=== PATIENT | female | born 2000 | race Caucasian/White ===

== ENCOUNTER 2022-11-18 12:45 | Outpatient (OUT) | payer OTHER, SELFPAY ==
[2022-11-18 13:26] LABS: Basophils Absolute Auto 0.1 10^3/uL (0.0-0.1); Basophils Percent Auto 0.6 % (0.2-2.0); Eosinophils Absolute Auto 0.1 10^3/uL (0.0-0.7); Eosinophils Percent Auto 0.9 % (0.9-7.0); Hematocrit 43.5 % (36.0-48.0); Hemoglobin 13.8 g/dL (12.0-16.0); Immature Granulocytes Abs Auto 0.02 10^3/uL (0.00-0.03); Immature Granulocytes Pct Auto 0.3 % (0.0-0.5); Lymphocytes Absolute Auto 2.8 10^3/uL (1.2-3.8); Lymphocytes Percent Auto 36.4 % (20.5-60.0); Mean Corpuscular HGB Conc 31.7 g/dL (29.9-35.2); Mean Corpuscular Hemoglobin 27.2 pg (26.7-34.0); Mean Corpuscular Volume 85.8 fL (81.0-99.0); Mean Platelet Volume 9.4 fL (9.5-13.5); Monocytes Absolute Auto 0.5 10^3/uL (0.3-0.8); Monocytes Percent Auto 6.2 % (1.7-12.0); Neutrophils Absolute Auto 4.3 10^3/uL (1.4-6.5); Neutrophils Percent Auto 55.6 % (43.0-75.0); Platelet Count 432 10^3/uL (150-450); Red Blood Count 5.07 10^6/uL (4.20-5.40); Red Cell Distribution Width 13.8 % (11.0-15.0); White Blood Count 7.7 10^3/uL (4.0-11.0)
[2022-11-18 13:53] LABS: Estimated Average Glucose 94 mg/dL; Glycohemoglobin A1C 4.9 % (4.5-6.2)
[2022-11-18 14:16] LABS: Alanine Aminotransferase 17 U/L (14-59); Albumin Globulin Ratio 0.7; Albumin Level 3.1 g/dL (3.4-5.0); Alkaline Phosphatase 52 U/L (46-116); Anion Gap 11.9; Aspartate Amino Transferase 13 U/L (15-37); BUN Creatinine Ratio 11.2; Bilirubin Total 0.2 mg/dL (0.2-1.0); Calcium 8.9 mg/dL (8.5-10.1); Carbon Dioxide 28.1 mmol/L (21.0-32.0); Chloride 104 mmol/L (98-107); Chol HDL Ratio 4.8; Cholesterol 197 mg/dL (<=200); Estimated GFR (African America >60 (>=60); Estimated GFR (Non-African Ame >60 (>=60); Globulin 4.4 g/dL; Glucose 78 mg/dL (74-106); HDL Cholesterol 41 mg/dL (40-60); LDL Cholesterol Calculated 133.8 mg/dL; Sodium 140 mmol/L (136-145); Thyroid Stimulating Hormone 2.173 uIU/mL (0.358-3.740); Total Protein 7.5 g/dL (6.4-8.2); Triglycerides 111 mg/dL (<=150); VLDL CHOLESTEROL 22.2 mg/dL
== END 2022-11-18 12:46 ==
PROVIDERS: PCP Family Medicine; Visit Provider Family Medicine
DX: Z00.00 Encounter for general adult medical examination without abnormal findings (principal); R53.83 Other fatigue; E11.9 Type 2 diabetes mellitus without complications; Z79.899 Other long term (current) drug therapy
CPT/HCPCS: 36415; 80053; 80061; 83036; 84436; 84443; 84481; 85025

== ENCOUNTER 2024-06-23 14:42 | Outpatient (OUT) | payer OTHER, SELFPAY ==
--- NOTE | 2024-06-23 14:56 | XR_ITS ---
The [place] [id number] Patient Name: PURVI DEE MRN: [id number] date: 2000 Sex: F Assigned Patient Location: LAB Current Patient Location: Accession/Order Number: [id number] Exam Date: 06/23/2024 15:02 Report Date: 06/24/2024 07:16 At the request of: CAMILLE ENGLE Procedure: XR lumbar spine min 4V EXAMINATION: XR lumbar spine min 4V HISTORY: low back pain M54. COMPARISON: No relevant comparison available. FINDINGS: BONES: Normal. No significant spondylosis, scoliosis, fracture, or visible bony lesion. DISC SPACES: Normal. No significant disc height narrowing, subluxation, or endplate abnormality. PARASPINOUS: Negative. No paraspinous abnormality is seen. OTHER: Negative. XR/XR lumbar spine min 4V IMPRESSION: No acute radiographic abnormality Electronically authenticated by: RUBEN MACIAS Date: 06/24/2024 07:16
[2024-06-23 14:58] LABS: Basophils Percent Auto 0.4 % (0.2-2.0); Eosinophils Absolute Auto 0.1 10^3/uL (0.0-0.7); Eosinophils Percent Auto 0.8 % (0.9-7.0); Hematocrit 42.2 % (36.0-48.0); Hemoglobin 13.2 g/dL (12.0-16.0); Immature Granulocytes Abs Auto 0.02 10^3/uL (0.00-0.03); Immature Granulocytes Pct Auto 0.2 % (0.0-0.5); Lymphocytes Absolute Auto 2.4 10^3/uL (1.2-3.8); Mean Corpuscular HGB Conc 31.3 g/dL (29.9-35.2); Mean Corpuscular Hemoglobin 26.8 pg (26.7-34.0); Mean Corpuscular Volume 85.8 fL (81.0-99.0); Mean Platelet Volume 8.9 fL (9.5-13.5); Monocytes Absolute Auto 0.6 10^3/uL (0.3-0.8); Monocytes Percent Auto 5.6 % (1.7-12.0); Neutrophils Absolute Auto 6.6 10^3/uL (1.4-6.5); Platelet Count 418 10^3/uL (150-450); Red Blood Count 4.92 10^6/uL (4.20-5.40); Red Cell Distribution Width 13.2 % (11.0-15.0); White Blood Count 9.8 10^3/uL (4.0-11.0)
[2024-06-23 15:16] LABS: Estimated Average Glucose 103 mg/dL; Glycohemoglobin A1C 5.2 % (4.5-6.2)
[2024-06-23 15:31] LABS: Alanine Aminotransferase 16 U/L (14-59); Albumin Globulin Ratio 0.7; Alkaline Phosphatase 49 U/L (46-116); Anion Gap 12.8; Aspartate Amino Transferase 9 U/L (15-37); BUN Creatinine Ratio 13.2; Bilirubin Total 0.3 mg/dL (0.2-1.0); Calcium 8.6 mg/dL (8.5-10.1); Carbon Dioxide 27.9 mmol/L (21.0-32.0); Chloride 105 mmol/L (98-107); Chol HDL Ratio 4.2; Cholesterol 199 mg/dL (<=200); Estimated GFR (African America >60 (>=60 mL/min/1.73m^2); Estimated GFR (Non-African Ame >60 (>=60 mL/min/1.73m^2); Free T3 2.44 pg/mL (2.18-3.98); Globulin 4.4 g/dL; Glucose 75 mg/dL (74-106); HDL Cholesterol 47 mg/dL (40-60); Potassium 3.7 mmol/L (3.5-5.1); Sodium 142 mmol/L (136-145); Thyroid Stimulating Hormone 1.258 uIU/mL (0.358-3.740); Total Protein 7.4 g/dL (6.4-8.2); Triglycerides 110 mg/dL (<=150)
[2024-06-24 08:12] LABS: Insulin 19.2 uIU/mL (2.6-24.9)
== END 2024-06-23 14:43 | disposition home or self-care (01) ==
PROVIDERS: PCP Family Medicine; Visit Provider Family Medicine
DX: D72.829 Elevated white blood cell count, unspecified (principal); R00.2 Palpitations; E28.2 Polycystic ovarian syndrome; R05.3 Chronic cough; E78.5 Hyperlipidemia, unspecified; R53.83 Other fatigue; R73.09 Other abnormal glucose; I10 Essential (primary) hypertension; D64.9 Anemia, unspecified; E03.9 Hypothyroidism, unspecified; M54.50 Low back pain, unspecified
CPT/HCPCS: 36415; 72110; 80053; 80061; 83036; 83525; 83540; 84436; 84443; 84481; 85025

== ENCOUNTER 2024-06-25 09:50 | Outpatient (RCR) | payer OTHER, SELFPAY | END 2024-07-14 08:07 | disposition home or self-care (01) | LOC: PT 09:50 | PROVIDERS: PCP Family Medicine; Visit Provider Family Medicine | DX: M54.50 Low back pain, unspecified (principal) | CPT/HCPCS: 97035; 97110; 97140; 97161 ==

== ENCOUNTER 2024-06-28 14:57 | Outpatient (OUT) | payer OTHER, SELFPAY ==
--- NOTE | 2024-06-28 14:59 | US_ITS ---
The [address] [address] Patient Name: PURVI DEE MRN: [id number] date: 2000 Sex: F Assigned Patient Location: Current Patient Location: Accession/Order Number: [id number] Exam Date: 06/28/2024 15:00 Report Date: 06/29/2024 07:25 At the request of: CAMILLE ENGLE Procedure: US pelvis w/ transvaginal EXAM: US pelvis w/ transvaginal HISTORY: . Polycystic Ovarian Syndrome . COMPARISON: None. TECHNIQUE: Transabdominal and transvaginal scanning was performed FINDINGS: Scanning of the pelvis demonstrates a retroverted uterus measuring 6.1 x 4 x 4.8 cm. Endometrial complex measures 6 mm. Right ovary measures 2 x 1.5 x 1.4 cm. Color-flow is noted. Resistive indexes 0.36. No masses are noted. There are a couple follicles noted within the right ovary. Left ovary measures 1.6 x 1.8 x 1.3 cm. Color-flow is noted. Resistive indexes 0.56. Small follicles are noted. There is a 1.4 x 1 cm dominant follicle/simple cysts within the left ovary. No fluid is noted in the cul-de-sac. US/US pelvis w/ transvaginal IMPRESSION: 1. Normal-appearing retroverted uterus and normal endometrial complex. 2. Normal right ovary. 3. 1.4 x 1 cm simple cyst versus dominant follicle in the left ovary. Electronically authenticated by: RUBEN TOLENTINO Date: 06/29/2024 07:25
--- OUTSIDE RECORDS SUMMARY | 2024-06-28 15:03 | XMS_ITS | CCD ---
Author Organization [facility] Care Team Providers Care Yard Coupler Name Role Phone KRYSTAL NICOLAS Admitting Unavailable KRYSTAL NICOLAS Attending Unavailable ONIEL, DR OBRIEN Primary Care Unavailable KRYSTAL NICOLAS Consulting Unavailable ONIEL, DR OBRIEN Admitting Unavailable ONIEL, DR OBRIEN Attending Unavailable ONIEL, DR OBRIEN Primary Care Unavailable ONIEL, DR OBRIEN Consulting Unavailable ONIEL, DR OBRIEN Admitting Unavailable ONIEL, DR OBRIEN Attending Unavailable ONIEL, DR OBRIEN Primary Care Unavailable ONIEL, DR OBRIEN Consulting Unavailable ONIEL, DR OBRIEN Admitting Unavailable ONIEL, DR OBRIEN Attending Unavailable ONIEL, DR OBRIEN Primary Care Unavailable ONIEL, DR OBRIEN Consulting Unavailable JOHANA, FELY Referring Unavailable CAMILLE GARCES Primary Care Unavailable Medications Current Medications Medication Drug Class(es) Dates Sig (Normalized) Sig (Original) 12 hr buPROPion hydrochloride 150 mg extended release oral tablet (1 source) Aminoketone Start: 06-18-2024 take 1 tablet by mouth every twenty-four hours Bupropion Hcl 150 mg tablet extended release 24 hr Active MG PO June 18, 2024 12:00am cyclobenzaprine hydrochloride 10 mg oral tablet (1 source) Muscle Relaxant Start: 06-18-2024 take 1 tablet by mouth three times daily as needed for muscle spasms Cyclobenzaprine 10 mg tablet Active 10 MG PO Three times daily as needed for muscle spasm 15 5 June 18, 2024 12:00am Levonorgestrel-Ethiny l Estrad (1 source) Progestin, Estrogen, Progestin-contain ing Intrauterine Device Start: 06-18-2024 take 1 tablet by mouth every month Levonorgestrel-Ethin yl Estrad (Setlakin) 0.15 mg-30 mcg (91) tablets,dose pack,3 month Active TAB PO June 18, 2024 12:00am metFORMIN hydrochloride 500 mg oral tablet (1 source) Biguanide Start: 06-18-2024 Metformin 500 mg tablet Active MG PO June 18, 2024 12:00am naproxen 500 mg oral tablet (1 source) Nonsteroidal Anti-inflammatory Drug Start: 06-18-2024 take 1 tablet by mouth twice daily as needed for pain Naproxen 500 mg tablet Active 500 MG PO Twice daily as needed for pain 30 15 June 18, 2024 12:00am omeprazole 40 mg delayed release oral capsule (1 source) Proton Pump Inhibitor Start: 06-18-2024 Omeprazole 40 mg capsule,delayed release(DR/EC) Active MG PO June 18, 2024 12:00am Problems Active Problems Problem Classification Problem Date Documented Date Episodic/Chronic Anxiety disorders (1 source) Anxiety; Translations: [Anxiety disorder, unspecified] 06-18-2024 Chronic Conditions associated with dizziness or vertigo (1 source) Dizziness and giddiness; Translations: [Dizziness and giddiness] Onset: 08-07-2023 Episodic Esophageal disorders (1 source) Gastroesophageal reflux disease; Translations: [Gastro-esophageal reflux disease without esophagitis] 06-18-2024 Chronic Malaise and fatigue (1 source) Other fatigue; Translations: [Other fatigue] Onset: 08-07-2023 Episodic Mood disorders (1 source) Depressive disorder; Translations: [Depression] 06-18-2024 Chronic Other endocrine disorders (1 source) Polycystic ovary syndrome; Translations: [Polycystic ovarian syndrome] 06-18-2024 Chronic Sprains and strains (2 sources) Low back strain; Translations: [Strain of muscle, fascia and tendon of lower back, initial encounter] 06-18-2024 Episodic Unclassified (1 source) CONTACT W/AND (SUSP) EXPOS COVID-19; Translations: [CONTACT W/AND (SUSP) EXPOS COVID-19] Onset: 11-19-2021 Unclassified (3 sources) COUGH, UNSPECIFIED; Translations: [COUGH, UNSPECIFIED] Onset: 11-19-2021 Past or Other Problems Problem Classification Problem Date Documented Da te Episodic/Chronic Other upper respiratory infections (4 sources) Acute sinusitis, unspecified; Translations: [ACUTE SINUSITIS UNSPECIFIED] Onset: 09-20-2021 Episodic Unclassified (1 source) COUGH, UNSPECIFIED; Translations: [COUGH, UNSPECIFIED] Onset: 11-13-2021 Results Test Name Value Interpretation Reference Range Facility COMPLETE BLOOD COUNTon 08-07 Erythrocyte distribution width (RBC) [Ratio] 13.9 % Normal 11.5-15.0 [facility] Comment on above: Performed By: #### C BC, CMP, THYR, 16952-4 #### [facility] ([id number]) [address], [facility] [address] [place] [address] Hematocrit (Bld) [Volume fraction] 39.2 % Normal 35-47 [facility] Comment on above: Performed By: #### C BC, CMP, THYR, 58294-5 #### [facility] ([id number]) [address], [facility] [address] [place] [address] Hemoglobin (Bld) [Mass/Vol] 13.4 g/dL Normal 11.7-15.5 [facility] Comment on above: Performed By: #### C BC, CMP, THYR, 76133-9 #### [facility] ([id number]) [address], [facility] [address] [place] [address] MCH (RBC) [Entitic mass] 28.5 pg Normal 27-34 [facility] Comment on above: Performed By: #### C BC, CMP, THYR, 61825-5 #### [facility] ([id number]) [address], [facility] [address] [place] [address] MCHC (RBC) [Mass/Vol] 34.1 g/dL Normal 32-36 [facility] Comment on above: Performed By: #### C BC, CMP, THYR, 62725-4 #### [facility] ([id number]) [address] [address] [place] [address] MCV (RBC) [Entitic vol] 84 fL Normal 80-100 [facility] Comment on above: Performed By: #### C BC, CMP, THYR, 80025-8 #### [facility] ([id number]) [address], [address] [place] [address] Platelet mean volume (Bld) [Entitic vol] 8.1 fL Normal 7-12 [facility] Comment on above: Performed By: #### C BC, CMP, THYR, 56334-5 #### [facility] ([id number]) [address] [address] [place] [address] Platelets (Bld) [#/Vol] 418 10*3/uL Normal 150-450 [facility] Comment on above: Performed By: #### C BC, CMP, THYR, 89438-0 #### [facility] ([id number]) [address], [address] [place] [address] RBC COUNT 4.68 X10E12/L Normal 3.80-5.20 [facility] Comment on above: Performed By: #### C BC, CMP, THYR, 58975-1 #### [facility] ([id number]) [address] [address] [place] [address] WBC (Bld) [#/Vol] 9.2 10*3/uL Normal 4.0-11.0 [facility] Comment on above: Performed By: #### C BC, CMP, THYR, 73943-6 #### [facility] ([id number]) [address], [address] [place] [address] COMPREHENSIVE METABOLIC PANE Main 08-07-2023 Albumin [Mass/Vol] 4.1 g/dL Normal 3.2-5.3 [facility] Comment on above: Performed By: #### C BC, CMP, THYR, 38153-7 #### [facility] ([id number]) [address], [address] [place] [address] ALP [Catalytic activity/Vol] 44 U/L Normal 39-130 [facility] Comment on above: Performed By: #### C BC, CMP, THYR, 80492-2 #### [facility] ([id number]) [address], [address] [place] [address] ALT [Catalytic activity/Vol] 10 U/L Normal 0-31 [facility] Comment on above: Performed By: #### C BC, CMP, THYR, 42430-2 #### [facility] ([id number]) [address], [address] [place] [address] Anion gap [Moles/Vol] 12 mmol/L Normal 5-15 [facility] Comment on above: Performed By: #### C BC, CMP, THYR, 64300-2 #### [facility] ([id number]) [address], [address] [place] [address] AST [Catalytic activity/Vol] 11 U/L Normal 0-41 [facility] Comment on above: Performed By: #### C BC, CMP, THYR, 73824-2 #### [facility] ([id number]) [address], [address] [place] [address] Bilirubin [Mass/Vol] 0.3 mg/dL Normal 0.3-1.2 [facility] Comment on above: Performed By: #### C BC, CMP, THYR, 73903-0 #### [facility] ([id number]) [address], [address] [place] [address] Calcium [Mass/Vol] 8.9 mg/dL Normal 8.5-10.5 [facility] Comment on above: Performed By: #### C BC, CMP, THYR, 06560-7 #### [facility] ([id number]) [address], [address] [place] [address] Chloride [Moles/Vol] 102 mmol/L Normal 98-109 [facility] Comment on above: Performed By: #### C BC, CMP, THYR, 71048-6 #### [facility] ([id number]) [address], [address] [place] [address] CO2 [Moles/Vol] 26 mmol/L Normal 22-32 [facility] Comment on above: Performed By: #### C BC, CMP, THYR, 40392-7 #### [facility] ([id number]) [address], [address] [place] [address] Creatinine [Mass/Vol] 0.91 mg/dL Normal 0.40-1.00 [facility] Comment on above: Result Comment: METH OD TRACEABLE TO IDMS STANDARD Performed By: #### C BC, CMP, THYR, 90652-9 #### [facility] ([id number]) [address], [address] [place] [address] eGFR (CKD-EPI) NON-RACE DEPENDENT >90 Normal >59 [facility] Comment on above: Result Comment: Reported eGFR is based on the CKD-EPI 2020 equation that does not use a race coefficient. Performed By: #### C BC, CMP, THYR, 98423-0 #### [facility] ([id number]) [address], [address] [place] [address] Glucose [Mass/Vol] 75 mg/dL Normal 65-99 [facility] Comment on above: Performed By: #### C BC, CMP, THYR, 66904-3 #### [facility] ([id number]) [address], [address] [place] [address] Potassium [Moles/Vol] 3.8 mmol/L Normal 3.5-5.0 [facility] Comment on above: Performed By: #### C BC, CMP, THYR, 74678-8 #### [facility] ([id number]) [address] [address] [place] [address] Protein [Mass/Vol] 7.5 g/dL Normal 6.0-8.0 [facility] Comment on above: Performed By: #### C BC, CMP, THYR, 65362-5 #### [facility] ([id number]) [address], [address] [place] [address] Sodium [Moles/Vol] 140 mmol/L Normal 134-146 [facility] Comment on above: Performed By: #### C BC, CMP, THYR, 91065-3 #### [facility] ([id number]) [address], [address] [place] [address] Urea nitrogen [Mass/Vol] 10 mg/dL Normal 5-23 [facility] Comment on above: Performed By: #### C BC, CMP, THYR, 68703-3 #### [facility] ([id number]) [address], [address] [place] [address] THYROID PROFILEon 08-07-2023 Free T4 [Mass/Vol] 0.69 ng/dL Normal 0.61-1.60 [facility] Comment on above: Performed By: #### C BC, CMP, THYR, 63345-9 #### [facility] ([id number]) [address], [address] [place] [address] TSH 2.78 uIU/mL Normal 0.49-4.67 [facility] Comment on above: Performed By: #### C BC, CMP, THYR, 30474-7 #### [facility] ([id number]) [address], [address] [place] [address] Vitamin D+Metabolites [Mass/ Vol]on 08-07-2023 VITAMIN D 25 HYD TOT 15.7 ng/mL Low 30-100 [facility] Comment on above: Result Comment: Vitamin D status 25 [place] Vitamin D Deficiency <20 ng/mL Insufficiency 20-29 ng/mL Sufficiency 30-100 ng/mL Toxicity >100 ng/mL NOTE: A pediatric reference range has not been established by the air hose coupler of this kit. The [place] [employer] recommends a Vitamin D level of = or >20ng/mL in infants and children. Performed By: #### C BC, CMP, THYR, 24142-1 #### [facility] ([id number]) [address] [facility], [address] [place] [address] Covid-19 PCR (CVDTB)on 05-18 SARS-CoV-2 (COVID-19) RNA ALESSANDRA+probe Ql (Unsp spec) Not detected Normal NOT DETECTED The Comment on above: Result Comment: This test is not yet approved or cleared by the [place] FDA. When there are no FDA-approved or cleared tests available, and other criteria are met, FDA can make tests available under an emergency access mechanism called an Emergency Use Authorization (EUA). The EUA for this test is supported by the [place] of Health and Human Service's (HHS's) declaration that circumstances exist to justify the emergency use of in vitro diagnostics for the detection and/or diagnosis of the virus that causes COVID-19. This EUA will remain in effect (meaning this test can be used) for the duration of the COVID-19 declaration justifying emergency of IVDs, unless it is terminated or revoked by FDA (after which the test may no longer be used). When diagnostic testing is negative, the possibility of a false negative should be considered in the context of a patient's recent exposures and the presence of clinical signs and symptoms consistent with SARS-CoV-2. Performed By: #### C VDTBH #### Laboratory [address] [place] [address] Dr. Kacie Mirza INFLUENZA A AND B AGon 06-14 INFLUANE SEE BELOW Normal [facility] Comment on above: Result Comment: Nega tive for Flu A protein angiten. Infection due to Flu A cannot be ruled out. Flu A angiten in the sample may be below the detection limit of the test. Performed By: #### I NFLUAB #### Laboratory [address] [address] [address] Kacie Mirza INFLUBNEG SEE BELOW Normal [facility] Comment on above: Result Comment: Nega tive for Flu B protein antigen. Infection due to Flu B cannot be ruled out. Flu B antigen in the sample may be below the detection limit of the test. Performed By: #### I NFLUAB #### Laboratory [address] [place] [address] Dr. Kacie Mirza INFLUENZA A AG Negative Normal NEGATIVE SEE COMMENT The Comment on above: Performed By: #### I NFLUAB #### Laboratory [address] [place] [address] Dr. Kacie Mirza INFLUENZA B AG Negative Normal NEGATIVE SEE COMMENT The Comment on above: Performed By: #### I NFLUAB #### Laboratory [address] [place] [address] Dr. Kacie Mirza Covid-19 PCR (CVDTB)on 10-16 SARS-CoV-2 (COVID-19) RNA ALESSANDRA+probe Ql (Unsp spec) Not detected Normal NOT DETECTED The Comment on above: Result Comment: This test is not yet approved or cleared by the [place] FDA. When there are no FDA-approved or cleared tests available, and other criteria are met, FDA can make tests available under an emergency access mechanism called an Emergency Use Authorization (EUA). The EUA for this test is supported by the [place] of Health and Human Service's (HHS's) declaration that circumstances exist to justify the emergency use of in vitro diagnostics for the detection and/or diagnosis of the virus that causes COVID-19. This EUA will remain in effect (meaning this test can be used) for the duration of the COVID-19 declaration justifying emergency of IVDs, unless it is terminated or revoked by FDA (after which the test may no longer be used). When diagnostic testing is negative, the possibility of a false negative should be considered in the context of a patient's recent exposures and the presence of clinical signs and symptoms consistent with SARS-CoV-2. Performed By: #### C VDTBH #### Laboratory [address] [place] [address] Dr. Kacie Mirza SYMPTOMATIC COVID-19 ANTIGEN on 11-13-2021 EUA Statement SEE BELOW Normal [facility] Comment on above: Result Comment: This test has not been FDA cleared or approved, but has been authorized by the FDA under an Emergency Use Authorization (EUA) for use by authorized laboratories certified under CLIA that meet the requirements to perform moderate or high complexity testing. This test has been authorized only for the detection of proteins from SARS-CoV-2, not for any other viruses or pathogens. The emergency use of this test is authorized for the duration of the declaration that circumstances exist justifying the authorization of emergency use of in vitro diagnostic tests for detection and/or diagnosis of Covid-19 under section 564(b)(1) of the Act, 21 U.S.C. 360bbb-3(b)(1), unless the declaration is terminated or authorization is revoked sooner. Performed By: #### C VDAGS #### Laboratory [address] [place] [address] Dr. Kacie Mirza SARS-CoV-2 (COVID-19) RNA ALESSANDRA+probe Ql (Unsp spec) Negative Normal NEGATIVE [facility] Comment on above: Performed By: #### C VDAGS #### Laboratory [address] [place] [address] Dr. Kacie Mirza INSULINon 10-19-2021 Insulin 36.4 uIU/mL Critically high 2.6-24.9 [facility] Comment on above: Performed By: #### I NSULIN #### Laboratory [address] [place] [address] Dr. Kacie Mirza CBC AUTO DIFFon 10-18-2021 BASO # 0.1 103/ul Normal 0.0-0.1 [facility] Comment on above: Performed By: #### L IPID, T7, CMP, TSH #### Laboratory [address] [place] [address] Dr. Kacie Mirza Basophils/100 WBC (Bld) 0.6 % Normal 0.2-2.0 [facility] Comment on above: Performed By: #### L IPID, T7, CMP, TSH #### Laboratory [address] [place] [address] Dr. Kacie Mirza EO # 0.1 103/ul Normal 0.0-0.7 The Comment on above: Performed By: #### L IPID, T7, CMP, TSH #### Laboratory [address] [place] [address] Dr. Kacie Mirza Eosinophils/100 WBC (Bld) 0.8 % Critically low 0.9-7.0 [facility] Comment on above: Performed By: #### L IPID, T7, CMP, TSH #### Laboratory [address] [place] [address] Dr. Kacie Mirza Erythrocyte distribution width (RBC) [Ratio] 13.6 % Normal 11.0-15.0 The Comment on above: Performed By: #### L IPID, T7, CMP, TSH #### Laboratory [address] [place] [address] Dr. Kacie Mirza Hematocrit (Bld) [Volume fraction] 43.9 % Normal 36.0-48.0 The Comment on above: Performed By: #### L IPID, T7, CMP, TSH #### Laboratory [address] [place] [address] Dr. Kacie Mirza Hemoglobin (Bld) [Mass/Vol] 14.2 g/dL Normal 12.0-16.0 [facility] Comment on above: Performed By: #### L IPID, T7, CMP, TSH #### Laboratory [address] [place] [address] Dr. Kacie Mirza IG # 0.02 10e3/ul Normal 0.00-0.03 The Comment on above: Performed By: #### L IPID, T7, CMP, TSH #### Laboratory [address] [place] [address] Dr. Kacie Mirza IG % 0.2 % Normal 0.0-0.5 The Comment on above: Performed By: #### L IPID, T7, CMP, TSH #### Laboratory [address] [place] [address] Dr. Kacie Mirza LYMPH # 3.4 103/ul Normal 1.2-3.8 The Comment on above: Performed By: #### L IPID, T7, CMP, TSH #### Laboratory [address] [address] [address] Kacie Mirza Lymphocytes/100 WBC (Bld) 34.1 % Normal 20.5-60.0 [facility] Comment on above: Performed By: #### L IPID, T7, CMP, TSH #### Laboratory [address] [address] [address] Kacie Mirza MANUAL DIFF REQ NO Normal [facility] Comment on above: Performed By: #### L IPID, T7, CMP, TSH #### Laboratory [address] [address] [address] Kacie Mirza MCH (RBC) [Entitic mass] 28.1 pg Normal 26.7-34.0 [facility] Comment on above: Performed By: #### L IPID, T7, CMP, TSH #### Laboratory [address] [place] [address] Dr. Kacie Mirza MCHC (RBC) [Mass/Vol] 32.3 g/dL Normal 29.9-35.2 The Comment on above: Performed By: #### L IPID, T7, CMP, TSH #### Laboratory [address] [place] [address] Dr. Kacie Mirza MCV (RBC) [Entitic vol] 86.8 fL Normal 81.0-99.0 [facility] Comment on above: Performed By: #### L IPID, T7, CMP, TSH #### Laboratory [address] [place] [address] Dr. Kacie Mirza MONO # 0.7 103/ul Normal 0.3-0.8 [facility] Comment on above: Performed By: #### L IPID, T7, CMP, TSH #### Laboratory [address] [place] [address] Dr. Kacie Mirza Monocytes/100 WBC (Bld) 7.1 % Normal 1.7-12.0 [facility] Comment on above: Performed By: #### L IPID, T7, CMP, TSH #### Laboratory [address] [address] [address] Kacie Mirza NEUT # 5.6 103/ul Normal 1.4-6.5 The Comment on above: Performed By: #### L IPID, T7, CMP, TSH #### Laboratory [address] [address] [address] Kacie Mirza Neutrophils/100 WBC (Bld) 57.2 % Normal 43.0-75.0 The Comment on above: Performed By: #### L IPID, T7, CMP, TSH #### Laboratory [address] [address] [address] Kacie Mirza Platelet mean volume (Bld) [Entitic vol] 8.9 fL Critically low 9.5-13.5 [facility] Comment on above: Performed By: #### L IPID, T7, CMP, TSH #### Laboratory [address] [address] [address] Kacie Mirza PLT 424 103/ul Normal 150-450 The Comment on above: Performed By: #### L IPID, T7, CMP, TSH #### Laboratory [address] [address] [address] Kacie Mirza RBC 5.06 106/ul Normal 4.20-5.40 The Comment on above: Performed By: #### L IPID, T7, CMP, TSH #### Laboratory [address] [address] [address] Kacie Mirza WBC 9.8 103/ul Normal 4.0-11.0 The Comment on above: Performed By: #### L IPID, T7, CMP, TSH #### Laboratory [address] [address] [address] Kacie Mirza FREE THYROXINE INDEX T7on FTI 3.16 Normal [facility] Comment on above: Performed By: #### L IPID, T7, CMP, TSH #### Laboratory [address] [address] [address] Kacie Mirza T3U 27.0 % Critically low 30.0-39.0 [facility] Comment on above: Performed By: #### L IPID, T7, CMP, TSH #### Laboratory [address] [address] [address] Kacie Mirza T4 [Mass/Vol] 11.70 ug/dL Normal 4.80-13.90 [facility] Comment on above: Performed By: #### L IPID, T7, CMP, TSH #### Laboratory [address] [address] [address] aKcie Mirza GLYCOHEMOGLOBIN A1Con 2021 ADA RECOMMENDATION SEE BELOW Normal [facility] Comment on above: Result Comment: ADA RECOMMENDED LIMIT 4.0 - 6.0 ADA THERAPEUTIC TARGET < 7.0 ACTION SUGGESTED > 7.0 Performed By: #### L IPID, T7, CMP, TSH #### Laboratory [address] [place] [address] Dr. Kacie Mirza Glucose [Mass/Vol] 103 mg/dL Normal [facility] Comment on above: Performed By: #### L IPID, T7, CMP, TSH #### Laboratory [address] [place] [address] Dr. Kacie Mirza HbA1c (Bld) [Mass fraction] 5.2 % Normal 4.5-6.2 [facility] Comment on above: Performed By: #### L IPID, T7, CMP, TSH #### Laboratory [address] [address] [address] Kacie Mirza LIPID PROFILEon 10-18-2021 CHOL-HDL RATIO NORM SEE BELOW Normal [facility] Comment on above: Result Comment: 3.3 - 4.4 LOW RISK 4.4 - 7.1 AVERAGE RISK 7.1 - 11.0 MODERATE RISK >11.0 HIGH RISK Performed By: #### L IPID, T7, CMP, TSH #### Laboratory [address] [place] [address] Dr. Kacie Mirza Cholesterol [Mass/Vol] 195 mg/dL Normal <=200 [facility] Comment on above: Performed By: #### L IPID, T7, CMP, TSH #### Laboratory [address] [address] [address] Kacie Mirza Cholesterol in HDL [Mass/Vol] 43 mg/dL Normal 40-60 [facility] Comment on above: Performed By: #### L IPID, T7, CMP, TSH #### Laboratory [address] [address] [address] Kacie Mirza Cholesterol in LDL [Mass/Vol] 122.6 mg/dL Normal [facility] Comment on above: Performed By: #### L IPID, T7, CMP, TSH #### Laboratory [address] [address] [address] Kacie Mirza Cholesterol.total/Cho lesterol in HDL [Mass ratio] 4.5 {ratio} Normal [facility] Comment on above: Performed By: #### L IPID, T7, CMP, TSH #### Laboratory [address] [address] [address] Kacie Mirza HDL NORMAL > or = 60 mg/dl - LOW CARDIOVASCULAR RISK <40 mg/dl - HIGH CARDIOVASCULAR RISK Normal [facility] Comment on above: Performed By: #### L IPID, T7, CMP, TSH #### Laboratory [address] [address] [address] Kacie Mirza LDL CALC NORMAL SEE BELOW Normal [facility] Comment on above: Result Comment: <100 mg/dl OPTIMAL 100 - 129 mg/dl NEAR OR ABOVE OPTIMAL 130 - 159 mg/dl BORDERLINE HIGH 160 - 189 mg/dl HIGH >190 mg/dl VERY HIGH Performed By: #### L IPID, T7, CMP, TSH #### Laboratory [address] [address] [address] Kacie Mirza Triglyceride [Mass/Vol] 147 mg/dL Normal <=150 The Comment on above: Performed By: #### L IPID, T7, CMP, TSH #### Laboratory [address] [address] [address] Kacie Mirza VLDL CALC 29.4 mg/dL Normal [facility] Comment on above: Performed By: #### L IPID, T7, CMP, TSH #### Laboratory [address] [place] [address] Dr. Kacie Mirza PROF 14(COMP METB)on 022 Albumin [Mass/Vol] 3.5 g/dL Normal 3.4-5.[address] [facility] Comment on above: Performed By: #### L IPID, T7, CMP, TSH #### Laboratory [address] [place] [address] Dr. Kacie Mirza Albumin/Globulin [Mass ratio] 0.8 {ratio} Normal [facility] Comment on above: Performed By: #### L IPID, T7, CMP, TSH #### Laboratory [address] [place] [address] Dr. Kacie Mirza ALP [Catalytic activity/Vol] 55 U/L Normal 46-116 [facility] Comment on above: Performed By: #### L IPID, T7, CMP, TSH #### Laboratory [address] [place] [address] Dr. Kacie Mirza ALT [Catalytic activity/Vol] 24 U/L Normal 14-59 [facility] Comment on above: Performed By: #### L IPID, T7, CMP, TSH #### Laboratory [address] [address] [address] Kacie Mirza Anion gap [Moles/Vol] 9.9 mmol/L Normal [facility] Comment on above: Performed By: #### L IPID, T7, CMP, TSH #### Laboratory [address] [address] [address] Kacie Mirza AST [Catalytic activity/Vol] 14 U/L Critically low 15-37 [facility] Comment on above: Performed By: #### L IPID, T7, CMP, TSH #### Laboratory [address] [address] [address] Kacie Mirza Bilirubin [Mass/Vol] 0.3 mg/dL Normal 0.2-1.0 [facility] Comment on above: Performed By: #### L IPID, T7, CMP, TSH #### Laboratory [address] [address] [address] Kacie Mirza Calcium [Mass/Vol] 8.6 mg/dL Normal 8.5-10.1 [facility] Comment on above: Performed By: #### L IPID, T7, CMP, TSH #### Laboratory [address] [address] [address] Kacie Mirza Chloride [Moles/Vol] 101 mmol/L Normal 98-107 The Comment on above: Performed By: #### L IPID, T7, CMP, TSH #### Laboratory [address] [address] [address] Kacie Mirza CO2 [Moles/Vol] 27.7 mmol/L Normal 21.0-32.0 [facility] Comment on above: Performed By: #### L IPID, T7, CMP, TSH #### Laboratory [address] [place] [address] Dr. Kacie Mirza Creatinine [Mass/Vol] 0.93 mg/dL Normal 0.55-1.02 The Comment on above: Performed By: #### L IPID, T7, CMP, TSH #### Laboratory [address] [address] [address] Kacie Mirza EGFR-AF ECUADOREAN >60 Normal >=60 [facility] Comment on above: Performed By: #### L IPID, T7, CMP, TSH #### Laboratory [address] [address] [address] Kacie Mirza EGFR-NON AF ECUADOREAN >60 Normal >=60 The Comment on above: Performed By: #### L IPID, T7, CMP, TSH #### Laboratory [address] [place] [address] Dr. Kacie Mirza Globulin (S) [Mass/Vol] 4.6 g/dL Normal The Comment on above: Performed By: #### L IPID, T7, CMP, TSH #### Laboratory [address] [address] [address] Kacie Mirza Glucose [Mass/Vol] 75 mg/dL Normal 74-106 [facility] Comment on above: Performed By: #### L IPID, T7, CMP, TSH #### Laboratory [address] [place] [address] Dr. Kacie Mirza Potassium [Moles/Vol] 3.6 mmol/L Normal 3.5-5.1 [facility] Comment on above: Performed By: #### L IPID, T7, CMP, TSH #### Laboratory [address] [place] [address] Dr. Kacie Mirza Protein [Mass/Vol] 8.1 g/dL Normal 6.4-8.[address] [facility] Comment on above: Performed By: #### L IPID, T7, CMP, TSH #### Laboratory [address] [place] [address] Dr. Kacie Mirza Sodium [Moles/Vol] 135 mmol/L Critically low 136-145 [facility] Comment on above: Performed By: #### L IPID, T7, CMP, TSH #### Laboratory [address] [place] [address] Dr. Kacie Mirza Urea nitrogen [Mass/Vol] 8.0 mg/dL Normal 7.0-18.0 [facility] Comment on above: Performed By: #### L IPID, T7, CMP, TSH #### Laboratory [address] [place] [address] Dr. Kacie Mirza Urea nitrogen/Creatinine [Mass ratio] 8.6 mg/mg Normal [facility] Comment on above: Performed By: #### L IPID, T7, CMP, TSH #### Laboratory [address] [place] [address] Dr. Kacie Mirza TSHon 10-18-2021 TSH 2.207 uIU/mL Normal 0.358-3.740 [facility] Comment on above: Performed By: #### L IPID, T7, CMP, TSH #### Laboratory [address] [place] [address] Dr. Kacie Mirza TSH RANGE SEE BELOW Normal [facility] Comment on above: Result Comment: <0.3 4 UIU/ml HYPERTHYROID 0.34-5.60 UIU/ml EUTHYROID >5.60 UIU/ml HYPOTHYROID Performed By: #### L IPID, T7, CMP, TSH #### Laboratory [address] [address] [address] Kacie Mirza Covid-19 PCR ([facility])on SARS-CoV-2 (COVID-19) RNA ALESSANDRA+probe Ql (Unsp spec) Not detected Normal NOT DETECTED The Comment on above: Result Comment: This test is not yet approved or cleared by the [place] FDA. When there are no FDA-approved or cleared tests available, and other criteria are met, FDA can make tests available under an emergency access mechanism called an Emergency Use Authorization (EUA). The EUA for this test is supported by the [place] of Health and Human Service's (HHS's) declaration that circumstances exist to justify the emergency use of in vitro diagnostics for the detection and/or diagnosis of the virus that causes COVID-19. This EUA will remain in effect (meaning this test can be used) for the duration of the COVID-19 declaration justifying emergency of IVDs, unless it is terminated or revoked by FDA (after which the test may no longer be used). When diagnostic testing is negative, the possibility of a false negative should be considered in the context of a patient's recent exposures and the presence of clinical signs and symptoms consistent with SARS-CoV-2. Performed By: #### L IPID, T7, CMP, TSH #### Laboratory [address] [place] [address] Dr. aKcie Mirza INFLUENZA A AND B AGon 09-20 [facility] SEE BELOW Normal [facility] Comment on above: Result Comment: Nega tive for Flu A protein angiten. Infection due to Flu A cannot be ruled out. Flu A angiten in the sample may be below the detection limit of the test. Performed By: #### I NFLUAB #### Laboratory [address] [place] [address] Dr. [facility] Normal [facility] Comment on above: Result Comment: Nega tive for Flu B protein antigen. Infection due to Flu B cannot be ruled out. Flu B antigen in the sample may be below the detection limit of the test. Performed By: #### I NFLUAB #### Laboratory [address] [address] [address] Kacie Mirza INFLUENZA A AG Negative Normal NEGATIVE SEE COMMENT [facility] Comment on above: Performed By: #### I NFLUAB #### Laboratory [address] [address] [address] Kaice Mirza INFLUENZA B AG Negative Normal NEGATIVE SEE COMMENT [facility] Comment on above: Performed By: #### I NFLUAB #### Laboratory [address] [address] [address] Kacie Mirza INTERNAL CONTROLS Within Normal Limits Normal Wi thin Normal Limits The Comment on above: Performed By: #### I NFLUAB #### Laboratory [address] [address] [address] Kacie Mirza Vital Signs Date Time Vital Sign Value Performing Clinician Faci lity 06-18-2024 12:12-0500 Body height 170.18 cm [facility] 06-18-2024 12:12-0500 Body mass index (BMI) [Ratio] 35.2 kg/m2 [facility] 06-18-2024 12:12-0500 Body temperature 98.3 [degF] [facility] 06-18-2024 12:12-0500 Body weight 102.05 kg [facility] 06-18-2024 12:12-0500 Diastolic blood pressure 107 mm[Hg] [facility] 06-18-2024 12:12-0500 Heart rate 110 /min [facility] 06-18-2024 12:12-0500 Respiratory rate 18 /min [facility] 06-18-2024 12:12-0500 SaO2% (BldA) [Mass fraction] 96 % [facility] 06-18-2024 12:12-0500 Systolic blood pressure 157 mm[Hg] [facility] Encounters Encounter Date Encounter Type Care Provider Facility Start: 06-18-2024 End: 06-18-2024 ambulatory [facility] Work Phone: Start: 06-18-2024 End: 06-18-2024 Patient encounter procedure [facility] Work Phone: Start: 08-07-2023 End: 08-08-2023 ambulatory [facility] Start: 06-14-2022 End: 06-14-2022 ambulatory KRYSTAL NICOLAS Facility:[facility] Start: 11-13-2021 End: 11-13-[address] CAMILLE GARCES Facility:[facility] Start: 10-23-2021 Encounter for genera l adult medical examination without abnormal findings DR CAMILLE GARCES [facility] Start: 10-18-2021 End: 10-19-[address] CAMILLE GARCES Facility:[facility] Start: 10-18-2021 End: 10-19-2021 Encounter for general adult medical examination without abnormal findings DR CAMILLE GARCES Facility:[facility] Start: 09-20-2021 End: 09-20-[address] CAMILLE GARCES Facility:[facility] Payers Date Payer Category Payer Unknown [id number] [id number] 1999 Unknown [id number] [id number] [id number] 1999 Unknown [id number] [id number] [id number] 1999 Unknown [id number] 2.16.84 [id number] 1999 Unknown [id number] 2.16.8 [id number] 1959 Unknown [id number] 1959 Unknown [id number] Social History Date Type Detail Facility [facility]: [facility] Start: 06-18-2024 Sex Female (finding) [facility] Start: 2000 Sex Assigned At Female F [facility] Evaluation note Note Date & Type Note Facility Evaluation note Diagnosis Onset Date Resolution Low back strain acute June 182024 11:00am [facility] Work Phone: Summary Purpose Family History Relationship Condition Age at Onset Recorded Date/T clary mother Hypothyroidism Unknown father Diabetes mellitus Unknown Advance Directives Advance Directive Response Recorded Date/ Time Advance Directives No June 18, 2024 10:58am Chief Complaint and Reason for Visit Chief Complaint Admit Date Lower right back pain June 18, 2024 11:00am Reason for Visit Admit Date Low back strain June 18, 2024 11 :00am Additional Source Comments INFORMATION SOURCE (unrecogn ized section and content) DATE CREATED AUTHOR 06/14/2022 [facility] DATE CREATED AUTHOR AUTHOR'S ORGANIZ ATION 08/15/2023 [facility] Care Teams (unrecognized sec tion and content) Team Status: Active Member Role Status Dates Camille Garces MD Primary Care Provider Active Team Status: Inactive Member Role Status Dates Cassie Linda , SAFETY AND SECURITY MANAGER Attending Provider Active Start: June 18, 2024 End: June 18, 2024 Camille Garces MD Primary Care Provider Active Start: June 18, 2024 End: June 18, 2024 Goals (unrecognized section and content) Goals may be documented in a n alternate section FOR RECORDS PERTAINING TO PATIENTS WHO ARE OR HAVE BEEN ENROLLED IN A CHEMICAL DEPENDENCY/SUBSTANCEABUSE PROGRAM, SOME INFORMATION MAY BE OMITTED. This clinical summary was aggregated from multiple sources. Caution should be exercised in using it in the provision of clinical care. This summary normalizes information from multiple sources, and as a consequence, information in this document may materially change the coding, format and clinical context of patient data. In addition, data may be omitted in some cases. CLINICAL DECISIONS SHOULD BE BASED ON THE PRIMARY CLINICAL RECORDS. [employer] provides no warranty or guarantee of the accuracy or completeness of information in this document.
== END 2024-06-28 14:58 | disposition home or self-care (01) ==
LOC: US 14:57
PROVIDERS: PCP Family Medicine; Visit Provider Family Medicine
DX: E28.2 Polycystic ovarian syndrome (principal)
CPT/HCPCS: 76830; 76856

== ENCOUNTER 2024-08-17 10:28 | Emergency (ER) | payer OTHER, SELFPAY ==
[2024-08-17 10:34] VITALS: BP 158/110; PULSE 100; TEMP 37.2; O2SAT 99; BMI 39.2
--- OUTSIDE RECORDS SUMMARY | 2024-08-17 10:34 | XMS_ITS | CCD ---
Author Organization [facility] Care Team Providers Care Medical Record Technician Name Role Phone KRYSTAL NICOLAS Admitting Unavailable KRYSTAL NICOLAS Attending Unavailable ONIEL, DR OBRIEN Primary Care Unavailable KRYSTAL NICOLAS Consulting Unavailable AUBREEY, DR OBRIEN Admitting Unavailable HOY, DR OBRIEN Attending Unavailable AUBREEY, DR OBRIEN Primary Care Unavailable HOY, DR OBRIEN Consulting Unavailable AUBREEY, DR OBRIEN Admitting Unavailable ONIEL, DR OBRIEN Attending Unavailable ONIEL, DR OBRIEN Primary Care Unavailable AUBREEY, DR OBRIEN Consulting Unavailable AUBREEY, DR OBRIEN Admitting Unavailable AUBREEY, DR OBRIEN Attending Unavailable ONIEL, DR OBRIEN Primary Care Unavailable ONIEL, DR OBRIEN Consulting Unavailable JOHANA, FELY Referring Unavailable CAMILLE ENGLE Primary Care Unavailable Camille Engle MD Primary Care Provider BRITTNEY ALMEIDA Attending Unavailable CAMILLE ENGLE Referring Unavailable CAMILLE ENGLE Primary Care Unavailable BRITTNEY ALMEIDA Referring Unavailable CAMILLE ENGLE Primary Care Unavailable Medications Current Medications Medication Drug Class(es) Dates Sig (Normalized) Sig (Original) 12 hr buPROPion hydrochloride 150 mg extended release oral tablet (3 sources) Aminoketone Start: 06-18-2024 take 1 tablet by mouth every twenty-four hours Bupropion Hcl 150 mg tablet extended release 24 hr Active MG PO June 18, 2024 12:00am take 1 tablet by mouth once garth y buPROPion XL (WELLBUTRIN XL) 150 mg 24 hr tablet take 1 tablet by mouth once daily Oral for 30 Days Active cyclobenzaprine hydrochloride 10 mg oral tablet (1 source) Muscle Relaxant Start: 06-18-2024 take 1 tablet by mouth three times daily as needed for muscle spasms Cyclobenzaprine 10 mg tablet Active 10 MG PO Three times daily as needed for muscle spasm 15 5 June 18 2025 12:00am Ethinyl Estradiol / Levonorgestrel (3 sources) Progestin, Estrogen, Progestin-containi ng Intrauterine Device Start: 07-30-2024 SETLAKIN 0.15 mg-30 mcg (91) per tablet 07/30/2024 Active Start: 06-18-2024 take 1 tablet by marcos th every month Levonorgestrel-Ethinyl Estrad (Setlakin) 0.15 mg-30 mcg (91) tablets,dose pack,3 month Active TAB PO June 18, 2024 12:00am metFORMIN hydrochloride 500 mg oral tablet (3 sources) Biguanide Start: 06-18-2024 Metformin 500 mg tablet Active MG PO June 18, 2024 12:00am naproxen 500 mg oral tablet (1 source) Nonsteroidal Anti-inflammatory Drug Start: 06-18-2024 take 1 tablet by mouth twice daily as needed for pain Naproxen 500 mg tablet Active 500 MG PO Twice daily as needed for pain 30 June 18, 2024 12:00am omeprazole 40 mg delayed release oral capsule (3 sources) Proton Pump Inhibitor Start: 06-18-2024 Omeprazole 40 mg capsule,delayed release(DR/EC) Active MG PO June 18, 2024 12:00am triamcinolone acetonide 1 mg/ml topical cream (2 sources) Corticosteroid Start: 08-02-2024 triamcinolone (KENALOG) 0.1 % cream 08/02/2024 Active Problems Active Problems Problem Classification Problem Date Documented Date Episodic/Chronic Abdominal pain (2 sources) Pain in pelvis; Translations: [Pelvic and perineal pain] Onset: 08-05-2024 08-05-2024 Episodic Anxiety disorders (1 source) Anxiety; Translations: [Anxiety disorder, unspecified] 06-18-2024 Chronic Conditions associated with dizziness or vertigo (1 source) Dizziness and giddiness; Translations: [Dizziness and giddiness] Onset: 08-07-2023 Episodic Esophageal disorders (1 source) Gastroesophageal reflux disease; Translations: [Gastro-esophageal reflux disease without esophagitis] 06-18-2024 Chronic Immunizations and screening for infectious disease (3 sources) Patient encounter status; Translations: [Encounter for screening for infections with a predominantly sexual mode of transmission] Onset: 08-05-2024 5 Episodic Malaise and fatigue (1 source) Other fatigue; Translations: [Other fatigue] Onset: 08-07-2023 Episodic Mood disorders (1 source) Depressive disorder; Translations: [Depression] 06-18-2024 Chronic Other endocrine disorders (2 sources) Polycystic ovary syndrome; Translations: [Polycystic ovarian syndrome] 06-18-2024 Chronic Other endocrine disorders (1 source) Polycystic ovarian syndrome; Translations: [Polycystic ovarian syndrome] Onset: 08-05-2024 Chronic Other female genital disorders (1 source) Disorder of uterine cervix; Translations: [Other specified noninflammatory disorders of cervix uteri] 08-05-2024 Episodic Other female genital disorders (1 source) Vaginal discharge; Translations: [Other specified noninflammatory disorders of vagina] 08-05-2024 Episodic Other female genital disorders (2 sources) Other specified noninflammatory disorders of cervix uteri; Translations: [Other specified noninflammatory disorders of cervix uteri] Onset: 08-05-2024 Episodic Other female genital disorders (2 sources) Other specified noninflammatory disorders of vagina; Translations: [Other specified noninflammatory disorders of vagina] Onset: 08-05-2024 Episodic Other screening for suspected conditions (not mental disorders or infectious disease) (3 sources) Cancer cervix screening status; Translations: [Encounter for screening for malignant neoplasm of cervix] Onset: 08-05-2024 08-05-2024 Episodic Sprains and strains (2 sources) Low back [...] Test Name Value Interpretation Reference Range Facility CHLAMYDIA/GC PCR, FLon 08-05 CHLAMYDIA/GC PCR, [place] CHLAMYDIA PCR, [place] Negative (qualifier value) Chlamydia trachomatis not detected by nucleic acid amplification. This does not exclude the possibility of infection because results are dependent on adequate specimen collection. GONORRHOEAE PCR, [place] Negative (qualifier value) Neisseria gonorrhoeae not detected by nucleic acid amplification. This does not exclude the possibility of infection because results are dependent on adequate specimen collection. Normal [facility] Comment on above: Performed By: #### C GTPCR #### [facility] ([id number]) [address], [address] [place] [address] VAGINITIS PANEL PCRon 2024 VAGINITIS PANEL PCR BACT. VAGINOSIS DNA Not detected (qualifier value) Qualitative results are reported based on detection and quantitation of targeted organism markers which include: Lactobacillus spp. (L. crispatus and L. jensenii), Gardnerella vaginalis, Atopobium vaginae, Bacterial Vaginosis Associated Bacteria-2 (BVAB-2) and Megasphaera-1 KELSIE SPECIES DNA Not detected (qualifier value) Kelsie species not detected include: C. albicans, C. tropicalis, C. parapsilosis or C. dubliniensis KELSIE KRUSEI DNA Not detected (qualifier value) No Kelsie krusei detected KELSIE GLABRATA DNA Not detected (qualifier value) No Kelsie glabrata detected TRICHOMONAS VAG DNA Not detected (qualifier value) No Trichomonas vaginalis detected NOTE BD MAX Vaginal Panel has not been evaluated for patients under 18 years old. Results for these patients should be reviewed and assessed in accordance with clinical presentation to determine patient diagnosis. Normal [facility] Comment on above: Performed By: #### V PPCR #### [facility] ([id number]) [address] [place] [address], [address] [place] [address] COMPLETE BLOOD COUNTon 08-07 Erythrocyte distribution width (RBC) [Ratio] 13.9 % Normal 11.5-15.0 [facility] Comment on above: Performed By: #### C BC, CMP, THYR, 90172-9 #### [facility] ([id number]) [address], [address] [place] [address] Hematocrit (Bld) [Volume fraction] 39.2 % Normal 35-47 [facility] Comment on above: Performed By: #### C BC, CMP, THYR, 13509-2 #### [facility] ([id number]) [address], [address] [place] [address] Hemoglobin (Bld) [Mass/Vol] 13.4 g/dL Normal 11.7-15.5 [facility] Comment on above: Performed By: #### C BC, CMP, THYR, 85639-2 #### [facility] ([id number]) [address], [address] [place] [address] MCH (RBC) [Entitic mass] 28.5 pg Normal 27-34 [facility] Comment on above: Performed By: #### C BC, CMP, THYR, 54466-2 #### [facility] ([id number]) [address], [address] [place] [address] MCHC (RBC) [Mass/Vol] 34.1 g/dL Normal 32-36 [facility] Comment on above: Performed By: #### C BC, CMP, THYR, 45625-5 #### [facility] ([id number]) [address], [address] [place] [address] MCV (RBC) [Entitic vol] 84 fL Normal 80-100 [facility] Comment on above: Performed By: #### C BC, CMP, THYR, 75525-9 #### [facility] ([id number]) [address] [place] [address] Platelet mean volume (Bld) [Entitic vol] 8.1 fL Normal 7-12 [facility] Comment on above: Performed By: #### C BC, CMP, THYR, 49416-6 #### [facility] ([id number]) [address], [address] [place] [address] Platelets (Bld) [#/Vol] 418 10*3/uL Normal 150-450 [facility] Comment on above: Performed By: #### C BC, CMP, THYR, 03741-4 #### [facility] ([id number]) [address], [address] [place] [address] RBC COUNT 4.68 X10E12/L Normal 3.80-5.20 [facility] Comment on above: Performed By: #### C BC, CMP, THYR, 46629-7 #### [facility] ([id number]) [address], [address] [place] [address] WBC (Bld) [#/Vol] 9.2 10*3/uL Normal 4.0-11.0 [facility] Comment on above: Performed By: #### C BC, CMP, THYR, 32612-5 #### [facility] ([id number]) [address], [address] [place] [address] COMPREHENSIVE METABOLIC PANE Main 08-07-2023 Albumin [Mass/Vol] 4.1 g/dL Normal 3.2-5.3 [facility] Comment on above: Performed By: #### C BC, CMP, THYR, 32850-1 #### [facility] ([id number]) [address], [address] [place] [address] ALP [Catalytic activity/Vol] 44 U/L Normal 39-130 [facility] Comment on above: Performed By: #### C BC, CMP, THYR, 52371-3 #### [facility] ([id number]) [address], [address] [place] [address] ALT [Catalytic activity/Vol] 10 U/L Normal 0-31 [facility] Comment on above: Performed By: #### C BC, CMP, THYR, 59833-8 #### [facility] ([id number]) [address], [address] [place] [address] Anion gap [Moles/Vol] 12 mmol/L Normal 5-15 [facility] Comment on above: Performed By: #### C BC, CMP, THYR, 98076-0 #### [facility] ([id number]) [address], [address] [place] [address] AST [Catalytic activity/Vol] 11 U/L Normal 0-41 [facility] Comment on above: Performed By: #### C BC, CMP, THYR, 09917-3 #### [facility] ([id number]) [address], [address] [place] [address] Bilirubin [Mass/Vol] 0.3 mg/dL Normal 0.3-1.2 [facility] Comment on above: Performed By: #### C BC, CMP, THYR, 42158-8 #### [facility] ([id number]) [address], [address] [place] [address] Calcium [Mass/Vol] 8.9 mg/dL Normal 8.5-10.5 [facility] Comment on above: Performed By: #### C BC, CMP, THYR, 09957-8 #### [facility] ([id number]) [address], [address] [place] [address] Chloride [Moles/Vol] 102 mmol/L Normal 98-109 [facility] Comment on above: Performed By: #### C BC, CMP, THYR, 31053-0 #### [facility] ([id number]) [address], [address] [place] [address] CO2 [Moles/Vol] 26 mmol/L Normal 22-32 [facility] Comment on above: Performed By: #### C BC, CMP, THYR, 68053-3 #### [facility] ([id number]) [address], [address] [place] [address] Creatinine [Mass/Vol] 0.91 mg/dL Normal 0.40-1.00 [facility] Comment on above: Result Comment: METH OD TRACEABLE TO IDMS STANDARD Performed By: #### C BC, CMP, THYR, 73100-2 #### [facility] ([id number]) [address], [address] [place] [address] eGFR (CKD-EPI) NON-RACE DEPENDENT >90 Normal >59 [facility] Comment on above: Result Comment: Reported eGFR is based on the CKD-EPI 2020 equation that does not use a race coefficient. Performed By: #### C BC, CMP, THYR, 02430-6 #### [facility] ([id number]) [address] [place] [address] Glucose [Mass/Vol] 75 mg/dL Normal 65-99 [facility] Comment on above: Performed By: #### C BC, CMP, THYR, 25876-3 #### [facility] ([id number]) [address] [place] [address] Potassium [Moles/Vol] 3.8 mmol/L Normal 3.5-5.0 [facility] Comment on above: Performed By: #### C BC, CMP, THYR, 29298-5 #### [facility] ([id number]) [address] [place] [address] Protein [Mass/Vol] 7.5 g/dL Normal 6.0-8.0 [facility] Comment on above: Performed By: #### C BC, CMP, THYR, 19902-8 #### [facility] ([id number]) [address] [place] [address] Sodium [Moles/Vol] 140 mmol/L Normal 134-146 [facility] Comment on above: Performed By: #### C BC, CMP, THYR, 69720-3 #### [facility] ([id number]) [address], [address] [place] [address] Urea nitrogen [Mass/Vol] 10 mg/dL Normal 5-23 [facility] Comment on above: Performed By: #### C BC, CMP, THYR, 91569-3 #### [facility] ([id number]) [address], [address] [place] [address] THYROID PROFILEon 08-07-2023 Free T4 [Mass/Vol] 0.69 ng/dL Normal 0.61-1.60 [facility] Comment on above: Performed By: #### C BC, CMP, THYR, 44592-0 #### [facility] ([id number]) [address] [place] [address] TSH 2.78 uIU/mL Normal 0.49-4.67 [facility] Comment on above: Performed By: #### C BC, CMP, THYR, 62414-0 #### [facility] ([id number]) [address] [place] [address] Vitamin D+Metabolites [Mass/ Vol]on 08-07-2023 VITAMIN D 25 HYD TOT 15.7 ng/mL Low 30-100 [facility] Comment on above: Result Comment: Vitamin D status 25 [place] Vitamin D Deficiency <20 ng/mL Insufficiency 20-29 ng/mL Sufficiency 30-100 ng/mL Toxicity >100 ng/mL NOTE: A pediatric reference range has not been established by the pool table mechanic of this kit. The [place] [employer] recommends a Vitamin D level of = or >20ng/mL in infants and children. Performed By: #### C BC, CMP, THYR, 96089-7 #### [facility] ([id number]) [address], [address] [place] [address] Covid-19 PCR (CVDTB)on 05-18 SARS-CoV-2 (COVID-19) RNA ALESSANDRA+probe Ql (Unsp spec) Not detected Normal NOT DETECTED [facility] Comment on above: Result Comment: This test is not yet approved or cleared by the [place] FDA. When there are no FDA-approved or cleared tests available, and other criteria are met, FDA can make tests available under an emergency access mechanism called an Emergency Use Authorization (EUA). The EUA for this test is supported by the [place] of Health and Human Service's (HHS's) declaration [...] SARS-CoV-2. Performed By: #### C VDTBH #### [facility] [address] [place] [address] Dr. Kacie Mirza INFLUENZA A AND B AGon 06-14 [facility] SEE BELOW Normal [facility] Comment on above: Result Comment: Nega tive for Flu A protein angiten. Infection due to Flu A cannot be ruled out. Flu A angiten in the sample may be below the detection limit of the test. Performed By: #### I NFLUAB #### [facility] [address] [place] [address] Dr. [facility] SEE BELOW Normal [facility] Comment on above: Result Comment: Nega tive for Flu B protein antigen. Infection due to Flu B cannot be ruled out. Flu B antigen in the sample may be below the detection limit of the test. Performed By: #### I NFLUAB #### [facility] [address] [place] [address] Dr. Kacie Mirza INFLUENZA A AG Negative Normal NEGATIVE SEE COMMENT [facility] Comment on above: Performed By: #### I NFLUAB #### [facility] [address] [place], [place] [address] Dr. Kacie Mirza INFLUENZA B AG Negative Normal NEGATIVE SEE COMMENT [facility] Comment on above: Performed By: #### I NFLUAB #### [facility] [address] [place], [place] [address] Dr. Kacie Mirza [facility]16 SARS-CoV-2 (COVID-19) RNA ALESSANDRA+probe Ql (Unsp spec) Not detected Normal NOT DETECTED [facility] Comment on above: Result Comment: This test is not yet approved or cleared by the [place] FDA. When there are no FDA-approved or cleared tests available, and other criteria are met, FDA can make tests available under an emergency access mechanism called an Emergency Use Authorization (EUA). The EUA for this test is supported by the [place] of Health and Human Service's (HHS's) declaration [...] SARS-CoV-2. Performed By: #### C VDTBH #### [facility] [address] [place], [place] [address] Dr. Kacie Mirza SYMPTOMATIC COVID-19 ANTIGEN on 11-13-2021 EUA Statement SEE BELOW Normal [facility] Comment on above: Result Comment: This test [...] sooner. Performed By: #### C VDAGS #### [facility] [address] [place] [address] Dr. Kacie Mirza SARS-CoV-2 (COVID-19) RNA ALESSANDRA+probe Ql (Unsp spec) Negative Normal NEGATIVE [facility] Comment on above: Performed By: #### C VDAGS #### [facility] [address] [place] [address] Dr. Kacie Mirza INSULINon 10-19-2021 Insulin 36.4 uIU/mL Critically high 2.6-24.9 [facility] Comment on above: Performed By: #### I NSULIN #### [facility] [address] [place] [address] Dr. Kacie Mirza CBC AUTO DIFFon 10-18-2021 BASO # 0.1 103/ul Normal 0.0-0.1 [facility] Comment on above: Performed By: #### L IPID, T7, CMP, TSH #### [facility] [address] [place] [address] Dr. Kacie Mirza Basophils/100 WBC (Bld) 0.6 % Normal 0.2-2.0 [facility] Comment on above: Performed By: #### L IPID, T7, CMP, TSH #### [facility] [address] [place] [address] Dr. Kacie Mirza EO # 0.1 103/ul Normal 0.0-0.7 [facility] Comment on above: Performed By: #### L IPID, T7, CMP, TSH #### [facility] [address] [place] [address] Dr. Kacie Mirza Eosinophils/100 WBC (Bld) 0.8 % Critically low 0.9-7.0 [facility] Comment on above: Performed By: #### L IPID, T7, CMP, TSH #### [facility] [address] [place] [address] Dr. Kacie Mirza Erythrocyte distribution width (RBC) [Ratio] 13.6 % Normal 11.0-15.0 [facility] Comment on above: Performed By: #### L IPID, T7, CMP, TSH #### [facility] [address] [place] [address] Dr. Kacie Mirza Hematocrit (Bld) [Volume fraction] 43.9 % Normal 36.0-48.0 [facility] Comment on above: Performed By: #### L IPID, T7, CMP, TSH #### [facility] [address] [place] [address] Dr. Kacie Mirza Hemoglobin (Bld) [Mass/Vol] 14.2 g/dL Normal 12.0-16.0 [facility] Comment on above: Performed By: #### L IPID, T7, CMP, TSH #### [facility] [address] [place] [address] Dr. Kacie Mirza IG # 0.02 10e3/ul Normal 0.00-0.03 [facility] Comment on above: Performed By: #### L IPID, T7, CMP, TSH #### [facility] [address] [place] [address] Dr. Kacie Mirza IG % 0.2 % Normal 0.0-0.5 [facility] Comment on above: Performed By: #### L IPID, T7, CMP, TSH #### [facility] [address] [place] [address] Dr. Kacie Mirza LYMPH # 3.4 103/ul Normal 1.2-3.8 [facility] Comment on above: Performed By: #### L IPID, T7, CMP, TSH #### [facility] [address] [place] [address] Dr. Kacie Mirza Lymphocytes/100 WBC (Bld) 34.1 % Normal 20.5-60.0 [facility] Comment on above: Performed By: #### L IPID, T7, CMP, TSH #### [facility] [address] [place] [address] Dr. Kacie Mirza MANUAL DIFF REQ NO Normal [facility] Comment on above: Performed By: #### L IPID, T7, CMP, TSH #### [facility] [address] [place] [address] Dr. Kacie Mirza MCH (RBC) [Entitic mass] 28.1 pg Normal 26.7-34.0 [facility] Comment on above: Performed By: #### L IPID, T7, CMP, TSH #### [facility] [address] [place] [address] Dr. Kacie Mirza MCHC (RBC) [Mass/Vol] 32.3 g/dL Normal 29.9-35.2 [facility] Comment on above: Performed By: #### L IPID, T7, CMP, TSH #### [facility] [address] [place] [address] Dr. Kacie Mirza MCV (RBC) [Entitic vol] 86.8 fL Normal 81.0-99.0 [facility] Comment on above: Performed By: #### L IPID, T7, CMP, TSH #### [facility] [address] [place] [address] Dr. Kacie iMrza MONO # 0.7 103/ul Normal 0.3-0.8 [facility] Comment on above: Performed By: #### L IPID, T7, CMP, TSH #### [facility] [address] [place] [address] Dr. Kacie Mirza Monocytes/100 WBC (Bld) 7.1 % Normal 1.7-12.0 [facility] Comment on above: Performed By: #### L IPID, T7, CMP, TSH #### [facility] [address] [place] [address] Dr. Kacie Mirza NEUT # 5.6 103/ul Normal 1.4-6.5 [facility] Comment on above: Performed By: #### L IPID, T7, CMP, TSH #### [facility] [address] [place] [address] Dr. Kacie Mirza Neutrophils/100 WBC (Bld) 57.2 % Normal 43.0-75.0 [facility] Comment on above: Performed By: #### L IPID, T7, CMP, TSH #### [facility] [address] [place] [address] [address] Kacie Mirza Platelet mean volume (Bld) [Entitic vol] 8.9 fL Critically low 9.5-13.5 [facility] Comment on above: Performed By: #### L IPID, T7, CMP, TSH #### [facility] [address] [place] [address] [address] Kacie Mirza PLT 424 103/ul Normal 150-450 [facility] Comment on above: Performed By: #### L IPID, T7, CMP, TSH #### [facility] [address] [place] [address] [address] Kacie Mirza RBC 5.06 106/ul Normal 4.20-5.40 [facility] Comment on above: Performed By: #### L IPID, T7, CMP, TSH #### [facility] [address] [place] [address] [address] Kacie Mirza WBC 9.8 103/ul Normal 4.0-11.0 [facility] Comment on above: Performed By: #### L IPID, T7, CMP, TSH #### [facility] [address] [place] [address] Dr. Kacie Mirza FREE THYROXINE INDEX T7on FTI 3.16 Normal [facility] Comment on above: Performed By: #### L IPID, T7, CMP, TSH #### [facility] [address] [place] [address] Dr. Kacie Mirza T3U 27.0 % Critically low 30.0-39.0 [facility] Comment on above: Performed By: #### L IPID, T7, CMP, TSH #### [facility] [address] [place] [address] Dr. Kacie Mirza T4 [Mass/Vol] 11.70 ug/dL Normal 4.80-13.90 [facility] Comment on above: Performed By: #### L IPID, T7, CMP, TSH #### [facility] [address] [address] [address] Kacie Mirza GLYCOHEMOGLOBIN A1Con 2021 ADA RECOMMENDATION SEE BELOW Normal The [facility] Comment on above: Result Comment: ADA RECOMMENDED LIMIT 4.0 - 6.0 ADA THERAPEUTIC TARGET < 7.0 ACTION SUGGESTED > 7.0 Performed By: #### L IPID, T7, CMP, TSH #### [facility] [address] [address] [address] Kacie Mirza Glucose [Mass/Vol] 103 mg/dL Normal [facility] Comment on above: Performed By: #### L IPID, T7, CMP, TSH #### [facility] [address] [address] [address] Kacie Mirza HbA1c (Bld) [Mass fraction] 5.2 % Normal 4.5-6.2 [facility] Comment on above: Performed By: #### L IPID, T7, CMP, TSH #### [facility] [address] [address] [address] Kacie Mirza LIPID PROFILEon 10-18-2021 CHOL-HDL RATIO NORM SEE BELOW Normal [facility] Comment on above: Result Comment: 3.3 - 4.4 LOW RISK 4.4 - 7.1 AVERAGE RISK 7.1 - 11.0 MODERATE RISK >11.0 HIGH RISK Performed By: #### L IPID, T7, CMP, TSH #### [facility] [address] [address] [address] Kacie Mirza Cholesterol [Mass/Vol] 195 mg/dL Normal <=200 [facility] Comment on above: Performed By: #### L IPID, T7, CMP, TSH #### [facility] [address] [address] [address] Kacie Mirza Cholesterol in HDL [Mass/Vol] 43 mg/dL Normal 40-60 [facility] Comment on above: Performed By: #### L IPID, T7, CMP, TSH #### [facility] [address] [address] [address] Kacie Mirza Cholesterol in LDL [Mass/Vol] 122.6 mg/dL Normal [facility] Comment on above: Performed By: #### L IPID, T7, CMP, TSH #### [facility] [address] [address] [address] Kacie Mirza Cholesterol.total/Cho lesterol in HDL [Mass ratio] 4.5 {ratio} Normal [facility] Comment on above: Performed By: #### L IPID, T7, CMP, TSH #### [facility] [address] [address] [address] Kacie Mirza HDL NORMAL > or = 60 mg/dl - LOW CARDIOVASCULAR RISK <40 mg/dl - HIGH CARDIOVASCULAR RISK Normal [facility] Comment on above: Performed By: #### L IPID, T7, CMP, TSH #### [facility] [address] [address] [address] Kacie Mirza LDL CALC NORMAL SEE BELOW Normal [facility] Comment on above: Result Comment: <100 mg/dl OPTIMAL 100 - 129 mg/dl NEAR OR ABOVE OPTIMAL 130 - 159 mg/dl BORDERLINE HIGH 160 - 189 mg/dl HIGH >190 mg/dl VERY HIGH Performed By: #### L IPID, T7, CMP, TSH #### [facility] [address] [address] [address] Kacie Mirza Triglyceride [Mass/Vol] 147 mg/dL Normal <=150 [facility] Comment on above: Performed By: #### L IPID, T7, CMP, TSH #### [facility] [address] [address] [address] Kacie Mirza VLDL CALC 29.4 mg/dL Normal [facility] Comment on above: Performed By: #### L IPID, T7, CMP, TSH #### [facility] [address] [address] [address] Kacie Mirza PROF 14(COMP METB)on 022 Albumin [Mass/Vol] 3.5 g/dL Normal 3.4-5.0 [facility] Comment on above: Performed By: #### L IPID, T7, CMP, TSH #### [facility] [address] [address] [address] Kacie Mirza Albumin/Globulin [Mass ratio] 0.8 {ratio} Normal [facility] Comment on above: Performed By: #### L IPID, T7, CMP, TSH #### [facility] [address] [address] [address] Kacie Mirza ALP [Catalytic activity/Vol] 55 U/L Normal 46-116 [facility] Comment on above: Performed By: #### L IPID, T7, CMP, TSH #### [facility] [address] [address] [address] Kacie Mirza ALT [Catalytic activity/Vol] 24 U/L Normal 14-59 [facility] Comment on above: Performed By: #### L IPID, T7, CMP, TSH #### [facility] [address] [place] [address] Dr. Kacie Mirza Anion gap [Moles/Vol] 9.9 mmol/L Normal [facility] Comment on above: Performed By: #### L IPID, T7, CMP, TSH #### [facility] [address] [address] [address] Kacie Mirza AST [Catalytic activity/Vol] 14 U/L Critically low 15-37 [facility] Comment on above: Performed By: #### L IPID, T7, CMP, TSH #### [facility] [address] [address] [address] Kacie Mirza Bilirubin [Mass/Vol] 0.3 mg/dL Normal 0.2-1.0 [facility] Comment on above: Performed By: #### L IPID, T7, CMP, TSH #### [facility] [address] [address] [address] Kacie Mirza Calcium [Mass/Vol] 8.6 mg/dL Normal 8.5-10.1 [facility] Comment on above: Performed By: #### L IPID, T7, CMP, TSH #### [facility] [address] [address] [address] Kacie Mirza Chloride [Moles/Vol] 101 mmol/L Normal 98-107 [facility] Comment on above: Performed By: #### L IPID, T7, CMP, TSH #### [facility] [address] [address] [address] Kacie Mirza CO2 [Moles/Vol] 27.7 mmol/L Normal 21.0-32.0 [facility] Comment on above: Performed By: #### L IPID, T7, CMP, TSH #### [facility] [address] [place] [address] Dr. Kacie Mirza Creatinine [Mass/Vol] 0.93 mg/dL Normal 0.55-1.02 [facility] Comment on above: Performed By: #### L IPID, T7, CMP, TSH #### [facility] [address] [place] [address] Dr. Kacie Mirza EGFR-AF ECUADOREAN >60 Normal >=60 [facility] Comment on above: Performed By: #### L IPID, T7, CMP, TSH #### [facility] [address] [address] [address] Kacie Mirza EGFR-NON AF ECUADOREAN >60 Normal >=60 [facility] Comment on above: Performed By: #### L IPID, T7, CMP, TSH #### [facility] [address] [address] [address] Kacie Mirza Globulin (S) [Mass/Vol] 4.6 g/dL Normal [facility] Comment on above: Performed By: #### L IPID, T7, CMP, TSH #### [facility] [address] [address] [address] Kacie Mirza Glucose [Mass/Vol] 75 mg/dL Normal 74-106 [facility] Comment on above: Performed By: #### L IPID, T7, CMP, TSH #### [facility] [address] [address] [address] Kacie Mirza Potassium [Moles/Vol] 3.6 mmol/L Normal 3.5-5.1 [facility] Comment on above: Performed By: #### L IPID, T7, CMP, TSH #### [facility] [address] [place] [address] Dr. Kacie Mirza Protein [Mass/Vol] 8.1 g/dL Normal 6.4-8.2 [facility] Comment on above: Performed By: #### L IPID, T7, CMP, TSH #### [facility] [address] [place] [address] Dr. Kacie Mirza Sodium [Moles/Vol] 135 mmol/L Critically low 136-145 [facility] Comment on above: Performed By: #### L IPID, T7, CMP, TSH #### [facility] [address] [place] [address] Dr. Kacie Mirza Urea nitrogen [Mass/Vol] 8.0 mg/dL Normal 7.0-18.0 [facility] Comment on above: Performed By: #### L IPID, T7, CMP, TSH #### [facility] [address] [place] [address] Dr. Kacie Mirza Urea nitrogen/Creatinine [Mass ratio] 8.6 mg/mg Normal [facility] Comment on above: Performed By: #### L IPID, T7, CMP, TSH #### [facility] [address] [place] [address] Dr. Kacie Mirza TSHon 10-18-2021 TSH 2.207 uIU/mL Normal 0.358-3.740 [facility] Comment on above: Performed By: #### L IPID, T7, CMP, TSH #### [facility] [address] [place] [address] Dr. Kacie Mirza TSH RANGE SEE BELOW Normal [facility] Comment on above: Result Comment: <0.3 4 UIU/ml HYPERTHYROID 0.34-5.60 UIU/ml EUTHYROID >5.60 UIU/ml HYPOTHYROID Performed By: #### L IPID, T7, CMP, TSH #### [facility] [address] [place] [address] Dr. Kacie Mirza Covid-19 PCR ([facility])on SARS-CoV-2 (COVID-19) RNA ALESSANDRA+probe Ql (Unsp spec) Not detected Normal NOT DETECTED [facility] Comment on above: Result Comment: This test is not yet approved or cleared by the [place] FDA. When there are no FDA-approved or cleared tests available, and other criteria are met, FDA can make tests available under an emergency access mechanism called an Emergency Use Authorization (EUA). The EUA for this test is supported by the [place] of Health and Human Service's (HHS's) declaration [...] #### L IPID, T7, CMP, TSH #### [facility] [address] [place] [address] Dr. Kacie Mirza INFLUENZA A AND B AGon 09-20 INFLUANEGH SEE BELOW Normal [facility] Comment on above: Result Comment: Nega tive for Flu A protein angiten. Infection due to Flu A cannot be ruled out. Flu A angiten in the sample may be below the detection limit of the test. Performed By: #### I NFLUAB #### [facility] [address] [place] [address] Dr. Kacie Mirza INFLUBNEGH SEE BELOW Normal [facility] Comment on above: Result Comment: Nega tive for Flu B protein antigen. Infection due to Flu B cannot be ruled out. Flu B antigen in the sample may be below the detection limit of the test. Performed By: #### I NFLUAB #### [facility] [address] [place] [address] Dr. Kacie Mirza INFLUENZA A AG Negative Normal NEGATIVE SEE COMMENT [facility] Comment on above: Performed By: #### I NFLUAB #### [facility] [address] [place] [address] Dr. Kacie Mirza INFLUENZA B AG Negative Normal NEGATIVE SEE COMMENT [facility] Comment on above: Performed By: #### I NFLUAB #### [facility] [address] [address] [address] Kacie Mirza INTERNAL CONTROLS Within Normal Limits Normal Wi thin Normal Limits [facility] Comment on above: Performed By: #### I NFLUAB #### [facility] [address] [address] [address] Kacie Mirza Vital Signs Date Time Vital Sign Value Performing Clinician Faci lity 08-05-2024 14:27-0500 Body mass index (BMI) [Ratio] 40.03 kg/m2 [email or web address] Work Phone: [facility] 08-05-2024 14:27-0500 Body weight 112.49 kg [email or web address] Work Phone: [facility] 08-05-2024 14:27-0500 Diastolic blood pressure 90 mm[Hg] [email or web address] Work Phone: [facility] 08-05-2024 14:27-0500 Systolic blood pressure 146 mm[Hg] [email or web address] Work Phone: [facility] 06-18-2024 12:12-0500 Body height 170.18 cm [facility] 06-18-2024 12:12-0500 Body mass index (BMI) [Ratio] 35.2 kg/m2 [facility] 06-18-2024 12:12-0500 Body temperature 98.3 [degF] [facility] 06-18-2024 12:12-0500 Body weight 102.05 kg [facility] 06-18-2024 12:12-0500 Diastolic blood pressure 107 mm[Hg] [facility] 06-18-2024 12:12-0500 Heart rate 110 /min [facility] 06-18-2024 12:12-0500 Respiratory rate 18 /min [facility] 06-18-2024 12:12-0500 SaO2% (BldA) [Mass fraction] 96 % [facility] 06-18-2024 12:12-0500 Systolic blood pressure 157 mm[Hg] [facility] Encounters Encounter Date Encounter Type Care Provider Facility Start: 08-06-2024 End: 08-06-2024 Telephone encounter Yadira Mtz [facility] Work Phone: [facility] Start: 08-05-2024 End: 08-05-2024 ambulatory BRITTNEY Pantoja [facility] Start: 08-05-2024 End: 08-05-2024 Office outpatient new 30 minutes Brittney Pantoja Almeida DO [facility] Phone: [facility] Comment on above: Pelvic pain (Primary Dx); Screening for cervical cancer; Screen for STD (sexually transmitted disease); Friable cervix; Vaginal discharge; PCOS (polycystic ovarian syndrome) Start: 08-05-2024 End: 08-05-2024 ambulatory BRITTNEY [facility] Start: 07-12-2024 End: 07-21-2024 Telephone encounter Bianca Logan MD Work Phone: [facility] Start: 06-18-2024 End: 06-18-2024 ambulatory [facility] Work Phone: Start: 06-18-2024 End: 06-18-2024 Patient encounter procedure [facility] Work Phone: Start: 08-07-2023 End: 08-08-2023 ambulatory [facility] Start: 06-14-2022 End: 06-14-2022 ambulatory KRYSTAL NICOLAS Facility:[facility] Start: 11-13-2021 End: 11-13-[address] CAMILLE ENGLE Facility:[facility] Start: 10-23-2021 Encounter for genera l adult medical examination without abnormal findings DR CAMILLE ENGLE [facility] Start: 10-18-2021 End: 10-19-[address] CAMILLE ENGLE Facility:[facility] Start: 10-18-2021 End: 10-19-2021 Encounter for general adult medical examination without abnormal findings DR CAMILLE ENGLE Facility:[facility] Start: 09-20-2021 End: 09-20-[address] CAMILLE ENGLE Facility:[facility] Plan of Treatment Date Care Activity Detail Author Start: 08-05-2025 Adult BMI Screening Adult BMI Screen ing [facility] Start: 08-05-2025 Tobacco Screening Tobacco Screening [facility] Start: 08-31-2024 End: 08-31-2024 Patient encounter procedure 08/31/2024 2:30 PM EDT Office Visit [facility] [address] [place] [address] [place] [address] Brittney Almeida DO [address] [place] [address] [facility] Start: 08-05-2024 End: 08-05-2024 Patient encounter procedure 08/05/2024 2:30 PM EST Office Visit [facility] [address] [place] [id number] Brittney Almeida DO [address] [place], [place] [id number] [facility] Start: 02-15-2024 Influenza vaccination Influenza Vacc ine [facility] Start: 09-15-2021 DTaP,Tdap and Td Vaccines (6 - Td or Tdap) DTaP,Tdap and Td Vaccines (6 - Td or Tdap) [facility] Start: 2020 Screening for malign ant neoplasm of cervix Pap Smear [facility] Start: 2017 Adult BMI Screening Adult BMI Screen ing [facility] Start: 2011 [facility]: 2011 Tobacco Screening Tobacco Screening [facility] End: 08-05-2025 Chlamydia/Gonorrhoeae by PCR, Fluid Chlamydia/Gonorrhoeae by PCR, Fluid Microbiology Routine Screening for cervical cancer Screen for STD (sexually transmitted disease) Friable cervix 1 Occurrences starting 08/05/2024 until 08/05/2025 [facility] Comment on above: 1 Occurrences starti ng 08/05/2024 until 08/05/2025 Chlamydia/Gonorrhoea e by PCR, Fluid Chlamydia/Gonorrhoeae by PCR, Fluid Microbiology Routine Screening for cervical cancer Screen for STD (sexually transmitted disease) Friable cervix 08/05/2024 6:45 PM EST [facility] End: 08-05-2025 Cytology report of Cervical or vaginal smear or scraping Cyto stain.thin prep Pap Smear Pathology and Cytology Routine Screening for cervical cancer 1 Occurrences starting 08/05/2024 until 08/05/2025 [employer] Work Phone: Comment on above: 1 Occurrences starti ng 08/05/2024 until 08/05/2025 End: 08-05-2025 Vaginitis Panel PCR Vaginitis Panel PCR Microbiology Routine Friable cervix Vaginal discharge 1 Occurrences starting 08/05/2024 until 08/05/2025 [facility] Comment on above: 1 Occurrences starti ng 08/05/2024 until 08/05/2025 Vaginitis Panel PCR Vaginitis Pa rivas PCR Microbiology Routine Friable cervix Vaginal discharge 08/05/2024 6:45 PM [facility] Payers Date Payer Category Payer Medicaid [facility] [id number] 1999 Unknown [id number] 1999 Unknown [id number] 1999 Unknown [id number] 1999 Unknown [id number] 1999 Unknown [id number] 1999 Unknown [id number] 1999 Unknown [id number] 1959 Unknown [id number] 1959 Unknown [id number] Social History Date Type Detail Facility Start: 06-18-2024 End: 08-05-2024 Tobacco smoking status WYIS Never smoked tobacco (finding) [facility] Start: 08-23-2020 End: 06-18-2024 Sex Female (finding) [facility] Start: 2000 Sex Assigned At Female F [facility] Tobacco smoking stat [facility] Tobacco smoking consumption unknown [facility] Start: 08-23-2020 End: 08-05-2024 History of Social function [facility] Start: 08-23-2020 End: 08-05-2024 Childcare [facility] Childcare Unknown [facility] Start: 1999 Sex assigned at Not on file P [facility] Start: 08-05-2024 Tobacco use and exposure Smokeless tobacco non-user [facility] Start: 08-05-2024 Alcoholic beverage intake Ex-drinker (finding) [facility] Clinical Notes 07-12-2024 to 08-06-2024 Telephone Encounter - KRISTA Hill - 08/06/2024 11:02 AM ESTTelephone Encounter - KRISTA Hill - 08/06/2024 11:02 AM Brenda Almeida DO - 08/05/2024 2:30 PM EST Note Date & Type Note Facility 08-06-2024 Miscellaneous Notes Formattin g of this note might be different from the original. Call to pt. To discuss results. Pt. Advised Vaginitis panel negative and GC/CT pending. Pt. Verbalized understanding. documented in this encounter [facility] 08-06-2024 Telephone encount er Note Call to pt. To discuss results. Pt. Advised Vaginitis panel negative and GC/CT pending. Pt. Verbalized understanding. [facility] Work Phone: 08-05-2024 History of Presen t illness Narrative Subjective Patient ID: Evangelina Clarke is a 24 y.o. female who presents today with her mother as a new patient. Pt has concerns with being able to feel a bump in the top of her vagina. She was recently seen by the health department and had swabs collected, and was told to follow up with a PACE ANALYST. She is on a 90 day OCP to help with her PCOS symptoms. She does report pelvic pain that is chronic. She states she can just be walking and have pain shoot through her sides. She did just have a pelvic US in [place]. She states that she is interested in having everything removed . She does not want children ever, and she is done with dealing with the pelvic pain . Patient has been sexually active with both men and women in the past, but is not currently sexually active. She does report having some pain with intercourse. She has never had an evaluation for endometriosis. She does report history of BV in the past. Chief Complaint: Pevlic pain (chronic), PCOS, Bump in the top of her vagian Menstrual History: OB History No obstetric history on file. Patient's last menstrual period was 05/17/2024 (within days). The following portions of the patient's history were reviewed and updated as appropriate: allergies, current medications, past family history, past medical history, past social history, past surgical history, problem list, and medication reconciliation was completed including current medication and post discharge medication. Review of Systems Constitutional: negative Respiratory: negative Cardiovascular: negative Gastrointestinal: negative Genitourinary:PCOS, chronic pelvic pain, Bump in vagina. Does not want children Objective BP 146/90 Wt 112.5 kg (248 lb) LMP 05/17/2024 (Within Days) No BMI 40.03 kg/m General: alert, appears stated age, and cooperative Heart: regular rate and rhythm, S1, S2 normal, no murmur, click, rub or gallop Lungs: clear to auscultation bilaterally Abdomen: soft, non-tender, without masses or organomegaly Vulva: normal Vagina: normal mucosa, no palpable nodules Cervix: Friable and erythematous VNAP and pap collected. The supreior aspect of the cervix does protrude with probable Nabothian cyst. Uterus: normal size, retroverted Adnexa: no mass, fullness, tenderness Assessment 1. Pelvic pain 2. Screening for cervical cancer 3. Screen for STD (sexually transmitted disease) 4. Friable cervix 5. Vaginal discharge 6. PCOS (polycystic ovarian syndrome) Plan 1. V nap and Pap with GC collected we will contact patient with results 2. Pelvic ultrasound performed at [place] was reviewed. Patient has a normal-size, normal-shaped uterus, with a 6 mm endometrium, normal-sized right and left ovaries with functional follicles, and no grossly abnormal findings. 3. 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 Chronic pelvic pain is also not usually a symptom of PCOS. There are many reasons for pelvic pain, and she has really not had a thorough workup for the cause of her pain as yet. We did discuss diagnostic laparoscopy to possibly evaluate for endometriosis. We did also briefly discuss treatment options for endometriosis. We advised that hysterectomy with removal of the ovaries at 24 would result in nursing home health detriments. Patient voices understanding. We will contact patient with results of the above and have her back in the office in 4 weeks to see if she would like to proceed with a diagnostic laparoscopy. We did discuss that tubal ligation could potentially be performed if she is sure that she does not want to have children, however that is a discussion we could have at a future date. documented in this encounter [facility] 07-12-2024 Miscellaneous Notes Formattin g of this note might be different from the original. Referral received from AISSATOU Foley at [facility] to be seen for palpable lump in vaginal canal. Pt was seen in [place] ED & had transvaginal U/S done. Need date of visit to obtain visit notes & U/S. LVM for Pt to call Office to schedule appointment. Pt returned call & is scheduled with Dr. Almeida on 08/05/24 in [facility] Office. Pt states she was seen at [facility] on 06/28/24 for U/S. Spoke with Lety in HIM at [facility] to request ultrasound done on 06/28/24. Ultrasound received & scanned into Media. documented in this encounter [facility] 07-12-2024 Telephone encount er Note Referral received from AISSATOU Foley at [facility] to be seen for palpable lump in vaginal canal. Pt was seen in [place] ED & had transvaginal U/S done. Need date of visit to obtain visit notes & U/S. LVM for Pt to call Office to schedule appointment. [facility] 07-12-2024 Telephone encount er Note Pt returned call & is scheduled with Dr. Almeida on 08/05/24 in [facility] Office. Pt states she was seen at [facility] on 06/28/24 for U/S. [facility] 07-12-2024 Telephone encount er Note Spoke with Lety in HIM at [facility] to request ultrasound done on 06/28/24. [facility] 07-12-2024 Telephone encount er Note Ultrasound received & scanned into Media. [facility] Evaluation note Diagnosis Onset Date Resolution Low back strain acute June 182024 11:00am [facility] Work Phone: Evaluation note* Diagnosis Pelvic pain- Primary Screening for cervical cancer Screening for malignant neoplasm of the cervix Screen for STD (sexually transmitted disease) Screening examination for venereal disease Friable cervix Vaginal discharge Leukorrhea, not specified as infective PCOS (polycystic ovarian syndrome) Polycystic ovaries documented in this encounter [facility] Blip SystemInstructionsNot on filedocumented in this encounter [facility] Blip SystemInstructions* Attachments The following attachments cannot be sent through Care Everywhere. * Polycystic ovary syndrome (Nepali) * Chronic pelvic pain in females (Nepali) documented in this encounterPar[facility] HospitalHerrenschmiede SystemInstructionsNot on file documented in this encounterCl[facility] Summary Purpose Family History No Family History Records Found Relationship Condition Age at Onset Recorded Date/T clary mother Hypothyroidism Unknown father Diabetes mellitus Unknown Advance Directives No Advanced Directives Records Found Advance Directive Response Recorded Date/ Time Advance Directives No June 18, 2024 10:58am Chief Complaint and Reason for Visit Chief Complaint Admit Date Lower right back pain June 18, 2024 11:00am Reason for Visit Admit Date Low back strain June 18, 2024 11 :00am Additional Source Comments INFORMATION SOURCE (unrecogn ized section and content) DATE CREATED AUTHOR 06/14/2022 [facility] DATE CREATED AUTHOR AUTHOR'S ORGANIZ ATION 08/15/2023 [facility] DATE CREATED AUTHOR AUTHOR'S ORGANIZ ATION 08/07/2024 [facility] DATE CREATED AUTHOR AUTHOR'S ORGANIZ ATION 08/08/2024 [facility] Care Teams (unrecognized sec tion and content) Team Status: Active Member Role Status Dates Camille Engle MD Primary Care Provider Active Team Status: Inactive Member Role Status Dates Cassie Linda APRN Attending Provider Active Start: June 18, 2024 End: June 18, 2024 Camille Engle MD Primary Care Provider Active Start: June 18, 2024 End: June 18, 2024 Medical Record Technician Relationship Specialty Start Date End Date Camille Engle MD PCP - General Family Medicine 09/04/20 Medical Record Technician Relationship Specialty Start Date End Date Camille Engle MD PCP - General Family Medicine 09/04/20 Medical Record Technician Relationship Specialty Start Date End Date Camille Engle MD PCP - General Family Medicine 09/04/20 Goals (unrecognized section and content) Goals may be documented in a n alternate sectionNot on filedocumented as of this encounterNot on filedocumented as of this encounterNot on filedocumented as of this encounter FOR RECORDS PERTAINING TO PATIENTS WHO ARE [...] BE BASED ON THE PRIMARY CLINICAL RECORDS. [employer] provides no warranty or guarantee of the accuracy or completeness of information in this document.
[2024-08-17 11:44] LABS: Basophils Absolute Auto 0.1 10^3/uL (0.0-0.1); Basophils Percent Auto 0.6 % (0.2-2.0); Eosinophils Absolute Auto 0.1 10^3/uL (0.0-0.7); Eosinophils Percent Auto 0.9 % (0.9-7.0); Hematocrit 44.5 % (36.0-48.0); Hemoglobin 14.2 g/dL (12.0-16.0); Immature Granulocytes Abs Auto 0.03 10^3/uL (0.00-0.03); Immature Granulocytes Pct Auto 0.4 % (0.0-0.5); Lymphocytes Absolute Auto 2.8 10^3/uL (1.2-3.8); Lymphocytes Percent Auto 32.8 % (20.5-60.0); Mean Corpuscular HGB Conc 31.9 g/dL (29.9-35.2); Mean Corpuscular Hemoglobin 27.2 pg (26.7-34.0); Mean Corpuscular Volume 85.2 fL (81.0-99.0); Mean Platelet Volume 9.8 fL (9.5-13.5); Monocytes Absolute Auto 0.6 10^3/uL (0.3-0.8); Monocytes Percent Auto 6.8 % (1.7-12.0); Neutrophils Percent Auto 58.5 % (43.0-75.0); Platelet Count 486 10^3/uL (150-450); Red Blood Count 5.22 10^6/uL (4.20-5.40); Red Cell Distribution Width 13.5 % (11.0-15.0); White Blood Count 8.5 10^3/uL (4.0-11.0)
[2024-08-17 11:49] LABS: Bilirubin Urine NEGATIVE (NEGATIVE); Blood Urine TRACE-I (NEGATIVE); Clarity Urine CLEAR (CLEAR); Color Urine LT. YELLOW (YELLOW); Glucose Urine UA NEGATIVE (NEGATIVE); Ketones Urine NEGATIVE (NEGATIVE); Leukocyte Esterase Urine MODERATE (NEGATIVE); Nitrite Urine NEGATIVE (NEGATIVE); Protein Urine TRACE mg/dL (NEG/TRACE); Specific Gravity Urine 1.015 (1.005-1.025); Urobilinogen Urine 0.2 EU/dL (0.2-1.0)
[2024-08-17 11:55] LABS: Alanine Aminotransferase 16 U/L (14-59); Albumin Globulin Ratio 0.7; Albumin Level 3.2 g/dL (3.4-5.0); Alkaline Phosphatase 51 U/L (46-116); Anion Gap 11.7; Aspartate Amino Transferase 17 U/L (15-37); BUN Creatinine Ratio 15.1; Bilirubin Total 0.2 mg/dL (0.2-1.0); Calcium 9.3 mg/dL (8.5-10.1); Carbon Dioxide 28.3 mmol/L (21.0-32.0); Chloride 102 mmol/L (98-107); Estimated GFR (African America >60 (>=60 mL/min/1.73m^2); Estimated GFR (Non-African Ame >60 (>=60 mL/min/1.73m^2); Globulin 4.8 g/dL; Glucose 82 mg/dL (74-106); Sodium 138 mmol/L (136-145)
[2024-08-17 11:58] LABS: Lactate/Lactic Acid 1.5 mmol/L (0.4-2.0)
[2024-08-17] MEDS: MORPHINE SULFATE 2 MG/ML SYRINGE IV (11:58)
[2024-08-17] MEDS: ONDANSETRON PF 4 MG/2 ML VIAL IV (11:58)
[2024-08-17 12:06] LABS: Bacteria Urine MODERATE #/HPF (NONE SEEN); Cast Seen? NONE SEEN #/LPF (NONE SEEN); Crystals Seen? None Seen #/HPF (None Seen); Mucus Urine SMALL (NONE SEEN); RBC Urine 0-2 #/HPF (0-2); Squamous Epithelial Cell Urine FEW #/LPF (NONE/RARE); Transitional Epi Cells Urine RARE #/LPF (NONE SEEN); Urine Culture Indicated YES-FRMC
[2024-08-17 12:11] VITALS: BP 132/100
--- NOTE | 2024-08-17 14:08 | ED_ITS ---
HPI HPI - General Adult General Chief complaint: Abdominal Pain Stated complaint: RIGHT ABDOMINAL PAIN Time Seen by Provider: 08/17/24 11:30 Source: patient Mode of arrival: walk-in Limitations: no limitations History of Present Illness HPI narrative: Patient is a 24-year-old female who is presenting to the ER today with chief complaint of right lower quadrant abdominal pain that started around 830 this morning. Patient was at work. Mother is at bedside. Patient has a history of PCOS. Mother is concerned about gallbladder disease because immediate family members have had gallbladders taken out in early age. Patient has no history of kidney stone. Patient states that she is not . Patient has been having constipation for the last 3 to 4 days, she did use a [id number] stool softener and had a small stool today with liquid stool. No fever or chills. No chest pain shortness of breath. No other acute complaints. No flank pain or back pain. All systems are negative except as noted/marked. All systems reviewed and otherwise negative. Nurses note and vital signs reviewed and patient is not hypoxic. Patient is slightly hypertensive. General: The patient appears well and in no apparent distress. Patient is resting comfortably on cart. Patient is not toxic, lethargic, or listless Skin: Warm, dry, no pallor noted. There is no rash noted. No petechiae, purpura. Head: Normocephalic, atraumatic Eye: Normal conjunctiva, no drainage, EOMI. PERRL Ears, Nose, Mouth, and Throat: oral mucosa is moist. Nares patent. Mouth without vesicles. Cardiovascular: Regular Rate and Rhythm, no murmur, gallop, rub Respiratory: Patient is in no distress, no accessory muscle use, lungs are clear to auscultation, no wheezing, rales or rhonchi Back: non-tender, no CVA tenderness bilaterally to percussion. No CT LS midline pain GI: Mild to moderate right and left lower quadrant tenderness to palpation, left greater than right. Mild suprapubic tenderness to palpation. No pain to the right upper quadrant. Negative Eden sign. Negative pain over McBurney's point. No midepigastric tenderness to palpation. No tenderness to palpation, no masses appreciated. No rebound, guarding, or rigidity noted. No distention Musculoskeletal: Patient has full range of motion of all of the extremities, no motor, sensory, or focal neurological deficits Neurological: A&O x4, normal speech Psychiatric: Cooperative Related Data Home Medications ?Medication ?Instructions ?Recorded ?Confirmed bupropion HCl 150 mg 24 hr tablet, 150 mg PO DAILY 08/17/24 08/17/24 extended release levonorgestrel 0.15 mg-ethinyl 1 tab PO DAILY 08/17/24 08/17/24 estradiol 30 mcg tablets,3 mos pack(91) (Setlakin) metformin 500 mg tablet 500 mg PO BID 08/17/24 08/17/24 omeprazole 40 mg capsule,delayed 40 mg PO DAILY 08/17/24 08/17/24 release Previous Rx's ?Medication ?Instructions ?Recorded ciprofloxacin HCl 500 mg tablet 500 mg PO BID 3 days #6 tabs 08/17/24 dicyclomine 20 mg tablet 20 mg PO TID PRN abdominal pain #7 08/17/24 tabs ondansetron 4 mg disintegrating 4 mg PO Q4H PRN nausea and 08/17/24 tablet vomiting 3 days #6 tabs Allergies Allergy/AdvReac Type Severity Reaction Status Date / Time No Known Drug Allergies Allergy Verified 08/17/24 10:34 Opioid HPI Opioid Management Most Recent Opioid Data: Last Pain Scale 3 08/17/24 11:58 08/17/24 Last MAR Pain Assessment 08/17/24 11:58 PFSH PFSH Social History Little interest or pleasure in doing things: not at all Feeling down, depressed, or hopeless: not at all Exam Constitutional Vital Signs, click to edit/add: Last Vital Signs Temp 98.9 F 08/17/24 10:34 Pulse 100 H 08/17/24 10:34 Resp 20 08/17/24 10:34 BP 132/100 H 08/17/24 12:11 Pulse Ox 99 08/17/24 10:34 O2 Del Method Room Air 08/17/24 10:34 Course Vital Signs Vital signs: Vital Signs Temperature 98.9 F 08/17/24 10:34 Pulse Rate 100 H 08/17/24 10:34 Respiratory Rate 20 08/17/24 10:34 Blood Pressure 158/110 H 08/17/24 10:34 Pulse Oximetry 99 08/17/24 10:34 Oxygen Delivery Method Room Air 08/17/24 10:34 Temperature 98.9 F 08/17/24 10:34 Pulse Rate 100 H 08/17/24 10:34 Respiratory Rate 20 08/17/24 10:34 Blood Pressure 132/100 H 08/17/24 12:11 Pulse Oximetry 99 08/17/24 10:34 Oxygen Delivery Method Room Air 08/17/24 10:34 Medical Decision Making MDM Narrative Medical decision making narrative: Patient had IV, lab work, CAT scan ordered. Patient has history of PCOS. Patient states that there is no way that she is at this time. Mother's been at bedside helping with history. Patient has had no ruptured ovarian cyst that have caused pain previously. Patient lab work shows no significant findings, CT is pending. Plain most apologies for nausea and pain medication were given to patient, there is a large volume and 5 ambulances that showed up within an hour, apologies on delay of medication was given to patient and mother. Patient and mother are very un derstanding. Patient has evidence of urinary tract infection, lab work and CT scan showed no other acute pathologies. Education on pyelonephritis was done at bedside, patient does not have any signs of pyelonephritis. Patient was sent home with Alexus Weinberg, and Jess. I have sent the medications to 3 different pharmacies because mother has kept changing the pharmacy she wanted medication sent to. Patient was ultimately sent to [facility] at mother's request. 1350 patient was educated on elevated blood pressure. Patient does normally have intermittent headaches, also intermittently flushed to the face. When mother checked patient's blood pressure at home, is typically elevated. Patient and mother understand that anything greater than 130/80 is elevated blood pressure now. This information was placed on her discharge paperwork: You have asymptomatic hypertension in the emergency room today. Either go to a drugstore, pharmacy, or where she is to her or your doctors office to have your blood pressure checked intermittently. A better idea is to buy a blood pressure cuff at home that is appropriate size, the pharmacist can help make sure that you use size is appropriate. Take your blood pressure twice a day for the next 1 to 2 weeks. If your blood pressure is consistently elevated 130/80, follow-up with your PCP for medication changes or adjustment as indicated. If you are having any significant headache, severe chest pain or heaviness or tightness, shortness of breath, passing out, or any other acute symptoms, please return to the ER for further evaluation or if you have any other acute concerns. 1400 Dr. Garces is aware of patient's elevated blood pressure, he will see her in the office in the next 1 or 2 days. Lab Data Labs: Lab Results 08/17/24 08/17/24 Range/Units 10:40 10:49 WBC 8.5 (4.0-11.0) 10^3/uL RBC 5.22 (4.20-5.40) 10^6/uL Hgb 14.2 (12.0-16.0) g/dL Hct 44.5 (36.0-48.0) % MCV 85.2 (81.0-99.0) fL MCH 27.2 (26.7-34.0) pg MCHC 31.9 (29.9-35.2) g/dL RDW 13.5 (11.0-15.0) % Plt Count 486 H (150-450) 10^3/uL MPV 9.8 (9.5-13.5) fL Neut % (Auto) 58.5 (43.0-75.0) % Lymph % (Auto) 32.8 (20.5-60.0) % [place] % (Auto) 6.8 (1.7-12.0) % Eos % (Auto) 0.9 (0.9-7.0) % Baso % (Auto) 0.6 (0.2-2.0) % Neut # (Auto) 5.0 (1.4-6.5) 10^3/uL Lymph # (Auto) 2.8 (1.2-3.8) 10^3/uL [place] # (Auto) 0.6 (0.3-0.8) 10^3/uL Eos # (Auto) 0.1 (0.0-0.7) 10^3/uL Baso # (Auto) 0.1 (0.0-0.1) 10^3/uL Abs Immat Gran (auto) 0.03 (0.00-0.03) 10^3/uL Imm/Tot Granulo (auto) 0.4 (0.0-0.5) % Sodium 138 (136-145) mmol/L Potassium 4.0 (3.5-5.1) mmol/L Chloride 102 (98-107) mmol/L Carbon Dioxide 28.3 (21.0-32.0) mmol/L Anion Gap 11.7 BUN 14.0 (7.0-18.0) mg/dL Creatinine 0.93 (0.55-1.02) mg/dL Est GFR ( Amer) >60 (>=60 mL/min/1.73m^2) Est GFR (Non-Af Amer) >60 (>=60 mL/min/1.73m^2) BUN/Creatinine Ratio 15.1 Glucose 82 (74-106) mg/dL Lactate 1.5 (0.4-2.0) mmol/L Calcium 9.3 (8.5-10.1) mg/dL Total Bilirubin 0.2 (0.2-1.0) mg/dL AST 17 (15-37) U/L ALT 16 (14-59) U/L Alkaline Phosphatase 51 (46-116) U/L Total Protein 8.0 (6.4-8.2) g/dL Albumin 3.2 L (3.4-5.0) g/dL Globulin 4.8 g/dL Albumin/Globulin Ratio 0.7 Lipase 33.0 (16.0-77.0) U/L Urine Color Lt. yellow (YELLOW) Urine Clarity Clear (CLEAR) Urine pH 6.0 (5.0-9.0) Ur Specific [place] 1.015 (1.005-1.025) Urine Protein Trace (NEG/TRACE) mg/dL Urine Glucose (UA) Negative (NEGATIVE) mg/dL Urine Ketones Negative (NEGATIVE) mg/dL Urine Occult Blood Trace-i (NEGATIVE) Urine Nitrite Negative (NEGATIVE) Urine Bilirubin Negative (NEGATIVE) Urine Urobilinogen 0.2 (0.2-1.0) EU/dL Ur Leukocyte Esterase Moderate A (NEGATIVE) Urine RBC 0-2 (0-2) #/HPF Urine WBC 10-20 A (NONE SEEN) #/HPF Ur Squamous Epith Cells Few A (NONE/RARE) #/LPF Ur Transition Epith Cell Rare A (NONE SEEN) #/LPF Urine Crystals None seen (None Seen) #/HPF Urine Bacteria Moderate A (NONE SEEN) #/HPF Urine Casts None seen (NONE SEEN) #/LPF Urine Mucus Small A (NONE SEEN) Ur Culture Indicated? Yes-[facility] Discharge Plan Discharge Stand Alone Forms: Work/School Release Chief Complaint: Abdominal Pain Clinical Impression: Abdominal pain, Constipation, Urinary tract infection Patient Disposition: Home, Self-Care Time of Disposition Decision: 13:46 Condition: Fair Mode of Transportation: Private Vehicle Prescriptions / Home Meds: New ciprofloxacin HCl 500 mg tablet 500 mg PO BID 3 Days Qty: 6 0RF dicyclomine 20 mg tablet 20 mg PO TID PRN (Reason: abdominal pain) Qty: 7 0RF ondansetron 4 mg tablet,disintegrating 4 mg PO Q4H PRN (Reason: nausea and vomiting) 3 Days Qty: 6 0RF No Action bupropion HCl 150 mg tablet extended release 24 hr 150 mg PO DAILY metformin 500 mg tablet 500 mg PO BID omeprazole 40 mg capsule,delayed release(DR/EC) 40 mg PO DAILY levonorgestrel-ethinyl estrad [Setlakin] 0.15 mg-30 mcg (91) tablets,dose pack,3 month 1 tab PO DAILY Print Language: Belizean Instructions: Constipation (ED), Urinary Tract Infection in Women (ED), Abdominal Pain (ED), Hypertension (ED) Additional Instructions: Finish antibiotics. A copy of her CAT scan report has been given to you. No acute findings. Gallbladder shows no specific findings on lab testing and on your CAT scan. No other acute findings in your pelvis on CAT scan. Follow-up with your [employer] as started testing as discussed. You have asymptomatic hypertension in the emergency room today. Either go to a drugstore, pharmacy, or where she is to her or your doctors office to have your blood pressure checked intermittently. A better idea is to buy a blood pressure cuff at home that is appropriate size, the pharmacist can help make sure that you use size is appropriate. Take your blood pressure twice a day for the next 1 to 2 weeks. If your blood pressure is consistently elevated 130/80, follow-up with your PCP for medication changes or adjustment as indicated. If you are having any significant headache, severe chest pain or heaviness or tightness, shortness of breath, passing out, or any other acute symptoms, please return to the ER for further evaluation or if you have any other acute concerns. Referrals: Abimael Garces MD [Primary Care Provider] - 1 week Discharge Date/Time: 08/17/24 14:15
== END 2024-08-17 14:15 | disposition home or self-care (01) ==
PROVIDERS: Emergency Provider Emergency Medicine; PCP Family Medicine
DX: N39.0 Urinary tract infection, site not specified (principal); R10.31 Right lower quadrant pain; K59.00 Constipation, unspecified; E28.2 Polycystic ovarian syndrome
CPT/HCPCS: 36415; 74177; 80053; 81001; 83605; 83690; 85025; 87086; 96374; 96375; 99284; J2270; J2405; Q9967

== ENCOUNTER 2024-11-04 10:38 | Outpatient (OUT) | payer OTHER, SELFPAY ==
--- OUTSIDE RECORDS SUMMARY | 2019-06-03 09:00 | XMS_ITS | Continuity of Care Document ---
Author Organization [facility] [employer] [facility] Address [address] [place] [address] [place] [address] Phone Care Team Providers Care Utility Tender Carding Name Role Phone Marjorie Meredith Unavailable Unavailable [...] Copied on Encounter OFFICE/OUTPAT IENT VISIT, EST [facility] [employer] [facility], [address], [place], [place], [id number], [place] tel:[phone] [facility] [employer] [facility] No Information Masoud Amador. [address], [place], [id number], [place]. tel:[phone] Referring Provider: Marjorie Meredith, [address], [place], [address] . tel:[phone] [facility] [employer] [facility], [address], [place], [id number], [place] tel:[phone] [facility] No Information Ismael Mendez. [address] [place], [place], [address], [place]. tel:[phone] Referring Provider: Vanessa Talbot, [address] [place], [address] . tel:[phone] OFFICE[facility]PAT [facility], [facility], [address], [place], [id number], [place] tel:[phone] [facility] No Information Masoud Amador. [address], [place], [place], [id number], [place]. tel:[phone] Referring Provider: Marjorie Meredith, [address], [place], [address] . tel:[phone] OFFICE/OUTPAT [facility]ENT VISIT, [facility], [address], [place], [place], [id number], [place] tel:[phone] [facility] No Information No Information OFFICE/OUTPAT IENT VISIT, [facility], [address], [place], [id number], [place] tel:[phone] [facility] No Information No Information [facility], [address], [place], [id number], [place] tel:[phone] [facility] No Information No Information OFFICE/OUTPAT IENT VISIT, [facility], [address], [place], [id number], [place] tel:[phone] [facility] No Information No Information PREV VISIT, EST, AGE 12-17 [facility], [address], [place], [place], [address], [place] tel:[phone] [facility] No Information No Information OFFICE/OUTPAT IENT VISIT, [facility], [address], [place], [place], [address], tel:[phone] [facility] No Information No Information Family History Family Member Type Diagnosis Age At Onset No Information Payers Payer name Insurance type Covered republican ID Baudilio luna(s) [facility] [id number] Social History Type Description Quantity Date Captured [...]
--- OUTSIDE RECORDS SUMMARY | 2024-10-12 09:00 | XMS_ITS ---
Author Organization [facility] Care Team Providers Care Field Investigator Name Role Phone Pay, Johnny Attending Unavailable Pay, Johnny Admitting Unavailable BRITTNEY ALMEIDA L Attending Unavailable HOY, CAMILLE M Referring Unavailable HOY, CAMILLE M Primary Care Unavailable ALMEIDA, BRITTNEY L Referring Unavailable HOY, CAMILLE M Primary Care Unavailable ALMEIDA BRITTNEY L Attending Unavailable HOY, CAMILLE M Referring Unavailable HOY, CAMILLE M Primary Care Unavailable ALMEIDA, BRITTNEY L Referring Unavailable HOY, CAMILLE M Primary Care Unavailable ALMEIDA, BRITTNEY L Referring Unavailable HOY, CAMILLE M Primary Care Unavailable HOY, CAMILLE M Referring Unavailable HOY, CAMILLE M Primary Care Unavailable ALMEIDA, BRITTNEY L Admitting Unavailable ALMEIDA, BRITTNEY L Attending Unavailable ALMEIDA, BRITTNEY L Referring Unavailable HOY, CAMILLE M Primary Care Unavailable CINTHIA PEREA Attending Unavailable HOY, CAMILLE M Primary Care Unavailable CINTHIA PEREA Attending Unavailable HOY, CAMILLE M Primary Care Unavailable HOY, CAMILLE M Primary Care Unavailable ALMEIDA, BRITTNEY L Attending Unavailable HOY, CAMILLE M Referring Unavailable HOY, CAMILLE M Primary Care Unavailable Purpose PROBLEMS DATE TYPE CONDITION / CODE ATTENDING STATUS [facility] 10/12/2024 Unknown Encounter for ro utine follow-up / Z39.2(ICD-10) BRITTNEY ALMEIDA Active [facility] 10/12/2024 Unknown Other specified conditions associated with female genital organs and menstrual cycle / N94.89(ICD-10) [place]MEIDA, BRITT[place] [facility] [place] Wound Check / FREETEXT(AOF) [facility] 09/29/2024 Unknown Other acute postprocedural pain / G89.18(ICD-10) [facility] 09/29/2024 Unknown chronic pelvic p ain / UNK(Unknown) [facility] 09/08/2024 Unknown Essential (prima ry) hypertension / I10(ICD-10) [facility] 08/31/2024 Unknown Encounter for ot her preprocedural examination / Z01.818(ICD-10) [facility] 08/31/2024 Unknown Other chronic pa in / G89.29(ICD-10) [facility] 08/31/2024 Unknown Dysmenorrhea, unspecified / N94.6(ICD-10) [facility] 08/31/2024 Unknown Excessive and fr equent menstruation with irregular cycle / N92.1(ICD-10) [facility] 08/31/2024 Unknown Follow-up / FREETEXT(AOF) [facility] 08/05/2024 Unknown Pelvic and perin eal pain / R10.2(ICD-10) [facility] 08/05/2024 Unknown Encounter for sc reening for malignant neoplasm of cervix / Z12.4(ICD-10) [facility] 08/05/2024 Unknown Encounter for sc reening for infections with a predominantly sexual mode of transmission / Z11.3(ICD-10) [facility] 08/05/2024 Unknown Other specified noninflammatory disorders of cervix uteri / N88.8(ICD-10) [facility] 08/05/2024 Unknown Other specified noninflammatory disorders of vagina / N89.8(ICD-10) ZAVALLA, BRITTNEY L [facility] 08/05/2024 Unknown Polycystic ovari an syndrome / E28.2(ICD-10) BRITTNEY ALMEIDA [facility] PROCEDURES No Procedure Records Found VITAL SIGNS No Vital Signs Records Found RESULTS POCT , URINE (NUCG) Collected: 025 9:31 AM Status: COMPLETED Source: [facility] TYPE CODE TESTS RESULT OUT OF RANGE REFERENCE UNITS LAB NUCG URINE NURSING Negative Negative Performed By: #### NUCG #### [facility] (FORM[facility]LY [facility], 1928–1983) [address] [place] [address] VIR CBC AND AUTO DIFF Collected: 09/08/2024 1:39 PM Status: COMPLETED Source: [facility] TYPE CODE TESTS RESULT OUT OF RANGE REFERENCE UNITS LAB WBC(LOINC) WBC COUNT 10.0 4.0-11.0 X10E9/L LAB RBC(LOINC) RBC COUNT 4.94 3.80-5.20 X10E12/L LAB HGB(LOINC) HEMOGLOBIN 13.4 11.7-15.5 g/dL LAB HCT(LOINC) HEMATOCRIT 40.7 35-47 % LAB MCV(LOINC) MCV 82 80-100 fL LAB MCH(LOINC) MCH 27.2 27-34 pg LAB MCHC(LOINC) MCHC 33.0 32-36 g/dL LAB RDW(LOINC) RDW 14.5 11.5-15.0 % LAB PLTC(LOINC) PLATELET COUNT 411 150-450 X10E9 /L LAB MPV(LOINC) MPV 8.4 7-12 fL LAB NEUT(LOINC) % NEUTROPHILS 61.8 % LAB LYMP(LOINC) % LYMPHOCYTES 28.2 % LAB MONO(LOINC) % MONOCYTES 7.6 % LAB EOS(LOINC) % EOSINOPHILS 1.8 % LAB BASO(LOINC) % BASOPHILS 0.6 % LAB ANEUT(LOINC) ABSOLUTE NEUTROPHIL 6.2 1.5-6.6 X10E9/L LAB ALYMP(LOINC) ABSOLUTE LYMPHOCYTE 2.8 1.0-3.5 X10E9/L LAB AMONO(LOINC) ABSOLUTE MONOCYTE 0.8 0-0.9 X10E9/L LAB AEOS(LOINC) ABSOLUTE EOSINOPHIL 0.2 0.0-0.4 X10E9/L LAB ABASO(LOINC) ABSOLUTE BASOPHIL 0.1 0.0-0.2 X10E9/L Performed By: #### ISAI, FELIPE #### [facility] ([id number]) [address] [place] [address], [address] [place] [address] BASIC METABOLIC PANL Collected: 09/08/2024 1:39 PM Status: COMPLETED Source: [facility] TYPE CODE TESTS RESULT OUT OF RANGE REFERENCE UNITS LAB NA(LOINC) SODIUM 140 134-146 mmol/L LAB K(LOINC) POTASSIUM 3.9 3.5-5.0 mmol/L LAB CL(LOINC) CHLORIDE 101 98-109 mmol/L LAB CO2(LOINC) CARBON DIOXIDE 27 22-32 mmol/L LAB AGAP(LOINC) ANION GAP 12 5-15 mmol/L LAB BUN(LOINC) BLOOD UREA NITROGEN 12 5-23 mg/dL LAB CRET(LOINC) CREATININE 0.76 0.40-1.00 mg/dL Result Comment: METHOD TRACE ABLE TO IDMS STANDARD LAB GLU(LOINC) GLUCOSE 87 65-99 mg/dL LAB CA(LOINC) CALCIUM 9.3 8.5-10.5 mg/dL LAB EGFR(LOINC) eGFR (CKD-EPI) NON-RACE DEPENDENT >90 >59 ml/min/1. 73sq.m Result Comment: Reported eGFR is based on the CKD-EPI 2020 equation that does not use a race coefficient. Performed By: #### ISAI, FELIPE #### [facility] ([id number]) [address] [place] [address], [address] [place] [address] URINE CULTURE Observed: 08/17/2024 10:40 AM Status: F Source: [facility] 50,000 colonies/ml mixed bacterial skin contaminants 2 Days PERFORMED BY: [place] [address] PATHOLOGIST PARK MAINTENANCE TECHNICIAN ERLINDA PAGE M.D. Performed By: #### CUU #### [place] [id number] [facility] VAGINITIS PANEL PCR Observed: 08/05/2024 2:56 PM Status: COMPLETED Source: [facility] BACT. VAGINOSIS DNA Not detected (qualifier value) [...] with clinical presentation to determine patient diagnosis. Performed By: #### VPPCR ### # [facility] ([id number]) [address] [place] [address], [address] [address] CHLAMYDIA/GC PCR, [place] Observed: 5:12 AM Status: COMPLETED Source: [facility] CHLAMYDIA PCR, [place] Negative (qualifier value) Chlamydia trachomatis not detected by nucleic acid amplification. This does not exclude the possibility of infection because results are dependent on adequate specimen collection. GONORRHOEAE PCR, [place] Negative (qualifier value) Neisseria gonorrhoeae not detected by nucleic acid amplification. This does not exclude the possibility of infection because results are dependent on adequate specimen collection. Performed By: #### CGTPCR ## ## [facility] ([id number]) [address] [place] [address], [address] [place] [address] CYTOLOGY Collected: 5:12 AM Status: COMPLETED Source: [facility] TYPE CODE TESTS RESULT OUT OF RANGE REFERENCE UNITS LAB [id number]&rpt Cytology Normal Result Comment: [facility] [address] [place] [address] Gynecologic Cytology Consultation Patient Name:PURVI DEE:2000 (Age: 24)Gender:FTaken:08/05/2024Reported:08/19/2024Physician(s):Brittney Almeida DO ([phone])Copy To: Rec. #:[id number]: #[id number] Final Cytologic Interpretation ThinPrep Pap Test (Cervical): Satisfactory for evaluation. A transformation zone component is not identified via imaging-assisted review, using [facility] Thin Prep Imaging System, within 22 microscopic zepeda of view. NEGATIVE FOR INTRAEPITHELIAL LESION OR MALIGNANCY. [facility] [place] [address], License number: [id number]. Electronically Signed Out By NAVNEET Mcintosh(ASCP) Date of Last Menstrual Period: 05/17/24 Other Clinical Conditions: Clinical History: friable cervix Z12.4 Screening for malignant neoplasm of cervix Z11.3 Encntr screen for infections w sexl mode of transmiss Source of Specimen ThinPrep Pap Test (Cervical) Thin Prep Pap (MANAGER OPERATIONS AND PROCUREMENT) Fee Code(s): G0145 The Pap test is a screening test with an inherent, but low, probability of error. The Pap test is primarily effective for the diagnosis and prevention of squamous cell carcinoma. Regular screening is critical for prevention. ThinPrep liquid-based slides, which meet the City Distribution Clerk criteria for automated screening, have been screened by the ThinPrep Imaging System (as of 03/02/07) along with an additional manual rescreening by a snack bar attendant and, if indicated, by a pathologist. ALLERGIES DATE TYPE / CODE NAME / CODE REACTION SEVERITY SOURCE 06/18/2024 Drug Allergy/9244602 02(SNOMED CT) No Known Allergies/X432280435 (RXNORM) Unknown [facility] Drug Class/900908610 (SNOMED CT) NO KNOWN ALLERGIES [facility] ENCOUNTERS ADMIT/DISCHARGE ACCOUNT NUMBER ADMITTING ENCOUNTER CLASS LOCATION SOURCE 10/12/2024/10/13/19 [id number] Ambulatory Buildin 18 [facility] 10/09/2024/10/10/19 25 [id number] Emergency Building:PFM _EDRoom: 12Bed: 12 [facility] 09/29/2024/09/30/19 25 [id number] Inpatient Encounter Building:PF _PERIOP [facility] 09/29/2024/09/30/19 25 [id number] Inpatient Encounter Building:PF _PERIOP [facility] 09/29/2024/09/30/19 25 [id number] BRITTNEY ALMEIDA Inpatient Encounter Building:PFM _PERIOPRoom: POOLBed: POOL [facility] 09/08/2024/09/09/19 25 [id number] Ambulatory Building:PFM _LAB [facility] 09/08/2024/09/09/19 25 [id number] Ambulatory Building:PFM _CV [facility] 09/08/2024/09/09/19 25 [id number] Ambulatory Building:PFM _PAT [facility] 08/31/2024/09/01/19 25 [id number] Ambulatory Buildin 18 [facility] 08/17/2024/08/18/19 25 [id number] [facility] 08/05/2024/08/05/19 25 [id number] Ambulatory Building:PTH _PML [facility] 08/05/2024/08/05/19 25 [id number] Ambulatory Buildin 46 [facility] FUNCTIONAL STATUS No Functional Status Records Found EQUIPMENT No Equipment Records Found PAYERS ENCOUNTER GUARANTOR PAYER SUBSCRIBER SOURCE 10/12/2024 PURVI WALLACE: [id number] [address] [address]Hsp: () Primary Insurance:[facility]: [id number] yvonne Date:2023-07-17 PURVI WALLACE: [id number] [address], [place] [address]Tax: (HP) (WP) [facility] 10/09/2024 PURVI MARTÍNEZ RODRIGO: [address], [place] [address]Vki: (HP) Primary Insurance:[employer] MEDICA[employer] HMOPolicy Number: [id number] yvonne Date:2023-07-17 PURVI MARTÍNEZ RODRIGO: [id number] [address], [place] [address]Otk: (HP) (WP) [facility] 09/29/2024 PURVI DE LA GARZAANA CRISTINA WALLACE: [address], [place] [address]Sjj: (HP) Primary Insurance:[employer] MEDICA[employer] OPolicy Number: [id number] yvonne Date:2023-07-17 PURVI MARTÍNEZ RODRIGO: [id number] [address], [place] [address]Erh: (HP) (WP) [facility] 09/29/2024 PURVI DE LA GARZAANA CRISTINA WALLACE: [address], [place] [address]Maz: (HP) Primary Insurance:[employer] HMOPolicy Number: [id number] yvonne Date:2023-07-17 PURVI MARTÍNEZ RODRIGO: [id number] [address], [place] [address]Uay: (HP) (WP) [facility] 09/29/2024 PURVI MARTÍNEZ YINGREDDB: [address], [place] [address]Zfp: (HP) Primary Insurance:[employer] HMOPolicy Number: [id number] yvonne Date:2023-07-17 PURVI MARTÍNEZ YINGREDDB: [id number] [address], [place] [address]Kwg: (HP) (WP) [facility] 09/08/2024 PURVI MARTÍNEZ YINGREDDB: [address], [place] [address]Gcl: (HP) Primary Insurance:[employer] OPolicy Number: [id number] yvonne Date:2023-07-17 PURVI MARTÍNEZ YINGREDDB: [id number] [address], [place] [address]Bis: (HP) (WP) [facility] 09/08/2024 PURVI MARTÍNEZ YINGREDDB: [address], [place] [address]Yyr: (HP) Primary Insurance:[employer] OPolicy Number: [id number] yvonne Date:2023-07-17 PURVI MARTÍNEZ YINGREDDB: [id number] [address], [place] [address]Rhe: (HP) (WP) [facility] 09/08/2024 PURVI MARTÍNEZ YINGREDDB: [address], [place] [address]Wnm: (HP) Primary Insurance:[employer] HMOPolicy Number: [id number] yvonne Date:2023-07-17 PURVI MAURICIO WALLACE: [id number] [address], [place] [address]Rjz: (HP) (WP) [facility] 08/31/2024 PURVI WADEB: [address], [place] [address]Fdv: (HP) Primary Insurance:[employer] HMOPolicy Number: [id number] yvonne Date:2023-07-17 PURVI WALLACE: [id number] [address], [place] [address]Ttk: (HP) (WP) [facility] 08/17/2024 Primary Insurance:Self PayPolicy Number: Effective Date:2024-08-17 [facility] PURVI WALLACE: [address], [place] [address]Fgs: (HP) Primary Insurance:[employer] HMOPolicy Number: [id number] yvonne Date:2023-07-17 PURVI WALLACE: [id number] [address], [place] [address]Pup: (HP) (WP) [facility] 08/05/2024 PURVI WALLACE: [address], [place] [address]Cwt: (HP) Primary Insurance:[employer] HMOPolicy Number: [id number] yvonen Date:2023-07-17 PURVI WALLACE: [id number] [address] [address]Sew: (HP) (WP) [facility] SOCIAL HISTORY No Social History Records Found FAMILY HISTORY No Family History Records Found ADVANCE DIRECTIVES No Advanced Directives Records Found INFORMATION SOURCE DATE CREATED AUTHOR AUTHOR'S KATHYA ATWILFRIDO 11/04/2024 [place]
--- OUTSIDE RECORDS SUMMARY | 2024-10-26 07:26 | XMS_ITS ---
Author Organization [facility] [place] Address [address] [place] [address] Care Team Providers Care Sap Fico Business Analyst Name Role Phone Stefan Garces Primary Care Provider REASON FOR VISIT rf metformin Medications Medication SIG (Take, Route, Fr equency, Duration) Notes Start Date End Date Status metFORMIN HCl 500 MG 1 tablet with a feng l Orally BID for 30 days 11/13/2022 Active Encounters Encounter Location Date Provider Diagnosis [address] [address] 10/26/2024 Stefan Garces PCOS (polycystic ovarian syndrome) E28.2 Assessments Encounter Date Diagnosis (ICD Code) Assessment Notes Treatment Notes Treatment Clinical Notes Section Notes 10/26/2024 PCOS (polycystic ovarian syndrome) (ICD-10 - E28.2) Plan Of Treatment Medication Medication Name Sig Start Date Stop Date Notes metFORMIN HCl 500 MG 1 tablet with a feng l Orally BID for 30 days 11/13/2022 Progress Notes * Evangelina CLARKE JDOB:1999 (24 yo F)Acc No.[id number]:10/26/2024 Patient: Evangelina SALDIVAR :2000 A ge:24 Y S ex:Female Address:[address] [place] [address], [id number] * Refills Refill metFORMIN HCl Tablet, 500 MG, Orally, 60 Tablet, 1 tablet with a meal, BID, 30 days, Refills=11 * true * Date: Generated for Jerel nicolas/Brian/Joseluisitting on: 0 11/04/2024 10:42 AM EDT
--- OUTSIDE RECORDS SUMMARY | 2024-11-03 11:45 | XMS_ITS ---
Author Organization [facility] in [place] Address [address] [place] [address] Care Team Providers Care Drupal Programmer Name Role Phone Stefan Garces Primary Care Provider Allergies No Known Allergies Reason For Referral Diagnosis 1 Low back pain at [facility] (M54.50) Referral Organization [facility] Referring Provider First Name Stefan Referring Provider Last Name Mili Referring Provider Speciality Family Med icine Referred Provider TB, Physical Therap y Referred Provider Specialty Physical The rapist Referral Priority Routine REASON FOR VISIT back not better Medications Medication SIG (Take, Route, Frequency, Duration) Notes Start Date End Date Status Setlakin 0.15-0.03 MG take 1 tablet by m outh once daily Oral for 91 Days Active Triamcinolone Acetonide 0.1 % 1 application Externally bid 08/02/2024 Active Lisinopril 20 MG 1 tablet Orally Once a day for 30 days 08/27/2024 Active metFORMIN HCl 500 MG 1 tablet with a feng l Orally BID for 30 days 11/13/2022 Active Omeprazole 40 MG TAKE 1 CAPSULE BY MO UT 30 MINUTES BEFORE MORNING MEAL for 30 Active Baclofen 20 MG 1-2 tabs Orally qhs 11/03/2024 Active Meloxicam 15 MG 1 tablet Orally Once a day for 30 days 11/03/2024 Active buPROPion HCl ER (XL) 150 mg TAKE 1 TABLET BY MOUTH EVERY MORNING for 30 Active Social History Tobacco Use: Social History Observation Description Date Details (start date - stop date) Never Smoker NA - NA Tobacco Use/Smoking Question Answer Notes Patient is a nonsmoker Problems Problem Type SNOMED Code ICD Code Onset Dates Problem Status W/U Status Risk Notes Problem Low back pain at multiple sites (M54.50) Active confirmed Vital Signs Blood pressure systolic 124 mm Hg 11/04/19 Blood pressure diastolic 74 mm Hg 025 Height 67 in 11/03/2024 Weight 246.0 lbs 11/03/2024 BMI 38.52 kg/m2 11/03/2024 Encounters Encounter Location Date Provider Diagnosis [facility] [address] [place] [address] 11/03/2024 Stefan Hoy Low back pain at multiple sites M54.50 ; Palpitations R00.2 and PCOS (polycystic ovarian syndrome) E28.2 Assessments Encounter Date Diagnosis (ICD Code) Assessment Notes Treatment Notes Treatment Clinical Notes Section Notes 11/03/2024 Low back pain at multiple sites (ICD-10 - M54.50) 11/03/2024 Palpitations (ICD-10 - R00.2) 11/03/2024 PCOS (polycystic ovarian syndrome) (ICD-10 - E28.2) 11/03/2024 Other Recommended to rest and use a heating pad on the area. Take NSAIDs for pain as needed Plan Of Treatment Medication Medication Name Sig Start Date Stop Date Notes Baclofen 20 MG 1-2 tabs Orally qhs 11/03/2024 Meloxicam 15 MG 1 tablet Orally Once a day for 30 days Treatment Notes Assessment Notes Other Recommended to rest and use a heating pad on the area. Take NSAIDs for pain as needed Pending Test Test Name Order Date HEMOGLOBIN A1C (GLYCO) 11/03/2024 IRON, TOTAL 11/03/2024 LIPID PANEL (CHOL/TRIG/HDL/LDL) 11/04/19 RHEUMATOID PANEL 11/03/2024 Insulin Level 11/03/2024 SED RATE WESTERGREN 11/03/2024 THYROID PANEL (T4/TSH/FREE T3) CMP (COMP MET PLATT) w/eGFR CKD-EPI 2024 CBC WITH DIFF 11/03/2024 Referrals Referral Date Details 11/03/2024 11/03/2024, Physical Therapy [facility] Progress Notes * Evangelina CLARKE:1999 (24 yo F)Acc No.[id number]:11/03/2024 UNLOCKED PROGRESS NOTE Progress Note Patient: Evangelina SALDIVAR Provider: Christopher Garces ([facility])MD :2000 A ge:24 Y S ex:Female Date:11/03/2024 Address:[address] [place] [address], [id number] Check In:03:32 PM ESTCheck O ut:04:23 PM EST Subjective: * Chief Complaints: * 1 . Back not better. * HPI: G eneral: sitting makes worse walking make sore but not perez best is laying down - not on it no symptom int legs. B ack Pain: The patient complains of -. The symptoms have been present for 1-2 days. The patient believes symptoms are injury related No. The symptoms are mild. Symptomatic treatment has included heating pad, stretching. Associated symptoms include None. * ROS: G eneral/Constitutional: Lightheadedness d enies. C hange in appetite d enies. W eight Change d enies. C ardiovascular: Irregular heartbeat d enies. S welling in hands/feet?denies. R espiratory: Shortness of breath d enies. S hortness of breath with exertion d enies. W heezing d enies. M usculoskeletal: Comments S [facility] for details. N eurologic: Dizziness d enies. F ainting d enies. H eadache?denies. * Medical History: C hronic cough, Elevated white blood cell count, unspecified, GERD (gastroesophageal reflux disease), PCOS (polycystic ovarian syndrome), Migraine headache, Palpitations, IBS (irritable bowel syndrome). * Surgical History: w isdom teeth removal 2023. * Hospitalization/Major Diagno stic Procedure: d enies . * Family History: F ather: alive, diagnosed with Diabetes mellitus without mention of complication, type II or unspecified type, not stated as uncontrolled. M other: alive, thyroid, MS. B rother(s): alive. S ister(s): alive. 1 brother(s) , 1 sister(s) - healthy. . gallbladder disease in family. * Social History: T obacco Use: T obacco Use/Smoking P atient is a n onsmoker * Medications: T aking buPROPion HCl ER (XL) 150 mg Tablet Extended Release 24 Hour TAKE 1 TABLET BY MOUTH EVERY MORNING , Taking Lisinopril 20 MG Tablet 1 tablet Orally Once a day , Taking metFORMIN HCl 500 MG Tablet 1 tablet with a meal Orally BID , Taking Omeprazole 40 MG Capsule Delayed Release TAKE 1 CAPSULE BY MOUTH 30 MINUTES BEFORE MORNING MEAL , Taking Setlakin(Levonorgest-Eth Estrad -Day) 0.15-0.03 MG Tablet take 1 tablet by mouth once daily Oral , Taking Triamcinolone Acetonide 0.1 % Cream 1 application Externally bid , Discontinued levoFLOXacin 750 MG Tablet 1 tablet Orally Once a day , Medication List reviewed and reconciled with the patient * Allergies: N .K.D.A. Objective: * Vitals: W t:246.0lbs, Ht: 67 in, BP:124/74mm Hg, BMI:38.52Index, Ht-cm: 170.18 cm, Wt-k.58 kg. * Examination: G eneral Examination: GENERAL APPEARANCE: i n no acute distress, well developed, well nourished. LUNGS: clear to auscultation bilaterally. CARDIO: S1, S2 normal, no murmurs, rubs, gallops. MUSCULOSKELETAL: L Ow back tendness and on R sideded. EXTREMITIES: no clubbing, cyanosis, or edema. NEUROLOGIC: alert, oriented to time, place, & person.? Assessment: * Assessment: 1. L ow back pain at multiple sites - M54.50 (Primary) 2 . P alpitations - R00.2 3 . P COS (polycystic ovarian syndrome) - E28.2 Plan: * Treatment: 2. P alpitations L AB: HEMOGLOBIN A1C (GLYCO) L AB: IRON, TOTAL L AB: LIPID PANEL (CHOL/TRIG/HDL/LDL) L AB: Insulin Level L AB: THYROID PANEL (T4/TSH/FREE T3) L AB: CMP (COMP MET PLATT) w/eGFR CKD-EPI L AB: CBC WITH DIFF 3. P COS (polycystic ovarian syndrome) L AB: HEMOGLOBIN A1C (GLYCO) L AB: IRON, TOTAL L AB: LIPID PANEL (CHOL/TRIG/HDL/LDL) L AB: Insulin Level L AB: THYROID PANEL (T4/TSH/FREE T3) L AB: CMP (COMP MET PLATT) w/eGFR CKD-EPI L AB: CBC WITH DIFF 4. O thers Notes: Recommended to rest and use a heating pad on the area. Take NSAIDs for pain as needed ? * Preventive Medicine: Screenings/Counseling: B SC ACTION PLAN Above Normal BMI Follow-up D ietary management education, guidance, and counseling * * Electronic signature of Stefan Garces MD, [phone] on 11/04/2024 at 10:42 AM EDT Sign off status: Pending Visit Status: C HK (Check Out) * Provider: Christopher Garces ([facility])MD Date: 11/03/2024 Generated for Printi ng/Faxing/eTransmitting on: 11/04/2024 10:42 AM EDT History and Physical Notes * HPI (History of Present Illness) Category Sub-Category Detail Notes Category Not es General sitting makes worse walking make sore but not perez best is laying down - not on it no symptom int legs Examination Category Sub-Category Detail Notes Category Not es General Examination GENERAL APPEARANCE: in no ac little shell tribe distress, well developed, well nourished CARDIO: S1, S2 normal, no mu rmurs, rubs, gallops LUNGS: clear to auscultatio n bilaterally NEUROLOGIC: alert, oriented to t clary, place, & person EXTREMITIES: no clubbing, cyanosi s, or edema MUSCULOSKELETAL: LOw back tendness an d on R sideded Consultation Request Notes Referral Date Referring Provider Referred Provider Not es 11/03/2024 Stefan Garces [facility], Physical Therapy
--- OUTSIDE RECORDS SUMMARY | 2024-11-03 12:21 | XMS_ITS ---
Author Organization [facility] in [place] Address [address] [place] [address] Care Team Providers Care Surgical Territory Manager Name Role Phone Stefan Garces Primary Care Provider Reason For Referral Diagnosis 1 Large breasts (N62) Referral Organization [facility] Referring Provider First Name Stefan Referring Provider Last Name Mili Referring Provider [facility] icine Referred Provider Celeste Morales Referred Provider Specialty Plastic and Reconstructive Surgery Referral Priority Routine REASON FOR VISIT Referral Problems Problem Type SNOMED Code ICD Code Onset Dates Problem Status W/U Status Risk Notes Problem Large breasts (N62) Active confirmed Encounters Encounter Location Date Provider Diagnosis [facility] [address] [place] [address] 11/03/2024 Stefan Garces Large breasts N6 2 Assessments Encounter Date Diagnosis (ICD Code) Assessment Notes Treatment Notes Treatment Clinical Notes Section Notes 11/03/2024 Large breasts (ICD-10 - N62) Plan Of Treatment Referrals Referral Date Details 11/03/2024 11/03/2024, [facility] Progress Notes * Evangelina CLARKEDOB:1999 (24 yo F)Acc No.[id number]:11/03/2024 Patient: Evangelina SALDIVAR :2000 A ge:24 Y S ex:Female Address:[address] [place] [address], [id number] Subjective: * Chief Complaints: * R eferral * Medical History: * Surgical History: * Hospitalization/Major Diagno stic Procedure: * Medications: Objective: * Vitals: * Physical Examination: Assessment: * Assessment: 1Haroon walker - N62 (Primary) Plan: * Treatment: * Procedure Codes: * true * Date: Generated for Jerel nicolas/Brian/eTransmitting on: 0 11/04/2024 10:42 AM EDT Consultation Request Notes Referral Date Referring Provider Referred Provider Not es 11/03/2024 Stefan Garces Teresa
--- OUTSIDE RECORDS SUMMARY | 2024-11-04 10:42 | XMS_ITS | Patient Health Record ---
Author Organization The [facility] in [place] Address [address] [place] [address] Care Team Providers Care Thumb Sewer Name Role Phone Stefan Garces Primary Care Provider [phone] CAMILLE GARCES Unavailable [phone] Allergies No Known Allergies Results Component Value Reference Range Notes INSULIN Reviewed date:06/24/2024 12:53:39 PM Interpretation: Performing Lab: Notes/Report: [facility] , Insulin 19.2 2.6-24.9 uIU/mL Performed at: - [facility] [address] [id number] Computer Science Teacher: Ezequiel Agosto PhD, Phone: [phone] Performing Lab: see note LC - [facility] LB XR lumbar spine min 4V Reviewed date:06/24/2024 12:53:39 PM Interpretation: Performing Lab: Notes/Report: Source Facility: [place] [address] [place] [address] XRay Report Signed Patient: PURVI CLRAKE MR#: [id number] : 2000 Acct:[id number] Age/Sex: 24 / F ADM Date: 06/23/24 Loc: LAB Attending Dr: Camille Garces M.D. Ordering Physician: Camille Garces M.D. Date of Service: 06/23/24 Procedure(s): XR lumbar spine min 4V Accession Number(s): [id number] cc: Camille Garces M.D. [address] [address] Patient Name: PURVI CLARKE MRN: [id number] date: 2000 Sex: F Assigned Patient Location: LAB Current Patient Location: Accession/Order Number: [id number] Exam Date: 06/23/2024 15:02 Report Date: 06/24/2024 07:16 At the request of: CAMILLE GARCES Procedure: XR lumbar spine min 4V EXAMINATION: XR lumbar spine min 4V HISTORY: low back pain M54. COMPARISON: No relevant comparison available. FINDINGS: BONES: Normal. No significant spondylosis, scoliosis, fracture, or visible bony lesion. DISC SPACES: Normal. No significant disc height narrowing, subluxation, or endplate abnormality. PARASPINOUS: Negative. No paraspinous abnormality is seen. OTHER: Negative. XR/XR lumbar spine min 4V IMPRESSION: No acute radiographic abnormality Electronically authenticated by: RUBEN MACIAS Date: 06/24/2024 07:16 Dictated By: Ruben Macias M.D. Signed By: 06/24/24718 DD/ 5 TD/TT: Claim Administrator: [place] [address] XRay Report Signed Patient: PURVI CLARKE MR#: [id number] : 2000 Acct:[id number] Age/Sex: 24 / F ADM Date: 06/23/24 Loc: LAB Attending Dr: Rajendra Garces M.D. Ordering Physician: Camille Garces M.D. Date of Service: 06/23/24 Procedure(s): XR lumbar spine min 4V Accession Number(s): [id number] cc: Camille Garces M.D. [address] [address] Patient Name: PURVI CLARKE MRN: [id number] date: 2000 Sex: F Assigned Patient Location: LAB Current Patient Location: Accession/Order Number: [id number] Exam Date: 06/23/2024 15:02 Report Date: 06/24/2024 07:16 At the request of: CAMILLE GARCES Procedure: XR lumbar spine min 4V EXAMINATION: XR lumb ar spine min 4V HISTORY: low back pa in M54. COMPARISON: No relevant comparison available. FINDINGS: BONES: Normal. No significant spondylosis, scoliosis, fracture, or visible bony lesion. DISC SPACES: Normal. No significant disc height narrowing, subluxation, or endplate abnormality. PARASPINOUS: Negativ e. No paraspinous abnormality is seen. OTHER: Negative. XR/XR lumbar spine min 4V IMPRESSION: No acute radiographi c abnormality Electronically authenticated by: RUBEN MACIAS Date: 06/24/2024 07:16 Dictated By: Ruben Macias M.D. Signed By: 06/24/2419 DD/ 5 TD/TT: Claim Administrator: LACTATE or LACTIC ACID Reviewed date:08/17/2024 07:37:31 PM Interpretation: Performing Lab: Notes/Report: [facility] , Lactate/Lactic Acid 1.5 0.4-2.0 mmol/L Performing Lab: see note ML - [facility] LB LIPASE Reviewed date:08/17/2024 07:37:31 PM Interpretation: Performing Lab: Notes/Report: [facility] , Lipase 33.0 16.0-77.0 U/L Performing Lab: see note ML - [facility] LB PROF 14(COMP METB) Reviewed date:08/17/2024 07:37:31 PM Interpretation: Performing Lab: Notes/Report: [facility] , Sodium 138 136-145 mmol/L Potassium 4.0 3.5-5.1 mmol/L Chloride 102 98-107 mmol/L Carbon Dioxide 28.3 21.0-32.0 mmol/L Anion Gap 11.7 Glucose 82 74-106 mg/dL Blood Urea Nitrogen 14.0 7.0-18.0 mg/dL Creatinine 0.93 0.55-1.02 mg/dL Estimated GFR ( Ana Maria >60 >=60 mL/min/1.73m 2 Estimated GFR (Non- Maliha >60 >=60 mL/min/1.73m 2 BUN Creatinine Ratio 15.1 Calcium 9.3 8.5-10.1 mg/dL Bilirubin Total 0.2 0.2-1.0 mg/dL Aspartate Amino Transferase 17 15-37 U/L Alanine Aminotransferase 16 14-59 U/L Alkaline Phosphatase 51 46-116 U/L Total Protein 8.0 6.4-8.2 g/dL Albumin Level 3.2 3.4-5.0 g/dL Globulin 4.8 Albumin Globulin Ratio 0.7 Performing Lab: see note ML - [facility] LB Urine Culture - [facility] Reviewed date:08/19/2024 08:56:56 PM Interpretation: Performing Lab: Notes/Report: [facility] , Urine Culture - [facility] See Below For Report Urine Culture - [facility] 50,000 colonies/ml mixed Urine Culture - [facility] bacterial skin contaminants Urine Culture - [facility] 50,000 colonies/ml mixed Urine Culture - [facility] 2 Days Urine Culture - [facility] 50,000 colonies/ml mixed Urine Culture - [facility] Urine Culture - [facility] 50,000 colonies/ml mixed Urine Culture - [facility] Testing performed a [facility] Urine Culture - [facility] 50,000 colonies/ml mixed Urine Culture - [facility] [address] [place] [address] Urine Culture - [facility] 50,000 colonies/ml mixed Performing Lab: see note ML - [facility] LB TSH Reviewed date:06/23/2024 07:13:24 PM Interpretation: Performing Lab: Notes/Report: [facility] , Thyroid Stimulating Hormone 1.258 0.358-3.740 uIU/mL Performing Lab: see note ML - [facility] LB T4 Reviewed date:06/23/2024 07:13:24 PM Interpretation: Performing Lab: Notes/Report: [facility] , T4 Thyroxine 10.60 4.80-13.90 ug/dL Performing Lab: see note ML - [facility] LB PROF 14(COMP METB) Reviewed date:06/23/2024 07:13:24 PM Interpretation: Performing Lab: Notes/Report: [facility] , Sodium 142 136-145 mmol/L Potassium 3.7 3.5-5.1 mmol/L Chloride 105 98-107 mmol/L Carbon Dioxide 27.9 21.0-32.0 mmol/L Anion Gap 12.8 Glucose 75 74-106 mg/dL Blood Urea Nitrogen 12.0 7.0-18.0 mg/dL Creatinine 0.91 0.55-1.02 mg/dL Estimated GFR ( Ana Maria >60 >=60 mL/min/1.73m 2 Estimated GFR (Non- Maliha >60 >=60 mL/min/1.73m 2 BUN Creatinine Ratio 13.2 Calcium 8.6 8.5-10.1 mg/dL Bilirubin Total 0.3 0.2-1.0 mg/dL Aspartate Amino Transferase 9 15-37 U/L Alanine Aminotransferase 16 14-59 U/L Alkaline Phosphatase 49 46-116 U/L Total Protein 7.4 6.4-8.2 g/dL Albumin Level 3.0 3.4-5.0 g/dL Globulin 4.4 Albumin Globulin Ratio 0.7 Performing Lab: see note ML - [facility] LIPID PROFILE Reviewed date:06/23/2024 07:13:24 PM Interpretation: Performing Lab: Notes/Report: [facility] , Triglycerides 110 <=150 mg/dL Cholesterol 199 <=200 mg/dL HDL Cholesterol 47 40-60 mg/dL <40 mg/dl - HIGH CARDIOVASCULAR RISK > or =60 mg/dl - LOW CARDIOVASCULAR RISK LDL Cholesterol Calculated 130.0 >190 mg/dl VERY HIGH <100 mg/dl OPTIMAL 100-129 mg/dl NEAR OR ABOVE OPTIMAL 160-189 mg/dl HIGH 130-159 mg/dl BORDERLINE HIGH VLDL CHOLESTEROL 22.0 Chol HDL Ratio 4.2 3.3 - 4.4 LOW RISK 4.4 - 7.1 AVERAGE RISK 7.1 - 11.0 MODERATE RISK >11.0 HIGH RISK Performing Lab: see note ML - [facility] GLYCOHEMOGLOBIN A1C Reviewed date:06/23/2024 07:13:24 PM Interpretation: Performing Lab: Notes/Report: [facility] , Glycohemoglobin A1C 5.2 4.5-6.2 % > 7.0 ADA RECOMMENDED LIMIT 4.0 - 6.0 ACTION SUGGESTED ADA THERAPEUTIC TARGET < 7.0 Estimated Average Glucose 103 Performing Lab: see note ML - [facility] FREE T3 Reviewed date:06/23/2024 07:13:24 PM Interpretation: Performing Lab: Notes/Report: [facility] , Free T3 2.44 2.18-3.98 pg/mL Performing Lab: see note ML - [facility] LB CBC AUTO DIFF Reviewed date:06/23/2024 07:13:24 PM Interpretation: Performing Lab: Notes/Report: [facility] , White Blood Count 9.8 4.0-11.0 10 3/uL Red Blood Count 4.92 4.20-5.40 10 6/uL Hemoglobin 13.2 12.0-16.0 g/dL Hematocrit 42.2 36.0-48.0 % Mean Corpuscular Volume 85.8 81.0-99.0 fL Mean Corpuscular Hemoglobin 26.8 26.7-34.0 pg Mean Corpuscular HGB Conc 31.3 29.9-35.2 g/dL Red Cell Distribution Width 13.2 11.0-15.0 % Platelet Count 418 150-450 10 3/uL Mean Platelet Volume 8.9 9.5-13.5 fL Neutrophils Percent Auto 68.0 43.0-75.0 % Lymphocytes Percent Auto 25.0 20.5-60.0 % Monocytes Percent Auto 5.6 1.7-12.0 % Eosinophils Percent Auto 0.8 0.9-7.0 % Basophils Percent Auto 0.4 0.2-2.0 % Immature Granulocytes Pct Auto 0.2 0.0-0.5 % Neutrophils Absolute Auto 6.6 1.4-6.5 10 3/uL Lymphocytes Absolute Auto 2.4 1.2-3.8 10 3/uL Monocytes Absolute Auto 0.6 0.3-0.8 10 3/uL Eosinophils Absolute Auto 0.1 0.0-0.7 10 3/uL Basophils Absolute Auto 0.0 0.0-0.1 10 3/uL Immature Granulocytes Abs Auto 0.02 0.00-0.03 10 3/uL Performing Lab: see note ML - [facility] LB COVID-19, Flu A+B IH (Not ye t reviewed by provider) Interpretation: Performing Lab: Notes/Report: COVID neg FLU A neg FLU B neg Control pos US pelvis w/ transvaginal Reviewed date:06/29/2024 04:04:52 PM Interpretation: Performing Lab: Notes/Report: Source Facility: [facility] [place] [address] [address] Ultrasound Report Signed Patient: PURVI CLARKE MR#: [id number] : 2000 Acct:[id number] Age/Sex: 24 / F ADM Date: 06/28/24 Loc: US Attending Dr: Camille Garces M.D. Ordering Physician: Camille Garces M.D. Date of Service: 06/28/24 Procedure(s): US pelvis w/ transvaginal Accession Number(s): [id number] cc: Camille Garces M.D. [place] [address] Patient Name: PURVI CLARKE MRN: [id number] date: 2000 Sex: F Assigned Patient Location: US Current Patient Location: Accession/Order Number: [id number] Exam Date: 06/28/2024 15:00 Report Date: 06/29/2024 07:25 At the request of: CAMILLE GARCES Procedure: US pelvis w/ transvaginal EXAM: US pelvis w/ transvaginal HISTORY: . Polycystic Ovarian Syndrome . COMPARISON: None. TECHNIQUE: Transabdominal and transvaginal scanning was performed FINDINGS: Scanning of the pelvis demonstrates a retroverted uterus measuring 6.1 x 4 x 4.8 cm. Endometrial complex measures 6 mm. Right ovary measures 2 x 1.5 x 1.4 cm. Color-flow is noted. Resistive indexes 0.36. No masses are noted. There are a couple follicles noted within the right ovary. Left ovary measures 1.6 x 1.8 x 1.3 cm. Color-flow is noted. Resistive indexes 0.56. Small follicles are noted. There is a 1.4 x 1 cm dominant follicle/simple cysts within the left ovary. No fluid is noted in the cul-de-sac. US/US pelvis w/ transvaginal IMPRESSION: 1. Normal-appearing retroverted uterus and normal endometrial complex. 2. Normal right ovary. 3. 1.4 x 1 cm simple cyst versus dominant follicle in the left ovary. Electronically authenticated by: RUBEN FRY Date: 06/29/2024 07:25 Dictated By: Ruben Fry M.D. Signed By: 06/29/24726 DD/ 4 TD/TT: Claim Administrator: [address] [address] Ultrasound Report Signed Patient: PURVI CLARKE MR#: [id number] : 2000 Acct:[id number] Age/Sex: 24 / F ADM Date: 06/28/24 Loc: US Attending Dr: Rajendra Garces M.D. Ordering Physician: Camille Garces M.D. Date of Service: 06/28/24 Procedure(s): US pelvis w/ transvaginal Accession Number(s): [id number] cc: Camille Garces M.D. [address] [address] Patient Name: PURVI CLARKE MRN: [id number] date: 2000 Sex: F Assigned Patient Location: US Current Patient Location: Accession/Order Number: [id number] Exam Date: 06/28/2024 15:00 Report Date: 06/29/2024 07:25 At the request of: CAMILLE GARCES Procedure: US pelvis w/ transvaginal EXAM: US pelvis w/ transvaginal HISTORY: . Polycysti c Ovarian Syndrome . COMPARISON: None. TECHNIQUE: Transabdominal and transvaginal scanning was performed FINDINGS: Scanning o f the pelvis demonstrates a retroverted uterus measuring 6.1 x 4 x 4.8 cm. Endometrial complex measures 6 mm. Right ovary measures 2 x 1.5 x 1.4 cm. Color-flow is noted. Resistive indexes 0.36. No masses are noted. There are a couple follicles noted within the right ovary. Left ovary measures 1.6 x 1.8 x 1.3 cm. Color-flow is noted. Resistive indexes 0.56. Small follicle s are noted. There is a 1.4 x 1 cm dominant follicle/simple cysts within the lef t ovary. No fluid is noted in the cul-de-sac. US/US pelvis w/ transvaginal IMPRESSION: 1. Normal-appearing retroverted uterus and normal endometrial complex. 2. Normal right ovary. 3. 1.4 x 1 cm simple cyst versus dominant follicle in the left ovary. Electronically authenticated by: RUBEN FRY Date: 06/29/2024 07:25 Dictated By: Ruben Fry M.D. Signed By: 06/29/2427 DD/ 4 TD/TT: Claim Administrator: UA Micro, reflex to culture Reviewed date:08/17/2024 07:37:31 PM Interpretation: Performing Lab: Notes/Report: [facility] , Color Urine LT. YELLOW YELLOW Clarity Urine CLEAR CLEAR Specific [place] Urine 1.015 1.005-1.025 pH Urine 6.0 5.0-9.0 Protein Urine TRACE NEG/TRACE mg/dL Glucose Urine UA NEGATIVE NEGATIVE mg/dL Bilirubin Urine NEGATIVE NEGATIVE Ketones Urine NEGATIVE NEGATIVE mg/dL Blood Urine TRACE-I NEGATIVE Nitrite Urine NEGATIVE NEGATIVE Urobilinogen Urine 0.2 0.2-1.0 EU/dL Leukocyte Esterase Urine MODERATE NEGATIVE WBC Urine 10-20 NONE SEEN #/HPF RBC Urine 0-2 0-2 #/HPF Bacteria Urine MODERATE NONE SEEN #/HPF Mucus Urine SMALL NONE SEEN Squamous Epithelial Cell Urine FEW NONE/RARE #/LPF Transitional Epi Cells Urine RARE NONE SEEN #/LPF Crystals Seen? None Seen None Seen #/HPF Cast Seen? NONE SEEN NONE SEEN #/LPF Urine Culture Indicated YES-[facility] Performing Lab: see note ML - [facility] LB CBC AUTO DIFF Reviewed date:08/17/2024 07:37:30 PM Interpretation: Performing Lab: Notes/Report: [facility] , White Blood Count 8.5 4.0-11.0 10 3/uL Red Blood Count 5.22 4.20-5.40 10 6/uL Hemoglobin 14.2 12.0-16.0 g/dL Hematocrit 44.5 36.0-48.0 % Mean Corpuscular Volume 85.2 81.0-99.0 fL Mean Corpuscular Hemoglobin 27.2 26.7-34.0 pg Mean Corpuscular HGB Conc 31.9 29.9-35.2 g/dL Red Cell Distribution Width 13.5 11.0-15.0 % Platelet Count 486 150-450 10 3/uL Mean Platelet Volume 9.8 9.5-13.5 fL Neutrophils Percent Auto 58.5 43.0-75.0 % Lymphocytes Percent Auto 32.8 20.5-60.0 % Monocytes Percent Auto 6.8 1.7-12.0 % Eosinophils Percent Auto 0.9 0.9-7.0 % Basophils Percent Auto 0.6 0.2-2.0 % Immature Granulocytes Pct Auto 0.4 0.0-0.5 % Neutrophils Absolute Auto 5.0 1.4-6.5 10 3/uL Lymphocytes Absolute Auto 2.8 1.2-3.8 10 3/uL Monocytes Absolute Auto 0.6 0.3-0.8 10 3/uL Eosinophils Absolute Auto 0.1 0.0-0.7 10 3/uL Basophils Absolute Auto 0.1 0.0-0.1 10 3/uL Immature Granulocytes Abs Auto 0.03 0.00-0.03 10 3/uL Performing Lab: see note ML - [facility] IRON Reviewed date:06/23/2024 07:13:24 PM Interpretation: Performing Lab: Notes/Report: [facility] , Iron 93.0 50.0-170.0 ug/dL Performing Lab: see note ML - [facility] LB Reason For Referral Diagnosis 1 Low back pain, unspe cified (M54.50) Referral Organization [facility] Referring Provider First Name Stefan Referring Provider Last Name [facility] Referring Provider [facility] deyanira Referred Provider Specialty Physical The rapist Referral Priority Routine Diagnosis 1 Low back pain at [facility] (M54.50) Referral Organization [facility] Referring Provider First Name Stefan Referring Provider Last Name [facility] Referring Provider [facility] deyanira Referred Provider [facility] Physical Therap y Referred Provider Specialty Physical The rapist Referral Priority Routine Diagnosis 1 Large breasts (N62) Referral Organization [facility] Referring Provider First Name Stefan Referring Provider Last Name [facility]erred Provider Celeste Morales Referred Provider Specialty Plastic and Reconstructive Surgery Referral Priority Routine Medications Medication SIG (Take, Route, Frequency, Duration) Notes Start Date End Date Status Baclofen 20 MG 1-2 tabs Orally qhs 11/03/2024 Active Setlakin 0.15-0.03 MG take 1 tablet by m outh once daily Oral for 91 Days Active Triamcinolone Acetonide 0.1 % 1 application Externally bid 08/02/2024 Active Meloxicam 15 MG 1 tablet Orally Once a day for 30 days 11/03/2024 Active Lisinopril 20 MG 1 tablet Orally Once a day for 30 days 08/27/2024 Active metFORMIN HCl 500 MG 1 tablet with a feng l Orally BID for 30 days 11/13/2022 Active Omeprazole 40 MG TAKE 1 CAPSULE BY [facility] 30 MINUTES BEFORE MORNING MEAL for 30 Active buPROPion HCl ER (XL) 150 mg TAKE 1 TABLET BY MOUTH EVERY MORNING for 30 Active Social History Tobacco Use: Social History Observation Description Date Details (start date - stop date) Never Smoker NA - NA Tobacco Use/Smoking Question Answer Notes Patient is a nonsmoker Alcohol Screen (Audit-C) Question Answer Notes Did you have a drink containing alcohol in the p ast year? No Points 0 Interpretation Negative AUDIT-C (Standard) Question Answer Notes Did you have a drink containing alcohol in the p ast year? No Points 0 Interpretation Negative Problems Problem Type SNOMED Code ICD Code Onset Dates Problem Status W/U Status Risk Notes Problem Leukocytosis (458964490) Elevated white blood cell count, unspecified (D72.829) Active confirmed Problem Palpitations (49305762) Palpitations (R00.2) Active confirmed Problem Migraine variant with headache (disorder) (497993618) Migraine headache (G43.909) Active confirmed Problem Gastroesophageal reflux disease (263035082) GERD (gastroesophage al reflux disease) (K21.9) Active confirmed Problem Eczema (44696094) Eczema (L30.9) Active confirm ed Problem Irritable bowel syndrome (49412084) IBS (irritable bowel syndrome) (K58.9) Active confirmed Problem Polycystic ovary syndrome (disorder) (968593616) PCOS (polycystic ovarian syndrome) (E28.2) Active confirmed Problem Acute sinusitis (97177842) Acute sinus infection (J01.90) Active confirmed Problem Hypertrophy of breast (128907504) Large breasts (N62) Active confirmed Problem Chronic cough (30998929) Chronic cough (R05.3) Active confirmed Problem Low back pain (finding) (351372415) Low back pain at multiple sites (M54.50) Active confirmed Vital Signs Blood pressure diastolic 74 mm Hg 11/03/2024 Height 67 in 11/03/2024 Blood pressure systolic 124 mm Hg 11/03/2024 Weight 246.0 lbs 11/03/2024 BMI 38.52 kg/m2 11/03/2024 Encounters Encounter Location Date Provider Diagnosis [facility] [address] [facility] [place] [address] 11/14/2023 CAMILLE GARCES [facility] [address] [facility] [place] [address] 12/17/2023 Stefan Garces [facility] [address] [facility] [place] [address] 02/26/2024 Stefan Garces [facility] [address] [facility] [place] [address] 06/23/2024 Stefan jorje [facility] [address] [facility] [place] [address] 06/23/2024 Stefan Garces PCOS (polycystic ovarian syndrome) E28.2 [facility] [address] [facility] [place] [address] 06/23/2024 Stefan Garces [facility] [address] [facility] [place] [address] 06/24/2024 Stefan Garces Low back pain, unspecified M54.50 [facility] [address] [facility] [place] [address] 06/28/2024 Stefna Garces [facility] [address] [facility] [place] [address] 06/29/2024 Stefan Garces [facility] [address] [facility] [place] [address] 07/29/2024 Stefan Garces [facility] [address] [facility] [place] [address] 08/17/2024 Stefan Garces [facility] [address] [facility] [place] [address] 08/27/2024 Stefan Garces [facility] [address] [facility] [place] [address] 09/02/2024 Stefan Hoy [facility] [address] [place] [address] 09/08/2024 Stefan Hoy [facility] [address] [place] [address] 09/28/2024 Stefan Hoy [facility] [address] [place] [address] 10/26/2024 Stefan Hoy PCOS (polycystic ovarian syndrome) E28.2 [facility] [address] [place] [address] 11/03/2024 Stefan Hoy Large breasts N62 [facility] [address] [place] [address] 06/21/2024 Stefan Hoy Low back pain, unspecified M54.50 ; Elevated white blood cell count, unspecified D72.829 ; Palpitations R00.2 ; PCOS (polycystic ovarian syndrome) E28.2 and Chronic cough R05.3 [facility] [address] [place] [address] 08/02/2024 Stefan Hoy Eczema L30.9 [facility] [address] [place] [address] 12/17/2023 Stefan Hoy PCOS (polycystic ovarian syndrome) E28.2 and GERD (gastroesophageal reflux disease) K21.9 [facility] [address] [place] [address] 11/03/2024 Stefan Hoy Low back pain at multiple sites M54.50 ; Palpitations R00.2 and PCOS (polycystic ovarian syndrome) E28.2 [facility] [address] [place] [address] 08/24/2024 Stefan Hoy Nasal congestion R09 .81 and Acute sinusitis J01.90 [facility] [address] [place] [address] 09/02/2024 Stefan Hoy [facility] [address] [place] [address] 09/08/2024 Stefan Mezay Assessments Encounter Date Diagnosis (ICD Code) Assessment Notes Treatment Notes Treatment Clinical Notes Section Notes 08/02/2024 Eczema (ICD-10 - L30.9) 08/24/2024 Nasal congestion (ICD-10 - R09.81) 08/24/2024 Acute sinusitis (ICD-10 - J01.90) 11/03/2024 Low back pain at multiple sites (ICD-10 - M54.50) 11/03/2024 Palpitations (ICD-10 - R00.2) 11/03/2024 PCOS (polycystic ovarian syndrome) (ICD-10 - E28.2) 06/23/2024 PCOS (polycystic ovarian syndrome) (ICD-10 - E28.2) 06/24/2024 Low back pain, unspecified (ICD-10 - M54.50) 10/26/2024 PCOS (polycystic ovarian syndrome) (ICD-10 - E28.2) 11/03/2024 Large breasts (ICD-10 - N62) 12/17/2023 PCOS (polycystic ovarian syndrome) (ICD-10 - E28.2) 12/17/2023 GERD (gastroesophageal reflux disease) (ICD-10 - K21.9) 06/21/2024 Low back pain, unspecified (ICD-10 - M54.50) 06/21/2024 Elevated white blood cell count, unspecified (ICD-10 - D72.829) 06/21/2024 Palpitations (ICD-10 - R00.2) 06/21/2024 PCOS (polycystic ovarian syndrome) (ICD-10 - E28.2) 06/21/2024 Chronic cough (ICD-10 - R05.3) 06/21/2024 Other Recommended to rest and use a heating pad on the area. Take NSAIDs for pain as needed 11/03/2024 Other Recommended to rest and use a heating pad on the area. Take NSAIDs for pain as needed Plan Of Treatment Pending Test Test Name Order Date Ultrasound : Pelvic 06/23/2024 CMP (COMPLETE METABOLIC PANEL) HEMOGLOBIN A1C (GLYCO) 06/21/2024 HEMOGLOBIN A1C (GLYCO) 11/03/2024 IRON, TOTAL 06/21/2024 IRON, TOTAL 11/03/2024 LIPID PANEL (CHOL/TRIG/HDL/LDL) 11/04/19 25 LIPID PANEL (CHOL/TRIG/HDL/LDL) 06/21/19 25 CBC WITH DIFF 06/21/2024 RHEUMATOID PANEL 11/03/2024 Insulin Level 06/21/2024 Insulin Level 11/03/2024 COVID-19, Flu A+B IH 08/24/2024 SED RATE WESTERGREN 11/03/2024 XR LSPINE MIN 4 VIEWS 06/21/2024 THYROID PANEL (T4/TSH/FREE T3) 5 THYROID PANEL (T4/TSH/FREE T3) CMP (COMP MET PLATT) w/eGFR CKD-EPI 2024 CBC WITH DIFF 11/03/2024 Insurance Providers Payer Name Payer Address Payer Phone Subscriber Number Group Number Insured Name Patient Relationship to Insured Coverage Start Date Coverage End Date [employer] [place] [employer] [address] [place] [address] [id number] Purvi Clarke Self - patient is the insured Medications Administered Medication Instructions Date of Administration Dosage Notes Kenalog-40 11/03/2023 80 mg 80 Medical (General) History Medical History History ICD Code Chronic cough R05.3 Elevated white blood cell count, unspeci fied D72.829 GERD (gastroesophageal reflux disease) K 21.9 PCOS (polycystic ovarian syndrome) E28.2 Migraine headache G43.909 Palpitations R00.2 IBS (irritable bowel syndrome) K58.9 Surgical History Surgery Date(Month/Year) wisdom teeth removal 2023 Hospitalization History Reason Date(Month/Year) denies
--- OUTSIDE RECORDS SUMMARY | 2024-11-04 10:42 | XMS_ITS | Patient Health Record ---
Author Organization [facility] Address [address] [place], [place] [id number] Care Team Providers Care Thermostat Maker Name Role Phone Noemi Ruiz Primary Care Provider Allergies No Known Allergies Results Component Value Reference Range Notes HTRX - Vaginitis Reviewed date:07/16/2024 01:13:05 PM Interpretation: Performing Lab: Notes/Report: Urine Dip Reviewed date:07/09/2024 03:54:20 PM Interpretation: Performing Lab: Notes/Report: Bilirubin - Occult Blood 3+ Glucose - Ketones - WBC 1+ Nitrite - Ph 6.0 Protein - Specific [place] 1.010 Color yellow Appearance dark Reason For Referral Reason Pt has palpable lump in vaginal canal, [facility] ER she got a Transvaginal USN done WNL Diagnosis 1 Lump in vagina (N94. 9) Referral Organization Main Referring Provider First Name Noemi Referring Provider Last Name Sara Referred Provider [facility] Jeff robin Referred Provider Specialty OB - Gynecol ogy General Notes Edgardo Peralta 08/24/2024 11:15:07 AM >{ {TOFIRSTNAME}} This is [facility] following up on an outstanding referral that was ordered by your provider. Please call our office at , so we can _update our records. Referral Priority Routine Reason Z59.41 Food Insecuri ty Diagnosis 1 Food insecurity (Z59 .41) Referral Organization Main Referring Provider First Name Noemi Referring Provider Last Name Sara Referred Provider PRAPARE Referred Provider Specialty [facility] or Welfare Agencies General Notes Gemini Vera 2024 11:32:10 AM >Called and left VM for pt to call back advised to call [phone] EXT [phone] and ask for Gemini Vera. Referral Priority Routine Reason Z59.9 Financial Diff iculties Diagnosis 1 Financial difficulti es (Z59.9) Referral Organization Main Referring Provider First Name Noemi Referring Provider Last Name Sara Referred Provider MIRANDA Referred Provider Specialty [facility] or Welfare Agencies General Notes Gemini Vera 2024 11:31:35 AM >Called and left VM for pt to call back advised to call [phone] EXT [phone] and ask for Gemini Vera. Referral Priority Routine Medications Medication SIG (Take, Route, Frequency, Duration) Notes Start Date End Date Status Cholecalciferol 250 MCG (11580 UT) as directed Orally once a day for 30 days 08/18/2023 Not-Taking Setlakin 0.15-0.03 MG 1 (one) Oral daily Not-Taking buPROPion HCl ER (XL) 150 MG take 1 tablet by mouth once daily Oral for 30 Days Active Setlakin 0.15-0.03 MG 1 tablet Orally On ce a day for 91 days 08/21/2022 Active Omeprazole 40 MG Take 1 capsule by mouth once a day Oral for 30 Days Active metFORMIN HCl 500 MG take 1 tablet by mouth twice a day Oral for 30 Days Active Social History Tobacco Use: Social History Observation Description Date Details (start date - stop date) Never Smoker NA - NA Sex Assigned At : Social History Observation Description Sex Assigned At Female Tobacco Use/Smoking Question Answer Notes Tobacco use: nonsmoker patient enter ed data CAGE-AID Questionnaire (2018 Edition) Question Answer Notes Have you ever felt that you ought to cut down on your drinking or drug use? No patient entered data Have people annoyed you by c riticizing your drinking or drug use? No patient entered data Have you ever felt bad or gu ilty about your drinking or drug use? No patient entered data Have you ever had a drink or used drugs first thing in the morning to steady your nerves or to get rid of a hangover? No patient entered data CAGE-AID Score 0 Interpretation Negative PRAPARE Question Answer Notes Date Completed/Updated: 07/09/2024 nolvia nt entered data What is your current housing situation? I have housing patient entered data Are you worried about losing your housing? No patient entered data What is the highest level of school that you have finished? 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 Check all that apply Food,Medicine or any health care (medical, dental, mental health or vision) Has lack of transportation k ept you from medical appointments, meetings, work or from getting things needed for daily living? No How often do you see or talk to people that you care about and feel close to? (For example: talking to friends on the phone, visiting friends or family, going to sabianist or club meetings) More than 5 times a week patient entered data How stressed are you? Stress is when someone feels tense, nervous, anxious, or can't sleep at night because their mind is troubled Quite a bit patient entered data In the past year have you sp ent more than 2 nights in a row in a alf, shelter, snf center, or juvenile correctional facility? No patient entered data Are you a refugee? No patient en tered data What country are you from? [place] entered data Do you feel physically and emotionally safe where you currently live? Yes patient entered data In the past year, have you b een afraid of your partner or ex-partner? I have not had a partner in the past year patient entered data PRAPARE Score: 8 Problems Problem Type SNOMED Code ICD Code Onset Dates Problem Status W/U Status Risk Notes Problem 822835563 Dysmenorrhea (N94.6) Active confirmed Problem 571624281 Obesity (BMI 30-39.9) (E66.9) Active confirmed Problem Vitamin D deficiency (55857420) Vitamin D deficiency (E55.9) Active confirmed Problem Frequency of micturition (286255317) Frequency of micturition (R35.0) Active confirmed Comment:Urine sent will call, Problem Candidal vulvovaginitis (10289202) Vulvovaginitis willis albicans (B37.3) Active confirmed Problem Depression screening (772689914) Screening for depression (Z13.31) Active confirmed Description:Dep r ession screen Problem Vaginal discharge (965092579) Vaginal discharge (N89.8) Active confirmed Comment:-asympt o darek, will call patient with results., Problem Gynecological examination normal (199286871009515 ) Well woman exam with routine gynecological exam (Z01.419) Active confirmed Problem Polycystic ovary syndrome (disorder) (837066211) PCOS (polycystic ovarian syndrome) (E28.2) Active confirmed Problem Bacterial vaginosis (280843185) Bacterial vaginosis (N76.0) Active confirmed Problem Surveillance of oral contraception done (218423778917432 ) Encounter for control pills maintenance (Z30.41) Active confirmed Comment:- Discussed the benefits, side effects and risks including increased risk for venous thromboembolism especially if patient smokes and is 35 years or older. Reminded patient that this method will not protect against STD's and should continue using condoms for protection. - Continue on the same low dose pill, no issue with regulating cycles or remembering to take it., Problem Weight gain (638664094) Weight gain (R63.5) Active confirmed Problem Pain in female pelvis (167237058) Pelvic pain in female (R10.2) Active confirmed Comment:- Pelvic pain resolved spontaneously. Reviewed with patient and her mother pelvic ultrasound report. Essentially normal - small amount of free fluid adjacent to left ovary, patient was on period at that time, either back flow bleeding or an ovarian cyst that had ruptured and fluid was absorbed. Patient is to continue using OCP's to regulate periods and reduce risk of ovarian cyst development. She is tolerating pills well. - Patient never had Pap, recommended scheduling., Problem Screening for malignant neoplasm of cervix (190784148) Pap smear for cervical cancer screening (Z12.4) Active confirmed Problem Depression (116375832) Depression (F32.A) Active confirmed Comment:- Still refusing to see a therapist. No thoughts of hurting herself or anyone., Vital Signs Heart Rate 103 /min 07/09/2024 Eliazar Peralta 07/09/2024 03:41:12 PM EST > Temperature 97.5 degrees Fahrenheit 07/09/2024 Vald ovinos, Edgardo 07/09/2024 03:41:12 PM EST > Respiratory Rate 18 /min 07/09/2024 Peralta, Edgardo 07/09/2024 03:41:12 PM EST > Blood pressure diastolic 87 mm Hg 07/09/2024 Venus dovinos, Edgardo 07/09/2024 03:41:12 PM EST > Oximetry 96 % 07/09/2024 Peralta, Ser vando 07/09/2024 03:41:12 PM EST > Height-cm 167.64 cm 07/09/2024 Peralta, Ser vando 07/09/2024 03:41:12 PM EST > Weight-kg 113.4 kg 07/09/2024 Peralta, Ser vando 07/09/2024 03:41:12 PM EST > Height 66.00 in 07/09/2024 Peralta, Ser vando 07/09/2024 03:41:12 PM EST > Blood pressure systolic 138 mm Hg 07/09/2024 Vald ovinos, Edgardo 07/09/2024 03:41:12 PM EST > Weight 250 lbs 07/09/2024 Peralta, Ser vando 07/09/2024 03:41:12 PM EST > BMI 40.35 kg/m2 07/09/2024 Peralta, Ser vando 07/09/2024 03:41:12 PM EST > Encounters Encounter Location Date Provider Diagnosis Main [address] [place] , [place] [id number] 07/09/2024 Noemi Sara Lump in vagina N94.9 ; Severe obesity (BMI >= 40) E66.01 ; BMI 40.0-44.9, adult Z68.41 ; Food insecurity Z59.41 and Financial difficulties Z59.9 Main [address] [place], [place] [id number] 07/29/2024 Noemi Sara Contraception manage ment Z30.9 Assessments Encounter Date Diagnosis (ICD Code) Assessment Notes Treatment Notes Treatment Clinical Notes Section Notes 07/09/2024 Severe obesity (BMI >= 40) (ICD-10 - E66.01) 07/09/2024 Lump in vagina (ICD-10 - N94.9) Pt's Urine Dip negative. Pt went to [facility] for her transvaginal USN, WNL Pt desires referral for OBGYN at this time, used to follow w/ Dr. Styles at [facility] Pt instructed to have nothing per vagina F/U PRN 07/29/2024 Contraception management (ICD-10 - Z30.9) 07/09/2024 BMI 40.0-44.9, adult (ICD-10 - Z68.41) 07/09/2024 Food insecurity (ICD-10 - Z59.41) 07/09/2024 Financial difficulties (ICD-10 - Z59.9) Plan Of Treatment No Information Insurance Providers Payer Name Payer Address Payer Phone Subscriber Number Group Number Insured Name Patient Relationship to Insured Coverage Start Date Coverage End Date [employer] [facility] [address] [place], [place] [id number] [facility] Robison Self - patient is the insured 9 [facility] [address] [place], [place] [id number] Evangelina Clarke Self - patient is the insured 4 3 Medicaid [facility] [address] [place] [address] [id number] Evangelina Clarke Self - patient is the insured 8 Medical (General) History Medical History History ICD Code Anxiety/Depression, COMMENTS: PHQ-9 08/23 PCOS Surgical History Surgery Date(Month/Year)
--- OUTSIDE RECORDS SUMMARY | 2024-11-04 10:43 | XMS_ITS | Encounter Summary ---
Author Organization [facility] tem Address [id number] [address] [place] [address] Care Team Providers Care Fnps Name Role Phone Abimael Garces MD Primary Care Provider [phone] Encounter Details Date Type Department Care Team ([facility] Contact Info) Description 07/19/2024 [facility] [address] [place] [address] Ref Prov, [place] [address] Social History Tobacco Use Types Packs/Day Years Used Date Smoking Tobacco: Never Assessed Childcare Answer Date Recorded Childcare Unknown 08/23/2020 Employment Answer Date Recorded Employment Unknown 08/23/2020 Purpose - Life Answer Date Recorded Purpose and direction in life Unknown Comments Unknown Sex and Gender Information Value Date Recorded Sex Assigned at Not on file Legal Sex Female 4:54 PM EST Gender Identity Not on file Sexual Orientation Not on file documented as of this encounter Plan of Treatment Upcoming Encounters Date Type Department Care Team (Late Contact Info) Description 11/15/2024 7:00 AM EDT Appointment [facility] [address] [place] [address] documented as of this encounter Procedures Procedure Name Priority Date/Time Associated Diagnosis Comments EXTERNAL LAB ORDERS / RESULTS Routine 07/19/2024 3:38 PM EST documented in this encounter Results * External Lab Orders / Results (07/19/2024 3:38 PM EST) us Not In System Ref Prov LAB ORDERABLES Final Res ult MANUALLY TRANSCRIBED RESULTS documented in this encounter Visit Diagnoses Not on filedocumented in this encounter Care Teams Fnps Relationship Specialty Start Date End Date Abimael Garces MD PCP - General Family Medicine 10/09/24 documented as of this encounter
--- OUTSIDE RECORDS SUMMARY | 2024-11-04 10:43 | XMS_ITS | Clinical Summary ---
Author Organization [employer] Address [id number] [address] [place] [address] Care Team Providers Care School Psychology Specialist Name Role Phone Abimael Garces MD Primary Care Provider [phone] Allergies No known active allergies Medications buPROPion XL (WELLBUTRIN XL) 150 mg 24 hr tablet Take 1 tablet (150 mg total) by mouth every morning. Active SETLAKIN 0.15 mg-30 mcg (91) per tablet Take 1 tablet by mouth in the morning. Active metFORMIN (GLUCOPHAGE) 500 mg tablet Take 1 tablet (500 mg total) by mouth in the morning and 1 tablet (500 mg total) in the evening. Take with meals. Active omeprazole (PriLOSEC) 40 mg capsule Take 1 capsule (40 mg total) by mouth every morning before breakfast. Active triamcinolone (KENALOG) 0.1 % cream 5 Active lisinopriL (PRINIVIL,ZESTR IL) 10 mg tablet Take 2 tablets (20 mg total) by mouth in the morning. 5 Active ibuprofen (MOTRIN) 800 mg tablet Take 1 tablet (800 mg total) by mouth every 8 (eight) hours as needed for pain. 60 tablet 2 5 Active Additional Information Patient not taking.Reported on 10/12/2024 lisinopriL (PRINIVIL,ZESTR IL) 20 mg tablet Take 1 tablet (20 mg total) by mouth in the morning. 5 Active oxyCODONE-aceta minophen (PERCOCET) 5-325 mg per tabletIndicatio ns:Postoperativ e pain Take 1 tablet by mouth every 6 (six) hours as needed for pain for up to 7 days. Max Daily Amount: 4 tablets 12 tablet 5 10/07/19 25 CEPHalexin (KEFLEX) 500 mg capsule Take 1 capsule (500 mg total) by mouth in the morning and 1 capsule (500 mg total) before bedtime. Do all this for 10 days. 20 capsule 5 10/20/19 25 fluconazole (DIFLUCAN) 150 mg tabletIndicatio ns:Vaginal discharge Take 1 tablet (150 mg total) by mouth once for 1 dose. 1 tablet 5 10/13/19 25 Active Problems No known active problems Encounters Date Type Department Care Team Description 10/12/2024 9:15 AM EDT Office Visit [facility] [address] [place] [phone] Heather Mckay DO Routine follow-up (Primary Dx); Pelvic congestion; Vaginal discharge 10/11/2024 Travel 10/09/2024 10:14 AM EDT - 10/09/2024 10:40 AM EDT Emergency [facility] - Emergency [address] [place] [phone] Cellulitis, unspecified cellulitis site (Primary Dx) Discharge Disposition: Home 10/09/2024 Travel 09/30/2024 Orders Only [facility] [address] [place] [phone] Heather Mckay DO Dysmenorrhea (Primary Dx); Chronic pelvic pain in female; Menorrhagia with irregular cycle; Pelvic congestion 09/29/2024 9:35 AM EDT Anesthesia Event [facility] - Surgery [address] [place] [phone] Mikael Brand DO 09/29/2024 9:30 AM EDT - 09/29/2024 11:00 AM EDT Surgery [facility] - Surgery [address] [place] [phone] Heather Mckay DO LAPAROSCOPY DIAGNOSTIC [28394 (CPT )] 09/29/2024 7:27 AM EDT - 09/29/2024 11:35 AM EDT Hospital Encounter [facility] - Surgery [address] [place] [address] Heather Mckay, Postoperative pain (Primary Dx) Discharge Disposition: Home 09/29/2024 Travel 09/08/2024 1:39 PM EDT - 09/08/2024 11:59 PM EDT Hospital Encounter [facility] - Lab [address] [place] [phone] Preop examination; Hypertension, unspecified type; PCOS (polycystic ovarian syndrome) Discharge Disposition: Home 09/08/2024 1:30 PM EDT Procedure visit [facility] - Pre Admit [address] [place] [phone] Preop examination (Primary Dx); Hypertension, unspecified type; PCOS (polycystic ovarian syndrome) 09/08/2024 1:21 PM EDT - 09/08/2024 1:38 PM EDT Hospital Encounter [facility] - Cardiovascular [address] [place] [address] Preop examination; Hypertension, unspecified type; PCOS (polycystic ovarian syndrome) Discharge Disposition: Home 09/08/2024 Travel 09/01/2024 Telephone [facility] [address] [place] [address] Heather Mckay DO 08/31/2024 2:30 PM EDT Office Visit [facility] [address] [place] [address] Heather Mckay DO Preoperative exam for gynecologic surgery (Primary Dx); Chronic pelvic pain in female; Dysmenorrhea; Menorrhagia with irregular cycle 08/29/2024 Travel from Last 3 Months Family History Medical History Relation Name Comments Diabetes Father Anesthesia problems Mother Endometriosis Mother Hypotension Mother Multiple sclerosis Mother Uterine cancer Paternal Grandmother Breast cancer Neg Hx Colon cancer Neg Hx Ovarian cancer Neg Hx Relation Name Status Comments Father Alive Mother Alive Paternal Grandmother Social History Tobacco Use Types Packs/Day Years Used Date Smoking Tobacco: Never Smokeless Tobacco: Never Tobacco Cessation:Counseling Given: Not Answered Alcohol Use Standard Drinks/Week Comments Not Currently 0 (1 standard drink = 0.6 oz pur e alcohol) Childcare Answer Date Recorded Childcare Unknown 08/23/2020 Employment Answer Date Recorded Employment Unknown 08/23/2020 Hunger Screening Answer Date Recorded Within the past 12 months we worried whether our food would run out before we got money to buy more. Never True 10/12/2024 Within the past 12 months th e food we bought just didn't last and we didn't have money to get more. Never True 10/12/2024 Purpose - Life Answer Date Recorded Purpose and direction in life Unknown Comments No Sex and Gender Information Value Date Recorded Sex Assigned at Not on file Legal Sex Female 4:54 PM EST Gender Identity Not on file Sexual Orientation Not on file Last Filed Vital Signs Vital Sign Reading Time Taken Comments Blood Pressure 122/86 10/12/2024 9:11 AM EDT Pulse 108 10/09/2024 10:30 AM EDT Temperature 37.3 C (99.1 F) 10/09/2024 10:19 AM EDT Respiratory Rate 18 10/09/2024 10:3 0 AM EDT Oxygen Saturation 100% 10/09/2024 10: 30 AM EDT Inhaled Oxygen Concentration - - Weight 111.9 kg (246 lb 12.8 oz) 10/12/2024 9:11 AM EDT Height 170.2 cm (5' 7 ) 10/12/2024 9:11 AM EDT Body Mass Index 38.65 10/12/2024 9:11 AM EDT Plan of Treatment Upcoming Encounters Date Type Department Care Team (Late st Contact Info) Description 11/15/2024 7:00 AM EDT Appointment [facility] [address] [place] [phone] Health Maintenance Due Date Last Done Comments Depression Screening 2011 Adult BMI Follow Up Plan 2017 DTaP,Tdap and Td Vaccines (6 - Td or Tdap) 09/15/2021 09/16/2011, 10/06/2000, 1999, Additional history exists Influenza Vaccine 02/14/2025 Adult BMI Screening 10/12/2025 10/12/2024 Tobacco Screening 10/12/2025 10/12/2024 Pap Smear 08/05/2027 08/05/2024 Medical Devices Not on file Procedures Procedure Name Priority Date/Time Associated Diagnosis Comments IA AN ELECTIVE ENDOTRACHEAL AIRWAY Routine 09/29/2024 9:42 AM EDT IA LAP,DIAGNOSTIC ABDOMEN 09/29/2024 9:35 AM EDT chronic pelvic pain POCT , URINE (NUCG) Routine 09/29/2024 9:31 AM EDT ECG 12-LEAD Routine 09/08/2024 1:47 PM EDT Preop examination Hypertension, unspecified type PCOS (polycystic ovarian syndrome) BASIC METABOLIC PANEL Routine 09/08/2024 1:39 PM EDT Preop examination Hypertension, unspecified type PCOS (polycystic ovarian syndrome) CBC WITH AUTO DIFFERENTIAL Routine 09/08/2024 1:39 PM EDT Preop examination Hypertension, unspecified type PCOS (polycystic ovarian syndrome) PAP SMEAR Routine 08/05/2024 5:12 AM EST Screening for cervical cancer from Last 3 Months or Most Recently Relevant to Health Maintenance Results * IA AN ELECTIVE ENDOTRACHEAL AIRWAY (09/29/2024 9:42 AM EDT) Neetu Lucio APRN-CRNA - 09/29/2024 9:42 AM EDT MARLEEN Palomino 09/29/2024 9:57 AM Airway Patient location during procedure: OR Urgency: Elective Date/Time: 09/29/2024 9:42 AM Airway not difficult IV In Situ: Peripheral General Information and Staff Service Provider: MARLEEN Palomino Placed by: MARLEEN Palomino Patient Identified, IV Checked, Risks and Benefits Discussed, Surgical Consent, Monitors and Equipment Checked, Pre-op Evaluation and Timeout Performed Fire Risk Assessment Score: 0 Consent for Emergent Airway (if performed for an anesthetic, see related documentation for consents) Risks and benefits: risks, benefits and alternatives were discussed Indications and Patient Condition Sedation level: Deep Preoxygenated: yesPatient position: Supine MILS maintained throughout Mask difficulty assessment: Vent By Mask Indications for airway management: Anesthesia Complications: No Complicating Factors: No Final Airway Details Final airway type: ETT Endotracheal airway: Cuffed and ETT - Single Lumen Techniques used for successful ETT Placement: Direct Laryngoscopy and With Stylet Cormack-Lehane Classification: Grade I Endotracheal tube insertion site: Oral No Bite Block Placed Post Intubation Trauma? No Visibility: Cords Clear Blade: Bon Blade size: #3 Placement verified by: chest auscultation, capnography and symmetrical chest wall movement ETT size: 7.0 mm Measured from: Lips Secured at (cm): 21 Number of other approaches attempted: 0 Number of attempts at approach: 1 us Mikael Brand DO ANESTHESIA ORDERABLES Final R esult * POCT , urine (09/29/2024 9:31 AM EDT) POC Urine Negative Negative 10/23/2024 2:08 PM EDT [facility] Urine 09/29/2024 9:31 AM EDT 10/23/2024 2:08 PM EDT us Heather Mckay DO POINT OF CARE TEST ORDERABLES Final Result Performing Organization Address [facility] Co de Phone Number [facility] [address] [place] [address], * ECG 12 lead (09/08/2024 1:47 PM EDT) 09/08/2024 1:47 PM EDT Narrative [facility] - 09/09/2024 1:21 PM EDT us Jono Raphael MD ECG ORDERABLES Final Result Performing Organization Address [facility] Co de Phone Number [facility] * CBC auto differential (09/08/2024 1:39 PM EDT) White Blood Cells 10.0 4.0 - 11.0 X10E9/L 09/08/2024 6:54 PM EDT [facility] RBC count 4.94 3.80 - 5.20 X10E12/L 09/08/2024 6:54 PM EDT [facility] Hemoglobin 13.4 11.7 - 15.5 g/dL 09/08/2024 6:54 PM EDT [facility] Hematocrit 40.7 35 - 47 % 09/08/2024 6:54 PM EDT [facility] MCV 82 80 - 100 fL 09/08/2024 6:54 PM EDT [facility] MCH 27.2 27 - 34 pg 09/08/2024 6:54 PM EDT [facility] MCHC 33.0 32 - 36 g/dL 09/08/2024 6:54 PM EDT [facility] RDW 14.5 11.5 - 15.0 % 09/08/2024 6:54 PM EDT [facility] Platelets 411 150 - 450 X10E9/L 09/08/2024 6:54 PM EDT [facility] MPV 8.4 7 - 12 fL 09/08/2024 6:54 PM EDT [facility] % neutrophils 61.8 % 09/08/2024 6:54 PM EDT [facility] % lymphocytes 28.2 % 09/08/2024 6:54 PM EDT [facility] % monocytes 7.6 % 09/08/2024 6:54 PM EDT [facility] % eosinophils 1.8 % 09/08/2024 6:54 PM EDT [facility] % Basophils 0.6 % 09/08/2024 6:54 PM EDT [facility] Neutrophils Absolute (A) 6.2 1.5 - 6.6 X10E9/L 09/08/2024 6:54 PM EDT [facility] Lymphocytes Absolute 2.8 1.0 - 3.5 X10E9/L 09/08/2024 6:54 PM EDT [facility] Monocytes Absolute 0.8 0 - 0.9 X10E9/L 09/08/2024 6:54 PM EDT [facility] Eosinophils Absolute 0.2 0.0 - 0.4 X10E9/L 09/08/2024 6:54 PM EDT [facility] Basophils Absolute 0.1 0.0 - 0.2 X10E9/L 09/08/2024 6:54 PM EDT [facility] Blood / Unknown 09/08/2024 1 :39 PM EDT 09/08/2024 1:40 PM EDT us Jono Raphael MD LAB BLOOD ORDERABLES Final Re sult [facility] [address] [place] [address] * Basic Metabolic Panel (09/08/2024 1:39 PM EDT) Sodium 140 134 - 146 mmol/L 09/08/2024 7:07 PM EDT [facility] Potassium, Bld 3.9 3.5 - 5.0 mmol/L 09/08/2024 7:07 PM EDT [facility] Chloride 101 98 - 109 mmol/L 09/08/2024 7:07 PM EDT [facility] CO2 27 22 - 32 mmol/L 09/08/2024 7:07 PM EDT [facility] Anion gap 12 5 - 15 mmol/L 09/08/2024 7:07 PM EDT [facility] BUN 12 5 - 23 mg/dL 09/08/2024 7:07 PM EDT [facility] Creatinine 0.76 0.40 - 1.00 mg/dL 09/08/2024 7:07 PM EDT [facility] Comment:METHOD TRACEABLE TO IDMS STANDARD Glucose 87 65 - 99 mg/dL 09/08/2024 7:07 PM EDT [facility] Calcium 9.3 8.5 - 10.5 mg/dL 09/08/2024 7:07 PM EDT [facility] eGFR (CKD-EPI)non-ra ce dependent >90 >59 ml/min/1.7 3sq.m 09/08/2024 7:07 PM EDT [facility] Comment: Reported eGFR is based on the CKD-EPI 2020 equation that does not use a race coefficient. PLASMA 09/08/2024 1:39 PM EDT 09/08/2024 1:40 PM EDT us Jono Raphael MD LAB BLOOD ORDERABLES Final Re sult [facility] [address] [place] [address] [address] [place] [address] * Pap Smear (08/05/2024 5:12 AM EST) 08/05/2024 5:12 AM EST 08/05/2024 5:32 AM EST Narrative COPATH - 08/19/2024 3:40 PM EST [facility] [address] [place] [address] Gynecologic Cytology Consultation Patient Name:PURVI CLARKE:2000 (Age: 24)Gender:FTaken:08/05/2024Reported:08/19/2024Physician(s):Heather Mckay DO ([phone])Copy To: Rec. #:[id number]: #[id number] Final Cytologic Interpretation ThinPrep Pap Test (Cervical): Satisfactory for evaluation. A transformation zone component is not identified via imaging-assisted review, using [employer] Thin Prep Imaging System, within 22 microscopic zepeda of view. NEGATIVE FOR INTRAEPITHELIAL LESION OR MALIGNANCY. [facility]/08/19/2024 Interpretation performed at [facility], [address] [place] [address], License number: [id number]. Electronically Signed Out By NAVNEET Mcintosh(ASCP) Date of Last Menstrual Period: 05/17/24 Other Clinical Conditions: Clinical History: friable cervix Z12.4 Screening for malignant neoplasm of cervix Z11.3 Encntr screen for infections w sexl mode of transmiss Source of Specimen ThinPrep Pap Test (Cervical) Thin Prep Pap (CHIEF OF SURGERY) Fee Code(s): G0145 The Pap test is a screening test with an inherent, but low, probability of error. The Pap test is primarily effective for the diagnosis and prevention of squamous cell carcinoma. Regular screening is critical for prevention. ThinPrep liquid-based slides, which meet the [employer] Equipment [employer]airer criteria for automated screening, have been screened by the ThinPrep Imaging System (as of 03/02/07) along with an additional manual rescreening by a purchasing clerk and, if indicated, by a pathologist. Heather Mckay DO PATHOLOGY/CYTOLOGY ORDERABLES Final Result COPATH from Last 3 Months or Most Recently Relevant to Health Maintenance Insurance [employer] Care Teams School Psychology Specialist Relationship Specialty Start Date End Date Abimael Garces MD PCP - General Family Medicine 10/09/24
--- OUTSIDE RECORDS SUMMARY | 2024-11-04 10:43 | XMS_ITS | Clinical Summary ---
Author Organization [facility] Address [address] [place] [address] Care Team Providers Care Supervisor [employer] Name Role Phone Unavailable Primary Care Provider Unavailabl e Social History Tobacco Use Types Packs/Day Years Used Date Smoking Tobacco: Never Assessed Comments Unknown Sex and Gender Information Value Date Recorded Sex Assigned at Not on file Legal Sex Female 11:48 PM EDT Gender Identity Not on file Sexual Orientation Not on file Plan of Treatment Not on file
--- OUTSIDE RECORDS SUMMARY | 2024-11-04 10:43 | XMS_ITS | Clinical Summary ---
Author Organization [facility] Address [address] [place] [address] Care Team Providers Care Patient Services Technician Name Role Phone Abimael Garces MD Primary Care Provider [phone] Allergies No known active allergies Medications buPROPion (WELLBUTRIN XL) 150 MG extended release tablet take 1 tablet by mouth once daily 04/25/2022 Active metFORMIN (GLUCOPHAGE) 500 MG tablet take 1 tablet by mouth twice a day 04/30/2022 Active omeprazole (PRILOSEC) 40 MG delayed release capsule Take 1 capsule by mouth once a day 05/11/2022 Active Active Problems No known active problems Social History Tobacco Use Types Packs/Day Years Used Date Smoking Tobacco: Never Smokeless Tobacco: Never Tobacco Cessation:Counseling Given: Not Answered Alcohol Use Standard Drinks/Week Comments Never 0 (1 standard drink = 0.6 oz pur e alcohol) Comments Unknown Sex and Gender Information Value Date Recorded Sex Assigned at Not on file Legal Sex Female 11:52 AM EST Gender Identity Not on file Sexual Orientation Not on file Last Filed Vital Signs Vital Sign Reading Time Taken Comments Blood Pressure 126/84 05/17/2022 11:36 AM EST Pulse - - Temperature 36 C (96.8 F) 05/17/2022 11:36 AM EST Respiratory Rate - - Oxygen Saturation - - Inhaled Oxygen Concentration - - Weight 100.7 kg (222 lb) 05/17/2022 11:36 AM EST Height 170.2 cm (5' 7 ) 05/17/2022 11:36 AM EST Body Mass Index 34.77 05/17/2022 11:36 AM EST Plan of Treatment Health Maintenance Due Date Last Done Comments Polio vaccine (4 of 4 - 4-dose series) 2003 1999, 1999, 1999 Varicella vaccine (2 of 2 - 2-dose childhood series) 2003 10/06/2000 Depression Screen 2011 HIV screen 2014 Hepatitis C screen 2017 Pap smear 2020 DTaP/Tdap/Td vaccine (6 - Td or Tdap) 09/15/2021 09/16/2011, 10/06/2000, 1999, Additional history exists COVID-19 Vaccine ( season) 2024 Flu vaccine (Season Ended) 2025 Hepatitis B vaccine Completed 1999, 1999, 1999 Hib vaccine Completed 10/06/2000, 12/1999, 1999, Additional history exists HPV vaccine Completed 03/24/2012, 09/2011, 09/16/2011 Hepatitis A vaccine Completed 03/24/2012, 2 Meningococcal (ACWY) vaccine Completed 01/30/2017 Meningococcal B vaccine Aged Out No l onger eligible based on patient's age to complete this topic Pneumococcal 0-49 years Vaccine Aged Out No longer eligible based on patient's age to complete this topic Insurance [employer] Care Teams Patient Services Technician Relationship Specialty Start Date End Date Abimael Garces MD [address] [place] [address] PCP - General Family Medicine 04/26/22
[2024-11-04 11:10] LABS: Basophils Percent Auto 0.4 % (0.2-2.0); Eosinophils Absolute Auto 0.1 10^3/uL (0.0-0.7); Eosinophils Percent Auto 0.9 % (0.9-7.0); Hematocrit 41.8 % (36.0-48.0); Hemoglobin 13.2 g/dL (12.0-16.0); Immature Granulocytes Abs Auto 0.03 10^3/uL (0.00-0.03); Immature Granulocytes Pct Auto 0.3 % (0.0-0.5); Lymphocytes Absolute Auto 3.2 10^3/uL (1.2-3.8); Lymphocytes Percent Auto 31.3 % (20.5-60.0); Mean Corpuscular HGB Conc 31.6 g/dL (29.9-35.2); Mean Corpuscular Hemoglobin 27.1 pg (26.7-34.0); Mean Corpuscular Volume 85.8 fL (81.0-99.0); Mean Platelet Volume 9.2 fL (9.5-13.5); Monocytes Absolute Auto 0.6 10^3/uL (0.3-0.8); Monocytes Percent Auto 5.5 % (1.7-12.0); Neutrophils Absolute Auto 6.2 10^3/uL (1.4-6.5); Neutrophils Percent Auto 61.6 % (43.0-75.0); Platelet Count 443 10^3/uL (150-450); Red Blood Count 4.87 10^6/uL (4.20-5.40); White Blood Count 10.1 10^3/uL (4.0-11.0)
[2024-11-04 11:26] LABS: Erythrocyte Sedimentation Rate 51 mm/hr (<=20)
[2024-11-04 11:46] LABS: Alanine Aminotransferase 18 U/L (14-59); Albumin Globulin Ratio 0.7; Albumin Level 3.1 g/dL (3.4-5.0); Alkaline Phosphatase 61 U/L (46-116); Anion Gap 14.7; Aspartate Amino Transferase 11 U/L (15-37); BUN Creatinine Ratio 12.3; Bilirubin Total 0.2 mg/dL (0.2-1.0); C Reactive Protein 1.96 mg/dL (<=0.50); Carbon Dioxide 29.2 mmol/L (21.0-32.0); Chloride 104 mmol/L (98-107); Chol HDL Ratio 4.1; Cholesterol 184 mg/dL (<=200); Estimated GFR (African America >60 (>=60 mL/min/1.73m^2); Estimated GFR (Non-African Ame >60 (>=60 mL/min/1.73m^2); Free T3 4.16 pg/mL (2.18-3.98); Globulin 4.5 g/dL; Glucose 79 mg/dL (74-106); HDL Cholesterol 45 mg/dL (40-60); Potassium 3.9 mmol/L (3.5-5.1); Sodium 144 mmol/L (136-145); Total Protein 7.6 g/dL (6.4-8.2); Triglycerides 80 mg/dL (<=150); Uric Acid 4.8 mg/dL (2.6-6.0)
[2024-11-04 11:53] LABS: Estimated Average Glucose 111 mg/dL; Glycohemoglobin A1C 5.5 % (4.5-6.2)
[2024-11-05 06:07] LABS: Rheumatoid Factor (RF) <10.0 IU/mL (<14.0)
[2024-11-05 08:10] LABS: Insulin 23.7 uIU/mL (2.6-24.9)
[2024-11-09 15:08] LABS: Antinuclear Antibodies, IFA Negative (.)
[2024-11-09 16:08] LABS: Thyroglobulin Antibody <1.0 IU/mL (0.0-0.9); Thyroid Peroxidase (TPO) Ab 10 IU/mL (0-34)
== END 2024-11-04 10:39 | disposition home or self-care (01) ==
LOC: LAB 10:40
PROVIDERS: PCP Family Medicine; Visit Provider Family Medicine
DX: M54.50 Low back pain, unspecified (principal); E78.5 Hyperlipidemia, unspecified; R00.2 Palpitations; E28.2 Polycystic ovarian syndrome; R73.09 Other abnormal glucose; D64.9 Anemia, unspecified; E03.9 Hypothyroidism, unspecified; I10 Essential (primary) hypertension; R53.83 Other fatigue; R79.89 Other specified abnormal findings of blood chemistry
CPT/HCPCS: 36415; 80053; 80061; 83036; 83525; 83540; 84436; 84443; 84481; 84550; 85025; 85652; 86038; 86060; 86140; 86376; 86431; 86800

== ENCOUNTER 2024-11-11 13:54 | Outpatient (RCR) | payer OTHER, SELFPAY | END 2024-12-17 11:32 | disposition home or self-care (01) | LOC: PT 13:54 | PROVIDERS: PCP Family Medicine; Visit Provider Family Medicine | DX: M54.50 Low back pain, unspecified (principal) | CPT/HCPCS: 97014; 97035; 97110; 97161 ==

== ENCOUNTER 2024-12-09 15:15 | Outpatient (OUT) | payer OTHER, SELFPAY ==
--- OUTSIDE RECORDS SUMMARY | 2019-06-03 09:00 | XMS_ITS | Continuity of Care Document ---
Author Organization [facility] [employer] [facility] Address [address] [place] [address] [place] [address] Phone Care Team Providers Care Cannoneer Name Role Phone Marjorie Meredith Unavailable Unavailable Procedures Procedure Date OFFICE/OUTPATIENT VISIT, EST TRANSVAGINAL US, NON-OB US EXAM, PELVIC, LIMITED OFFICE/OUTPATIENT VISIT, EST OFFICE/OUTPATIENT VISIT, EST URINALYSIS, AUTO, W/O SCOPE OFFICE/OUTPATIENT VISIT, EST TRANSVAGINAL US, NON-OB OFFICE/OUTPATIENT VISIT, EST URINE TEST PREV VISIT, EST, AGE 12-17 OFFICE/OUTPATIENT VISIT, NEW Advance Directives Directive Yes / No Effective Date File Name No Information Encounters Encounter Description Practice Location Reason(s) For Visit Diagnoses Date Provider Providers Copied on Encounter OFFICE/OUTPAT IENT VISIT, EST [facility] [employer] [facility], [address], [place], [place], [id number], [place] tel:[phone] [facility] [employer] [facility] No Information Masoud Amador. [address], [place], [id number], [place]. tel:[phone] Referring Provider: Marjorie Meredith, [address], [place], [address] . tel:[phone] [facility] [employer] [facility], [address], [place], [id number], [place] tel:[phone] [facility] No Information Ismael Mendez. [address] [place], [place], [id number], [place]. tel:[phone] Referring Provider: Vanessa Talbot, [address] [place], [address] . tel:[phone] [facility], [address], [place], [id number], [place] tel:[phone] [facility] No Information Masoud Amador. [address], [place], [place], [id number], [place]. tel:[phone] Referring Provider: Marjoire Meredith, [address], [place], [address] . tel:[phone] OFFICE[facility]PAT [facility]ISIT, [facility], [address], [place], [place], [id number], [place] tel:[phone] [facility] No Information No Information OFFICE/OUTPAT [facility]ENT VISIT, [facility], [address], [place], [id number], [place] tel:[phone] [facility] No Information No Information [facility], [address], [place], [id number], [place] tel:[phone] [facility] No Information No Information OFFICE/OUTPAT [facility]ENT VISIT, [facility], [address], [place], [id number], [place] tel:[phone] [facility] No Information No Information PREV VISIT, EST, AGE 12-17 [facility], [address], [place], [place], [id number], [place] tel:[phone] [facility] No Information No Information OFFICE/OUTPAT IENT VISIT, [facility], [address], [place], [place], [id number], tel:[phone] [facility] No Information No Information Family History Family Member Type Diagnosis Age At Onset No Information Payers Payer name Insurance type Covered democrat ID Baudilio luna(s) [facility] [id number] Social History Type Description Quantity Date Captured Comments Sex Female Smoking Status No Information Chief Complaint And Reason For Visit No Information Reason For Referral Reason For Referral No Information History Of Present Illness Encounter Date Complaint History Of Prese nt Illness No Information Functional Status Date Functional Assessmen t No Information Instructions Date Instruction Additional Infor mation No Information Assessments Type Assessment Date No Information Patient Care Teams Name Effective Dates (start - stop) Status Members No Information
--- OUTSIDE RECORDS SUMMARY | 2024-11-03 12:21 | XMS_ITS ---
Author Organization [facility] in [place] Address [address] [place] [address] Care Team Providers Care Director Of Physical Security Name Role Phone Stefan Garces Primary Care Provider Reason For Referral Diagnosis 1 Large breasts (N62) Referral Organization [facility] Referring Provider First Name Stefan Referring Provider Last Name Mili Referring Provider [facility] icine Referred Provider Celeste Morales Referred Provider Specialty Plastic and Reconstructive Surgery Referral Priority Routine REASON FOR VISIT Referral Problems Problem Type SNOMED Code ICD Code Onset Dates Problem Status W/U Status Risk Notes Problem Hypertrophy of breast (127991960) Large breasts (N62) Active confirmed Encounters Encounter Location Date Provider Diagnosis [facility] [address] [place] [address] 11/03/2024 Stefan Garces Large breasts N6 2 Assessments Encounter Date Diagnosis (ICD Code) Assessment Notes Treatment Notes Treatment Clinical Notes Section Notes 11/03/2024 Large breasts (ICD-10 - N62) Plan Of Treatment Referrals Referral Date Details 11/03/2024 11/03/2024, [facility] Progress Notes * Evangelina CLARKEDOB:1999 (24 yo F)Acc No.[id number]:11/03/2024 Patient: Evangelina SALDIVAR :2000 A ge:24 Y S ex:Female Address:[address] [place] [address], [place], [address] Subjective: * Chief Complaints: * R eferral * Medical History: * Surgical History: * Hospitalization/Major Diagno stic Procedure: * Medications: Objective: * Vitals: * Physical Examination: Assessment: * Assessment: 1. Scarlett thakurs - N62 (Primary) Plan: * Treatment: * Procedure Codes: * true * Date: Generated for Jerel nicolas/Brian/Joseluisitting on: 0 12/09/2024 03:21 PM EDT Consultation Request Notes Referral Date Referring Provider Referred Provider Not es 11/03/2024 Stefan Garces Teresa
--- OUTSIDE RECORDS SUMMARY | 2024-11-04 16:07 | XMS_ITS ---
Author Organization [facility] [place] Address [address] [place] [address] Care Team Providers Care Advanced Quality Engineer Name Role Phone Stefan Garces Primary Care Provider Results Component Value Reference Range Notes THYROID ANTIBODIES Reviewed date:11/09/2024 04:13:40 PM Interpretation: Performing Lab: Notes/Report: [facility] , Thyroid Peroxidase (TPO) Ab 10 0-34 IU/mL Thyroglobulin Antibody <1.0 0.0-0.9 IU/mL Thyroglobulin Antibody measured by [facility] [place] Methodology It should be noted that the presence of thyroglobulin antibodies may not be pathogenic nor diagnostic, especially at very low levels. The assay edge inker has found that four percent of individuals without evidence of thyroid disease or autoimmunity will have positive TgAb levels up to 4 IU/mL. Performed at: - [facility] [address] [id number] Qa Auditor: Ezequiel Agosto PhD, Phone: [phone] Performing Lab: see note - [facility] REASON FOR VISIT labs- Encounters Encounter Location Date Provider Diagnosis [facility] [address] [place] [address] 11/04/2024 Stefan Garces Abnormal thyroid blo od test R79.89 Assessments Encounter Date Diagnosis (ICD Code) Assessment Notes Treatment Notes Treatment Clinical Notes Section Notes 11/04/2024 Abnormal thyroid blood test (ICD-10 - R79.89) Plan Of Treatment Pending Test Test Name Order Date THYROID PANEL (T4/TSH/FREE T3) Progress Notes * Evangelina CLARKE JDOB:1999 (24 yo F)Acc No.[id number]:11/04/2024 Patient: Evangelina SALDIVAR :2000 A ge:24 Y S ex:Female Address:[address] [place] [address], [id number] Subjective: * Chief Complaints: * L abs- * Medical History: * Surgical History: * Hospitalization/Major Diagno stic Procedure: * Medications: Objective: * Vitals: * Physical Examination: Assessment: * Assessment: 1. A bnormal thyroid blood test - R79.89 (Primary) Plan: * Treatment: * Labs: * L ab: THYROID ANTIBODIES (Collection Date & Time - 11/04/2024 11:03 AM) * Procedure Codes: * true * Date: Generated for Jerel nicolas/Brian/eTransmitting on: 0 12/09/2024 03:20 PM EDT
--- OUTSIDE RECORDS SUMMARY | 2024-11-09 11:45 | XMS_ITS ---
Author Organization [facility] [place] Address [address] [place] [address] Care Team Providers Care Cardiology Consultant Name Role Phone Stefan Garces Primary Care Provider [phone] REASON FOR VISIT Lab results Medications Medication SIG (Take, Route, Fr equency, Duration) Notes Start Date End Date Status Nabumetone 500 MG 2 tablet Orally Twice a day 10/15 Active Encounters Encounter Location Date Provider Diagnosis [address] [address] 11/09/2024 Stefan Garces Low back pain at multiple sites M54.50 Assessments Encounter Date Diagnosis (ICD Code) Assessment Notes Treatment Notes Treatment Clinical Notes Section Notes 11/09/2024 Low back pain at multiple sites (ICD-10 - M54.50) Plan Of Treatment Medication Medication Name Sig Start Date Stop Date Notes Meloxicam 15 MG 1 tablet Orally Once a day 11/03/2024 Nabumetone 500 MG 2 tablet Orally Twice a day 11/10/2024 Baclofen 20 MG 1-2 tabs Orally qhs 11/03/2024 Pending Test Test Name Order Date SED RATE (ESR) 11/09/2024 RHEUMATOID PANEL 11/09/2024 Progress Notes * Evangelina CLARKEDOB:1999 (24 yo F)Acc No.[id number]:11/09/2024 Patient: Evangelina SALDIVAR :2000 A ge:24 Y S ex:Female Address:[address] [place] [address], [place], [address] * Refills Stop Meloxicam Tablet, 15 MG, Orally, 1 tablet, Once a day Stop Baclofen Tablet, 20 MG, Orally, 1-2 tabs, qhs Start Nabumetone Tablet, 500 MG, Orally, 30 Tablet, 2 tablet, Twice a day, Refills=0 Subjective: * Chief Complaints: * L ab results * Medical History: * Surgical History: * Hospitalization/Major Diagno stic Procedure: * Medications: Objective: * Vitals: * Physical Examination: Assessment: * Assessment: 1. L ow back pain at multiple sites - M54.50 (Primary) Plan: * Treatment: 2. O thers Start Nabumetone Tablet, 500 MG, 2 tablet, Orally, Twice a day, 30 Tablet, Refills 0. * Procedure Codes: * true * Date: Generated for Jerel nicolas/Brian/Joseluisitting on: 0 12/09/2024 03:20 PM EDT
--- OUTSIDE RECORDS SUMMARY | 2024-12-09 15:21 | XMS_ITS | Clinical Summary ---
Author Organization [employer] [facility] tem Address [id number] [address] [place] [address] Care Team Providers Care Composition Floor Layer Name Role Phone Abimael Garces MD Primary Care Provider [phone] Allergies No known active allergies Medications buPROPion [...] breakfast. Active triamcinolone (KENALOG) 0.1 % cream Active lisinopriL (PRINIVIL,ZESTR IL) 10 mg tablet Take 2 tablets (20 mg total) by mouth in the morning. Active ibuprofen (MOTRIN) 800 mg tablet Take 1 tablet (800 mg total) by mouth every 8 (eight) hours as needed for pain. 60 tablet 2 5 Active Additional Information Patient not taking.Reported on 10/12/2024 lisinopriL (PRINIVIL,ZESTR IL) 20 mg tablet Take 1 tablet (20 mg total) by mouth in the morning. Active Active Problems No known active problems Encounters Date Type Department Care Team Description 11/23/2024 Orders Only [facility] [address] [place] [address] Heather Mckay DO Congenital occlusion of iliac vein (Primary Dx); Female pelvic congestion syndrome; Varicosities of pelvis 11/15/2024 6:21 AM EDT - 11/15/2024 11:59 PM EDT Hospital Encounter [facility] - MRI [address] [place] [address] Dysmenorrhea; Chronic pelvic pain in female; Menorrhagia with irregular cycle; Pelvic congestion Discharge Disposition: Home 11/14/2024 Travel 10/12/2024 9:15 AM EDT Office Visit [facility] [address] [place] [address] Heather Mckay DO Routine follow-up (Primary Dx); Pelvic congestion; Vaginal discharge 10/11/2024 Travel 10/09/2024 10:14 AM EDT - 10/09/2024 10:40 AM EDT Emergency [facility] - Emergency [address] [place] [address] Cellulitis, unspecified cellulitis site (Primary Dx) Discharge Disposition: Home 10/09/2024 Travel 09/30/2024 Orders Only [facility] [address] [place] [address] Heather Mckay DO Dysmenorrhea (Primary Dx); Chronic pelvic pain in female; Menorrhagia with irregular cycle; Pelvic congestion 09/29/2024 9:35 AM EDT Anesthesia Event [facility] Surgery [address] [place] [address] Mikael Brand DO 09/29/2024 9:30 AM EDT - 09/29/2024 11:00 AM EDT Surgery [facility] Surgery [address] [place] [address] Heather Mckay DO LAPAROSCOPY DIAGNOSTIC [38129 (CPT )] 09/29/2024 7:27 AM EDT - 09/29/2024 11:35 AM EDT Hospital Encounter [facility] - Surgery [address] [place] [address] Heather Mckay DO Postoperative pain (Primary Dx) Discharge Disposition: Home 09/29/2024 Travel 09/08/2024 1:39 PM EDT - 09/08/2024 11:59 PM EDT Hospital Encounter [facility] - Lab [address] [place] [address] Preop examination; Hypertension, unspecified type; PCOS (polycystic ovarian syndrome) Discharge Disposition: Home 09/08/2024 1:30 PM EDT Procedure visit [facility] - Pre Admit [address] [place] [address] Preop examination (Primary Dx); Hypertension, unspecified type; PCOS (polycystic ovarian syndrome) 09/08/2024 1:21 PM EDT - 09/08/2024 1:38 PM EDT Hospital Encounter [facility] - Cardiovascular [address] [place] [address] Preop examination; Hypertension, unspecified type; PCOS (polycystic ovarian syndrome) Discharge Disposition: Home 09/08/2024 Travel from Last 3 Months Family History [...] 10:19 AM EDT Respiratory Rate 18 10/09/2024 10:30 AM EDT Oxygen Saturation 100% 10/09/2024 10:30 AM EDT Inhaled Oxygen Concentration - - Weight 108.9 kg (240 lb) 11/15/2024 7:03 AM EDT Height 170.2 cm (5' 7 ) 10/12/2024 9:11 AM EDT Body Mass Index 37.59 10/12/2024 9:11 AM EDT Plan of Treatment Upcoming Encounters Date Type Department Care Team (Late st Contact Info) Description 01/03/2025 2:30 PM EDT Office Visit [facility] [place] [address] Taylor Steven, DO [address] [place], [place] [address] [phone] Maintenance Due Date Last Done Comments Depression Screening 2011 Adult BMI Follow Up Plan 2017 DTaP,Tdap and Td Vaccines (6 - Td or Tdap) 09/15/2021 09/16/2011, 10/06/2000, 1999, Additional history exists Influenza Vaccine 02/14/2025 Tobacco Screening 10/12/2025 10/12/2024 Adult BMI Screening 11/15/2025 11/15/2024 Pap Smear 08/05/2027 08/05/2024 Medical Devices Not on file Procedures Procedure Name Priority Date/Time Associated Diagnosis Comments MR MRV ABDOMEN PELVIC CONGESTION W WO CONT Routine 11/15/2024 7:59 AM EDT Dysmenorrhea Chronic pelvic pain in female Menorrhagia with irregular cycle Pelvic congestion MR MRV PELVIS PELVIC CONGESTION W WO CONT Routine 11/15/2024 7:59 AM EDT Dysmenorrhea Chronic pelvic pain in female Menorrhagia with irregular cycle Pelvic congestion IA AN ELECTIVE ENDOTRACHEAL AIRWAY Routine 09/29/2024 [...] Recently Relevant to Health Maintenance Results * MRV abdomen pelvic congestion with and without contrast (11/15/2024 7:59 AM EDT) Anatomical Region Laterality Modality Abdomen, Body, Body Covera N/A Magne tic Resonance 11/18/2024 11:1 6 AM EDT Narrative 11/18/2024 11:16 AM EDT MRV of the abdomen and pelvis with and without contrast and 3-D reformats INDICATION: Chronic pelvic pain, dysmenorrhea, varicose vessel seen in the pelvis on diagnostic laparoscopy. PROCEDURE: Multiplanar multisequence MRV of the abdomen and pelvis obtained before and after the intravenous injection of 20 mL of ProHance, coronal time resolved imaging, and 3-D maximum intensity projection reformats of the abdominal vessels obtained on MR consult under concurrent physician supervision. FINDINGS: No comparisons available. The abdominal aorta is normal in size measuring 1.7 cm; no aneurysm seen. Patent celiac, SMA, and PERLA and patent bilateral renal arteries. No focal abnormality seen in the visualized liver, spleen, adrenal glands, pancreas, gallbladder, or kidneys. There is apparent narrowing of the left renal vein as it traverses between the aorta and SMA, degree of which is difficult to evaluate on MR due to possible and the distention. There is a left paravertebral prominent collateral vein. The left ovarian vein is normal in size measuring 4 mm without definite reflux seen. The right ovarian vein measures 3-4 mm. The IVC is widely patent. There is moderate narrowing of the left common iliac vein due to compression by the overlying the right common iliac artery. No free fluid in the pelvis. The uterus is retroflexed. Patent bilateral external iliac veins. IMPRESSION: 1. The ovarian veins are normal in size without evidence of reflux. 2. Apparent narrowing of the left renal vein, significance undetermined, but unlikely to be contributing to the pelvic varicosities given normal appearance of the ovarian veins. 3. 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 Finalized by Kayleigh Vazquez MD on 11/18/2024 11:16 AM Procedure Note Kayleigh Vazquez MD - 11/18/2024 MRV of the abdomen and pelvis with and without contrast and 3-Dreformats INDICATION: Chronic pelvic pain, dysmenorrhea, varicose vessel seen in thepelvis on diagnostic laparoscopy. PROCEDURE: Multiplanar multisequence MRV of the abdomen and pelvisobtained before and after the intravenous injection of 20 mL of ProHance,coronal time resolved imaging, and 3-D maximum intensity projectionreformats of the abdominal vessels obtained on MR consult under concurrentphysician supervision. FINDINGS: No comparisons available. The abdominal aorta is normal in sizemeasuring 1.7 cm; no aneurysm seen. Patent celiac, SMA, and PERLA and patentbilateral renal arteries. No focal abnormality seen in the visualizedliver, spleen, adrenal glands, pancreas, gallbladder, or kidneys. There is apparent narrowing of the left renal vein as it traverses between theaorta and SMA, degree of which is difficult to evaluate on MR due topossible and the distention. There is a left paravertebral prominentcollateral vein. The left ovarian vein is normal in size measuring 4 mmwithout definite reflux seen. The right ovarian vein measures 3-4 mm. The IVC is widelypatent. There is moderate narrowing of the left common iliac vein due tocompression by the overlying the right common iliac artery. No free fluidin the pelvis. The uterus is retroflexed. Patent bilateral external iliacveins. IMPRESSION: 1. The ovarian veins are normal in size without evidence of reflux. 2. Apparent narrowing of the left renal vein, significance undetermined,but unlikely to be contributing to the pelvic varicosities given normalappearance of the ovarian veins. 3. Moderate narrowing of the left common iliac vein consistent with MayThurner; this can contribute to pelvic congestion, and can be furtherevaluated with venogram, however, stenting of the left common iliac veinat this young age should be a last resort treatment. Finalized by Kayleigh Vazquez MD on 11/18/2024 11:16 AM us Heather Mckay DO [facility] MRI ORDERABLES Final Resul t * MRV pelvis pelvic congestion with and without contrast (11/15/2024 7:59 AM EDT) Anatomical Region Laterality Modality Vascular, Body, Body Covera, Pelvis N/A Magnetic Resonance 11/18/2024 10:5 7 AM EDT Narrative 11/18/2024 11:15 AM EDT MRV of the abdomen and pelvis with and without contrast and 3-D reformats INDICATION: Chronic pelvic pain, dysmenorrhea, varicose vessel seen in the pelvis on diagnostic laparoscopy. PROCEDURE: Multiplanar multisequence MRV of the abdomen and pelvis obtained before and after the intravenous injection of 20 mL of ProHance, coronal time resolved imaging, and 3-D maximum intensity projection reformats of the abdominal vessels obtained on MR consult under concurrent physician supervision. FINDINGS: No comparisons available. The abdominal aorta is normal in size measuring 1.7 cm; no aneurysm seen. Patent celiac, SMA, and PERLA and patent bilateral renal arteries. No focal abnormality seen in the visualized liver, spleen, adrenal glands, pancreas, gallbladder, or kidneys. There is apparent narrowing of the left renal vein as it traverses between the aorta and SMA, degree of which is difficult to evaluate on MR due to possible and the distention. There is a left paravertebral prominent collateral vein. The left ovarian vein is normal in size measuring 4 mm without definite reflux seen. The right ovarian vein measures 3-4 mm. The IVC is widely patent. There is moderate narrowing of the left common iliac vein due to compression by the overlying the right common iliac artery. No free fluid in the pelvis. The uterus is retroflexed. Patent bilateral external iliac veins. IMPRESSION: 1. The ovarian veins are normal in size without evidence of reflux. 2. Apparent narrowing of the left renal vein, significance undetermined, but unlikely to be contributing to the pelvic varicosities given normal appearance of the ovarian veins. 3. 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 Finalized by Kayleigh Vazquez MD on 11/18/2024 11:15 AM Procedure Note Kayleigh Vazquez MD - 11/18/2024 MRV of the abdomen and pelvis with and without contrast and 3-Dreformats INDICATION: Chronic pelvic pain, dysmenorrhea, varicose vessel seen in thepelvis on diagnostic laparoscopy. PROCEDURE: Multiplanar multisequence MRV of the abdomen and pelvisobtained before and after the intravenous injection of 20 mL of ProHance,coronal time resolved imaging, and 3-D maximum intensity projectionreformats of the abdominal vessels obtained on MR consult under concurrentphysician supervision. FINDINGS: No comparisons available. The abdominal aorta is normal in sizemeasuring 1.7 cm; no aneurysm seen. Patent celiac, SMA, and PERLA and patentbilateral renal arteries. No focal abnormality seen in the visualizedliver, spleen, adrenal glands, pancreas, gallbladder, or kidneys. There is apparent narrowing of the left renal vein as it traverses between theaorta and SMA, degree of which is difficult to evaluate on MR due topossible and the distention. There is a left paravertebral prominentcollateral vein. The left ovarian vein is normal in size measuring 4 mmwithout definite reflux seen. The right ovarian vein measures 3-4 mm. The IVC is widelypatent. There is moderate narrowing of the left common iliac vein due tocompression by the overlying the right common iliac artery. No free fluidin the pelvis. The uterus is retroflexed. Patent bilateral external iliacveins. IMPRESSION: 1. The ovarian veins are normal in size without evidence of reflux. 2. Apparent narrowing of the left renal vein, significance undetermined,but unlikely to be contributing to the pelvic varicosities given normalappearance of the ovarian veins. 3. Moderate narrowing of the left common iliac vein consistent with MayThurner; this can contribute to pelvic congestion, and can be furtherevaluated with venogram, however, stenting of the left common iliac veinat this young age should be a last resort treatment. Finalized by Kayleigh Vazquez MD on 11/18/2024 11:15 AM us Heather Mckay DO IMG MRI ORDERABLES Final Resul t * IA AN ELECTIVE ENDOTRACHEAL AIRWAY (09/29/2024 [...] POCT , urine (09/29/2024 9:31 AM EDT) Pathologist [facility] POC Urine Negative Negative 10/23/2024 2:08 PM EDT [facility] Urine 09/29/2024 9:31 AM EDT 10/23/2024 2:08 PM EDT us Heather Mckay DO POINT OF CARE TEST ORDERABLES Final Result Performing Organization Address [facility]/ZIP Co de Phone Number [facility] [address] [place] [address], * ECG 12 lead (09/08/2024 1:47 PM EDT) 09/08/2024 1:47 PM EDT Narrative [facility] - 09/09/2024 1:21 PM EDT us Jono Raphael MD ECG ORDERABLES Final Result [facility] * CBC auto differential (09/08/2024 1:39 PM EDT) White Blood Cells 10.0 4.0 - 11.0 X10E9/L 09/08/2024 6:54 PM EDT [facility] RBC count 4.94 3.80 - 5.20 X10E12/L 09/08/2024 6:54 PM EDT [facility] Hemoglobin 13.4 11.7 - 15.5 g/dL 09/08/2024 6:54 PM EDT [facility] Hematocrit 40.7 35 - 47 % 09/08/2024 6:54 PM EDT [facility] MCV 82 80 - 100 fL 09/08/2024 6:54 PM EDT [facility] MCH 27.2 27 - 34 pg 09/08/2024 6:54 PM EDT [facility] MCHC 33.0 32 - 36 g/dL 09/08/2024 6:54 PM EDT [facility] RDW 14.5 11.5 - 15.0 % 09/08/2024 6:54 PM EDT [facility] Platelets 411 150 - 450 X10E9/L 09/08/2024 6:54 PM EDT [facility] MPV 8.4 7 - 12 fL 09/08/2024 6:54 PM EDT [facility] % neutrophils 61.8 % 09/08/2024 6:54 PM EDT [facility] % lymphocytes 28.2 % 09/08/2024 6:54 PM EDT [facility] % monocytes 7.6 % 09/08/2024 6:54 PM EDT [facility] % eosinophils 1.8 % 09/08/2024 6:54 PM EDT [facility] % Basophils 0.6 % 09/08/2024 6:54 PM EDT [facility] Neutrophils Absolute (A) 6.2 1.5 - 6.6 X10E9/L 09/08/2024 6:54 PM EDT [facility] Lymphocytes Absolute 2.8 1.0 - 3.5 X10E9/L 09/08/2024 6:54 PM EDT [facility] Monocytes Absolute 0.8 0 - 0.9 X10E9/L 09/08/2024 6:54 PM EDT [facility] Eosinophils Absolute 0.2 0.0 - 0.4 X10E9/L 09/08/2024 6:54 PM EDT [facility] Basophils Absolute 0.1 0.0 - 0.2 X10E9/L 09/08/2024 6:54 PM EDT [facility] Blood / Unknown 09/08/2024 1 :39 PM EDT 09/08/2024 1:40 PM EDT us Jono Raphael MD LAB BLOOD ORDERABLES Final Re sult [place] [facility] [address] [facility], [address] [place] [address] * Basic Metabolic Panel (09/08/2024 1:39 PM EDT) Sodium 140 134 - 146 mmol/L 09/08/2024 7:07 PM EDT [facility] Potassium, Bld 3.9 3.5 - 5.0 mmol/L 09/08/2024 7:07 PM EDT [facility] Chloride 101 98 - 109 mmol/L 09/08/2024 7:07 PM EDT [facility] CO2 27 22 - 32 mmol/L 09/08/2024 7:07 PM EDT [facility] Anion gap 12 5 - 15 mmol/L 09/08/2024 7:07 PM EDT [facility] BUN 12 5 - 23 mg/dL 09/08/2024 7:07 PM EDT [facility] Creatinine 0.76 0.40 - 1.00 mg/dL 09/08/2024 7:07 PM EDT [facility] Comment:METHOD TRACEABLE TO IDMS STANDARD Glucose 87 65 - 99 mg/dL 09/08/2024 7:07 PM EDT [facility] Calcium 9.3 8.5 - 10.5 mg/dL 09/08/2024 7:07 PM EDT [facility] eGFR (CKD-EPI)non-ra ce dependent >90 >59 ml/min/1.7 3sq.m 09/08/2024 7:07 PM EDT [facility] Comment: Reported eGFR is based on the CKD-EPI 2020 equation that does not use a race coefficient. PLASMA 09/08/2024 1:39 PM EDT 09/08/2024 1:40 PM EDT us Jono Raphael MD LAB BLOOD ORDERABLES Final Re sult [facility] [address] [place] [address], [address] [place] [address] * Pap Smear (08/05/2024 5:12 AM EST) 08/05/2024 5:12 AM EST 08/05/2024 5:32 AM EST Narrative COPATH - 08/19/2024 3:40 PM EST [facility] [address] [place] [address] Gynecologic Cytology Consultation Patient Name:PURVI CLARKE:2000 (Age: 24)Gender:FTaken:08/05/2024Reported:08/19/2024Physician(s):Heather Mckay DO ([phone])Copy To: Rec. #:[id number]: #[id number] Final Cytologic Interpretation ThinPrep Pap Test (Cervical): Satisfactory for evaluation. A transformation zone component is not identified via imaging-assisted review, using [employer] Thin Prep Imaging System, within 22 microscopic zepeda of view. NEGATIVE FOR INTRAEPITHELIAL LESION OR MALIGNANCY. [facility]/08/19/2024 Interpretation performed at [facility] [place] [address], License number: [id number]. Electronically Signed Out By NAVNEET Mcintosh(ASCP) Date of Last Menstrual Period: 05/17/24 Other Clinical Conditions: Clinical History: friable cervix Z12.4 Screening for malignant neoplasm of cervix Z11.3 Encntr screen for infections w sexl mode of transmiss Source of Specimen ThinPrep Pap Test (Cervical) Thin Prep Pap (TANK INSULATOR RUBBER) Fee Code(s): G0145 The Pap test is a screening test with an inherent, but low, probability of error. The Pap test is primarily effective for the diagnosis and prevention of squamous cell carcinoma. Regular screening is critical for prevention. ThinPrep liquid-based slides, which meet the [employer] criteria for automated screening, have been screened by the ThinPrep Imaging System (as of 03/02/07) along with an additional manual rescreening by a leaflet or newspaper deliverer and, if indicated, by a pathologist. Heather Mckay DO PATHOLOGY/CYTOLOGY ORDERABLES Final Result COPATH from Last 3 Months or Most Recently Relevant to Health Maintenance Insurance [employer] Care Teams Composition Floor Layer Relationship Specialty Start Date End Date Abimeal Garces MD PCP - General Family Medicine 10/09/24
--- OUTSIDE RECORDS SUMMARY | 2024-12-09 15:21 | XMS_ITS | Encounter Summary ---
Author Organization [facility] Address [id number] [address] [place] [address] Care Team Providers Care Solution Strategist Name Role Phone Abimael Garces MD Primary Care Provider [phone] Encounter Details Date Type Department Care Team (Late Contact Info) Description 07/19/2024 Orders Only [facility] [address] [place] [address] Ref Prov, [place] [address] Social History Tobacco Use Types Packs/Day Years [...] Department Care Team (Late Contact Info) Description 01/03/2025 2:30 PM EDT Office Visit [facility] [address] [place] [address] Taylor Steven M, DO [address] [facility] [address] [place] [id number] documented as of this encounter Procedures Procedure [...] on filedocumented in this encounter Care Teams Solution Strategist Relationship Specialty Start Date End Date Abimael Garces MD PCP - General Family Medicine 10/09/24 documented as of this encounter
--- OUTSIDE RECORDS SUMMARY | 2024-12-09 15:21 | XMS_ITS | Patient Health Record ---
Author Organization [facility] in [place] Address [address] [place] [address] Care Team Providers Care Child Welfare Consultant Name Role Phone Stefan Engle Primary Care Provider [phone] Allergies No Known Allergies Results Component Value Reference Range Notes THYROID ANTIBODIES Reviewed date:11/09/2024 04:13:40 PM Interpretation: Performing Lab: Notes/Report: [facility] , Thyroid Peroxidase (TPO) Ab 10 0-34 IU/mL Thyroglobulin Antibody <1.0 0.0-0.9 IU/mL Methodology [address] [place], [place] [id number] antibodies may not be pathogenic nor diagnostic, especially at very low levels. The assay director fraud has found that It should be noted that the presence of thyroglobulin to 4 IU/mL. [facility] at: - [facility] Thyroglobulin Antibody measured by Anne Fogarty Mower Sharpener: Ezequiel Agosto PhD, Phone: [phone] disease or autoimmunity will have positive TgAb levels up four percent of individuals without evidence of thyroid Performing Lab: see note - [facility] LB FREE T3 Reviewed date:06/23/2024 07:13:24 PM Interpretation: Performing Lab: Notes/Report: [facility] , Free T3 2.44 2.18-3.98 pg/mL Performing Lab: see note ML - [facility] LB GLYCOHEMOGLOBIN A1C Reviewed date:06/23/2024 07:13:24 PM Interpretation: Performing Lab: Notes/Report: [facility] , Glycohemoglobin A1C 5.2 4.5-6.2 % > 7.0 ADA RECOMMENDED LIMIT 4.0 - 6.0 ACTION SUGGESTED ADA THERAPEUTIC TARGET < 7.0 Estimated Average Glucose 103 Performing Lab: see note ML - [facility] LB LIPID PROFILE Reviewed date:06/23/2024 07:13:24 PM Interpretation: Performing Lab: Notes/Report: [facility] , Triglycerides 110 <=150 mg/dL Cholesterol [...] RISK Performing Lab: see note ML - [facility] PROF 14(COMP METB) Reviewed date:06/23/2024 07:13:24 PM Interpretation: Performing Lab: Notes/Report: [facility] , Sodium 142 136-145 mmol/L Potassium [...] 0.7 Performing Lab: see note ML - [facility] LB T4 Reviewed date:06/23/2024 07:13:24 PM Interpretation: Performing Lab: Notes/Report: [facility] , T4 Thyroxine 10.60 4.80-13.90 ug/dL Performing Lab: see note ML - [facility] LB TSH Reviewed date:06/23/2024 07:13:24 PM Interpretation: Performing Lab: Notes/Report: [facility] , Thyroid Stimulating Hormone 1.258 0.358-3.740 uIU/mL Performing Lab: see note ML - [facility] LB LACTATE or LACTIC ACID Reviewed date:08/17/2024 07:37:31 PM Interpretation: Performing Lab: Notes/Report: [facility] , Lactate/Lactic Acid 1.5 0.4-2.0 mmol/L Performing Lab: see note ML - [facility] LB LIPASE Reviewed date:08/17/2024 07:37:31 PM Interpretation: Performing Lab: Notes/Report: [facility] , Lipase 33.0 16.0-77.0 U/L Performing Lab: see note ML - [facility] LB PROF 14(COMP METB) Reviewed date:08/17/2024 07:37:31 PM Interpretation: Performing Lab: Notes/Report: [facility] , Sodium 138 136-145 mmol/L Potassium [...] Globulin Ratio 0.7 Performing Lab: see note - [facility] UA Micro, reflex to culture Reviewed date:08/17/2024 07:37:31 PM Interpretation: Performing Lab: Notes/Report: [facility] , Color Urine LT. YELLOW YELLOW Clarity Urine CLEAR CLEAR Specific Patten Urine 1.015 1.005-1.025 pH Urine 6.0 5.0-9.0 [...] SEEN NONE SEEN #/LPF Urine Culture Indicated [facility] Performing Lab: see note - [facility] Urine Culture - FR Reviewed date:08/19/2024 08:56:56 PM Interpretation: Performing Lab: Notes/Report: [facility] , Urine Culture - [facility] See Below For Report Urine Culture - [facility] 50,000 colonies/ml mixed Urine Culture - [facility] bacterial skin contaminants Urine Culture - FR 50,000 colonies/ml mixed Urine Culture - [facility] 2 Days Urine Culture - FR 50,000 colonies/ml mixed Urine Culture - [facility] Urine Culture - FR 50,000 colonies/ml mixed Urine Culture - [facility] Testing performed a [facility] Urine Culture - FR 50,000 colonies/ml mixed Urine Culture - [facility] [address], [place] [address] Urine Culture - FR 50,000 colonies/ml mixed Performing Lab: see note - [facility] LB HENRY by IFA Reviewed date:11/09/2024 03:46:36 PM Interpretation: Performing Lab: Notes/Report: [facility] , Antinuclear Antibodies, IFA Negative . Negative <1:80 Mower Sharpener: Ezequiel Agosto PhD, Phone: [phone] ICAP nomenclature: AC-0 Positive >1:80 ANApatterns.org, the official website for the For more information about Hep-2 cell patterns use Patterns (ICAP). International Consensus on Antinuclear Antibody (HENRY) Performed at: - [facility] [place] Borderline 1:80 [address] [place], [place] [id number] Performing Lab: see note LC - [facility] LB CBC AUTO DIFF Reviewed date:11/04/2024 08:08:44 PM Interpretation: Performing Lab: Notes/Report: [facility] , White Blood Count 10.1 4.0-11.0 10 3/uL Red Blood Count 4.87 4.20-5.40 10 6/uL Hemoglobin 13.2 12.0-16.0 g/dL Hematocrit 41.8 36.0-48.0 % Mean Corpuscular Volume 85.8 81.0-99.0 fL Mean Corpuscular Hemoglobin 27.1 26.7-34.0 pg Mean Corpuscular HGB Conc 31.6 29.9-35.2 g/dL Red Cell Distribution Width 14.0 11.0-15.0 % Platelet Count 443 150-450 10 3/uL Mean Platelet Volume 9.2 9.5-13.5 fL Neutrophils Percent Auto 61.6 43.0-75.0 % Lymphocytes Percent Auto 31.3 20.5-60.0 % Monocytes Percent Auto 5.5 1.7-12.0 % Eosinophils Percent Auto 0.9 0.9-7.0 % Basophils Percent Auto 0.4 0.2-2.0 % Immature Granulocytes Pct Auto 0.3 0.0-0.5 % Neutrophils Absolute Auto 6.2 1.4-6.5 10 3/uL Lymphocytes Absolute Auto 3.2 1.2-3.8 10 3/uL Monocytes Absolute Auto 0.6 0.3-0.8 10 3/uL Eosinophils Absolute Auto 0.1 0.0-0.7 10 3/uL Basophils Absolute Auto 0.0 0.0-0.1 10 3/uL Immature Granulocytes Abs Auto 0.03 0.00-0.03 10 3/uL Performing Lab: see note ML - [facility] LB CRP Reviewed date:11/04/2024 08:08:44 PM Interpretation: Performing Lab: Notes/Report: [facility] , C Reactive Protein 1.96 <=0.50 mg/dL Performing Lab: see note ML - [facility] FREE T3 Reviewed date:11/04/2024 08:08:44 PM Interpretation: Performing Lab: Notes/Report: [facility] , Free T3 4.16 2.18-3.98 pg/mL Performing Lab: see note ML - [facility] LB GLYCOHEMOGLOBIN A1C Reviewed date:11/04/2024 08:08:44 PM Interpretation: Performing Lab: Notes/Report: [facility] , Glycohemoglobin A1C 5.5 4.5-6.2 % ACTION SUGGESTED ADA RECOMMENDED LIMIT 4.0 - 6.0 ADA THERAPEUTIC TARGET < 7.0 > 7.0 Estimated Average Glucose 111 Performing Lab: see note ML - [facility] LB INSULIN Reviewed date:11/06/2024 11:51:59 AM Interpretation: Performing Lab: Notes/Report: [facility] , Insulin 23.7 2.6-24.9 uIU/mL Performed at: - [facility] [address] [id number] Mower Sharpener: Ezequiel Agosto PhD, Phone: [phone] Performing Lab: see note - [facility] LB IRON Reviewed date:11/04/2024 08:08:44 PM Interpretation: Performing Lab: Notes/Report: [facility] , Iron 38.0 50.0-170.0 ug/dL Performing Lab: see note ML - [facility] LB LIPID PROFILE Reviewed date:11/04/2024 08:08:44 PM Interpretation: Performing Lab: Notes/Report: [facility] , Triglycerides 80 <=150 mg/dL Cholesterol 184 <=200 mg/dL HDL Cholesterol 45 40-60 mg/dL <40 mg/dl - HIGH CARDIOVASCULAR RISK > or =60 mg/dl - LOW CARDIOVASCULAR RISK LDL Cholesterol Calculated 123.0 >190 mg/dl VERY HIGH <100 mg/dl OPTIMAL 100-129 mg/dl NEAR OR ABOVE OPTIMAL 130-159 mg/dl BORDERLINE HIGH 160-189 mg/dl HIGH VLDL CHOLESTEROL 16.0 Chol HDL Ratio 4.1 3.3 - 4.4 LOW RISK 7.1 - 11.0 MODERATE RISK >11.0 HIGH RISK 4.4 - 7.1 AVERAGE RISK Performing Lab: see note ML - [facility] LB RHEUMATOID FACTOR Reviewed date:11/09/2024 03:46:36 PM Interpretation: Performing Lab: Notes/Report: [facility] , Rheumatoid Factor (RF) <10.0 <14.0 IU/mL Performing Lab: see note - [facility] LB T4 Reviewed date:11/04/2024 08:08:44 PM Interpretation: Performing Lab: Notes/Report: [facility] , T4 Thyroxine 12.50 4.80-13.90 ug/dL Performing Lab: see note ML - [facility] LB TSH Reviewed date:11/04/2024 08:08:44 PM Interpretation: Performing Lab: Notes/Report: [facility] , Thyroid Stimulating Hormone 2.660 0.358-3.740 uIU/mL Performing Lab: see note - [facility] LB URIC ACID SERUM Reviewed date:11/04/2024 08:08:44 PM Interpretation: Performing Lab: Notes/Report: [facility] , Uric Acid 4.8 2.6-6.0 mg/dL Performing Lab: see note - [facility] LB Erythrocyte Sedimentation Ra te Reviewed date:11/04/2024 08:08:44 PM Interpretation: Performing Lab: Notes/Report: [facility] , Erythrocyte Sedimentation Rate 51 <=20 mm/hr Performing Lab: see note - [facility] LB Antistreptolysin O Ab Reviewed date:11/09/2024 03:46:36 PM Interpretation: Performing Lab: Notes/Report: [facility] , Antistreptolysin O Ab 39.0 0.0-200.0 IU/mL Mower Sharpener: Ezequiel Agosto PhD, Phone: [phone] [address] [place], [place] [id number] Performed at: - [facility] [place] Performing Lab: see note - [facility] LB PROF 14(COMP METB) Reviewed date:11/04/2024 08:08:44 PM Interpretation: Performing Lab: Notes/Report: [facility] , Sodium 144 136-145 mmol/L Potassium 3.9 3.5-5.1 mmol/L Chloride 104 98-107 mmol/L Carbon Dioxide 29.2 21.0-32.0 mmol/L Anion Gap 14.7 Glucose 79 74-106 mg/dL Blood Urea Nitrogen 10.0 7.0-18.0 mg/dL Creatinine 0.81 0.55-1.02 mg/dL Estimated GFR ( Ana Maria >60 >=60 mL/min/1.73m 2 Estimated GFR (Non- Maliha >60 >=60 mL/min/1.73m 2 BUN Creatinine Ratio 12.3 Calcium 9.0 8.5-10.1 mg/dL Bilirubin Total 0.2 0.2-1.0 mg/dL Aspartate Amino Transferase 11 15-37 U/L Alanine Aminotransferase 18 14-59 U/L Alkaline Phosphatase 61 46-116 U/L Total Protein 7.6 6.4-8.2 g/dL Albumin Level 3.1 3.4-5.0 g/dL Globulin 4.5 Albumin Globulin Ratio 0.7 Performing Lab: see note ML - [facility] LB CBC AUTO DIFF Reviewed date:08/17/2024 07:37:30 PM Interpretation: Performing Lab: Notes/Report: [facility] , White Blood Count 8.5 4.0-11.0 10 [...] Performing Lab: see note ML - [facility] US pelvis w/ transvaginal Reviewed date:06/29/2024 04:04:52 PM Interpretation: Performing Lab: Notes/Report: Source Facility: [place] [address] [place] [address] Ultrasound Report Signed Patient: PURVI CLARKE MR#: [id number] : 2000 Acct:[id number] Age/Sex: 24 / F ADM Date: 06/28/24 Loc: US Attending Dr: Camille Engle M.D. Ordering Physician: Camille Engle M.D. Date of Service: 06/28/24 Procedure(s): US pelvis w/ transvaginal Accession Number(s): [id number] cc: Camille Engle M.D. [address] [place] [address] Patient Name: PURVI CLARKE MRN: [id number] date: 2000 Sex: F Assigned Patient Location: US Current Patient Location: Accession/Order Number: [id number] Exam Date: 06/28/2024 15:00 Report Date: 06/29/2024 07:25 At the request of: CAMILLE ENGLE Procedure: US pelvis w/ transvaginal EXAM: US [...] M.D. Signed By: 06/29/24726 DD/ 4 TD/TT: Health And Safety Technician: [place] [address] Ultrasound Report Signed Patient: PURVI CLARKE MR#: [id number] : 2000 Acct:[id number] Age/Sex: 24 / F ADM Date: 06/28/24 Loc: US Attending Dr: Rajendra Engle M.D. Ordering Physician: Camille Engle M.D. Date of Service: 06/28/24 Procedure(s): US pelvis w/ transvaginal Accession Number(s): [id number] cc: Camille Engle M.D. [address] [place] [address] Patient Name: PURVI CLARKE MRN: [id number] date: 2000 Sex: F Assigned Patient Location: US Current Patient Location: Accession/Order Number: [id number] Exam Date: 06/28/2024 15:00 Report Date: 06/29/2024 07:25 At the request of: CAMILLE ENGLE Procedure: US pelvis w/ transvaginal EXAM: US [...] M.D. Signed By: 06/29/24726 DD/ 4 TD/TT: Health And Safety Technician: XR lumbar spine min 4V Reviewed date:06/24/2024 12:53:39 PM Interpretation: Performing Lab: Notes/Report: Source Facility: [place] [address] XRay Report Signed Patient: PURVI CLARKE MR#: [id number] : 2000 Acct:[id number] Age/Sex: 24 / F ADM Date: 06/23/24 Loc: LAB Attending Dr: Camille Engle M.D. Ordering Physician: Camille Engle M.D. Date of Service: 06/23/24 Procedure(s): XR lumbar spine min 4V Accession Number(s): [id number] cc: Camille Engle M.D. [place] [id number] Patient Name: PURVI CLARKE MRN: [id number] date: 2000 Sex: F Assigned Patient Location: LAB Current Patient Location: Accession/Order Number: [id number] Exam Date: 06/23/2024 15:02 Report Date: 06/24/2024 07:16 At the request of: CAMILLE ENGLE Procedure: XR lumbar spine min 4V EXAMINATION: [...] M.D. Signed By: 06/24/24718 DD/ 5 TD/TT: Health And Safety Technician: [place] [address] XRay Report Signed Patient: PURVI CLARKE MR#: [id number] : 2000 Acct:[id number] Age/Sex: 24 / F ADM Date: 06/23/24 Loc: LAB Attending Dr: Rajendra Engle M.D. Ordering Physician: Camille Engle M.D. Date of Service: 06/23/24 Procedure(s): XR lumbar spine min 4V Accession Number(s): [id number] cc: Camille Engle M.D. [place] [id number] Patient Name: PURVI CLARKE MRN: [id number] date: 2000 Sex: F Assigned Patient Location: LAB Current Patient Location: Accession/Order Number: [id number] Exam Date: 06/23/2024 15:02 Report Date: 06/24/2024 07:16 At the request of: CAMILLE ENGLE Procedure: XR lumbar spine min 4V EXAMINATION: [...] M.D. Signed By: 06/24/24718 DD/ 5 TD/TT: Health And Safety Technician: IRON Reviewed date:06/23/2024 07:13:24 PM Interpretation: Performing Lab: Notes/Report: [facility] , Iron 93.0 50.0-170.0 ug/dL Performing Lab: see note - [facility] LB INSULIN Reviewed date:06/24/2024 12:53:39 PM Interpretation: Performing Lab: Notes/Report: [facility] , Insulin 19.2 2.6-24.9 uIU/mL Performed at: - [facility] [address] [id number] Mower Sharpener: Ezequiel Agosto PhD, Phone: [phone] Performing Lab: see note - [facility] LB CBC AUTO DIFF Reviewed date:06/23/2024 07:13:24 PM Interpretation: Performing Lab: Notes/Report: [facility] , White Blood Count 9.8 4.0-11.0 [...] Performing Lab: see note ML - [facility] LB COVID-19, Flu A+B IH Reviewed date:11/04/2024 08:08:44 PM Interpretation: Performing Lab: Notes/Report: COVID neg FLU A neg FLU B neg Control pos Reason For Referral Diagnosis 1 Low back pain, unspe cified (M54.50) Referral Organization [facility] Referring Provider First Name Stefan Referring Provider Last Name [facility] Referring Provider [facility] Referred Provider Specialty Physical The rapist Referral Priority Routine Diagnosis 1 Low back pain at [facility] (M54.50) Referral Organization [facility] Referring Provider First Name Stefan Referring Provider Last Name [facility] Referring Provider [facility] Referred Provider [facility] Referred Provider Specialty Physical The rapist Referral Priority Routine Diagnosis 1 Large breasts (N62) Referral Organization [facility] Referring Provider First Name Stefan Referring Provider Last Name [facility] Referring Provider [facility] Referred Provider Celeste Morales Referred Provider Specialty [...] Orally BID for 30 days 11/13/2022 Active Nabumetone 500 MG 2 tablet Orally Twic e a day 11/10/2024 Active Omeprazole 40 MG TAKE 1 CAPSULE BY [facility] 30 MINUTES BEFORE MORNING MEAL for 30 [...] Status W/U Status Risk Notes Problem Leukocytosis (275090458) Elevated white blood cell count, unspecified (D72.829) Active confirmed Problem Palpitations (01404133) Palpitations (R00.2) Active confirmed Problem Migraine variant with headache (disorder) (513463965) Migraine headache (G43.909) Active confirmed Problem Gastroesophageal reflux disease (566581521) GERD (gastroesophage al reflux disease) (K21.9) Active confirmed Problem Eczema (41611994) Eczema (L30.9) Active confirm ed Problem Irritable bowel syndrome (51463658) IBS (irritable bowel syndrome) (K58.9) Active confirmed Problem Polycystic ovary syndrome (disorder) (880763806) PCOS (polycystic ovarian syndrome) (E28.2) Active confirmed Problem Acute sinusitis (13834231) Acute sinus infection (J01.90) Active confirmed Problem Hypertrophy of breast (385541745) Large breasts (N62) Active confirmed Problem Chronic cough (33129141) Chronic cough (R05.3) Active confirmed Problem Low back pain (finding) (976760917) Low back pain at multiple sites (M54.50) Active confirmed Vital Signs Blood pressure diastolic 74 mm Hg 11/03/2024 Height 67 in 11/03/2024 Blood pressure systolic 124 mm Hg 11/03/2024 Weight 246.0 lbs 11/03/2024 BMI 38.52 kg/m2 11/03/2024 Encounters Encounter Location Date Provider Diagnosis [facility] [address] [place] [address] 12/17/2023 Stefan Engle [facility] [address] [facility] [place] [address] 02/26/2024 Stefan [facility] [address] [facility] [place] [address] 06/23/2024 Stefan [facility] [address] [facility] [place] [address] 06/23/2024 Stefan Engle PCOS (polycystic ova claritza syndrome) E28.2 [facility] [address] [facility] [place] [address] 06/23/2024 Stefan [facility] [address] [facility] [place] [address] 06/24/2024 Stefan Engle Low back pain, unspecified M54.50 [facility] [address] [facility] [place] [address] 06/28/2024 Stefan [facility] [address] [facility] [place] [address] 06/29/2024 Stefan [facility] [address] [facility] [place] [address] 07/29/2024 Stefan [facility] [address] [facility] [place] [address] 08/17/2024 Stefan [facility] [address] [facility] [place] [address] 08/27/2024 Stefan Engle [facility] [address] [facility] [place] [address] 09/02/2024 Stefan Derrickjorje [facility] [address] [place] [address] 09/08/2024 Stefan [facility] [address] [facility] [place] [address] 09/28/2024 Stefan [facility] [address] [facility] [place] [address] 10/26/2024 Stefan Engle PCOS (polycystic ova claritza syndrome) E28.[address] [address] 11/03/2024 Stefan Hoy Large breasts N62 [address] [address] 11/04/2024 Stefan Hoy Abnormal thyroid blo od test R79.[address] [address] 11/09/2024 Stefan Hoy Low back pain at multiple sites M54.[address] [address] 06/21/2024 Stefan Hoy Low back pain, unspecified M54.50 ; Elevated white blood cell count, unspecified D72.829 ; Palpitations R00.2 ; PCOS (polycystic ovarian syndrome) E28.2 and Chronic cough R05.[address] [address] 08/02/2024 Stefan Hoy Eczema L30.[address] [address] 12/17/2023 Stefan Hoy PCOS (polycystic ova claritza syndrome) E28.2 and GERD (gastroesophageal reflux disease) K21.[address] [address] 11/03/2024 Stefan Hoy Low back pain at multiple sites M54.50 ; Palpitations R00.2 and PCOS (polycystic ovarian syndrome) E28.[address] [address] 08/24/2024 Stefan Hoy Nasal congestion R09 .81 and Acute sinusitis J01.[address] [address] 09/02/2024 Stefan Hoy [address] [address] 09/08/2024 Stefan Hoy Assessments Encounter Date Diagnosis (ICD Code) Assessment [...] E28.2) 11/03/2024 Large breasts (ICD-10 - N62) 11/04/2024 Abnormal thyroid blood test (ICD-10 - R79.89) 11/09/2024 Low back pain at multiple sites (ICD-10 - M54.50) 12/17/2023 PCOS (polycystic ovarian syndrome) (ICD-10 - [...] : Pelvic 06/23/2024 CMP (COMPLETE METABOLIC PANEL) SED RATE (ESR) 11/09/2024 HEMOGLOBIN A1C (GLYCO) 06/21/2024 HEMOGLOBIN A1C (GLYCO) 11/03/2024 IRON, TOTAL 11/03/2024 IRON, TOTAL 06/21/2024 LIPID PANEL (CHOL/TRIG/HDL/LDL) 06/21/19 25 LIPID PANEL (CHOL/TRIG/HDL/LDL) 11/04/19 25 CBC WITH DIFF 06/21/2024 RHEUMATOID PANEL 11/03/2024 RHEUMATOID PANEL 11/09/2024 Insulin Level 11/03/2024 Insulin Level 06/21/2024 SED RATE WESTERGREN 11/03/2024 XR LSPINE MIN 4 VIEWS 06/21/2024 THYROID PANEL (T4/TSH/FREE T3) 5 THYROID PANEL (T4/TSH/FREE T3) 5 THYROID PANEL (T4/TSH/FREE T3) 5 CMP (COMP MET PLATT) w/eGFR CKD-EPI 2024 CBC WITH DIFF 11/03/2024 Insurance Providers Payer Name Payer Address Payer Phone Subscriber Number Group Number Insured Name Patient Relationship to Insured Coverage Start Date Coverage End Date [employer] [place] [employer] [address] [place] [address] [phone] [id number] Purvi Clarke Self - patient is the [...]
--- OUTSIDE RECORDS SUMMARY | 2024-12-09 15:21 | XMS_ITS | Patient Health Record ---
Author Organization [facility] Address [address] [place], [place] [address] Care Team Providers Care Memory Care Program Director Name Role Phone Noemi Ruiz Primary Care Provider Allergies No Known Allergies Results Component Value Reference Range Notes HTRX - Vaginitis Reviewed date:07/16/2024 01:13:05 PM Interpretation: Performing Lab: Notes/Report: Urine Dip Reviewed date:07/09/2024 03:54:20 PM Interpretation: Performing Lab: Notes/Report: Bilirubin - Occult Blood 3+ Glucose - Ketones - WBC 1+ Nitrite - Ph 6.0 Protein - Specific [place] 1.010 Color yellow Appearance dark Reason For Referral Reason Pt has palpable lump in vaginal canal, [facility] ER she got a Transvaginal USN done WNL Diagnosis 1 Lump in vagina (N94. 9) Referral Organization Main Referring Provider First Name Noemi Referring Provider Last Name Sara Referred Provider [facility] SOLDERING MACHINE TENDER Jeff robin Referred Provider Specialty OB - [...] pt to call back advised to call [phone] and ask for Gemini Vera. Referral Priority Routine Reason Z59.9 Financial Diff iculties Diagnosis 1 Financial difficulti es (Z59.9) Referral Organization Main Referring Provider First Name Noemi Referring Provider Last Name Sara Referred Provider MIRANDA Referred Provider Specialty [facility] or Welfare Agencies General Notes Gemini Vera 2024 11:31:35 AM >Called and left VM for pt to call back advised to call [phone] and ask for Gemini Vera. 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 Stress is when someone feels tense, nervous, anxious, or can't sleep at night because their mind is troubled Quite a bit patient entered data In the past year have you sp ent more than 2 nights in a row in a long term, fci, senior care center, or juvenile correctional facility? No patient [...] Problem Status W/U Status Risk Notes Problem 571593012 Dysmenorrhea (N94.6) Active confirmed Problem 974250369 Obesity (BMI 30-39.9) (E66.9) Active confirmed Problem Vitamin D deficiency (51165282) Vitamin D deficiency (E55.9) Active confirmed Problem Frequency of micturition (682205090) Frequency of micturition (R35.0) Active confirmed Comment:Urine sent will call, Problem Candidal vulvovaginitis (14032307) Vulvovaginitis willis albicans (B37.3) Active confirmed Problem Depression screening (455617189) Screening for depression (Z13.31) Active confirmed Description:Dep r ession screen Problem Vaginal discharge (855547630) Vaginal discharge (N89.8) Active confirmed Comment:-asympt o darek, will call patient with results., Problem Gynecological examination normal (481551292827723 ) Well woman exam with routine gynecological exam (Z01.419) Active confirmed Problem Polycystic ovary syndrome (disorder) (818323870) PCOS (polycystic ovarian syndrome) (E28.2) Active confirmed Problem Bacterial vaginosis (179000427) Bacterial vaginosis (N76.0) Active confirmed Problem Surveillance of oral contraception done (052259470218818 ) Encounter for control pills maintenance (Z30.41) [...] remembering to take it., Problem Weight gain (790309894) Weight gain (R63.5) Active confirmed Problem Pain in female pelvis (090875006) Pelvic pain in female (R10.2) Active confirmed [...] Problem Screening for malignant neoplasm of cervix (641697966) Pap smear for cervical cancer screening (Z12.4) Active confirmed Problem Depression (449539842) Depression (F32.A) Active confirmed Comment:- Still refusing to see a therapist. No thoughts of hurting herself or anyone., Vital Signs Heart Rate 103 /min 07/09/2024 Eliazar Peralta 07/09/2024 03:41:12 PM EST > Temperature 97.5 degrees Fahrenheit 07/09/2024 Vald ovinos, Edgardo 07/09/2024 03:41:12 PM EST > Respiratory Rate 18 /min 07/09/2024 Peralta, Edgardo 07/09/2024 03:41:12 PM EST > Height-cm 167.64 cm 07/09/2024 Peralta, Ser vando 07/09/2024 03:41:12 PM EST > Oximetry 96 % 07/09/2024 Peralta, Ser vando 07/09/2024 03:41:12 PM EST > Blood pressure diastolic 87 mm Hg 07/09/2024 Venus dovinos, Edgardo 07/09/2024 03:41:12 PM EST > Weight-kg 113.4 [...] Provider Diagnosis Main [address] [place] , [place] [id number] 07/09/2024 Noemi Sara Lump in vagina N94.9 ; Severe obesity (BMI >= 40) E66.01 ; BMI 40.0-44.9, adult Z68.41 ; Food insecurity Z59.41 and Financial difficulties Z59.9 Main [address] [place], [place] [id number] 07/29/2024 Noemi Sara Contraception manage ment Z30.9 Assessments Encounter Date Diagnosis (ICD Code) Assessment Notes Treatment Notes Treatment Clinical Notes Section Notes 07/09/2024 Severe obesity (BMI >= 40) (ICD-10 - E66.01) 07/09/2024 Lump in vagina (ICD-10 - N94.9) Pt's Urine Dip negative. Pt went to [place] ER for her transvaginal USN, WNL Pt desires referral for OBGYN at this time, used to follow w/ Dr. Styles at [facility] Pt instructed to have nothing per vagina [...] Start Date Coverage End Date [employer] e [facility] [address] [place], [place] [id number] [facility] Self - patient is the insured 9 [facility] [address] [place], [place] [id number] Evangelina Clarke Self - patient is the insured 4 3 Medicaid [facility] [address] [place] [address] [id number] Evangelina Clarke Self - patient is the insured 8 Medical (General) History Medical History History ICD Code Anxiety/Depression, COMMENTS: PHQ-9 08/23 PCOS Surgical History Surgery Date(Month/Year)
--- OUTSIDE RECORDS SUMMARY | 2024-12-09 15:21 | XMS_ITS | Clinical Summary ---
Author Organization [facility] Address [address] [place] [address] Care Team Providers Care Brand Advocate Name Role Phone Unavailable Primary Care Provider [...]
--- OUTSIDE RECORDS SUMMARY | 2024-12-09 15:21 | XMS_ITS | Clinical Summary ---
Author Organization [facility] Address [address] [place] [address] Care Team Providers Care Special Procedures Technologist Name Role Phone Abimael Garces MD Primary [...] complete this topic Insurance [employer] Care Teams Special Procedures Technologist Relationship Specialty Start Date End Date Abimael Garces MD [address] [place] [address] PCP - General Family Medicine 04/26/22
[2024-12-09 16:14] LABS: C Reactive Protein 2.14 mg/dL (<=0.50); Free T3 2.84 pg/mL (2.18-3.98); Uric Acid 4.6 mg/dL (2.6-6.0)
[2024-12-09 16:40] LABS: Erythrocyte Sedimentation Rate 50 mm/hr (<=20)
[2024-12-11 04:08] LABS: Antistreptolysin O Ab 40.4 IU/mL (0.0-200.0); Rheumatoid Factor (RF) <10.0 IU/mL (<14.0)
[2024-12-13 17:12] LABS: Antinuclear Antibodies, IFA Negative (.)
== END 2024-12-09 15:16 | disposition home or self-care (01) ==
LOC: LAB 15:19
PROVIDERS: PCP Family Medicine; Visit Provider Family Medicine
DX: M54.50 Low back pain, unspecified (principal); R79.89 Other specified abnormal findings of blood chemistry
CPT/HCPCS: 36415; 84436; 84443; 84481; 84550; 85652; 86038; 86060; 86140; 86431

== ENCOUNTER 2024-12-13 12:29 | Outpatient (OUT) | payer OTHER, SELFPAY ==
[2024-12-13 13:17] LABS: C Reactive Protein 2.25 mg/dL (<=0.50); Uric Acid 4.6 mg/dL (2.6-6.0)
[2024-12-14 04:07] LABS: Antistreptolysin O Ab 42.7 IU/mL (0.0-200.0); Rheumatoid Factor (RF) <10.0 IU/mL (<14.0)
[2024-12-14 14:09] LABS: Antinuclear Antibodies, IFA Negative (.)
== END 2024-12-13 12:30 | disposition home or self-care (01) ==
LOC: LAB 12:31
PROVIDERS: PCP Family Medicine; Visit Provider Family Medicine
DX: M62.81 Muscle weakness (generalized) (principal); M25.50 Pain in unspecified joint
CPT/HCPCS: 36415; 84550; 86038; 86060; 86140; 86431

== ENCOUNTER 2025-02-01 19:48 | Outpatient (OUT) | payer OTHER, SELFPAY ==
--- OUTSIDE RECORDS SUMMARY | 2024-12-21 11:11 | XMS_ITS ---
Author Organization [facility] [place] Address [address] [place] [address] Care Team Providers Care Shoe Singer Name Role Phone Mili Stefan Primary Care Provider REASON FOR VISIT Append note Encounters Encounter Location Date Provider Diagnosis [facility] [address] [place] [address] 12/21/2024 Stefan Mili Plan Of Treatment No Information Progress Notes * Evangelina CLARKEDOB:1999 (24 yo F)Acc No.[id number]:12/21/2024 Patient: Evangelina SALDIVAR :2000 A ge:24 Y S ex:Female Address:[address] [place] [address], [phone] * true * Date: Generated for Jamesi fidencio/Davidg/eTransmitting on: 0 02/01/2025 07:52 PM EDT
--- OUTSIDE RECORDS SUMMARY | 2024-12-24 05:59 | XMS_ITS ---
Author Organization [facility] [place] Address [address] [place] [address] Care Team Providers Care Pier Worker Name Role Phone Stefan Garces Primary Care Provider [phone] REASON FOR VISIT update Encounters Encounter Location Date Provider Diagnosis [facility] [address] [place] [address] 12/24/2024 Stefan Garces PCOS (polycystic ovarian syndrome) E28.2 Assessments Encounter Date Diagnosis (ICD Code) Assessment Notes Treatment Notes Treatment Clinical Notes Section Notes 12/24/2024 PCOS (polycystic ovarian syndrome) (ICD-10 - E28.2) Plan Of Treatment Medication Medication Name Sig Start Date Stop Date Notes metFORMIN HCl 500 MG 1 tablet with a meal Orally BID 11/13 Progress Notes * Evangelina CLARKEDOB:1999 (24 yo F)Acc No.[id number]:12/24/2024 Patient: Evangelina SALDIVAR :2000 A ge:24 Y S ex:Female Address:[address] [place] [address], [phone] * Refills Stop metFORMIN HCl Tablet, 500 MG, Orally, 1 tablet with a meal, BID * true * Date: Generated for Printi ng/Faxing/eTransmitting on: 0 02/01/2025 07:52 PM EDT
--- OUTSIDE RECORDS SUMMARY | 2024-12-27 09:40 | XMS_ITS ---
Author Organization [facility] [place] Address [address] [place] [address] Care Team Providers Care Epic Beacon Specialists Name Role Phone Stefan Garces Primary Care Provider REASON FOR VISIT sleep study Medications Medication SIG (Take, Route, Fr equency, Duration) Notes Start Date End Date Status Restoril 15 MG 1 capsule at bedtime as needed Orally Once a day for 1 days Sleep apnea 12/27/2024 Active Encounters Encounter Location Date Provider Diagnosis [address] [address] 12/27/2024 Stefan Garces Plan Of Treatment Medication Medication Name Sig Start Date Stop Date Notes Restoril 15 MG 1 capsule at bedtime as needed Orally Once a day for 1 days 12/27/2024 Progress Notes * Evangelina CLARKEDOB:1999 (24 yo F)Acc No.[id number]:12/27/2024 Patient: Joseph Evangelina ESCOBAR :2000 A ge:24 Y S ex:Female Address:[address] [place] [address], [phone] * Refills Start Restoril Capsule, 15 MG, Orally, 1 Capsule, 1 capsule at bedtime as needed, Once a day, 1 days, Refills=0 * true * Date: Generated for Jerel nicolas/Brian/eTransmitting on: 0 02/01/2025 07:52 PM EDT
--- OUTSIDE RECORDS SUMMARY | 2025-01-21 12:31 | XMS_ITS | Encounter Summary ---
Author Organization [facility] tem Address [id number] [address] [place] [address] Care Team Providers Care Vice President Quality Assurance Name Role Phone Abimael Garces MD Primary Care Provider [phone] Reason for Referral * Diagnostic Imaging (Emergency) - Closed Specialty Diagnoses / Procedures Referred By Contac t Referred To Contact Radiology Diagnoses Congenital occlusion of iliac vein Procedures CT venogram abdomen and pelvis Taylor Steven DO [address] [address] Phone: tel: fax: Referral ID Status Reason Start Date Expiration Date Visits Re quested Visits Authorized [id number] Closed 01/03/2025 01/03/2026 1 0 Reason for Visit * Diagnostic Imaging (Emergency) - Closed Specialty Diagnoses / Procedures Referred By Contac t Referred To Contact Radiology Diagnoses Congenital occlusion of iliac vein Procedures CT venogram abdomen and pelvis Taylor Steven DO [address] [place] [address] Phone: tel:[phone] fax: Referral ID Status Reason Start Date Expiration Date Visits Re quested Visits Authorized [id number] Closed 01/03/2025 01/03/2026 1 0 Encounter Details Date Type Department Care Team (Latest Contact Info) Description 01/21/2025 12:31 PM EDT - 01/21/2025 11:59 PM EDT Hospital Encounter [facility] - CT Imaging [address] [place] [address] TenishaTaylor, [facility] [address] [place] [id number] Congenital occlusion of iliac vein Discharge Disposition: Home Social History Tobacco Use Types Packs/Day Years Used Date Smoking Tobacco: Never Smokeless Tobacco: Never Alcohol Use Standard Drinks/Week Comments Not Currently [...] on file documented as of this encounter Medications at Time of Discharge buPROPion XL (WELLBUTRIN XL) 150 mg 24 hr tablet Take 1 tablet (150 mg total) by mouth every morning. ibuprofen (MOTRIN) 800 mg tablet Take 1 tablet (800 mg total) by mouth every 8 (eight) hours as needed for pain. 60 tablet 2 09/29/2024 lisinopriL (PRINIVIL,ZESTRIL ) 10 mg tablet Take 2 tablets (20 mg total) by mouth in the morning. 08/27/2024 lisinopriL (PRINIVIL,ZESTRIL ) 20 mg tablet Take 1 tablet (20 mg total) by mouth in the morning. 09/28/2024 metFORMIN (GLUCOPHAGE) 500 mg tablet Take 1 tablet (500 mg total) by mouth in the morning and 1 tablet (500 mg total) in the evening. Take with meals. omeprazole (PriLOSEC) 40 mg capsule Take 1 capsule (40 mg total) by mouth every morning before breakfast. SETLAKIN 0.15 mg-30 mcg (91) per tablet Take 1 tablet by mouth in the morning. 07/30/2024 triamcinolone (KENALOG) 0.1 % cream 08/02/2024 documented as of this encounter Plan of Treatment Upcoming Encounters Date Type Department Care Team (Late st Contact Info) Description 02/21/2025 11:30 AM EDT Office Visit [facility] [place] [address] Taylor Steven, [address] [facility] [address] [place] [address] documented as of this encounter Procedures Procedure Name Priority Date/Time Associated Diagnosis Comments CT CTV ABD AND PELVIS Routine 01/21/2025 1:01 PM EDT Congenital occlusion of iliac vein documented in this encounter Results * CT venogram abdomen and pelvis (01/21/2025 1:01 PM EDT) Anatomical Region Laterality Modality Body, Abdomen, Vascular, Body Covera N/A Computed Tomography 01/25/2025 9:43 AM EDT Narrative 01/25/2025 9:48 AM EDT CLINICAL INFORMATION: Pelvic congestion syndrome. Pelvic pain.. COMPARISON: None. PROCEDURE: CT venogram of the abdomen and pelvis obtained with IV contrast. Cross-sectional 3-D Maximum intensity projection reconstructions constructed under concurrent physician supervision on a independent workstation for evaluation of arterial structures. All CT scans at this facility dose modulation, iterative reconstruction, and/or weight based dosing when appropriate to reduce radiation dose to as low as reasonably achievable. FINDINGS: Vascular findings: Contrast administration optimized for the venous system. There is a single right-sided IVC which is normal in course and caliber. The left and right renal veins are patent. There is no significant external compression. The left ovarian vein drains to the left renal vein. The left ovarian vein is normal in course and caliber. The right ovarian vein drains to the IVC and is normal in course and caliber. No parametrial or pelvic varicosities visualized. There is mild external compression of the left common iliac vein from the overlying right common iliac artery. No surrounding varicosities. The iliac and partially visualized femoral veins are otherwise within normal limits. No thrombus. Other findings: Lung bases are clear. Liver and gallbladder are unremarkable. No biliary dilatation. The pancreas, spleen, and adrenal glands are unremarkable. The kidneys enhance symmetrically. No hydronephrosis or ureteral obstruction. Urinary bladder contour is unremarkable. No intra-abdominal free air or free fluid. Small sliding hiatal hernia. No small bowel obstruction. No acute findings in the colon. No abdominal aortic aneurysm. No acute osseous abnormality. 3-D reformatted images confirm the source data findings. IMPRESSION: 1. No acute findings. 2. The ovarian veins are within normal limits. No parametrial or pelvic varicosities visualized. 3. Mild external compression of the left common iliac vein from the overlying right common iliac artery. No iliac thrombus or surrounding varicosities to suggest May Thurner syndrome. 4. Chronic and detailed findings as above. Finalized by Vishal Tabares MD on 01/25/2025 9:48 AM Procedure Note Vishal Tabares MD - 01/25/2025 CLINICAL INFORMATION: Pelvic congestion syndrome. Pelvic pain.. COMPARISON: None. PROCEDURE: CT venogram of the abdomen and pelvis obtained with IVcontrast. Cross-sectional 3-D Maximum intensity projectionreconstructions constructed under concurrent physician supervision on [facility] workstation for evaluation of arterial structures. All CTscans at this facility dose modulation, iterative reconstruction, and/or weight based dosing whenappropriate to reduce radiation dose to as low as reasonably achievable. FINDINGS: Vascular findings: Contrast administration optimized for the venoussystem. There is a single right-sided IVC which is normal in course and caliber. The left and right renal veins are patent. There is no significantexternal compression. The left ovarian vein drains to the left renal vein. The left ovarian veinis normal in course and caliber. The right ovarian vein drains to the IVCand is normal in course and caliber. No parametrial or pelvic varicositiesvisualized. There is mild external compression of the left common iliac vein from theoverlying right common iliac artery. No surrounding varicosities. Theiliac and partially visualized femoral veins are otherwise within normallimits. No thrombus. Other findings: Lung bases are clear. Liver and gallbladder are unremarkable. No biliary dilatation. The pancreas, spleen, and adrenal glands are unremarkable. The kidneys enhance symmetrically. No hydronephrosis or ureteralobstruction. Urinary bladder contour is unremarkable. No intra-abdominalfree air or free fluid. Small sliding hiatal hernia. No small bowelobstruction. No acute findings in the colon. No abdominal aortic aneurysm. No acute osseous abnormality. 3-D reformatted images confirm the source data findings. IMPRESSION: 1. No acute findings. 2. The ovarian veins are within normal limits. No parametrial or pelvicvaricosities visualized. 3. Mild external compression of the left common iliac vein from theoverlying right common iliac artery. No iliac thrombus or surroundingvaricosities to suggest May Thurner syndrome. 4. Chronic and detailed findings as above. Finalized by Vishal Tabares MD on 01/25/2025 9:48 AM Taylor Steven DO IMG CT ORDERABLES Final Result documented in this encounter Visit Diagnoses Diagnosis Congenital occlusion of iliac vein documented in this encounter Administered Medications Inactive Administered Medications - up to 3 most recent administrations Medication Order MAR Action Action Date Dose Rate Site iohexoL (OMNIPAQUE) 300 mg iodine/mL 100 mL 100 mL, intravenous, Once in imaging, contrast, Starting on Fri01/21/25 at 1240, For 1 dose, VESICANT (RED) Given 01/21/2025 12:49 PM EDT 100 mL sodium chloride 0.9 % flush 10 mL 10 mL, intravenous, As needed, line care, Starting on Fri01/21/25 at 1235 Given 01/21/2025 12:42 PM EDT 10 mL sodium chloride 0.9 % radiology injection 80 mL, intravenous, Once in imaging, pre/post contrast, Starting on Fri01/21/25 at 1235, For 1 dose Given 01/21/2025 12:42 PM EDT 80 mL documented in this encounter Care Teams Vice President Quality Assurance Relationship Specialty Start Date End Date Abimael Garces MD PCP - General Family Medicine 10/09/24 documented as of this encounter
--- OUTSIDE RECORDS SUMMARY | 2025-02-01 19:51 | XMS_ITS | Encounter Summary ---
Author Organization [facility] Address [id number] [address] [place] [address] Care Team Providers Care Accounting Tutor Name Role Phone Abimael Garces MD Primary Care Provider [phone] Encounter Details Date Type Department Care Team (Late Contact Info) Description 01/19/2025 Orders Only [facility] [address] [facility] [address] [place] [address] Taylor Steven, DO [address] 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 [address] [place] [address] Scheduled Orders Name Type Priority Associated Diagnoses Orde r Schedule Creatinine includes GFR, serum Lab Routine Female pelvic congestion syndrome 1 Occurrences starting 01/19/2025 until 01/19/2026 documented as of this encounter Visit Diagnoses Diagnosis Female pelvic congestion syndrome- Primary documented in this encounter Care Teams Accounting Tutor Relationship Specialty Start Date End Date Abimael Garces MD PCP - General Family Medicine 10/09/24 documented as of this encounter
--- OUTSIDE RECORDS SUMMARY | 2025-02-01 19:51 | XMS_ITS | Encounter Summary ---
Author [facility] Address [id number] [address] [place] [address] Care Team Providers Care Hearing Aide Technician Name Role Phone Abimael Garces MD Primary Care Provider [phone] Encounter Details Date Type Department Care Team (Latest Contact Info) Description 01/20/2025 Travel Social History Tobacco Use Types Packs/Day Years [...] Description 02/21/2025 11:30 AM EDT Office Visit [facility] [place] [address] [place] [address] Taylor Steven, DO [address] [facility] [address] [place] [address] documented as of this encounter Visit Diagnoses Not on filedocumented in this encounter Care Teams Hearing Aide Technician Relationship Specialty Start Date End Date Abimael Garces MD PCP - General Family Medicine 10/09/24 documented as of this encounter
--- OUTSIDE RECORDS SUMMARY | 2025-02-01 19:51 | XMS_ITS | Encounter Summary ---
Author Organization [facility] Address [facility] [id number] [address] [place] [address] Care Team Providers Care Fruit Packer Face And Fill Name Role Phone Abimael Garces MD Primary Care Provider [phone] Encounter Details Date Type Department Care Team (Late Contact Info) Description 07/19/2024 Orders Only [facility] [address] [place] [address] Ref Prov, [place] [address] Social History Tobacco Use Types Packs/Day Years [...] AM EDT Office Visit [facility] [place] [address] Taylor Steven M, DO [address] [facility] [address] [place] [address] documented as of this encounter Procedures Procedure [...] on filedocumented in this encounter Care Teams Fruit Packer Face And Fill Relationship Specialty Start Date End Date Abimael Garces MD PCP - General Family Medicine 10/09/24 documented as of this encounter
--- OUTSIDE RECORDS SUMMARY | 2025-02-01 19:51 | XMS_ITS | Encounter Summary ---
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 Heather Mckay DO [address] [place] [address] Phone: tel: fax: [facility] [address] [place] [address] [place] [address] Phone: tel:[phone] fax: Referral ID Status Reason Start Date Expiration Date Visits Requested Visits Authorized [id number] Pending Review Specialty Services Required 11/23/2024 11/23/2025 1 1 Encounter Details Date Type Department Care Team (Late st Contact Info) Description 11/23/2024 Orders Only [facility] [address] [place] [phone] Heather Mckay DO [address] [place], [place] [phone] Congenital occlusion of iliac vein (Primary Dx); Female pelvic congestion syndrome; Varicosities of pelvis Social History Tobacco Use Types Packs/Day Years [...] on file documented as of this encounter Progress Notes * Heather Mckay DO - 11/23/2024 10:21 AM EDT 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 Referral to vascular placed as Interventional Radiology recommends against stenting the left iliac at her young age. 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
--- OUTSIDE RECORDS SUMMARY | 2025-02-01 19:51 | XMS_ITS | Clinical Summary ---
Author Organization [facility] tem Address [facility] [place]-[id number] [address] [place] [address] Care Team Providers Care Engineering Writer Name Role Phone Abimael Garces MD Primary Care Provider [phone] Allergies No known active allergies Medications buPROPion XL (WELLBUTRIN XL) 150 mg 24 hr tablet Take 1 tablet (150 mg total) by mouth every morning. Active SETLAKIN 0.15 mg-30 mcg (91) per tablet Take 1 tablet by mouth in the morning. 07/30/2024 Active metFORMIN (GLUCOPHAGE) 500 mg tablet Take 1 tablet (500 mg total) by mouth in the morning and 1 tablet (500 mg total) in the evening. Take with meals. Active omeprazole (PriLOSEC) 40 mg capsule Take 1 capsule (40 mg total) by mouth every morning before breakfast. Active triamcinolone (KENALOG) 0.1 % cream 08/02/2024 Active lisinopriL (PRINIVIL,ZESTR IL) 10 mg tablet Take 2 tablets (20 mg total) by mouth in the morning. 08/27/2024 Active ibuprofen (MOTRIN) 800 mg tablet Take 1 tablet (800 mg total) by mouth every 8 (eight) hours as needed for pain. 60 tablet 2 09/29/2024 Active lisinopriL (PRINIVIL,ZESTR IL) 20 mg tablet Take 1 tablet (20 mg total) by mouth in the morning. 09/28/2024 Active Active Problems Problem Noted Date Diagnosed Date Polycystic ovary syndrome 01/03/2025 Pain in female pelvis 01/03/2025 Encounters Date Type Department Care Team Description 01/25/2025 Telephone [facility] [address] [place] [address] Taylor Steven, DO 01/21/2025 12:31 PM EDT - 01/21/2025 11:59 PM EDT Hospital Encounter 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) 01/04/2025 Telephone [facility] [address] [place] [address] Taylor Steven, 01/03/2025 2:30 PM EDT Office Visit [facility] [place] [address] [place] [address] Taylor Steven, Palpitations (Primary Dx); Congenital occlusion of iliac vein; Female pelvic congestion syndrome; Varicosities of pelvis 01/02/2025 Travel 11/23/2024 Orders Only [facility] [address] [place] [phone] Heather Mckay, DO Congenital occlusion of iliac vein (Primary Dx); Female pelvic congestion syndrome; Varicosities of pelvis 11/15/2024 6:21 AM EDT - 11/15/2024 11:59 PM EDT Hospital Encounter [facility] [address] [place] [address] Dysmenorrhea; Chronic pelvic pain in female; Menorrhagia with irregular cycle; Pelvic congestion Discharge Disposition: Home 11/14/2024 Travel from Last 3 Months Family History [...] Sign Reading Time Taken Comments Blood Pressure 132/83 01/03/2025 2:58 PM EDT Pulse 105 01/03/2025 2:58 PM EDT Temperature 37.3 C (99.1 F) 10/09/2024 10:19 AM EDT Respiratory Rate 18 10/09/2024 10:30 AM EDT Oxygen Saturation 100% 10/09/2024 10:30 AM EDT Inhaled Oxygen Concentration - - Weight 110.7 kg (244 lb) 01/03/2025 2:58 PM EDT Height 170.2 cm (5' 7 ) 10/12/2024 9:11 AM EDT Body Mass Index 38.22 10/12/2024 9:11 AM EDT Plan of Treatment Upcoming Encounters Date Type Department Care Team (Late st Contact Info) Description 02/21/2025 11:30 AM EDT Office Visit [facility] [place] [address] [place] [address] Taylor Steven DO [address] [place] [address] Health Maintenance Due Date Last Done Comments Depression Screening 2011 Adult BMI Follow Up Plan 2017 DTaP,Tdap and Td Vaccines (6 - Td or Tdap) 09/15/2021 09/16/2011, 10/06/2000, 1999, Additional history exists Influenza Vaccine 02/14/2025 Adult BMI Screening 01/03/2026 01/03/2025 Tobacco Screening 01/13/2026 01/13/2025 Pap Smear 08/05/2027 08/05/2024 Medical Devices Not on file Procedures Procedure Name Priority Date/Time Associated Diagnosis Comments CT CTV ABD AND PELVIS Routine 01/21/2025 1:01 PM EDT Congenital occlusion of iliac vein MR MRV ABDOMEN PELVIC CONGESTION W WO CONT Routine 11/15/2024 7:59 AM EDT Dysmenorrhea Chronic pelvic pain in female Menorrhagia with irregular cycle Pelvic congestion MR MRV PELVIS PELVIC CONGESTION W WO CONT Routine 11/15/2024 7:59 AM EDT Dysmenorrhea Chronic pelvic pain in female Menorrhagia with irregular cycle Pelvic congestion PAP SMEAR Routine 08/05/2024 5:12 AM EST Screening for cervical cancer from Last 3 Months or Most Recently Relevant to Health Maintenance Results * CT venogram abdomen and pelvis [...] projectionreconstructions constructed under concurrent physician supervision [facility] work[facility] for evaluation of arterial [...] Vishal Tabares MD on 01/25/2025 9:48 AM us Taylor Steven DO IMG CT ORDERABLES Final Result * MRV abdomen pelvic congestion with and [...] 11/18/2024 11:16 AM us Heather Mckay DO IMG MRI ORDERABLES Final Resul t * MRV [...] IMG MRI ORDERABLES Final Resul t * Pap Smear (08/05/2024 5:12 AM EST) 08/05/2024 5:12 AM EST 08/05/2024 5:32 AM EST Narrative COPATH - 08/19/2024 3:40 PM EST [facility] [address] [place] [address] Gynecologic Cytology Consultation Patient Name:PURVI CLARKE:2000 (Age: 24)Gender:FTaken:08/05/2024Reported:08/19/2024Physician(s):Heather Mckay DO ([phone])Copy To: Rec. #:[id number]: #[id number] Final Cytologic Interpretation ThinPrep Pap Test (Cervical): Satisfactory for evaluation. A transformation zone component is not identified via imaging-assisted review, using [employer] Thin Prep Imaging System, within 22 microscopic zepeda of view. NEGATIVE FOR INTRAEPITHELIAL LESION OR MALIGNANCY. [facility]/08/19/2024 Interpretation performed at [facility], [address] [place] [id number], License number: [id number]. Electronically Signed Out By NAVNEET Mcintosh(ASCP) Date of Last Menstrual Period: 05/17/24 Other Clinical Conditions: Clinical History: friable cervix Z12.4 Screening for malignant neoplasm of cervix Z11.3 Encntr screen for infections w sexl mode of transmiss Source of Specimen ThinPrep Pap Test (Cervical) Thin Prep Pap (FIXER SUPERVISOR) Fee Code(s): G0145 The Pap test is a screening test with an inherent, but low, probability of error. The Pap test is primarily effective for the diagnosis and prevention of squamous cell carcinoma. Regular screening is critical for prevention. ThinPrep liquid-based slides, which meet the Slide Machine Tender criteria for automated screening, have been screened by the ThinPrep Imaging System (as of 03/02/07) along with an additional manual rescreening by a investments manager and, if indicated, by a pathologist. Heather Mckay DO PATHOLOGY/CYTOLOGY ORDERABLES Final Result COPATH from Last 3 Months or Most Recently Relevant to Health Maintenance Insurance [employer] Care Teams Engineering Writer Relationship Specialty Start Date End Date Abimael Garces MD PCP - General Family Medicine 10/09/24
--- OUTSIDE RECORDS SUMMARY | 2025-02-01 19:51 | XMS_ITS | Encounter Summary ---
Author Organization [employer] s tem Address [facility]-[id number] [address] [place] [facility] [place] [address] Care Team Providers Care Tower Crane Operator Name Role Phone Abimael Garces MD Primary Care Provider [phone] Encounter Details Date Type Department Care Team (Late st Contact Info) Description 01/25/2025 Telephone [facility] [address] [place] [phone] Taylor Steven, [address] [place] [address] Social History Tobacco Use Types Packs/Day Years [...] on file documented as of this encounter Miscellaneous Notes * Telephone Encounter - Patria Gamboa - 01/25/2025 10:04 AM EDT Patients mother is calling to see if we have received a denial letter for the CT scan that was performed 01/21/25. The letter was dated 01/14/25 but patient didn't receive until 01/22/25. Kemi said the letter was requesting more information on why the testing done in November was not enough. They are a little nervous now. I did explain that the insurance company will usually send the information to us as well and we would tend to it promptly so if we received it, I am pretty confident it would have been taken care of already, but it just may not be scanned in to her chart yet. Kemi would like an update at your earliest convenience, she may be reached at [phone] Thank you. documented in this encounter Plan of Treatment Upcoming Encounters Date Type Department Care Team (Late st Contact Info) Description 02/21/2025 11:30 AM EDT Office Visit [facility] [place] [address] [place] [address] [place] [address] [place] [address] [place] [address] documented as of this encounter Visit Diagnoses Not on filedocumented in this encounter Care Teams Tower Crane Operator Relationship Specialty Start Date End Date Abimael Garces MD PCP - General Family Medicine 10/09/24 documented as of this encounter
--- OUTSIDE RECORDS SUMMARY | 2025-02-01 19:52 | XMS_ITS | Clinical Summary ---
Author Organization [facility] Address [address] [facility], [address] [place] [address] Care Team Providers Care Mess Attendant Crew Name Role Phone Abimael Garces MD Primary [...] Encounters Date Type Department Care Team Description 01/05/2025 Transcribe Orders [facility] [address] [place], [place] [phone] Taylor Steven DO Palpitations (Primary Dx) from Last 3 Months Social History Tobacco Use Types Packs/Day Years [...] 10/06/2000, 1999, Additional history exists COVID-19 Vaccine () 02/15/2024 Flu vaccine (#1) 01/14/2025 Hepatitis B vaccine Completed 1999, 1999, 1999 [...] patient's age to complete this topic Insurance [facility] Care Teams Mess Attendant Crew Relationship Specialty Start Date End Date Abimael Garces MD [address] [place] [address] PCP - General Family Medicine 04/26/22
--- OUTSIDE RECORDS SUMMARY | 2025-02-01 19:52 | XMS_ITS | Patient Health Record ---
Author Organization [facility] [place] Address [address] [place] [address] Care Team Providers Care Head Porter Name Role Phone Stefan Engle Primary Care Provider Allergies No Known Allergies Results Component Value Reference Range Notes COVID-19, Flu A+B IH Reviewed date:11/04/2024 08:08:44 PM Interpretation: Performing Lab: Notes/Report: COVID neg FLU A neg FLU B neg Control pos THYROID ANTIBODIES Reviewed date:11/09/2024 04:13:40 PM Interpretation: Performing Lab: Notes/Report: [facility] , Thyroid Peroxidase (TPO) Ab 10 0-34 IU/mL Thyroglobulin Antibody <1.0 0.0-0.9 IU/mL [address] [place], [place] [id number] antibodies may not be pathogenic nor diagnostic, especially at very low levels. The assay superintendent custodian janitor has found that Methodology It should be noted that the presence of thyroglobulin to 4 IU/mL. Performed at: [facility] Thyroglobulin Antibody measured by HEROZ Yarn Carrier: Ezequiel Agosto PhD, Phone: [phone] disease or autoimmunity will have positive TgAb levels up four percent of individuals without evidence of thyroid Performing Lab: see note - [facility] LB CBC AUTO DIFF Reviewed date:06/23/2024 07:13:24 PM Interpretation: Performing Lab: Notes/Report: [facility] , White Blood Count 9.8 4.0-11.0 10 [...] Lab: see note ML - [facility] FREE T3 Reviewed date:06/23/2024 07:13:24 PM Interpretation: Performing Lab: Notes/Report: [facility] Free T3 2.44 2.18-3.98 pg/mL Performing Lab: see note ML - [facility] LB GLYCOHEMOGLOBIN A1C Reviewed date:06/23/2024 07:13:24 PM Interpretation: Performing Lab: Notes/Report: [facility] , Glycohemoglobin A1C 5.2 4.5-6.2 % > 7.0 ADA RECOMMENDED LIMIT 4.0 - 6.0 ADA THERAPEUTIC TARGET < 7.0 ACTION SUGGESTED Estimated Average Glucose 103 Performing Lab: see note ML - [facility] IRON Reviewed date:06/23/2024 07:13:24 PM Interpretation: Performing Lab: Notes/Report: [facility] , Iron 93.0 50.0-170.0 ug/dL Performing Lab: see note ML - [facility] LB LIPID PROFILE Reviewed date:06/23/2024 07:13:24 PM Interpretation: Performing Lab: Notes/Report: [facility] , Triglycerides 110 <=150 mg/dL Cholesterol 199 [...] RISK Performing Lab: see note ML - [facility] LB PROF 14(COMP METB) Reviewed date:06/23/2024 07:13:24 PM Interpretation: Performing Lab: Notes/Report: [facility] , Sodium 142 136-145 mmol/L Potassium 3.7 [...] note ML - [facility] LB T4 Reviewed date:06/23/2024 07:13:24 PM Interpretation: Performing Lab: Notes/Report: [facility] , T4 Thyroxine 10.60 4.80-13.90 ug/dL Performing Lab: see note ML - [facility] LB TSH Reviewed date:06/23/2024 07:13:24 PM Interpretation: Performing Lab: Notes/Report: [facility] , Thyroid Stimulating Hormone 1.258 0.358-3.740 uIU/mL Performing Lab: see note ML - [facility] LB XR lumbar spine min 4V Reviewed date:06/24/2024 12:53:39 PM Interpretation: Performing Lab: Notes/Report: Source Facility: [place] [address] [place] [address] XRay Report Signed Patient: PURVI CLARKE MR#: [id number] : 2000 Acct:[id number] Age/Sex: 24 / F ADM Date: 06/23/24 Loc: LAB Attending Dr: Camille Engle M.D. Ordering Physician: Camille Engle M.D. Date of Service: 06/23/24 Procedure(s): XR lumbar spine min 4V Accession Number(s): [id number] cc: Camille Engle M.D. [place] [address] Patient Name: PURVI CLARKE MRN: [id number] date: 2000 Sex: F Assigned Patient Location: LAB Current Patient Location: Accession/Order Number: [id number] Exam Date: 06/23/2024 15:02 Report Date: 06/24/2024 [...] M.D. 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 Ordering Physician: Camille Engle M.D. Date of Service: 06/23/24 Procedure(s): XR lumbar spine min 4V Accession Number(s): [id number] cc: Camille Engle M.D. [place] [address] Patient Name: PURVI CLARKE MRN: [id number] date: 2000 Sex: F Assigned Patient Location: LAB Current Patient Location: Accession/Order Number: [id number] Exam Date: 06/23/2024 15:02 Report Date: 06/24/2024 [...] RUBEN MACIAS Date: 06/24/2024 07:16 Dictated By: uRben Macias M.D. Signed By: 06/24/24718 DD/ 5 TD/TT: [employer]: US pelvis w/ transvaginal Reviewed date:06/29/2024 04:04:52 PM Interpretation: Performing Lab: Notes/Report: Source Facility: [place] [address] Ultrasound Report Signed Patient: PURVI CLARKE MR#: [id number] : 2000 Acct:[id number] Age/Sex: 24 / F ADM Date: 06/28/24 Loc: US Attending Dr: Camille Engle M.D. Ordering Physician: Camille Engle M.D. Date of Service: 06/28/24 Procedure(s): US pelvis w/ transvaginal Accession Number(s): [id number] cc: Camille Engle M.D. [place] [address] Patient Name: PURVI CLARKE MRN: [id number] date: 2000 Sex: F Assigned Patient Location: Current Patient Location: Accession/Order Number: [id number] Exam Date: 06/28/2024 15:00 Report Date: 06/29/2024 [...] Dictated By: Ruben Fry M.D. 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 Ordering Physician: Camille Engle M.D. Date of Service: 06/28/24 Procedure(s): US pelvis w/ transvaginal Accession Number(s): [id number] cc: Camille Engle M.D. [place] [id number] Patient Name: PURVI CLARKE MRN: [id number] date: 2000 Sex: F Assigned Patient Location: US Current Patient Location: Accession/Order Number: [id number] Exam Date: 06/28/2024 15:00 Report Date: 06/29/2024 [...] M.D. Signed By: 06/29/24726 DD/ 4 TD/TT: [employer]: CBC AUTO DIFF Reviewed date:08/17/2024 07:37:30 PM Interpretation: Performing Lab: Notes/Report: [facility] , White Blood Count 8.5 4.0-11.0 10 [...] Performing Lab: see note ML - [facility] LB LACTATE or LACTIC ACID Reviewed date:08/17/2024 07:37:31 PM Interpretation: Performing Lab: Notes/Report: [facility] , Lactate/Lactic Acid 1.5 0.4-2.0 mmol/L Performing Lab: see note ML - [facility] LB LIPASE Reviewed date:08/17/2024 07:37:31 PM Interpretation: Performing Lab: Notes/Report: [facility] , Lipase 33.0 16.0-77.0 U/L Performing Lab: see note ML - [facility] LB PROF 14(COMP METB) Reviewed date:08/17/2024 07:37:31 PM Interpretation: Performing Lab: Notes/Report: [facility] , Sodium 138 136-145 mmol/L Potassium 4.0 [...] note ML - [facility] LB UA Micro, reflex to culture Reviewed date:08/17/2024 07:37:31 PM Interpretation: Performing Lab: Notes/Report: [facility] , Color Urine LT. YELLOW YELLOW Clarity Urine CLEAR CLEAR Specific [place] Urine 1.015 1.005-1.025 pH Urine 6.0 5.0-9.0 [...] SEEN NONE SEEN #/LPF Urine Culture Indicated YES-[facility] Performing Lab: see note ML - [facility] LB Urine Culture - FR Reviewed date:08/19/2024 08:56:56 PM Interpretation: Performing Lab: Notes/Report: [facility] , Urine Culture - [facility] See Below For Report Urine Culture - FR 50,000 colonies/ml mixed Urine Culture - [facility] bacterial skin contaminants Urine Culture - [facility] 50,000 colonies/ml mixed Urine Culture - FR 2 Days Urine Culture - [facility] 50,000 colonies/ml mixed Urine Culture - FR Urine Culture - FR 50,000 colonies/ml mixed Urine Culture - FR Testing performed a [facility] Urine Culture - FR 50,000 colonies/ml mixed Urine Culture - [facility] [address] [place] [address] Urine Culture - FR 50,000 colonies/ml mixed Performing Lab: see note ML - [facility] LB HENRY by IFA Reviewed date:11/09/2024 03:46:36 PM Interpretation: Performing Lab: Notes/Report: [facility] , Antinuclear Antibodies, IFA Negative . Negative <1:80 Yarn Carrier: Ezequiel Agosto PhD, Phone: [phone] ICAP nomenclature: AC-0 Positive >1:80 ANApatterns.org, the official website for the For more information about Hep-2 cell patterns use Patterns (ICAP). International Consensus on Antinuclear Antibody (HENRY) Performed at: - [facility] [place] Borderline 1:80 [address] [place], [place] [id number] Performing Lab: see note - [facility] LB CBC AUTO DIFF Reviewed date:11/04/2024 08:08:44 PM Interpretation: Performing Lab: Notes/Report: [facility] , White Blood Count 10.1 4.0-11.0 10 [...] Performing Lab: see note ML - [facility] LB CRP Reviewed date:11/04/2024 08:08:44 PM Interpretation: Performing Lab: Notes/Report: [facility] , C Reactive Protein 1.96 <=0.50 mg/dL Performing Lab: see note - [facility] LB FREE T3 Reviewed date:11/04/2024 08:08:44 PM Interpretation: Performing Lab: Notes/Report: [facility] , Free T3 4.16 2.18-3.98 pg/mL Performing Lab: see note - [facility] LB GLYCOHEMOGLOBIN A1C Reviewed date:11/04/2024 08:08:44 PM Interpretation: Performing Lab: Notes/Report: [facility] , Glycohemoglobin A1C 5.5 4.5-6.2 % ACTION SUGGESTED ADA RECOMMENDED LIMIT 4.0 - 6.0 ADA THERAPEUTIC TARGET < 7.0 > 7.0 Estimated Average Glucose 111 Performing Lab: see note ML - [facility] LB IRON Reviewed date:11/04/2024 08:08:44 PM Interpretation: Performing Lab: Notes/Report: [facility] , Iron 38.0 50.0-170.0 ug/dL Performing Lab: see note ML - [facility] LIPID PROFILE Reviewed date:11/04/2024 08:08:44 PM Interpretation: Performing Lab: Notes/Report: [facility] , Triglycerides 80 <=150 mg/dL Cholesterol 184 [...] RISK Performing Lab: see note ML - [facility] LB RHEUMATOID FACTOR Reviewed date:11/09/2024 03:46:36 PM Interpretation: Performing Lab: Notes/Report: [facility] , Rheumatoid Factor (RF) <10.0 <14.0 IU/mL Performing Lab: see note LC - [facility] LB T4 Reviewed date:11/04/2024 08:08:44 PM Interpretation: Performing Lab: Notes/Report: [facility] , T4 Thyroxine 12.50 4.80-13.90 ug/dL Performing Lab: see note ML - [facility] LB TSH Reviewed date:11/04/2024 08:08:44 PM Interpretation: Performing Lab: Notes/Report: [facility] , Thyroid Stimulating Hormone 2.660 0.358-3.740 uIU/mL Performing Lab: see note ML - [facility] LB URIC ACID SERUM Reviewed date:11/04/2024 08:08:44 PM Interpretation: Performing Lab: Notes/Report: [facility] , Uric Acid 4.8 2.6-6.0 mg/dL Performing Lab: see note - [facility] Erythrocyte Sedimentation Ra te Reviewed date:11/04/2024 08:08:44 PM Interpretation: Performing Lab: Notes/Report: [facility] , Erythrocyte Sedimentation Rate 51 <=20 mm/hr Performing Lab: see note - [facility] LB Antistreptolysin O Ab Reviewed date:11/09/2024 03:46:36 PM Interpretation: Performing Lab: Notes/Report: [facility] , Antistreptolysin O Ab 39.0 0.0-200.0 IU/mL Yarn Carrier: Ezequiel Agosto PhD, Phone: [phone] [address] [place] [phone] Performed at: [facility] Performing Lab: see note [facility] HENRY by IFA Reviewed date:12/13/2024 09:17:16 PM Interpretation: Performing Lab: Notes/Report: [facility] , Antinuclear Antibodies, IFA Negative . International Consensus on Antinuclear Antibody (HENRY) Positive >1:80 Yarn Carrier: Ezequiel Agosto PhD, Phone: [phone] Patterns (ICAP). Negative <1:[address] [place] [phone] ANApatterns.org, the official website for the Borderline 1:80 For more information about Hep-2 cell patterns use ICAP nomenclature: AC-0 Performed at: [facility] Performing Lab: see note [facility] LB CRP Reviewed date:12/09/2024 07:16:58 PM Interpretation: Performing Lab: Notes/Report: [facility] , C Reactive Protein 2.14 <=0.50 mg/dL Performing Lab: see note - [facility] FREE T3 Reviewed date:12/09/2024 07:16:58 PM Interpretation: Performing Lab: Notes/Report: [facility] , Free T3 2.84 2.18-3.98 pg/mL Performing Lab: see note - [facility] LB RHEUMATOID FACTOR Reviewed date:12/13/2024 09:17:16 PM Interpretation: Performing Lab: Notes/Report: [facility] , Rheumatoid Factor (RF) <10.0 <14.0 IU/mL Performing Lab: see note [facility] LB T4 Reviewed date:12/09/2024 07:16:58 PM Interpretation: Performing Lab: Notes/Report: [facility] , T4 Thyroxine 12.70 4.80-13.90 ug/dL Performing Lab: see note [facility] LB TSH Reviewed date:12/09/2024 07:16:58 PM Interpretation: Performing Lab: Notes/Report: [facility] , Thyroid Stimulating Hormone 3.370 0.358-3.740 uIU/mL Performing Lab: see note [facility] LB URIC ACID SERUM Reviewed date:12/09/2024 07:16:58 PM Interpretation: Performing Lab: Notes/Report: [facility] , Uric Acid 4.6 2.6-6.0 mg/dL Performing Lab: see note [facility] LB Erythrocyte Sedimentation Ra te Reviewed date:12/09/2024 07:16:58 PM Interpretation: Performing Lab: Notes/Report: [facility] , Erythrocyte Sedimentation Rate 50 <=20 mm/hr Performing Lab: see note - [facility] LB Antistreptolysin O Ab Reviewed date:12/13/2024 09:17:16 PM Interpretation: Performing Lab: Notes/Report: [facility] , Antistreptolysin O Ab 40.4 0.0-200.0 IU/mL Performed at: [facility] [address] [id number] Yarn Carrier: Ezequiel Agosto PhD, Phone: [phone] Performing Lab: see note [facility] LB CRP Reviewed date:12/13/2024 09:17:16 PM Interpretation: Performing Lab: Notes/Report: [facility] , C Reactive Protein 2.25 <=0.50 mg/dL Performing Lab: see note - [facility] LB URIC ACID SERUM Reviewed date:12/13/2024 09:17:16 PM Interpretation: Performing Lab: Notes/Report: [facility] , Uric Acid 4.6 2.6-6.0 mg/dL Performing Lab: see note - [facility] PROF 14(COMP METB) Reviewed date:11/04/2024 08:08:44 PM Interpretation: Performing Lab: Notes/Report: [facility] , Sodium 144 136-145 mmol/L Potassium 3.9 [...] Ratio 0.7 Performing Lab: see note - [facility] INSULIN Reviewed date:11/06/2024 11:51:59 AM Interpretation: Performing Lab: Notes/Report: [facility] , Insulin 23.7 2.6-24.9 uIU/mL Performed at: [address] [id number] Yarn Carrier: Ezequiel Agosto PhD, Phone: [phone] Performing Lab: see note [facility] LB INSULIN Reviewed date:06/24/2024 12:53:39 PM Interpretation: Performing Lab: Notes/Report: [facility] , Insulin 19.2 2.6-24.9 uIU/mL Performed at: [address] [id number] Yarn Carrier: Ezequiel Agosto PhD, Phone: [phone] Performing Lab: see note [facility] Antist[facility]in O Ab Reviewed date:12/14/2024 07:03:48 PM Interpretation: Performing Lab: Notes/Report: [facility] , Antistreptolysin O Ab 42.7 0.0-200.0 IU/mL Yarn Carrier: Ezequiel Agosto PhD, Phone: [phone] Performed at: [address] [id number] Performing Lab: see note - [facility] LB RHEUMATOID FACTOR Reviewed date:12/14/2024 07:03:48 PM Interpretation: Performing Lab: Notes/Report: [facility] , Rheumatoid Factor (RF) <10.0 <14.0 IU/mL Performing Lab: see note - [facility] HENRY by IFA Reviewed date:12/14/2024 07:03:48 PM Interpretation: Performing Lab: Notes/Report: [facility] , Antinuclear Antibodies, IFA Negative . For more information about Hep-2 cell patterns use ICAP nomenclature: AC-0 Yarn Carrier: Ezequiel Agosto PhD, Phone: [phone] [address] [place], [place] [id number] Positive >1:80 Borderline 1:80 Patterns (ICAP). Performed at: [facility] Negative <1:80 International Consensus on Antinuclear Antibody (HENRY) ANApatterns.org, the official website for the Performing Lab: see note LC - [facility] LB Reason For Referral Diagnosis 1 Low back pain, unspe cified (M54.50) Referral Organization [facility] Referring Provider First Name Stefan Referring Provider Last Name [facility] Referring Provider Speciality [facility] Med icine Referred Provider Specialty Physical The rapist Referral Priority Routine Diagnosis 1 Low back pain at [facility] (M54.50) Referral Organization [facility] Referring Provider First Name Stefan Referring Provider Last Name [facility] Physical Therap y Referred Provider Specialty Physical The rapist Referral Priority Routine Diagnosis 1 Large breasts (N62) Referral Organization [facility] Referring Provider First Name Stefan Referring Provider Last Name [facility] Referring Provider [facility] icine Referred Provider Celeste Morales Referred Provider Specialty Plastic and Reconstructive Surgery Referral Priority Routine Diagnosis 1 Diaphoresis (R61) Referral Organization [facility] Referring Provider First Name Stefan Referring Provider Last Name Mili Referring Provider Speciality [facility] deyanira Referred Provider John Gomez Referred Provider Specialty Cardiology Referral Priority Routine Medications Medication SIG (Take, Route, Frequency, Duration) Notes Start Date End Date Status buPROPion HCl ER (XL) 300 MG TAKE 1 TABLET BY MOUTH EVERY MORNING for 30 days Active Restoril 15 MG 1 capsule at bedtime as needed Orally Once a day for 1 days Sleep apnea 12/27/2024 Active Lisinopril 20 MG 1 tablet Orally Once a day for 30 days 08/27/2024 Active Omeprazole 40 MG TAKE 1 CAPSULE BY MO UTH 30 MINUTES BEFORE MORNING MEAL for 30 Active Setlakin 0.15-0.03 MG take 1 tablet by m out once daily Oral for 91 Days Active Social History Tobacco Use: Social [...] Status W/U Status Risk Notes Problem Leukocytosis (173761413) Elevated white blood cell count, unspecified (D72.829) Active confirmed Problem Palpitations (25691282) Palpitations (R00.2) Active confirmed Problem Migraine variant with headache (disorder) (359677199) Migraine headache (G43.909) Active confirmed Problem Gastroesophageal reflux disease (760051853) GERD (gastroesophage al reflux disease) (K21.9) Active confirmed Problem Eczema (05111985) Eczema (L30.9) Active confirm ed Problem Irritable bowel syndrome (36289201) IBS (irritable bowel syndrome) (K58.9) Active confirmed Problem Polycystic ovary syndrome (disorder) (421791056) PCOS (polycystic ovarian syndrome) (E28.2) Active confirmed Problem Acute sinusitis (59793035) Acute sinus infection (J01.90) Active confirmed Problem Hypertrophy of breast (173119058) Large breasts (N62) Active confirmed Problem Chronic cough (55874583) Chronic cough (R05.3) Active confirmed Problem Low back pain (finding) (561988179) Low back pain at multiple sites (M54.50) Active confirmed Vital Signs Blood pressure diastolic 92 mm Hg 12/16/2024 Height 67 in 12/16/2024 Blood pressure systolic 126 mm Hg 12/16/2024 Weight 244.8 lbs 12/16/2024 BMI 38.34 kg/m2 12/16/2024 Procedures Procedure Date Ordered Date Performed Result Body Sit e Sleep study - Diagnostic Polysonogram 12/16/2024 N/A Encounters Encounter Location Date Provider Diagnosis [facility] [address] [place] [address] 06/21/2024 Stefan Hoy Low back pain, unspecified M54.50 ; Elevated white blood cell count, unspecified D72.829 ; Palpitations R00.2 ; PCOS (polycystic ovarian syndrome) E28.2 and Chronic cough R05.3 [place] [address] [place] [address] 08/02/2024 Stefan Hoy Eczema L30.9 [place] [address] [place] [address] 08/24/2024 Stefan Hoy Nasal congestion R09 .81 and Acute sinusitis J01.[address] [address] 09/02/2024 Stefan Hoy [place] [address] [place] [address] 09/08/2024 Stefan Hoy [facility] [address] [place] [address] 11/03/2024 Stefan Hoy Low back pain at multiple sites M54.50 ; Palpitations R00.2 and PCOS (polycystic ovarian syndrome) E28.2 [facility] [address] [place] [address] 12/16/2024 Stefan Hoy Palpitations R00.2 a nd PCOS (polycystic ovarian syndrome) E28.2 [facility] [address] [place] [address] 02/26/2024 Stefan Hoy [facility] [address] [place] [address] 06/23/2024 Stefan Engle [facility] [address] [facility] [place] [address] 06/23/2024 Stefan Mezay PCOS (polycystic ova claritza syndrome) E28.2 [facility] [address] [facility] [place] [address] 06/23/2024 Stefan Mezay [facility] [address] [facility] [place] [address] 06/24/2024 Stefan Hoy Low back pain, unspecified M54.50 [facility] [address] [facility] [place] [address] 06/28/2024 Stefan jorje [facility] [address] [facility] [place] [address] 06/29/2024 Stefan Engle [facility] [address] [facility] [place] [address] 07/29/2024 Stefan Engle [facility] [address] [facility] [place] [address] 08/17/2024 Stefan Engle [facility] [address] [facility] [place] [address] 08/27/2024 Stefan Mezay [facility] [address] [facility] [place] [address] 09/02/2024 Stefan Derricky [facility] [address] [facility] [place] [address] 09/08/2024 Stefan Derricky [facility] [address] [facility] [place] [address] 09/28/2024 Stefan Derricky [facility] [address] [facility] [place] [address] 10/26/2024 Stefan Mezay PCOS (polycystic ova claritza syndrome) E28.2 [facility] [address] [facility] [place] [address] 11/03/2024 Stefan Hoy Large breasts N62 [facility] [address] [facility] [place] [address] 11/04/2024 Stefan Hoy Abnormal thyroid blo od test R79.89 [facility] [address] [facility] [place] [address] 11/09/2024 Stefan Hoy Low back pain at multiple sites M54.50 [facility] [address] [facility] [place] [address] 12/09/2024 Stefan Hoy Muscle weakness M62. 81 ; Joint pain M25.50 and Diaphoresis R61 [facility] [address] [facility] [place] [address] 12/13/2024 Stefan Hoy [facility] [address] [facility] [place] [address] 12/14/2024 Stefan Hoy [facility] [address] [facility] [place] [address] 12/21/2024 Stefan Hoy [facility] [address] [place] [address] 12/24/2024 Stefan Hoy PCOS (polycystic ov maik syndrome) E28.2 [facility] [address] [place] [address] 12/27/2024 Stefan Derricky Assessments Encounter Date Diagnosis (ICD Code) Assessment Notes Treatment Notes Treatment Clinical Notes Section Notes 08/02/2024 Eczema (ICD-10 - L30.9) 08/24/2024 Nasal congestion (ICD-10 - R09.81) 08/24/2024 Acute sinusitis (ICD-10 - J01.90) 11/03/2024 Palpitations (ICD-10 - R00.2) 11/03/2024 PCOS (polycystic ovarian syndrome) (ICD-10 - E28.2) 11/03/2024 Low back pain at multiple sites (ICD-10 - M54.50) 12/16/2024 Palpitations (ICD-10 - R00.2) 12/16/2024 PCOS (polycystic ovarian syndrome) (ICD-10 - E28.2) stopoping metforiomin 06/23/2024 PCOS (polycystic ovarian syndrome) (ICD-10 - E28.2) 06/24/2024 Low back pain, unspecified (ICD-10 - M54.50) 10/26/2024 PCOS (polycystic ovarian syndrome) (ICD-10 - E28.2) 11/03/2024 Large breasts (ICD-10 - N62) 11/04/2024 Abnormal thyroid blood test (ICD-10 - R79.89) 11/09/2024 Low back pain at multiple sites (ICD-10 - M54.50) 12/09/2024 Muscle weakness (ICD-10 - M62.81) 12/09/2024 Joint pain (ICD-10 - M25.50) 06/21/2024 Elevated white blood cell count, unspecified (ICD-10 - D72.829) 06/21/2024 Low back pain, unspecified (ICD-10 - M54.50) 12/24/2024 PCOS (polycystic ovarian syndrome) (ICD-10 - E28.2) 06/21/2024 Palpitations (ICD-10 - R00.2) 12/09/2024 Diaphoresis (ICD-10 - R61) 06/21/2024 PCOS (polycystic ovarian syndrome) (ICD-10 - [...] 06/21/2024 RHEUMATOID PANEL 11/03/2024 RHEUMATOID PANEL 11/09/2024 RHEUMATOID PANEL 12/09/2024 Sleep study - Diagnostic Polysonogram Insulin Level 11/03/2024 Insulin Level 06/21/2024 SED [...] End Date [employer] [place] [employer] [address] [place] [address] [id number] Purvi Clarke Self - patient is the [...]
--- OUTSIDE RECORDS SUMMARY | 2025-02-01 19:52 | XMS_ITS | Patient Health Record ---
Author Organization [facility] Address [address] [place], [place] [id number] Care Team Providers Care Rn Tele Name Role Phone Noemi Ruiz Primary Care Provider Allergies No Known Allergies Results Component Value Reference Range Notes HTRX - Vaginitis Reviewed date:07/16/2024 01:13:05 PM Interpretation: Performing Lab: Notes/Report: Urine Dip Reviewed date:07/09/2024 03:54:20 PM Interpretation: Performing Lab: Notes/Report: Bilirubin - Occult Blood 3+ Glucose - Ketones - WBC 1+ Nitrite - Ph 6.0 Protein - Specific [place] 1.010 Color yellow Appearance dark Reason For Referral Reason Pt has palpable lump in vaginal canal, [facility] ER she got a Transvaginal USN done WNL Diagnosis 1 Lump in vagina (N94. 9) Referral Organization Main Referring Provider First Name Noemi Referring Provider Last Name Sara Referred Provider [facility] [employer]PERVISOR Jeff robin Referred Provider Specialty OB - [...] pt to call back advised to call [phone] EXT [phone] and ask for Gemini Vera. Referral Priority Routine Reason Z59.9 Financial Diff iculties Diagnosis 1 Financial difficulti es (Z59.9) Referral Organization Main Referring Provider First Name Noemi Referring Provider Last Name Sara Referred Provider MIRANDA Referred Provider Specialty [facility] or Welfare Agencies General Notes Gemini Vera 2024 11:31:35 AM >Called and left VM for pt to call back advised to call [phone] EXT [phone] and ask for Gemini Vera. Referral Priority Routine Medications Medication SIG (Take, Route, Frequency, Duration) Notes Start Date End Date Status Cholecalciferol 250 MCG (27489 UT) as directed Orally once a day; Duration: 30 days 08/18/2023 Not-Taking Setlakin 0.15-0.03 MG 1 (one) Oral daily Not-Taking buPROPion HCl ER (XL) 150 MG take 1 tablet by mouth once daily Oral; Duration: 30 Days Active Setlakin 0.15-0.03 MG 1 tablet Orally On ce a day; Duration: 91 days 08/21/2022 Active Omeprazole 40 MG Take 1 capsule by mouth once a day Oral; Duration: 30 Days Active metFORMIN HCl 500 MG take 1 tablet by mouth twice a day Oral; Duration: 30 Days Active Social History Tobacco Use: [...] 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 Stress is when someone feels tense, nervous, anxious, or can't sleep at night because their mind is troubled Quite a bit patient entered data In the past year have you sp ent more than 2 nights in a row in a alf, mcfp, half-way center, or juvenile correctional facility? No patient entered data Are you a refugee? No patient en tered data What country are you from? [place] rag[place] entered data Do you feel physically and emotionally safe where you currently live? Yes patient entered data In the past year, have you b een afraid of your partner or ex-partner? I have not had a partner in the past year patient entered data PRAPARE Score: 8 Problems Problem Type SNOMED Code ICD Code Onset Dates Problem Status W/U Status Risk Notes Problem Dysmenorrhea (388665463) Dysmenorrhea (N94.6) Active confirmed Problem Obesity (022085924) Obesity (BMI 30-39.9) (E66.9) Active confirmed Problem Vitamin D deficiency (44941236) Vitamin D deficiency (E55.9) Active confirmed Problem Frequency of micturition (220953843) Frequency of micturition (R35.0) Active confirmed Comment:Urine sent will call, Problem Candidal vulvovaginitis (71262095) Vulvovaginitis willis albicans (B37.3) Active confirmed Problem Depression screening (537647297) Screening for depression (Z13.31) Active confirmed Description:Dep r ession screen Problem Vaginal discharge (095668733) Vaginal discharge (N89.8) Active confirmed Comment:-asympt o darek, will call patient with results., Problem Gynecological examination normal (226192302814162 ) Well woman exam with routine gynecological exam (Z01.419) Active confirmed Problem Polycystic ovary syndrome (disorder) (969272862) PCOS (polycystic ovarian syndrome) (E28.2) Active confirmed Problem Bacterial vaginosis (480285157) Bacterial vaginosis (N76.0) Active confirmed Problem Surveillance of oral contraception done (340051858537446 ) Encounter for control pills maintenance (Z30.41) [...] remembering to take it., Problem Weight gain (461156747) Weight gain (R63.5) Active confirmed Problem Pain in female pelvis (278732707) Pelvic pain in female (R10.2) Active confirmed [...] Problem Screening for malignant neoplasm of cervix (587552969) Pap smear for cervical cancer screening (Z12.4) Active confirmed Problem Depression (042528777) Depression (F32.A) Active confirmed Comment:- Still refusing to see a therapist. No thoughts of hurting herself or anyone., Vital Signs Heart Rate 103 /min 07/09/2024 Eliazar Peralta 07/09/2024 03:41:12 PM EST > Temperature 97.5 degrees Fahrenheit 07/09/2024 Vald ovalysa, Edgardo 07/09/2024 03:41:12 PM EST > Respiratory [...] Encounter Location Date Provider Diagnosis Main [address] [place] , [place] [id number] 07/09/2024 Noemi Sara Lump in vagina N94.9 ; Severe obesity (BMI >= 40) E66.01 ; BMI 40.0-44.9, adult Z68.41 ; Food insecurity Z59.41 and Financial difficulties Z59.9 Main [address] [place] , [place] [id number] 07/29/2024 Noemi Sara Contraception manage ment Z30.9 Assessments Encounter Date Diagnosis (ICD Code) Assessment Notes Treatment Notes Treatment Clinical Notes Section Notes 07/09/2024 Severe obesity (BMI >= 40) (ICD-10 - E66.01) 07/09/2024 Lump in vagina (ICD-10 - N94.9) Pt's Urine Dip negative. Pt went to [place] ER for her transvaginal USN, WNL Pt desires referral for OBGYN at this time, used to follow w/ Dr. Styles at [facility] Pt instructed to have nothing per vagina [...] Start Date Coverage End Date [facility] [address] [place], [place] [id number] [facility] Self - patient is the insured 9 [facility] [facility] [address] [place], [place] [id number] Evangelina Clarke Self - patient is the insured 4 3 Medicaid C after [employer] [address] [place] [address] [id number] Evangelina Clarke Self - patient is the insured 8 Medical (General) History Medical History History ICD Code Anxiety/Depression, COMMENTS: PHQ-9 08/23 PCOS Surgical History Surgery Date(Month/Year)
--- OUTSIDE RECORDS SUMMARY | 2025-02-01 19:53 | XMS_ITS | Clinical Summary ---
Author Organization [facility] Address [address] [place] [address] Care Team Providers Care Eyeglass Assembler Name Role Phone Unavailable Primary Care Provider [...]
--- OUTSIDE RECORDS SUMMARY | 2025-02-01 19:54 | XMS_ITS | CCD ---
Author Organization [facility] Care Team Providers Care Core Shaper Top Name Role Phone KRYSTAL NICOLAS Admitting Unavailable KRYSTAL NICOLAS Attending Unavailable ONIEL, DR OBRIEN Primary Care Unavailable KRYSATL NICOLAS Consulting Unavailable AUBREEY, DR OBRIEN Admitting Unavailable HOY, DR OBRIEN Attending Unavailable HOY, DR OBRIEN Primary Care Unavailable HOY, DR OBRIEN Consulting Unavailable HOY, DR OBRIEN Admitting Unavailable HOY, DR OBRIEN Attending Unavailable HOY, DR OBRIEN Primary Care Unavailable HOY, DR OBRIEN Consulting Unavailable HOY, DR OBRIEN Admitting Unavailable HOY, DR OBRIEN Attending Unavailable HOY, DR OBRIEN Primary Care Unavailable HOY, DR OBRIEN Consulting Unavailable Camille Garces MD Primary Care Provider [phone] Johnny Galloway Attending Unavailable Johnny Galloway Admitting Unavailable Pay Johnny CARBAJAL Attending Provider Camille Garces MD Primary Care Provider [phone] Camille Garces MD Primary Care Provider [phone] BRITTNEY ALMEIDA Referring Unavailable HOY, CAMILLE M Primary Care Unavailable JUAN PABLO BRITTNEY L Referring Unavailable HOY, CAMILLE M Primary Care Unavailable BRTITNEY ALMEIDA L Attending Unavailable HOY, CAMILLE M Referring Unavailable HOY, CAMILLE M Primary Care Unavailable BRITTNEY ALMEIDA L Attending Unavailable HOY, CAMILLE M Referring Unavailable HOY, CAMILLE M Primary Care Unavailable FATOU ALMEIDAYA L Attending Unavailable HOY, CAMILLE M Referring Unavailable HOY, CAMILLE M Primary Care Unavailable JARAD HERNANDEZ Attending Unavailable JUAN PABLO BRITTNEY L Referring Unavailable HOY, CAMILLE M Primary Care Unavailable FATOU ALMEIDAYA L Referring Unavailable HOY, CAMILLE M Primary Care Unavailable FATOU ALMEIDAYA L Referring Unavailable HOY, CAMILLE M Primary Care Unavailable HOY, CAMILLE M Referring Unavailable CAMILLE GARCES Primary Care Unavailable BRITTNEY ALMEIDA Admitting Unavailable BRITTNEY ALMEIDA Attending Unavailable BRITTNEY ALMEIDA Referring Unavailable CAMILLE GARCES Primary Care Unavailable CINTHIA PEREA Attending Unavailable CAMILLE GARCES Primary Care Unavailable CAMILLE GARCES Primary Care Unavailable JARAD HERNANDEZ Attending Unavailable JARAD HERNANDEZ Referring Unavailable CAMILLE GARCES Rosio Primary Care Unavailable Medications Current Medications Medication Drug Class(es) Dates Sig (Normalized) Sig (Original) acetaminophen 325 mg / oxyCODONE hydrochloride 5 mg oral tablet (1 source) Opioid Agonist Start: 09-29-2024 End: 10-06-2024 oxyCODONE-acetamino phen (PERCOCET) 5-325 mg per tablet Indications: Postoperative pain Take 1 tablet by mouth every 6 (six) hours as needed for pain for up to 7 days. Max Daily Amount: 4 tablets 12 tablet 09/29/2024 10/06/2024 Active 12 hr buPROPion hydrochloride 150 mg extended release oral tablet (11 sources) Aminoketone Start: 06-18-2024 take 1 tablet by mouth every twenty-four hours Bupropion Hcl 150 mg tablet extended release 24 hr Active MG PO June 18, 2024 1:00am take 1 tablet by marcos th once daily in the morning buPROPion XL (WELLBUTRIN XL) 150 mg 24 h r tablet Take 1 tablet (150 mg total) by mouth every morning. Active cephalexin 500 mg oral capsule (1 source) Cephalosporin Antibacterial Start: 10-09-2024 End: 10-19-2024 take 1 capsule by mouth in the morning, then take 1 capsule by mouth at bedtime CEPHalexin (KEFLEX) 500 mg capsule Take 1 capsule (500 mg total) by mouth in the morning and 1 capsule (500 mg total) before bedtime. Do all this for 10 days. 20 capsule 10/09/2024 10/19/2024 Active cyclobenzaprine hydrochloride 10 mg oral tablet (2 sources) Muscle Relaxant Start: 06-18-2024 take 1 tablet by mouth three times daily as needed for muscle spasms Cyclobenzaprine 10 mg tablet Active 10 MG PO Three times daily as needed for muscle spasm 15 5 June 18, 2024 1:00am Ethinyl Estradiol / Levonorgestrel (11 sources) Progestin, Estrogen, Progestin-containi ng Intrauterine Device Start: 07-30-2024 take 1 tablet by mouth once in the morning SETLAKIN 0.15 mg-30 mcg (91) per tablet Take 1 tablet by mouth in the morning. 07/30/2024 Active Start: 07-30-2024 SETLAKIN 0.15 mg-30 mcg (91) per tablet 07/30/2024 Active Start: 06-18-2024 take 1 tablet by marcos th every month Levonorgestrel-Ethinyl Estrad (Setlakin) 0.15 mg-30 mcg (91) tablets,dose pack,3 month Active TAB PO June 18, 2024 1:00am Start: 06-18-2024 take 1 tablet by marcos th every month Levonorgestrel-Ethinyl Estrad (Setlakin) 0.15 mg-30 mcg (91) tablets,dose pack,3 month Active TAB PO June 18, 2024 12:00am fluconazole 150 mg oral tablet (1 source) Azole Antifungal Start: 10-12-2024 End: 10-12-2024 take 1 tablet by mouth once fluconazole (DIFLUCAN) 150 mg tablet Indications: Vaginal discharge Take 1 tablet (150 mg total) by mouth once for 1 dose. 1 tablet 10/12/2024 10/12/2024 Active ibuprofen 800 mg oral tablet (4 sources) Nonsteroidal Anti-inflammatory Drug Start: 09-29-2024 take 1 tablet by mouth every eight hours as needed for pain ibuprofen (MOTRIN) 800 mg tablet Take 1 tablet (800 mg total) by mouth every 8 (eight) hours as needed for pain. 60 tablet 2 09/29/2024 Active lisinopril 20 mg oral tablet (10 sources) Angiotensin Converting Enzyme Inhibitor Start: 09-28-2024 take 1 tablet by mouth in the morning lisinopriL (PRINIVIL,ZESTRIL) 20 mg tablet Take 1 tablet (20 mg total) by mouth in the morning. 09/28/2024 Active Start: 08-27-2024 take 2 tablets by mo uth in the morning lisinopriL (PRINIVIL,ZESTRIL) 10 mg tablet Take 2 tablets (20 mg total) by mouth in the morning. 08/27/2024 Active Start: 08-27-2024 take 1 tablet by marcos th in the morning lisinopriL (PRINIVIL,ZESTRIL) 10 mg tablet Take 1 tablet (10 mg total) by mouth in the morning. 08/27/2024 Active metFORMIN hydrochloride 500 mg oral tablet (11 sources) Biguanide Start: 06-18-2024 Metformin 500 mg tablet Active MG PO June 18, 2024 1:00am naproxen 500 mg oral tablet (2 sources) Nonsteroidal Anti-inflammatory Drug Start: 06-18-2024 take 1 tablet by mouth twice daily as needed for pain Naproxen 500 mg tablet Active 500 MG PO Twice daily as needed for pain 30 15 June 18, 2024 1:00am omeprazole 40 mg delayed release oral capsule (11 sources) Proton Pump Inhibitor Start: 06-18-2024 Omeprazole 40 mg capsule,delayed release(DR/EC) Active MG PO June 18, 2024 1:00am triamcinolone acetonide 1 mg/ml topical cream (9 sources) Corticosteroid Start: 08-02-2024 triamcinolone (KENALOG) 0.1 % cream 08/02/2024 Active Problems Active Problems Problem Classification Problem Date Documented Date Episodic/Chronic Abdominal pain (9 sources) Pain in pelvis; Translations: [Pelvic and perineal pain] Onset: 08-05-2024 08-05-2024 Episodic Anxiety disorders (2 sources) Anxiety; Translations: [Anxiety disorder, unspecified] 06-18-2024 Chronic Cardiac and circulatory congenital anomalies (4 sources) 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; 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] Onset: 01-03-2025 01-13-2025 Chronic Cardiac dysrhythmias (3 sources) Palpitations; Translations: [Palpitations] Onset: 01-03-2025 01-13-2025 Episodic Esophageal disorders (2 sources) Gastroesophageal reflux disease; Translations: [Gastro-esophageal reflux disease without esophagitis] 06-18-2024 Chronic Essential hypertension (3 sources) Hypertensive disorder; Translations: [Essential (primary) hypertension] Onset: 09-08-2024 09-09-2024 Chronic Menstrual disorders (12 sources) Dysmenorrhea; Translations: [Dysmenorrhea, unspecified] Onset: 08-31-2024 08-31-2024 Chronic Mood disorders (2 sources) Depressive disorder; Translations: [Depression] 06-18-2024 Chronic Other diseases of veins and lymphatics (1 source) Pelvic varices; Translations: [Pelvic varices] Onset: 01-03-2025 Episodic Other diseases of veins and lymphatics (1 source) Pelvic varices; Translations: [Pelvic varices] 01-03-2025 Episodic Other endocrine disorders (7 sources) Polycystic ovary syndrome; Translations: [Polycystic ovarian syndrome] Onset: 01-03-2025 06-18-2024 Chronic Other endocrine disorders (2 sources) Polycystic ovarian syndrome; Translations: [Polycystic ovarian syndrome] Onset: 08-05-2024 Chronic Other female genital disorders (1 source) Disorder of uterine cervix; Translations: [Other specified noninflammatory disorders of cervix uteri] 08-05-2024 Episodic Other female genital disorders (2 sources) Vaginal discharge; Translations: [Other specified noninflammatory disorders of vagina] 08-05-2024 Episodic Other female genital disorders (6 sources) Pelvic congestion syndrome; Translations: [Other specified conditions associated with female genital organs and menstrual cycle] 09-30-2024 Episodic Other female genital disorders (2 sources) Other specified conditions associated with female genital organs and menstrual cycle; Translations: [Other specified conditions associated with female genital organs and menstrual cycle] Onset: 10-12-2024 Episodic Other nervous system disorders (2 sources) Other chronic pain; Translations: [Other chronic pain] Onset: 08-31-2024 Chronic Other and delivery including normal (1 source) Encounter for routine follow-up; Translations: [Encounter for routine follow-up] Onset: 10-12-2024 Episodic Sprains and strains (4 sources) Low back strain; Translations: [Strain of muscle, fascia and tendon of lower back, initial encounter] 06-18-2024 Episodic Unclassified (1 source) CONTACT W/AND (SUSP) EXPOS COVID-19; Translations: [CONTACT W/AND (SUSP) EXPOS COVID-19] Onset: 11-19-2021 Unclassified (3 sources) COUGH, UNSPECIFIED; Translations: [COUGH, UNSPECIFIED] Onset: 11-19-2021 Unclassified (1 source) Circulatory Problem Onset: 01-03-2025 Unclassified (1 source) Wound Check Onset: 10-09-2024 Unclassified (1 source) chronic pelvic pain Onset: 09-29-2024 Past or Other Problems Problem Classification Problem Date Documented Date Episodic/Chronic Immunizations and screening for infectious disease (4 sources) Patient encounter status; Translations: [Encounter for screening for infections with a predominantly sexual mode of transmission] Onset: 08-05-2024 08-05-2024 Episodic Other female genital disorders (2 sources) Other specified noninflammatory disorders of cervix uteri; Translations: [Other specified noninflammatory disorders of cervix uteri] Onset: 08-05-2024 Episodic Other female genital disorders (2 sources) Other specified noninflammatory disorders of vagina; Translations: [Other specified noninflammatory disorders of vagina] Onset: 08-05-2024 Episodic Other nervous system disorders (1 source) Other acute postprocedural pain; Translations: [Other acute postprocedural pain] Onset: 09-29-2024 Episodic Other screening for suspected conditions (not mental disorders or infectious disease) (3 sources) Cancer cervix screening status; Translations: [Encounter for screening for malignant neoplasm of cervix] Onset: 08-05-2024 08-05-2024 Episodic Other upper respiratory infections (4 sources) Acute sinusitis, unspecified; Translations: [ACUTE SINUSITIS UNSPECIFIED] Onset: 09-20-2021 Episodic Unclassified (1 source) COUGH, UNSPECIFIED; Translations: [COUGH, UNSPECIFIED] Onset: 11-13-2021 Unclassified (1 source) Preprocedural examination done 09-09-2024 Results Test Name Value Interpretation Reference Range Facility CT CTV ABD AND PELVISon 01-14 [address] A[address] PELVIS [address] CTV ABD AND PELVIS CLINICAL INFORMATION: Pelvic congestion syndrome. Pelvic pain.. [...] Vishal Tabares MD on 01/25/2025 9:48 AM Normal [facility] MR MRV ABDOMEN PELVIC CONGES TION W WO CONTon 11-18-2024 MR MRV ABDOMEN PELVIC CONGESTION W WO CONT MR MRV ABDOMEN PELVIC CONGESTION W WO CONT MRV of the abdomen and pelvis with [...] age should be a last resort treatment. 9C1 Finalized by Kayleigh Vazuqez MD on 11/18/2024 11:16 AM Normal [facility] MR MRV PELVIS PELVIC CONGEST ION W WO CONTon 11-18-2024 MR MRV PELVIS PELVIC CONGESTION W WO CONT MR MRV PELVIS PELVIC CONGESTION W WO CONT MRV of the abdomen and pelvis with [...] age should be a last resort treatment. 9C1 Finalized by Kayleigh Vazquez MD on 11/18/2024 11:15 AM Normal [facility] POCT , URINE (NUCG) on 09-29-2024 Beta HCG ( test) Ql (U) Negative Normal Negative [facility] Comment on above: Performed By: #### N UCG #### [facility] ([facility]) [address] [place] [id number] VIR ECG 12 leadon 09-09-2024 TRACEMASTERVUE [facility] BASIC METABOLIC PANLon 09-08 Anion gap [Moles/Vol] 12 mmol/L Normal 5-15 [facility] Comment on above: Performed By: #### B YA CBCA #### [facility] ([id number]) [address], [address] [place] [address] Calcium [Mass/Vol] 9.3 mg/dL Normal 8.5-10.5 [facility] Comment on above: Performed By: #### B YA CBCA #### [facility] ([id number]) [address], [address] [place] [address] Chloride [Moles/Vol] 101 mmol/L Normal 98-109 [facility] Comment on above: Performed By: #### B YA CBCA #### [facility] ([id number]) [address] [address] [place] [address] CO2 [Moles/Vol] 27 mmol/L Normal 22-32 [facility] Comment on above: Performed By: #### B FELIPE PANDYA #### [facility] ([id number]) [address], [address] [place] [address] Creatinine [Mass/Vol] 0.76 mg/dL Normal 0.40-1.00 [facility] Comment on above: Result Comment: METH OD TRACEABLE TO IDMS STANDARD Performed By: #### B FELIPE PANDYA #### [facility] ([id number]) [address] [place] [address] eGFR (CKD-EPI) NON-RACE DEPENDENT >90 Normal >59 [facility] Comment on above: Result Comment: Reported eGFR is based on the CKD-EPI 2020 equation that does not use a race coefficient. Performed By: #### B YA CBCWilliam #### [facility] ([id number]) [address] [place] [address] Glucose [Mass/Vol] 87 mg/dL Normal 65-99 [facility] Comment on above: Performed By: #### FELIPE Goldman MP #### [facility] ([id number]) [address] [address] [place] [address] Potassium [Moles/Vol] 3.9 mmol/L Normal 3.5-5.0 [facility] Comment on above: Performed By: #### B YA CBCA #### [facility] ([id number]) [address] [address] [place] [address] Sodium [Moles/Vol] 140 mmol/L Normal 134-146 [facility] Comment on above: Performed By: #### Jones PANDYA CBCA #### [facility] ([id number]) [address] [address] [place] [address] Urea nitrogen [Mass/Vol] 12 mg/dL Normal 5-23 [facility] Comment on above: Performed By: #### FELIPE Goldman MP #### [facility] ([id number]) [address], [address] [place] [address] Basic Metabolic Panelon - Anion gap [Moles/Vol] 12 mmol/L 5 - 15 mmol/L [facility] Calcium [Mass/Vol] 9.3 mg/dL 8.5 - 10. 5 mg/dL [facility] Chloride [Moles/Vol] 101 mmol/L 98 - 109 mmol/L [facility] CO2 [Moles/Vol] 27 mmol/L 22 - 32 mmol/L [facility] Creatinine [Mass/Vol] 0.76 mg/dL 0.40 - 1.00 mg/dL [facility] Comment on above: METHOD TRACEABLE TO [facility] STANDARD eGFR (CKD-EPI)non-race dependent - PINF [facility] Comment on above: Reported eGFR is based on the CKD-EPI 2020 equation that does not use a race coefficient. Glucose [Mass/Vol] 87 mg/dL 65 - 99 mg/dL [facility] Potassium [Moles/Vol] 3.9 mmol/L 3.5 - 5.0 mmol/L [facility] Sodium [Moles/Vol] 140 mmol/L 134 - 146 mmol/L [facility] Urea nitrogen [Mass/Vol] 12 mg/dL 5 - 23 mg/dL [facility] CBC AND AUTO DIFFon 09-09-19 ABSOLUTE BASOPHIL 0.1 X10E9/L Normal 0.0-0.2 [facility] Comment on above: Performed By: #### FELIPE Goldman MP #### [facility] ([id number]) [address], [address] [place] [address] ABSOLUTE NEUTROPHIL 6.2 X10E9/L Normal 1.5-6.6 [facility] Comment on above: Performed By: #### FELIPE Goldman MP #### [facility] ([id number]) [address], [address] [place] [address] Basophils/100 WBC (Bld) 0.6 % Normal [facility] Comment on above: Performed By: #### B MP, CBCA #### [facility] ([id number]) [address], [address] [place] [address] Eosinophils (Bld) [#/Vol] 0.2 10*3/uL Normal 0.0-0.4 [facility] Comment on above: Performed By: #### B MP, CBCA #### [facility] ([id number]) [address] [address] [place] [address] Eosinophils/100 WBC (Bld) 1.8 % Normal [facility] Comment on above: Performed By: #### B YA, CBCA #### [facility] ([id number]) [address] [place] [address] Erythrocyte distribution width (RBC) [Ratio] 14.5 % Normal 11.5-15.0 [facility] Comment on above: Performed By: #### B YA, CBCA #### [facility] ([id number]) [address] [address] [place] [address] Hematocrit (Bld) [Volume fraction] 40.7 % Normal 35-47 [facility] Comment on above: Performed By: #### B MP, CBCA #### [facility] ([id number]) [address] [address] [place] [address] Hemoglobin (Bld) [Mass/Vol] 13.4 g/dL Normal 11.7-15.5 [facility] Comment on above: Performed By: #### B MP, CBCA #### [facility] ([id number]) [address] [address] [place] [address] Lymphocytes (Bld) [#/Vol] 2.8 10*3/uL Normal 1.0-3.5 [facility] Comment on above: Performed By: #### B MP, CBCA #### [facility] ([id number]) [address], [address] [place] [address] Lymphocytes/100 WBC (Bld) 28.2 % Normal [facility] Comment on above: Performed By: #### B MP, CBCA #### [facility] ([id number]) [address], [address] [place] [address] MCH (RBC) [Entitic mass] 27.2 pg Normal 27-34 [facility] Comment on above: Performed By: #### B MP, CBCA #### [facility] ([id number]) [address], [address] [place] [address] MCHC (RBC) [Mass/Vol] 33.0 g/dL Normal 32-36 [facility] Comment on above: Performed By: #### B MP, CBCA #### [facility] ([id number]) [address], [address] [place] [address] MCV (RBC) [Entitic vol] 82 fL Normal 80-100 [facility] Comment on above: Performed By: #### B MP, CBCA #### [facility] ([id number]) [address], [address] [place] [address] Monocytes (Bld) [#/Vol] 0.8 10*3/uL Normal 0-0.9 [facility] Comment on above: Performed By: #### B MP, CBCA #### [facility] ([id number]) [address], [address] [place] [address] Monocytes/100 WBC (Bld) 7.6 % Normal [facility] Comment on above: Performed By: #### B MP, CBCA #### [facility] ([id number]) [address], [address] [place] [address] Neutrophils/100 WBC (Bld) 61.8 % Normal [facility] Comment on above: Performed By: #### B MP, CBCA #### [facility] ([id number]) [address], [address] [place] [address] Platelet mean volume (Bld) [Entitic vol] 8.4 fL Normal 7-12 [facility] Comment on above: Performed By: #### B MP, CBCA #### [facility] ([id number]) [address], [address] [place] [address] Platelets (Bld) [#/Vol] 411 10*3/uL Normal 150-450 [facility] Comment on above: Performed By: #### B YA, CBCA #### [facility] ([id number]) [address], [address] [place] [address] RBC COUNT 4.94 X10E12/L Normal 3.80-5.20 [facility] Comment on above: Performed By: #### B YA, CBCA #### [facility] ([id number]) [address], [address] [address] WBC (Bld) [#/Vol] 10.0 10*3/uL Normal 4.0-11.0 [place] Comment on above: Performed By: #### B YA, CBCA #### [facility] ([id number]) [address], [address] [place] [address] CBC auto differentialon 03-2 Basophils (Bld) [#/Vol] 0.1 10*3/uL [facility] Basophils/100 WBC (Bld) 0.6 % [facility] Eosinophils (Bld) [#/Vol] 0.2 10*3/uL [facility] Eosinophils/100 WBC (Bld) 1.8 % [facility] Erythrocyte distribution width (RBC) [Ratio] 14.5 % 11.5 - 15.0 % [facility] Hematocrit (Bld) [Volume fraction] 40.7 % 35 - 47 % [facility] Hemoglobin (Bld) [Mass/Vol] 13.4 g/dL 11.7 - 15.5 g/dL [facility] Lymphocytes (Bld) [#/Vol] 2.8 10*3/uL [facility] Lymphocytes/100 WBC (Bld) 28.2 % [facility] MCH (RBC) [Entitic mass] 27.2 pg 27 - 34 pg [facility] MCHC (RBC) [Mass/Vol] 33 g/dL 32 - 36 g/dL [facility] MCV (RBC) [Entitic vol] 82 fL 80 - 100 fL [facility] Monocytes (Bld) [#/Vol] 0.8 10*3/uL [facility] Monocytes/100 WBC (Bld) 7.6 % [facility] Neutrophils (Bld) [#/Vol] 6.2 10*3/uL [facility] Neutrophils/100 WBC (Bld) 61.8 % [facility] Platelet mean volume (Bld) [Entitic vol] 8.4 fL 7 - 12 fL [facility] Platelets (Bld) [#/Vol] 411 10*3/uL [facility] RBC (Bld) [#/Vol] 4.94 10*6/uL [facility] WBC corrected for nucl RBC Auto (Bld) [#/Vol] [address] [facility] Urine Cultureon 08-17-2024 Bacteria identified Cx Nom (U) 50,000 colonies/ml mixed bacterial skin contaminants 2 Days PERFORMED BY: [place] [address] PATHOLOGIST PORTABLE TRACK LINE MARKER ERLINDA PAGE M.D. Normal [facility] Comment on above: Performed By: #### C UU #### [address] CHLAMYDIA/GC PCR, FLon 08-05 CHLAMYDIA/GC PCR, FL [...] are dependent on adequate specimen collection. Normal [facility] Comment on above: Performed By: #### C [facility] #### [facility] ([id number]) [address] [place] [address], [address] [place] [address] Cytologyon 08-05-2024 Cytology Normal [facility] Comment on above: Result Comment: [facility] [address] [place] [address] Gynecologic Cytology Consultation Patient Name:PURVI DEE:2000 (Age: 24)Gender:FTaken:08/05/2024Reported:08/19/2024Physician(s):Brittney Almeida DO ([phone])Copy To: Rec. #:[id number]: #[id number] Final Cytologic Interpretation ThinPrep Pap Test (Cervical): Satisfactory for evaluation. A transformation zone component is not identified via imaging-assisted review, using [employer] Thin Prep Imaging System, within 22 microscopic zepeda of view. NEGATIVE FOR INTRAEPITHELIAL LESION OR MALIGNANCY. [facility]/08/19/2024 [place] [address], License number: [id number]. Electronically Signed Out By NAVNEET Mcintosh(ASCP) Date of Last Menstrual Period: 05/17/24 Other Clinical Conditions: Clinical History: friable cervix Z12.4 Screening for malignant neoplasm of cervix Z11.3 Encntr screen for infections w sexl mode of transmiss Source of Specimen ThinPrep Pap Test (Cervical) Thin Prep Pap (ACUTE COORDINATOR) Fee Code(s): G0145 The Pap test is a screening test with an inherent, but low, probability of error. The Pap test is primarily effective for the diagnosis and prevention of squamous cell carcinoma. Regular screening is critical for prevention. ThinPrep liquid-based slides, which meet the Livestock Yard Attendant criteria for automated screening, have been screened by the ThinPrep Imaging System (as of 03/02/07) along with an additional manual rescreening by a second ride fare collector and, if indicated, by a pathologist. VAGINITIS PANEL PCRon 2024 VAGINITIS PANEL PCR [...] clinical presentation to determine patient diagnosis. Normal [facility] Comment on above: Performed By: #### V PPCR #### [facility] ([id number]) [address] [place] [address], [address] [place] [address] [facility]on 05-18 SARS-CoV-2 (COVID-19) RNA ALESSANDRA+probe Ql (Unsp spec) Not detected Normal NOT DETECTED [facility] Comment on above: Result Comment: This test is not yet approved or cleared by the [place] FDA. When there are no FDA-approved or cleared tests available, and other criteria are met, FDA can make tests available under an emergency access mechanism called an Emergency Use Authorization (EUA). The EUA for this test is supported by the [place] of Health and Human Service's (HHS's) declaration [...] SARS-CoV-2. Performed By: #### C VDTBH #### [facility] [address] [place] [address] Dr. Kacie Mirza INFLUENZA A AND B AGon 06-14 [facility] SEE BELOW Normal [facility] Comment on above: Result Comment: Nega tive for Flu A protein angiten. Infection due to Flu A cannot be ruled out. Flu A angiten in the sample may be below the detection limit of the test. Performed By: #### I NFLUAB #### [facility] [address] [place] [address] Dr. [facility] Normal [facility] Comment on above: Result Comment: Nega tive for Flu B protein antigen. Infection due to Flu B cannot be ruled out. Flu B antigen in the sample may be below the detection limit of the test. Performed By: #### I NFLUAB #### [facility] [address] [place] [address] Dr. Kacie Mirza INFLUENZA A AG Negative Normal NEGATIVE SEE COMMENT [facility] Comment on above: Performed By: #### I NFLUAB #### [facility] [address] [place] [address] Dr. Kacie Mirza INFLUENZA B AG Negative Normal NEGATIVE SEE COMMENT [facility] Comment on above: Performed By: #### I NFLUAB #### [facility] [address] [place] [address] Dr. Kacie Mirza Covid-19 PCR ([facility])on 10-16 SARS-CoV-2 (COVID-19) RNA ALESSANDRA+probe Ql (Unsp spec) Not detected Normal NOT DETECTED [facility] Comment on above: Result Comment: This test is not yet approved or cleared by the [place] FDA. When there are no FDA-approved or cleared tests available, and other criteria are met, FDA can make tests available under an emergency access mechanism called an Emergency Use Authorization (EUA). The EUA for this test is supported by the [place] of Health and Human Service's (HHS's) declaration [...] consistent with SARS-CoV-2. Performed By: #### C VDTB #### [facility] [address] [place] [address] Dr. Kacie Mirza SYMPTOMATIC COVID-19 ANTIGEN on 11-13-2021 EUA Statement SEE BELOW Normal [facility] Comment on above: Result Comment: This [...] sooner. Performed By: #### C VDAGS #### [facility] [address] [place] [address] Dr. Kacie Mirza SARS-CoV-2 (COVID-19) RNA ALESSANDRA+probe Ql (Unsp spec) Negative Normal NEGATIVE [facility] Comment on above: Performed By: #### C VDAGS #### [facility] [address] [place] [address] Dr. Kacie Mirza INSULINon 10-19-2021 Insulin 36.4 uIU/mL Critically high 2.6-24.9 [facility] Comment on above: Performed By: #### I NSULIN #### [facility] [address] [place] [address] Dr. Kacie Mirza CBC AUTO DIFFon 10-18-2021 BASO # 0.1 103/ul Normal 0.0-0.1 [facility] Comment on above: Performed By: #### L IPID, T7, CMP, TSH #### [facility] [address] [place] [address] Dr. Kacie Mirza Basophils/100 WBC (Bld) 0.6 % Normal 0.2-2.0 [facility] Comment on above: Performed By: #### L IPID, T7, CMP, TSH #### [facility] [address] [place] [address] Dr. Kacie Mirza EO # 0.1 103/ul Normal 0.0-0.7 [facility] Comment on above: Performed By: #### L IPID, T7, CMP, TSH #### [facility] [address] [place] [address] Dr. Kacie Mirza Eosinophils/100 WBC (Bld) 0.8 % Critically low 0.9-7.0 [facility] Comment on above: Performed By: #### L IPID, T7, CMP, TSH #### [facility] [address] [place] [address] Dr. Kacie Mirza Erythrocyte distribution width (RBC) [Ratio] 13.6 % Normal 11.0-15.0 [facility] Comment on above: Performed By: #### L IPID, T7, CMP, TSH #### [facility] [address] [place] [address] Dr. Kacie Mirza Hematocrit (Bld) [Volume fraction] 43.9 % Normal 36.0-48.0 [facility] Comment on above: Performed By: #### L IPID, T7, CMP, TSH #### [facility] [address] [place] [address] Dr. Kacie Mirza Hemoglobin (Bld) [Mass/Vol] 14.2 g/dL Normal 12.0-16.0 [facility] Comment on above: Performed By: #### L IPID, T7, CMP, TSH #### [facility] [address] [place] [address] Dr. Kacie Mirza IG # 0.02 10e3/ul Normal 0.00-0.03 [facility] Comment on above: Performed By: #### L IPID, T7, CMP, TSH #### [facility] [address] [address] [address] Kacie Mirza IG % 0.2 % Normal 0.0-0.5 [facility] Comment on above: Performed By: #### L IPID, T7, CMP, TSH #### [facility] [address] [place] [address] Dr. Kacie Mirza LYMPH # 3.4 103/ul Normal 1.2-3.8 [facility] Comment on above: Performed By: #### L IPID, T7, CMP, TSH #### [facility] [address] [place] [address] Dr. Kacie Mirza Lymphocytes/100 WBC (Bld) 34.1 % Normal 20.5-60.0 [facility] Comment on above: Performed By: #### L IPID, T7, CMP, TSH #### [facility] [address] [place] [address] Dr. Kacie Mirza MANUAL DIFF REQ NO Normal [facility] Comment on above: Performed By: #### L IPID, T7, CMP, TSH #### [facility] [address] [place] [address] Dr. Kacie Mirza MCH (RBC) [Entitic mass] 28.1 pg Normal 26.7-34.0 [facility] Comment on above: Performed By: #### L IPID, T7, CMP, TSH #### [facility] [address] [place] [address] Dr. Kacie Mirza MCHC (RBC) [Mass/Vol] 32.3 g/dL Normal 29.9-35.2 [facility] Comment on above: Performed By: #### L IPID, T7, CMP, TSH #### [facility] [address] [place] [address] Dr. Kacie Mirza MCV (RBC) [Entitic vol] 86.8 fL Normal 81.0-99.0 [facility] Comment on above: Performed By: #### L IPID, T7, CMP, TSH #### [facility] [address] [place] [address] Dr. Kacie Mirza MONO # 0.7 103/ul Normal 0.3-0.8 [facility] Comment on above: Performed By: #### L IPID, T7, CMP, TSH #### [facility] [address] [place] [address] Dr. Kacie Mirza Monocytes/100 WBC (Bld) 7.1 % Normal 1.7-12.0 [facility] Comment on above: Performed By: #### L IPID, T7, CMP, TSH #### [facility] [address] [place] [address] Dr. Kacie Mirza NEUT # 5.6 103/ul Normal 1.4-6.5 [facility] Comment on above: Performed By: #### L IPID, T7, CMP, TSH #### [facility] [address] [place] [address] Dr. Kacie Mirza Neutrophils/100 WBC (Bld) 57.2 % Normal 43.0-75.0 [facility] Comment on above: Performed By: #### L IPID, T7, CMP, TSH #### [facility] [address] [place] [address] Dr. Kacie Mirza Platelet mean volume (Bld) [Entitic vol] 8.9 fL Critically low 9.5-13.5 [facility] Comment on above: Performed By: #### L IPID, T7, CMP, TSH #### [facility] [address] [place] [address] Dr. Kacie Mirza PLT 424 103/ul Normal 150-450 [facility] Comment on above: Performed By: #### L IPID, T7, CMP, TSH #### [facility] [address] [address] [address] Kacie Mirza RBC 5.06 106/ul Normal 4.20-5.40 [facility] Comment on above: Performed By: #### L IPID, T7, CMP, TSH #### [facility] [address] [address] [address] Kacie Mirza WBC 9.8 103/ul Normal 4.0-11.0 [facility] Comment on above: Performed By: #### L IPID, T7, CMP, TSH #### [facility] [address] [place] [address] Dr. Kacie Mirza FREE THYROXINE INDEX T7on FTI 3.16 Normal [facility] Comment on above: Performed By: #### L IPID, T7, CMP, TSH #### [facility] [address] [place] [address] Dr. Kacie Mirza T3U 27.0 % Critically low 30.0-39.0 [facility] Comment on above: Performed By: #### L IPID, T7, CMP, TSH #### [facility] [address] [place] [address] Dr. Kacie Mirza T4 [Mass/Vol] 11.70 ug/dL Normal 4.80-13.90 [facility] Comment on above: Performed By: #### L IPID, T7, CMP, TSH #### [facility] [address] [place] [address] Dr. Kacie Mirza GLYCOHEMOGLOBIN A1Con 2021 ADA RECOMMENDATION SEE BELOW Normal [facility] Comment on above: Result Comment: ADA RECOMMENDED LIMIT 4.0 - 6.0 ADA THERAPEUTIC TARGET < 7.0 ACTION SUGGESTED > 7.0 Performed By: #### L IPID, T7, CMP, TSH #### [facility] [address] [place] [address] Dr. Kacie Mirza Glucose [Mass/Vol] 103 mg/dL Normal [facility] Comment on above: Performed By: #### L IPID, T7, CMP, TSH #### [facility] [address] [address] [address] Kacie Mirza HbA1c (Bld) [Mass fraction] 5.2 % Normal 4.5-6.2 [facility] Comment on above: Performed By: #### L IPID, T7, CMP, TSH #### [facility] [address] [address] [address] Kacie Mirza LIPID PROFILEon 10-18-2021 CHOL-HDL RATIO NORM SEE BELOW Normal [facility] Comment on above: Result Comment: 3.3 - 4.4 LOW RISK 4.4 - 7.1 AVERAGE RISK 7.1 - 11.0 MODERATE RISK >11.0 HIGH RISK Performed By: #### L IPID, T7, CMP, TSH #### [facility] [address] [address] [address] Kacie Mirza Cholesterol [Mass/Vol] 195 mg/dL Normal <=200 [facility] Comment on above: Performed By: #### L IPID, T7, CMP, TSH #### [facility] [address] [address] [address] Kacie Mirza Cholesterol in HDL [Mass/Vol] 43 mg/dL Normal 40-60 [facility] Comment on above: Performed By: #### L IPID, T7, CMP, TSH #### [facility] [address] [address] [address] Kacie Mirza Cholesterol in LDL [Mass/Vol] 122.6 mg/dL Normal [facility] Comment on above: Performed By: #### L IPID, T7, CMP, TSH #### [facility] [address] [address] [address] Kacie Mirza Cholesterol.total/C holesterol in HDL [Mass ratio] 4.5 {ratio} Normal [facility] Comment on above: Performed By: #### L IPID, T7, CMP, TSH #### [facility] [address] [address] [address] Kacie Mirza HDL NORMAL > or = 60 mg/dl - LOW CARDIOVASCULAR RISK <40 mg/dl - HIGH CARDIOVASCULAR RISK Normal [facility] Comment on above: Performed By: #### L IPID, T7, CMP, TSH #### [facility] [address] [address] [address] Kacie Mirza LDL CALC NORMAL SEE BELOW Normal [facility] Comment on above: Result Comment: <100 mg/dl OPTIMAL 100 - 129 mg/dl NEAR OR ABOVE OPTIMAL 130 - 159 mg/dl BORDERLINE HIGH 160 - 189 mg/dl HIGH >190 mg/dl VERY HIGH Performed By: #### L IPID, T7, CMP, TSH #### [facility] [address] [address] [address] Kacie Mirza Triglyceride [Mass/Vol] 147 mg/dL Normal <=150 [facility] Comment on above: Performed By: #### L IPID, T7, CMP, TSH #### [facility] [address] [address] [address] Kacie Mirza VLDL CALC 29.4 mg/dL Normal [facility] Comment on above: Performed By: #### L IPID, T7, CMP, TSH #### [facility] [address] [address] [address] Kacie Mirza PROF 14(COMP METB)on 022 Albumin [Mass/Vol] 3.5 g/dL Normal 3.4-5.0 [facility] Comment on above: Performed By: #### L IPID, T7, CMP, TSH #### [facility] [address] [address] [address] Kacie Mirza Albumin/Globulin [Mass ratio] 0.8 {ratio} Normal [facility] Comment on above: Performed By: #### L IPID, T7, CMP, TSH #### [facility] [address] [address] [address] Kacie Mirza ALP [Catalytic activity/Vol] 55 U/L Normal 46-116 [facility] Comment on above: Performed By: #### L IPID, T7, CMP, TSH #### [facility] [address] [address] [address] Kacie Mirza ALT [Catalytic activity/Vol] 24 U/L Normal 14-59 [facility] Comment on above: Performed By: #### L IPID, T7, CMP, TSH #### [facility] [address] [address] [address] Kacie Mirza Anion gap [Moles/Vol] 9.9 mmol/L Normal [facility] Comment on above: Performed By: #### L IPID, T7, CMP, TSH #### [facility] [address] [address] [address] Kacie Mirza AST [Catalytic activity/Vol] 14 U/L Critically low 15-37 [facility] Comment on above: Performed By: #### L IPID, T7, CMP, TSH #### [facility] [address] [address] [address] Kacie Mirza Bilirubin [Mass/Vol] 0.3 mg/dL Normal 0.2-1.0 [facility] Comment on above: Performed By: #### L IPID, T7, CMP, TSH #### [facility] [address] [address] [address] Kacie Mirza Calcium [Mass/Vol] 8.6 mg/dL Normal 8.5-10.1 [facility] Comment on above: Performed By: #### L IPID, T7, CMP, TSH #### [facility] [address] [address] [address] Kacie Mirza Chloride [Moles/Vol] 101 mmol/L Normal 98-107 [facility] Comment on above: Performed By: #### L IPID, T7, CMP, TSH #### [facility] [address] [address] [address] Kacie Mirza CO2 [Moles/Vol] 27.7 mmol/L Normal 21.0-32.0 [facility] Comment on above: Performed By: #### L IPID, T7, CMP, TSH #### [facility] [address] [place] [address] Dr. Kacie Mirza Creatinine [Mass/Vol] 0.93 mg/dL Normal 0.55-1.02 [facility] Comment on above: Performed By: #### L IPID, T7, CMP, TSH #### [facility] [address] [place] [address] Dr. Kacie Mirza EGFR-AF BOTSWANAN >60 Normal >=60 [facility] Comment on above: Performed By: #### L IPID, T7, CMP, TSH #### [facility] [address] [address] [address] Kacie Mirza EGFR-NON AF BOTSWANAN >60 Normal >=60 [facility] Comment on above: Performed By: #### L IPID, T7, CMP, TSH #### [facility] [address] [address] [address] Kacie Mirza Globulin (S) [Mass/Vol] 4.6 g/dL Normal [facility] Comment on above: Performed By: #### L IPID, T7, CMP, TSH #### [facility] [address] [address] [address] Kacie Mirza Glucose [Mass/Vol] 75 mg/dL Normal 74-106 [facility] Comment on above: Performed By: #### L IPID, T7, CMP, TSH #### [facility] [address] [place] [address] Dr. Kacie Mirza Potassium [Moles/Vol] 3.6 mmol/L Normal 3.5-5.1 [facility] Comment on above: Performed By: #### L IPID, T7, CMP, TSH #### [facility] [address] [address] [address] Kacie Mirza Protein [Mass/Vol] 8.1 g/dL Normal 6.4-8.2 [facility] Comment on above: Performed By: #### L IPID, T7, CMP, TSH #### [facility] [address] [address] [address] Kacie Mirza Sodium [Moles/Vol] 135 mmol/L Critically low 136-145 [facility] Comment on above: Performed By: #### L IPID, T7, CMP, TSH #### [facility] [address] [address] [address] Kacie Mirza Urea nitrogen [Mass/Vol] 8.0 mg/dL Normal 7.0-18.0 [facility] Comment on above: Performed By: #### L IPID, T7, CMP, TSH #### [facility] [address] [address] [address] Kacie Mirza Urea nitrogen/Creatinine [Mass ratio] 8.6 mg/mg Normal [facility] Comment on above: Performed By: #### L IPID, T7, CMP, TSH #### [facility] [address] [address] [address] Kacie Mirza TSHon 10-18-2021 TSH 2.207 uIU/mL Normal 0.358-3.740 [facility] Comment on above: Performed By: #### L IPID, T7, CMP, TSH #### [facility] [address] [address] [address] Kacie Mirza TSH RANGE SEE BELOW Normal [facility] Comment on above: Result Comment: <0.3 4 UIU/ml HYPERTHYROID 0.34-5.60 UIU/ml EUTHYROID >5.60 UIU/ml HYPOTHYROID Performed By: #### L IPID, T7, CMP, TSH #### [facility] [address] [address] [address] Kacie Mir[facility]on SARS-CoV-2 (COVID-19) RNA ALESSANDRA+probe Ql (Unsp spec) Not detected Normal NOT DETECTED [facility] Comment on above: Result Comment: This test is not yet approved or cleared by the [place] FDA. When there are no FDA-approved or cleared tests available, and other criteria are met, FDA can make tests available under an emergency access mechanism called an Emergency Use Authorization (EUA). The EUA for this test is supported by the [place] of Health and Human Service's (HHS's) declaration [...] #### L IPID, T7, CMP, TSH #### [facility] [address] [place] [address] Dr. Kacie Mirza INFLUENZA A AND B AGon 09-20 [facility] SEE BELOW Normal [facility] Comment on above: Result Comment: Nega tive for Flu A protein angiten. Infection due to Flu A cannot be ruled out. Flu A angiten in the sample may be below the detection limit of the test. Performed By: #### I NFLUAB #### [facility] [address] [place] [address] Dr. Kacie Mirza INFLUBNEGH SEE BELOW Normal [facility] Comment on above: Result Comment: Nega tive for Flu B protein antigen. Infection due to Flu B cannot be ruled out. Flu B antigen in the sample may be below the detection limit of the test. Performed By: #### I NFLUAB #### [facility] [address] [place] [address] Dr. Kacie Mirza INFLUENZA A AG Negative Normal NEGATIVE SEE COMMENT [facility] Comment on above: Performed By: #### I NFLUAB #### [facility] [address] [place] [address] Dr. Kacie Mirza INFLUENZA B AG Negative Normal NEGATIVE SEE COMMENT [facility] Comment on above: Performed By: #### I NFLUAB #### [facility] [address] [place] [address] Dr. Kacie Mirza INTERNAL CONTROLS Within Normal Limits Normal Wi thin Normal Limits [facility] Comment on above: Performed By: #### I NFLUAB #### [facility] [address] [place] [address] Dr. Kacie Mirza Vital Signs Date Time Vital Sign Value Performing Clinician Mandi vargas 01-03-2025 14:58-0400 Body mass index (BMI) [Ratio] 38.22 kg/m2 Jarad Hernandez DO Work Phone: [employer] 01-03-2025 14:58-0400 Body weight 110.68 kg Jarad Hernandez DO Work Phone: [facility] [employer] 01-03-2025 14:58-0400 Diastolic blood pressure 83 mm[Hg] Jarad Hernandez DO Work Phone: [facility] 01-03-2025 14:58-0400 Heart rate 105 /min Jarad Hernandez DO Work Phone: [facility] 01-03-2025 14:58-0400 Systolic blood pressure 132 mm[Hg] Jarad Hernandez DO Work Phone: [facility] [employer] 10-12-2024 09:11-0400 Body height 170.2 cm Brittney Almeida DO Work Phone: [facility] 10-12-2024 09:11-0400 Body mass index (BMI) [Ratio] 38.65 kg/m2 Brittney Almeida DO Work Phone: [facility] [employer] 10-12-2024 09:11-0400 Body weight 111.95 kg Brittney Almeida DO Work Phone: [facility] [employer] 10-12-2024 09:11-0400 Diastolic blood pressure 86 mm[Hg] Brittney Almeida DO Work Phone: [facility] [employer] 10-12-2024 09:11-0400 Systolic blood pressure 122 mm[Hg] Brittney Almeida DO Work Phone: [facility] [employer] 09-08-2024 13:26-0400 Body height 170.2 cm Pmh 1 [facility] 09-08-2024 13:26-0400 Body mass index (BMI) [Ratio] 38.37 kg/m2 [facility] 1 [facility] 09-08-2024 13:26-0400 Body weight 111.13 kg Pmh 1 [facility] 08-31-2024 14:52-0400 Body height 167.6 cm Brittney Almeida DO Work Phone: [facility] [facility] 08-31-2024 14:52-0400 Body mass index (BMI) [Ratio] 39.29 kg/m2 Brittney Almeida DO Work Phone: [facility] [facility] 08-31-2024 14:52-0400 Body weight 110.41 kg Britt[facility]ida [facility] 08-31-2024 14:52-0400 Diastolic blood pressure 92 mm[Hg] Britt[facility]ida [facility] 08-31-2024 14:52-0400 Systolic blood pressure 124 mm[Hg] Brittney Almeida DO Work Phone: [facility] 08-05-2024 14:27-0500 Body mass index (BMI) [Ratio] 40.03 kg/m2 Brittney Almeida DO Work Phone: [facility] [employer] 08-05-2024 14:27-0500 Body weight 112.49 kg Brittney Almeida DO Work Phone: [facility] [facility] 08-05-2024 14:27-0500 Diastolic blood pressure 90 mm[Hg] Brittney Almeida DO Work Phone: [facility] 08-05-2024 14:27-0500 Systolic blood pressure 146 mm[Hg] Brittney Almeida DO Work Phone: [facility] 06-18-2024 12:12-0500 Body height 170.18 cm [facility] 06-18-2024 12:12-0500 Body mass index (BMI) [Ratio] 35.2 kg/m2 [facility] 06-18-2024 12:12-0500 Body temperature 98.3 [degF] [facility] 06-18-2024 12:12-0500 Body weight 102.05 kg [facility] 06-18-2024 12:12-0500 Diastolic blood pressure 107 mm[Hg] [facility] 06-18-2024 12:12-0500 Heart rate 110 /min [facility] 06-18-2024 12:12-0500 Respiratory rate 18 /min [facility] 06-18-2024 12:12-0500 SaO2% (BldA) [Mass fraction] 96 % [facility] 06-18-2024 12:12-0500 Systolic blood pressure 157 mm[Hg] [facility] Encounters Encounter Date Encounter Type Care Provider Facility Start: 01-21-2025 End: 01-21-2025 ambulatory JARAD Rosio [facility] Start: 01-19-2025 End: 01-19-2025 Orders Only Jarad Hernandez DO Work Phone: [facility] Comment on above: 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 Start: 11-15-2024 End: 11-15-2024 ambulatory BRITTNEY L ALMEIDA [facility] Start: 10-12-2024 End: 10-12-2024 Postop follow up visit related to original px Brittney Scarlett Almeida DO Work Phone: [facility] Comment on above: Routine f ollow-up (Primary Dx); Pelvic congestion; Vaginal discharge Start: 10-12-2024 End: 10-12-2024 ambulatory BRITTNEY [facility] Start: 10-09-2024 End: 10-09-2024 Emergency department patient visit CAMILLE GARCES [facility] Start: 09-30-2024 End: 09-30-2024 Orders Only Brittney Scarlett Almeida DO Work Phone: [facility] Comment on above: Dysmenorrhea (Primar y Dx); Chronic pelvic pain in female; Menorrhagia with irregular cycle; Pelvic congestion Start: 09-29-2024 End: 09-29-2024 Evaluation and management of inpatient CINTHIA PEREA [facility] Start: 09-29-2024 End: 09-29-2024 Evaluation and management of inpatient [facility] Start: 09-08-2024 End: 09-08-2024 Patient encounter procedure [facility] Pre-Admission Testing 1 [facility] - Pre Admit Comment on above: Preop examination (P rimary Dx); Hypertension, unspecified type; PCOS (polycystic ovarian syndrome) Start: 09-08-2024 End: 09-08-2024 Preprocedural examination done [facility] Start: 09-08-2024 End: 09-08-2024 ambulatory CAMILLE GARCES [facility] Start: 09-08-2024 Encounter for other preprocedural examination [facility] Start: 09-01-2024 End: 09-01-2024 Telephone encounter Brittney Almeida DO Work Phone: [facility] Start: 08-31-2024 End: 08-31-2024 Admission to same day surgery center Brittney Almeida DO Work Phone: [facility] Start: 08-31-2024 End: 08-31-2024 Office outpatient visit 25 minutes Brittney Almeida DO Work Phone: [facility] Comment on above: Preoperative exam fo r gynecologic surgery (Primary Dx); Chronic pelvic pain in female; Dysmenorrhea; Menorrhagia with irregular cycle Start: 08-31-2024 End: 08-31-[address] [facility] Start: 08-31-2024 Encounter for other preprocedural examination [facility] Start: 08-17-2024 End: 08-17-2024 ambulatory Johnny Pay Facility:[facility] Start: 08-17-2024 End: 08-17-2024 Departed Referred Johnny Galloway DO Work Phone: [facility] Start: 08-06-2024 End: 08-06-2024 Telephone encounter Yadira Mtz APRN-CANDELARIO Work Phone: [facility] Start: 08-05-2024 End: 08-05-2024 ambulatory BRITTNEY ALMEIDA [facility] Start: 08-05-2024 End: 08-05-2024 Office outpatient new 30 minutes Brittney Pantoja Almeida DO Work Phone: [facility] Comment on above: Pelvic pain (Primary Dx); Screening for cervical cancer; Screen for STD (sexually transmitted disease); Friable cervix; Vaginal discharge; PCOS (polycystic ovarian syndrome) Start: 08-05-2024 End: 08-05-2024 ambulatory BRITTNEY ALMEIDA [facility] Start: 07-12-2024 End: 07-21-2024 Telephone encounter Bianca Logan MD Work Phone: [facility] Start: 06-18-2024 End: 06-18-2024 ambulatory [facility] Work Phone: Start: 06-18-2024 End: 06-18-2024 Patient encounter procedure [facility] Work Phone: Start: 06-14-2022 End: 06-14-2022 ambulatory KRYSTAL NICOLAS Facility:[facility] Start: 11-13-2021 End: 11-13-[address] CAMILLE GARCES Facility:[facility] Start: 10-23-2021 Encounter for genera l adult medical examination without abnormal findings DR CAMILLE GARCES [facility] Start: 10-18-2021 End: 10-19-[address] CAMILLE GARCES Facility:[facility] Start: 10-18-2021 End: 10-19-2021 Encounter for general adult medical examination without abnormal findings DR CAMILLE GARCES Facility:[facility] Start: 09-20-2021 End: 09-20-[address] CAMILLE GARCES Facility:[facility] Procedures Date Procedure Procedure Detail Performing Clinician Start: 08-31-2024 Follow-up visit Follow-up BRITTNEY ALMEIDA Start: 08-05-2024 Microscopic observat ion [Identifier] in Cervix by Cyto stain Brittney Juan Pablo DO Work Phone: Plan of Treatment Date Care Activity Detail Author Start: 08-05-2027 Screening for malign ant neoplasm of cervix Pap Smear [facility] Start: 01-13-2026 Tobacco Screening Tobacco Screening [facility] Start: 01-03-2026 Adult BMI Screening Adult BMI Screen ing [facility] Start: 10-12-2025 Adult BMI Screening Adult BMI Screen ing [facility] Start: 10-12-2025 Tobacco Screening Tobacco Screening [facility] Start: 09-30-2025 End: 09-30-2025 MR Abdomen and Pelvis W contrast PO and WO and W contrast IV MRV abdomen pelvic congestion with and without contrast Imaging Routine Dysmenorrhea Chronic pelvic pain in female Menorrhagia with irregular cycle Pelvic congestion Expected: 09/30/2025 (Approximate), Expires: 09/30/2025 [facility] Comment on above: Expected: 09/30/2025 (Approximate), Expires: 09/30/2025 Start: 09-30-2025 End: 09-30-2025 MRA Pelvis vessels MRV pelvis pelvic congestion with and without contrast Imaging Routine Dysmenorrhea Chronic pelvic pain in female Menorrhagia with irregular cycle Pelvic congestion Expected: 09/30/2025 (Approximate), Expires: 09/30/2025 [facility] Work Phone: Comment on above: Expected: 09/30/2025 (Approximate), Expires: 09/30/2025 Start: 09-29-2025 Adult BMI Screening Adult BMI Screen ing [facility] Start: 09-29-2025 Tobacco Screening Tobacco Screening [facility] Start: 09-08-2025 Adult BMI Screening Adult BMI Screen ing [facility] Start: 09-08-2025 Tobacco Screening Tobacco Screening [facility] Start: 08-31-2025 Adult BMI Screening Adult BMI Screen ing [facility] Start: 08-31-2025 Tobacco Screening Tobacco Screening [facility] Start: 08-05-2025 Adult BMI Screening Adult BMI Screen ing [facility] Start: 08-05-2025 Tobacco Screening Tobacco Screening [facility] Start: 02-21-2025 End: 02-21-2025 Patient encounter procedure 02/21/2025 11:30 AM EDT Office Visit [facility] [place] [place] [address] Jarad Hernandez, DO [address] [facility] [address] [place] [address] [facility] Start: 02-14-2025 Influenza vaccination Influenza Vacc ine [facility] Start: 01-21-2025 End: 01-21-2025 Patient encounter procedure 01/21/2025 1:00 PM EDT Appointment [facility] - CT Imaging [address] [place] [id number] Jarad Hernandez, DO [address] [facility] [address] [facility] [address] [place] [address] [facility] Start: 01-03-2025 End: 01-03-2026 CTA Abdominal veins and Pelvis veins W contrast IV CT venogram abdomen and pelvis Imaging Routine Congenital occlusion of iliac vein Expected: 01/03/2025, Expires: 01/03/2026 [facility] Work Phone: Comment on above: Expected: 01/03/2025 , Expires: 01/03/2026 Start: 01-03-2025 End: 01-03-2026 Tilt table study Tilt table study Cardiac Services Routine Palpitations Expected: 01/03/2025, Expires: 01/03/2026 [facility] Comment on above: Expected: 01/03/2025 , Expires: 01/03/2026 Start: 09-29-2024 End: 09-29-2024 Admission to same day surgery center 09/29/2024 9:30 AM EDT - 09/29/2024 11:00 AM EDT Surgery [facility] - Surgery [address] [facility] [address] Brittney Almeida, DO [address] [place] [address] LAPAROSCOPY DIAGNOSTIC [75962 (CPT )] [facility] - Surgery Comment on above: LAPAROSCOPY DIAGNOST IC [72649 (CPT )] Start: 09-29-2024 End: 09-29-2024 Anesthesia consultation 09/29/2024 9:30 AM EDT Anesthesia Event [facility] - Surgery [address] [place] [address] Cinthia Perea, [address] [facility] [place] [address] [facility] - Surgery Start: 09-29-2024 End: 09-29-2024 Laps abd prtm&omentum dx w/wo spec br/wa spx LAPAROSCOPY DIAGNOSTIC chronic pelvic pain 09/29/2024 9:30 AM EDT [facility] Start: 09-29-2024 Subsequent hospital visit by physician 09/29/2024 9:30 AM EDT Hospital Encounter [facility] Surgery [address] [place] [address] Brittney Almeida DO [address] [place] [address] [facility] Start: 09-08-2024 End: 09-08-2024 Patient encounter procedure 09/08/2024 1:30 PM EDT Procedure visit [facility] - Pre Admit [address] [place] [address] [facility] - Pre Admit Start: 08-31-2024 End: 08-31-2024 Patient encounter procedure 08/31/2024 2:30 PM EDT Office Visit [facility] [address] [place] [id number] Brittney Almeida DO [address] [place] [address] [facility] Start: 08-17-2024 Bacteria identified in Urine by Culture Urine Culture [facility] Start: 08-17-2024 Urine culture [facility] Start: 08-05-2024 End: 08-05-2024 Patient encounter procedure 08/05/2024 2:30 PM EST Office Visit [facility] [address] [place] [address] Brittney Almeida, [address] [place], [place] [id number] [facility] Start: 02-15-2024 Influenza vaccination Influenza Vacc ine [facility] Start: 09-15-2021 DTaP,Tdap and Td Vaccines (6 - Td or Tdap) DTaP,Tdap and Td Vaccines (6 - Td or Tdap) [facility] Start: 2020 Screening for malign ant neoplasm of cervix Pap Smear [facility] Start: 2017 Adult BMI Follow Up Plan Adult BMI Follow Up Plan [facility] Start: 2017 Adult BMI Screening Adult BMI Screen ing [facility] Start: 2011 Depression Screening Depression Scre ening [facility] Start: 2011 Tobacco Screening Tobacco Screening [facility] End: 08-05-2025 Chlamydia/Gonorrhoeae by PCR, Fluid Chlamydia/Gonorrhoeae by PCR, Fluid Microbiology Routine Screening for cervical cancer Screen for STD (sexually transmitted disease) Friable cervix 1 Occurrences starting 08/05/2024 until 08/05/2025 [facility] Comment on above: 1 Occurrences starti ng 08/05/2024 until 08/05/2025 Chlamydia/Gonorrhoea e by PCR, Fluid Chlamydia/Gonorrhoeae by PCR, Fluid Microbiology Routine Screening for cervical cancer Screen for STD (sexually transmitted disease) Friable cervix 08/05/2024 6:45 PM EST [facility] End: 01-19-2026 Creatinine includes GFR, serum Creatinine includes GFR, serum Lab Routine Female pelvic congestion syndrome 1 Occurrences starting 01/19/2025 until 01/19/2026 [facility] Work Phone: Comment on above: 1 Occurrences starti ng 01/19/2025 until 01/19/2026 End: 08-05-2025 Cytology report of Cervical or vaginal smear or scraping Cyto stain.thin prep Pap Smear Pathology and Cytology Routine Screening for cervical cancer 1 Occurrences starting 08/05/2024 until 08/05/2025 [facility] Work Phone: Comment on above: 1 Occurrences starti ng 08/05/2024 until 08/05/2025 End: 08-05-2025 Vaginitis Panel PCR Vaginitis Panel PCR Microbiology Routine Friable cervix Vaginal discharge 1 Occurrences starting 08/05/2024 until 08/05/2025 [facility] Comment on above: 1 Occurrences starti ng 08/05/2024 until 08/05/2025 Vaginitis Panel PCR Vaginitis Pa rivas PCR Microbiology Routine Friable cervix Vaginal discharge 08/05/2024 6:45 PM EST [facility] Payers Date Payer Category Payer Self-pay 2023 [facility] [id number] 1999 Unknown [id number] 1999 Unknown [id number] [id number] 1999 Unknown [id number] [id number] 1999 Unknown [id number] [id number] 1999 Unknown [id number] [id number] 1999 Unknown [id number] 2.16.840.1.118760.3.579.2.1286 1999 Unknown [id number] 2.16.840.1.587587.3.579.2.1286 1999 Unknown [id number] 2.16.840.1.074672.3.579.2.1286 1999 Unknown [id number] 2.16.840.1.361433.3.579.2.1286 1999 Unknown [id number] 2.16.840.1.818967.3.579.2.1286 1999 Unknown [id number] 2.16.840.1.589655.3.579.2.1286 1999 Unknown [id number] 2.16.840.1.520328.3.579.2.1286 1999 Unknown [id number] 2.16.840.1.423051.3.579.2.1286 1999 Unknown [id number] 2.16.840.1.699706.3.579.2.1286 1999 Unknown [id number] 2.16.840.1.083435.3.579.2.1286 1999 Unknown [id number] 2.16.840.1.799762.3.579.2.1286 1999 Unknown [id number] 2.16.840.1.313919.3.579.2.1286 1999 Unknown [id number] [id number] 1959 Unknown [id number] 1959 Unknown [id number] Social History Date Type Detail Facility Start: 06-18-2024 End: 08-05-2024 Tobacco smoking status KSIS Never smoked tobacco (finding) [facility] Start: 08-23-2020 End: 06-18-2024 Sex Female (finding) [facility] Start: 2000 Sex Assigned At Female F [facility] Tobacco smoking stat NHIS Tobacco smoking consumption unknown [facility] Start: 08-23-2020 End: 10-12-2024 History of Social function [facility] Work Phone: Start: 08-23-2020 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 [facility] Work Phone: Start: 1999 Sex assigned at Not on file [facility] Start: 08-05-2024 Tobacco use and exposure Smokeless tobacco non-user [facility] Start: 08-05-2024 End: 01-13-2025 Alcoholic beverage intake Ex-drinker (finding) [facility] Clinical Notes 06-18-2024 to 01-03-2025 Jarad Hernandez, DO - 01/03/2025 2:30 PM Carole Almeida, DO - 10/12/2024 9:15 AM Carole Almeida, DO - 09/30/2024 10:21 AM EDTPatient Bolivar Almeida, DO - 08/31/2024 2:30 PM EDT Note Date & Type Note Facility 01-03-2025 History of Presen t illness Narrative Images from the original note were not included. CC: Chief Complaint Patient presents with Circulatory Problem New patient- pelvic congestion- testing done 24 y.o. female with h/o polycystic ovarian syndrome and c/o chronic pelvic pain. [employer] - 01/03/25: Pt presented to office w/ her mother who was present for entire visit. 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 Pt c/o severe intermittent lower abd and pelvic period type cramps and soreness. Pain/pressure is intermittent and worsens pre/post menstruation. No obvious/significant leg size discrepancies. +R LE pain down to the knee intermittently. No significant LLE pain. No obvious varicose veins in labial region. No hematuria. Not sexually active, does not use tampons. +Hyperhidrosis. 09/29/24: diagnostic laparoscopy - not acute linoleum tile layer findings. +multiple dilated vessels noted throughout pelvis consistent with possible pelvic congestion syndrome. Chief Complaint Patient presents with Circulatory Problem New patient- pelvic congestion- testing done Patient Active Problem List Diagnosis Polycystic ovary syndrome Pain in female pelvis BP 132/83 Pulse 105 Wt 110.7 kg (244 lb) BMI 38.22 kg/m Past Medical History: Diagnosis Date Hypertension Obesity PCOS (polycystic ovarian syndrome) Past Surgical History: Procedure Laterality Date LAPAROSCOPY DIAGNOSTIC N/A 09/29/2024 Performed by Brittney Almeida DO at [facility] ROS: Review of Systems Respiratory: Positive for shortness of breath. W/ carrying objects Cardiovascular: Negative for chest pain and leg swelling. Gastrointestinal: Negative for abdominal pain and blood in stool. No hemorrhoids Genitourinary: Positive for pelvic pain. Negative for difficulty urinating, hematuria and vaginal pain. Skin: Negative for rash and wound. Never Smoker Personal history of: negative: CVA negative: DVT, PE negative: W[place], CAD +h/o HTN negative: PAD, PVD, claudication negative: dilated LE veins/varicose veins negative: DM positive: Migraines Family history of: negative: Aneurysms Physical Exam: Physical Exam Vitals and nursing note reviewed. Constitutional: Appearance: Normal appearance. HENT: Head: Normocephalic and atraumatic. Pulmonary: Effort: Pulmonary effort is normal. Musculoskeletal: General: Normal range of motion. Comments: Moving all ext equally Skin: General: Skin is warm and dry. Neurological: General: No focal deficit present. Mental Status: She is alert and oriented to person, place, and time. Psychiatric: Attention and Perception: Attention normal. Mood and Affect: Mood normal. Speech: Speech normal. Behavior: Behavior is cooperative. Testing Reviewed: CBC with Differential: Lab Results Component Value Date WBC 10.0 09/08/2024 HGB 13.4 09/08/2024 HCT 40.7 09/08/2024 PLT 411 09/08/2024 MCV 82 09/08/2024 MCH 27.2 09/08/2024 MCHC 33.0 09/08/2024 RDW 14.5 09/08/2024 BMP: Lab Results Component Value Date SODIUM 140 09/08/2024 K 3.9 09/08/2024 CL 101 09/08/2024 CO2 27 09/08/2024 BUN 12 09/08/2024 CREATININE 0.76 09/08/2024 EGFR >90 09/08/2024 GLU 87 09/08/2024 BNP: No results found for: BNP Troponin: No results found for: TROPONINI HgBA1c: No results found for: HGBA1C Lipid Panel: No results found for: CHOL , TRIG , HDL , CHOLHDLR 11/18/24 - MRV abd/pelvis: Assessment/Plan of care: Please note that total time spent was 30 minutes: Including but not limited to: Preparing to see the patient (e.g., review of tests) Obtaining and/or reviewing separately obtained history Performing a medically appropriate examination and evaluation Counseling and educating the patient/family/caregiver Ordering medications, tests, or procedures In office [facility] imaging and review of findings Documenting visit details Greater than 50% was devoted to counseling and coordination of care, discussing the normal function of deep and superficial venous systems, and explaining the pathologic processes that lead to ambulatory venous hypertension and leg symptoms of heaviness, fatigue, etcetera. Encounter Diagnoses Name Primary? 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 Diagnoses and all orders for this visit: Palpitations - Tilt table study; Future Congenital occlusion of iliac vein - [facility], [place] - CT venogram abdomen and pelvis; Future Female pelvic congestion syndrome - [facility] [place] Varicosities of pelvis - [facility] [place] 1. Congenital occlusion of iliac vein - [facility] [place] [facility] abdomen and pelvis; Future 2. Female pelvic congestion syndrome - [facility] [place] 3. Varicosities of pelvis - [facility] [place] 4. Palpitations - Tilt table study; Future 24 y.o. female with h/o polycystic ovarian syndrome and c/o chronic pelvic pain. Pelvic venous congestion syndrome: Long discussion held regarding normal pelvic venous anatomy and pathophysiology of pelvic venous disease including review of relevant anatomy and disease patterns. Given c/o ongoing pelvic pain, aching, and heaviness CTV abd/pelvis ordered to evaluate pelvic venous anatomy for possible underlying pelvic venous congestion pathology (including renal vein compression, ovarian vein reflux, pelvic varicosities and iliac vein compression). Diaphoresis and palpitations w/ concern for pelvic venous congestion: tilt table test ordered to evaluate for underlying fuentes Return to office after CTV abd/pelvis and tilt table test completed to discuss persistent symptoms and review testing results. Jarad Hernandez DO Vascular Surgery documented in this encounter [facility] 10-12-2024 History of Presen t illness Narrative Subjective Patient ID: Purvi Dee is a 24 y.o. female who presents today for follow-up after diagnostic laparoscopy for chronic pelvic pain exacerbated by menses and intercourse. Patient is overall doing well postoperatively. She was seen in the ER for erythema around her incision, and started on Keflex. She denies fever. The incision is not draining. She does not have any excess pain around the incision. She is eating, voiding, passing stool and flatus spontaneously. Chief Complaint: Postoperative follow up Menstrual History: OB History No obstetric history on file. Patient's last menstrual period was 08/17/2024 (approximate). The following portions of the patient's history were reviewed and updated as appropriate: allergies, current medications, past family history, past medical history, past social history, past surgical history, problem list, and medication reconciliation was completed including current medication and post discharge medication. Review of Systems Constitutional: negative Respiratory: negative Cardiovascular: negative Gastrointestinal: negative Genitourinary: Follow up diagnostic lap Objective BP 122/86 Ht 170.2 cm (5' 7 ) Wt 111.9 kg (246 lb 12.8 oz) LMP 08/17/2024 (Approximate) BMI 38.65 kg/m General: alert, appears stated age, and cooperative Heart: regular rate and rhythm, S1, S2 normal, no murmur, click, rub or gallop Lungs: clear to auscultation bilaterally Abdomen: soft, non-tender, without masses or organomegaly Incisions: There is erythema around the incision inferior to the Exofin skin glue that was placed postoperatively. This is non fluctuant in appears more of a contact dermatitis/reaction to the Exofin skin glue then an actual infection. Skin glue was removed. Steri-Strips was placed over the incision. We did advise patient to continue with her Keflex as we do not know what the incision look like when she presented to the ER though today it looks like a contact dermatitis. Assessment 1. Routine follow-up 2. Pelvic congestion Plan 1. MRV was ordered. Patient advised to schedule. If the MRV does confirm pelvic congestion syndrome. Will place a referral to interventional radiology for treatment. 2. Prescription for Diflucan paste as patient is at risk for candidiasis secondary to her current usage of antibiotics. documented in this encounter [facility] 09-30-2024 History of Presen t illness Narrative Order for MRI to evaluate for possible pelvic congestion syndrome. Patient was noted to have multiple darkened, enlarged tortuous appearing vessels throughout her pelvis on diagnostic laparoscopy consistent with possible pelvic congestion. If MRI proves pelvic congestion will plan on consult Interventional Radiology for treatment. documented in this encounter [facility] 09-08-2024 Instructions Delaney Cho RN - 09/08/2024 1:30 PM EDT Preoperative Education Checklist- General Surgery date: 09/29/24 Surgery time: 929 Arrival time: 729 1. Bring a photo ID and your insurance card with you the day of surgery. You will check in at the main lobby of the [facility]- registration desk is straight ahead as soon as you walk in. Tell them you are here for surgery. 2. If you have a Living Will/Durable Power of Cooker Casing for Health Care that is not on file here, please bring a copy the day of surgery. 3. Please shower/bathe the night before surgery with the provided soap or wipes. Do not shower the morning of surgery- you will do use wipes when you arrive here at the hospital before getting into your surgical gown. Do not shave the area of your procedure for 2 days prior to your surgery. 4. NO powder, lotion, perfume/cologne, aftershave, make-up, deodorant, or hair products after you have bathed. 5. NO nail nigerien/acrylic on at least one finger. If you are having a hand, wrist or foot surgery then all nail nigerien and artificial/acrylic nails must be removed from that hand or foot. 6. Avoid ALL Aspirin and non-steroidal anti-inflammatory drugs and certain vitamins (Ibuprofen, Advil, Aleve, Excedrin, Meloxicam, Celebrex, fish/krill oil, etc.) for 7 days prior to surgery as instructed by your surgeon and/or your prescribing doctor. Tylenol IS ALLOWED. If you are on Ticlid, Xarelto, Eliquis, Pradaxa, Plavix or Coumadin, please check with your prescribing doctor for instructions for when to stop them. 7. If you use an inhaler, continue to use it routinely. 8. Nothing to eat or drink (not even water, gum, mints, or hard candy!) AFTER midnight prior to your surgery. 9. Take only medications that you are instructed to on the morning of surgery with a TINY SIP OF WATER. 10. Choose a responsible adult that will be able to drive you home when you are discharged from your hospital stay for your surgery and can stay with you in your home for 24 hours after your procedure. You must NOT drive any vehicle or operate any machinery for 24 hours after surgery. 11. When you dress for your appointment, please wear loose fitting clothing that is appropriate to accommodate your surgical area procedure. BRING WITH YOU ANY DEVICES YOU MAY NEED: FLOR hose, ice machine, sling/swath, brace or special shoe, oversized zip-up or button up shirt, CPAP machine if staying overnight. 12. Do NOT wear jewelry, watches, or any piercings or metal for surgery- leave these valuables and money at home. 13. Do NOT wear contact lenses for surgery- glasses are okay if needed. 14. The anesthesiologist will talk with you the day of surgery and will ask you to sign a Consent Form. 15. Refrain from smoking or any type of tobacco use for at least 8 hours and marijuana for 24 hours prior to arrival for your surgery. 16. If a GREEN BLOOD band is given to you, please bring it with you for the day of surgery. 17. Notify your surgeon if you develop any illness before your surgery. 18. If you are staying overnight, please DO NOT BRING your home medications with you. 19. If you have any questions prior to surgery, please call the Preadmission Testing office at [phone], Mon.-Fri. 7 a.m.-3 p.m. Leave a voicemail if needed. Pre-Surgery Instructions: Medication Instructions buPROPion XL (WELLBUTRIN XL) 150 mg 24 hr tablet Stop taking 0 days prior to procedure lisinopriL (PRINIVIL,ZESTRIL) 10 mg tablet Stop taking 0 days prior to procedure metFORMIN (GLUCOPHAGE) 500 mg tablet Stop taking 0 days prior to procedure omeprazole (PriLOSEC) 40 mg capsule Stop taking 0 days prior to procedure SETLAKIN 0.15 mg-30 mcg (91) per tablet Stop taking 0 days prior to procedure triamcinolone (KENALOG) 0.1 % cream Stop taking 0 days prior to procedure How to Avoid an Infection after Your Surgery Your doctor will give you specific instructions, but remember: -ALWAYS wash hands before caring for your incision. -No picking, scratching, or rubbing your incision. -No creams, lotion, powder, rubbing alcohol or hydrogen peroxide on the incision (can harm the tissue and slow healing). -Your doctor will give you specific instructions for what type of dressing you will need and how often it will need changed for infection purposes. -No tight clothing on incision. -Do not allow anyone to touch your incision unless they are cleaning, checking, or redressing it (be sure they wash their hands first). -No contact of your incision with pets; avoid sleeping with pets. -Take full course of antibiotic if prescribed for you after surgery- do not stop unless directed to by your physician. You may also be given an antibiotic prior to your surgery to help prevent surgical site infections. -Eat a healthy and varied diet including proteins, fruits, and vegetables to help promote wound healing and keep blood sugars under control if you are diabetic. -Smoking slows the healing process by decreasing the amount of oxygen in your blood that is needed for tissue healing. Try to avoid or stop smoking if possible. LOOK at your incision each morning and each night to check the progress of healing. Some soreness, numbness, itching and/or mild bruising around the incision is normal. Call your doctor if you notice any of the following: -Increased redness or hardening around the incision area. -Increased pain at the incision site. -Incision feels hot to the touch. -Swelling or pulling apart of the incision edges. -Yellow or green drainage or foul odor coming from the incision. -Bleeding from the incision (apply pressure as needed). -Fever higher than 101 degrees Fahrenheit for more than 4 hours. SHOWERING: Your doctor will give you specific instructions, but remember: -Be careful getting into and out of the shower. -Showers should be quick (5 minutes or less). -Use a clean washcloth to gently wash your incision with soap and water and pat the area dry with a clean towel. -No re-using wash cloths or towels; get a fresh one to clean your incision. -Do not soak in the bathtub, go swimming or use a hot tub (Jacuzzi), or perform activities where your incision is submerged in water or exposed to any fluids or substances until instructed by your doctor. -If your have the sticky strips (steri-strips) over the incision, it is OK to shower with them. Do not remove them. Let them fall off on their own. If you have a question, call your doctor s office. Go to the follow-up appointment with your doctor. documented in this encounter [facility] 09-08-2024 Miscellaneous Notes Preoperative Education Checklist- General Surgery date: 09/29/24 Surgery time: 0930 a.m. Arrival time: 0730 a.m. 1. Bring a photo ID and your insurance card with you the day of surgery. You will check in at the main lobby registration desk as soon as you walk in the entrance. 2. If you have a Living Will/Durable Power of Cooker Casing for Health Care that is not on file here, please bring a copy the day of surgery. 3. Please wash your face with baby shampoo prior to procedure as instructed by your physician. 4. NO powder, lotion, perfume/cologne, aftershave, make-up, nail nigerien on at least one finger, deodorant, or hair products after you have bathed. 5. Nothing to eat or drink (not even water, gum, mints, or hard candy!) AFTER midnight prior to your surgery. 6. Take only medications that you are instructed to on the morning of surgery with a TINY SIP OF WATER. 7. If you have an inhaler, use it routinely. 8. Choose a responsible adult that will be able to drive you home when you are discharged from your hospital stay for your surgery. You must NOT drive any vehicle or operate any machinery for 24 hours after surgery. 9. When you dress for your appointment, please wear comfortable clothing. 10. Do NOT wear jewelry, watches, or any piercings or metal for surgery. 11. Do NOT wear contact lenses for surgery- glasses are okay if needed. 12. The anesthesiologist will talk with you the day of surgery and will ask you to sign a Consent Form. 13. Refrain from smoking or any type of tobacco use for at least 8 hours or marijuana for 24 hours prior to arrival for your surgery. 14. Notify your surgeon if you develop any illness before your surgery. 15. If you have any questions prior to surgery, please call the Preadmission Testing office at [phone], Mon.-Fri. 7 a.m.-3 p.m. Leave a voicemail if needed. Pre-Surgery Instructions: Medication Instructions buPROPion XL (WELLBUTRIN XL) 150 mg 24 hr tablet Stop taking 0 days prior to procedure lisinopriL (PRINIVIL,ZESTRIL) 10 mg tablet Stop taking 0 days prior to procedure metFORMIN (GLUCOPHAGE) 500 mg tablet Stop taking 0 days prior to procedure omeprazole (PriLOSEC) 40 mg capsule Stop taking 0 days prior to procedure SETLAKIN 0.15 mg-30 mcg (91) per tablet Stop taking 0 days prior to procedure triamcinolone (KENALOG) 0.1 % cream Stop taking 0 days prior to procedure How to Avoid an Infection after Your Surgery Your doctor will give you specific instructions, but remember: -ALWAYS wash hands before caring for your incision. -No picking, scratching, or rubbing your incision. -No creams, lotion, powder, rubbing alcohol or hydrogen peroxide on the incision (can harm the tissue and slow healing). -Your doctor will give you specific instructions for what type of dressing you will need and how often it will need changed for infection purposes. -No tight clothing on incision. -Do not allow anyone to touch your incision unless they are cleaning, checking, or redressing it (be sure they wash their hands first). -No contact of your incision with pets; avoid sleeping with pets. -Take full course of antibiotic if prescribed for you after surgery- do not stop unless directed to by your physician. You may also be given an antibiotic prior to your surgery to help prevent surgical site infections. -Eat a healthy and varied diet including proteins, fruits, and vegetables to help promote wound healing and keep blood sugars under control if you are diabetic. -Smoking slows the healing process by decreasing the amount of oxygen in your blood that is needed for tissue healing. Try to avoid or stop smoking if possible. LOOK at your incision each morning and each night to check the progress of healing. Some soreness, numbness, itching and/or mild bruising around the incision is normal. Call your doctor if you notice any of the following: -Increased redness or hardening around the incision area. -Increased pain at the incision site. -Incision feels hot to the touch. -Swelling or pulling apart of the incision edges. -Yellow or green drainage or foul odor coming from the incision. -Bleeding from the incision (apply pressure as needed). -Fever higher than 101 degrees Fahrenheit for more than 4 hours. SHOWERING: Your doctor will give you specific instructions, but remember: -Be careful getting into and out of the shower. -Showers should be quick (5 minutes or less). -Use a clean washcloth to gently wash your incision with soap and water and pat the area dry with a clean towel. -No re-using wash cloths or towels; get a fresh one to clean your incision. -Do not soak in the bathtub, go swimming or use a hot tub (Jacuzzi), or perform activities where your incision is submerged in water or exposed to any fluids or substances until instructed by your doctor. -If your have the sticky strips (steri-strips) over the incision, it is OK to shower with them. Do not remove them. Let them fall off on their own. If you have a question, call your doctor s office. Go to the follow-up appointment with your doctor. Preoperative Education Checklist- General Surgery date: 09/29/24 Surgery time: 929 Arrival time: 729 1. Bring a photo ID and your insurance card with you the day of surgery. You will check in at the main lobby of the [facility]- registration desk is straight ahead as soon as you walk in. Tell them you are here for surgery. 2. If you have a Living Will/Durable Power of Cooker Casing for Health Care that is not on file here, please bring a copy the day of surgery. 3. Please shower/bathe the night before surgery with the provided soap or wipes. Do not shower the morning of surgery- you will do use wipes when you arrive here at the hospital before getting into your surgical gown. Do not shave the area of your procedure for 2 days prior to your surgery. 4. NO powder, lotion, perfume/cologne, aftershave, make-up, deodorant, or hair products after you have bathed. 5. NO nail nigerien/acrylic on at least one finger. If you are having a hand, wrist or foot surgery then all nail nigerien and artificial/acrylic nails must be removed from that hand or foot. 6. Avoid ALL Aspirin and non-steroidal anti-inflammatory drugs and certain vitamins (Ibuprofen, Advil, Aleve, Excedrin, Meloxicam, Celebrex, fish/krill oil, etc.) for 7 days prior to surgery as instructed by your surgeon and/or your prescribing doctor. Tylenol IS ALLOWED. If you are on Ticlid, Xarelto, Eliquis, Pradaxa, Plavix or Coumadin, please check with your prescribing doctor for instructions for when to stop them. 7. If you use an inhaler, continue to use it routinely. 8. Nothing to eat or drink (not even water, gum, mints, or hard candy!) AFTER midnight prior to your surgery. 9. Take only medications that you are instructed to on the morning of surgery with a TINY SIP OF WATER. 10. Choose a responsible adult that will be able to drive you home when you are discharged from your hospital stay for your surgery and can stay with you in your home for 24 hours after your procedure. You must NOT drive any vehicle or operate any machinery for 24 hours after surgery. 11. When you dress for your appointment, please wear loose fitting clothing that is appropriate to accommodate your surgical area procedure. BRING WITH YOU ANY DEVICES YOU MAY NEED: FLOR hose, ice machine, sling/swath, brace or special shoe, oversized zip-up or button up shirt, CPAP machine if staying overnight. 12. Do NOT wear jewelry, watches, or any piercings or metal for surgery- leave these valuables and money at home. 13. Do NOT wear contact lenses for surgery- glasses are okay if needed. 14. The anesthesiologist will talk with you the day of surgery and will ask you to sign a Consent Form. 15. Refrain from smoking or any type of tobacco use for at least 8 hours and marijuana for 24 hours prior to arrival for your surgery. 16. If a GREEN BLOOD band is given to you, please bring it with you for the day of surgery. 17. Notify your surgeon if you develop any illness before your surgery. 18. If you are staying overnight, please DO NOT BRING your home medications with you. 19. If you have any questions prior to surgery, please call the Preadmission Testing office at [phone], Mon.-Fri. 7 a.m.-3 p.m. Leave a voicemail if needed. Pre-Surgery Instructions: Medication Instructions buPROPion XL (WELLBUTRIN XL) 150 mg 24 hr tablet Stop taking 0 days prior to procedure lisinopriL (PRINIVIL,ZESTRIL) 10 mg tablet Stop taking 0 days prior to procedure metFORMIN (GLUCOPHAGE) 500 mg tablet Stop taking 0 days prior to procedure omeprazole (PriLOSEC) 40 mg capsule Stop taking 0 days prior to procedure SETLAKIN 0.15 mg-30 mcg (91) per tablet Stop taking 0 days prior to procedure triamcinolone (KENALOG) 0.1 % cream Stop taking 0 days prior to procedure How to Avoid an Infection after Your Surgery Your doctor will give you specific instructions, but remember: -ALWAYS wash hands before caring for your incision. -No picking, scratching, or rubbing your incision. -No creams, lotion, powder, rubbing alcohol or hydrogen peroxide on the incision (can harm the tissue and slow healing). -Your doctor will give you specific instructions for what type of dressing you will need and how often it will need changed for infection purposes. -No tight clothing on incision. -Do not allow anyone to touch your incision unless they are cleaning, checking, or redressing it (be sure they wash their hands first). -No contact of your incision with pets; avoid sleeping with pets. -Take full course of antibiotic if prescribed for you after surgery- do not stop unless directed to by your physician. You may also be given an antibiotic prior to your surgery to help prevent surgical site infections. -Eat a healthy and varied diet including proteins, fruits, and vegetables to help promote wound healing and keep blood sugars under control if you are diabetic. -Smoking slows the healing process by decreasing the amount of oxygen in your blood that is needed for tissue healing. Try to avoid or stop smoking if possible. LOOK at your incision each morning and each night to check the progress of healing. Some soreness, numbness, itching and/or mild bruising around the incision is normal. Call your doctor if you notice any of the following: -Increased redness or hardening around the incision area. -Increased pain at the incision site. -Incision feels hot to the touch. -Swelling or pulling apart of the incision edges. -Yellow or green drainage or foul odor coming from the incision. -Bleeding from the incision (apply pressure as needed). -Fever higher than 101 degrees Fahrenheit for more than 4 hours. SHOWERING: Your doctor will give you specific instructions, but remember: -Be careful getting into and out of the shower. -Showers should be quick (5 minutes or less). -Use a clean washcloth to gently wash your incision with soap and water and pat the area dry with a clean towel. -No re-using wash cloths or towels; get a fresh one to clean your incision. -Do not soak in the bathtub, go swimming or use a hot tub (Jacuzzi), or perform activities where your incision is submerged in water or exposed to any fluids or substances until instructed by your doctor. -If your have the sticky strips (steri-strips) over the incision, it is OK to shower with them. Do not remove them. Let them fall off on their own. If you have a question, call your doctor s office. Go to the follow-up appointment with your doctor. Hibiclens and surgical instructions reviewed. Patient and her mother verbalized understanding. documented in this encounter [facility] 09-08-2024 Nurse Note Preoperative Education Checklist- General Surgery date: 09/29/24 Surgery time: 0930 a.m. Arrival time: 0730 a.m. 1. Bring a photo ID and your insurance card with you the day of surgery. You will check in at the main lobby registration desk as soon as you walk in the entrance. 2. If you have a Living Will/Durable Power of Cooker Casing for Health Care that is not on file here, please bring a copy the day of surgery. 3. Please wash your face with baby shampoo prior to procedure as instructed by your physician. 4. NO powder, lotion, perfume/cologne, aftershave, make-up, nail nigerien on at least one finger, deodorant, or hair products after you have bathed. 5. Nothing to eat or drink (not even water, gum, mints, or hard candy!) AFTER midnight prior to your surgery. 6. Take only medications that you are instructed to on the morning of surgery with a TINY SIP OF WATER. 7. If you have an inhaler, use it routinely. 8. Choose a responsible adult that will be able to drive you home when you are discharged from your hospital stay for your surgery. You must NOT drive any vehicle or operate any machinery for 24 hours after surgery. 9. When you dress for your appointment, please wear comfortable clothing. 10. Do NOT wear jewelry, watches, or any piercings or metal for surgery. 11. Do NOT wear contact lenses for surgery- glasses are okay if needed. 12. The anesthesiologist will talk with you the day of surgery and will ask you to sign a Consent Form. 13. Refrain from smoking or any type of tobacco use for at least 8 hours or marijuana for 24 hours prior to arrival for your surgery. 14. Notify your surgeon if you develop any illness before your surgery. 15. If you have any questions prior to surgery, please call the Preadmission Testing office at [phone], Mon.-Fri. 7 a.m.-3 p.m. Leave a voicemail if needed. Pre-Surgery Instructions: Medication Instructions buPROPion XL (WELLBUTRIN XL) 150 mg 24 hr tablet Stop taking 0 days prior to procedure lisinopriL (PRINIVIL,ZESTRIL) 10 mg tablet Stop taking 0 days prior to procedure metFORMIN (GLUCOPHAGE) 500 mg tablet Stop taking 0 days prior to procedure omeprazole (PriLOSEC) 40 mg capsule Stop taking 0 days prior to procedure SETLAKIN 0.15 mg-30 mcg (91) per tablet Stop taking 0 days prior to procedure triamcinolone (KENALOG) 0.1 % cream Stop taking 0 days prior to procedure How to Avoid an Infection after Your Surgery Your doctor will give you specific instructions, but remember: -ALWAYS wash hands before caring for your incision. -No picking, scratching, or rubbing your incision. -No creams, lotion, powder, rubbing alcohol or hydrogen peroxide on the incision (can harm the tissue and slow healing). -Your doctor will give you specific instructions for what type of dressing you will need and how often it will need changed for infection purposes. -No tight clothing on incision. -Do not allow anyone to touch your incision unless they are cleaning, checking, or redressing it (be sure they wash their hands first). -No contact of your incision with pets; avoid sleeping with pets. -Take full course of antibiotic if prescribed for you after surgery- do not stop unless directed to by your physician. You may also be given an antibiotic prior to your surgery to help prevent surgical site infections. -Eat a healthy and varied diet including proteins, fruits, and vegetables to help promote wound healing and keep blood sugars under control if you are diabetic. -Smoking slows the healing process by decreasing the amount of oxygen in your blood that is needed for tissue healing. Try to avoid or stop smoking if possible. LOOK at your incision each morning and each night to check the progress of healing. Some soreness, numbness, itching and/or mild bruising around the incision is normal. Call your doctor if you notice any of the following: -Increased redness or hardening around the incision area. -Increased pain at the incision site. -Incision feels hot to the touch. -Swelling or pulling apart of the incision edges. -Yellow or green drainage or foul odor coming from the incision. -Bleeding from the incision (apply pressure as needed). -Fever higher than 101 degrees Fahrenheit for more than 4 hours. SHOWERING: Your doctor will give you specific instructions, but remember: -Be careful getting into and out of the shower. -Showers should be quick (5 minutes or less). -Use a clean washcloth to gently wash your incision with soap and water and pat the area dry with a clean towel. -No re-using wash cloths or towels; get a fresh one to clean your incision. -Do not soak in the bathtub, go swimming or use a hot tub (Jacuzzi), or perform activities where your incision is submerged in water or exposed to any fluids or substances until instructed by your doctor. -If your have the sticky strips (steri-strips) over the incision, it is OK to shower with them. Do not remove them. Let them fall off on their own. If you have a question, call your doctor s office. Go to the follow-up appointment with your doctor. [facility] 09-08-2024 Nurse Note Preoperative Education Checklist- General Surgery date: 09/29/24 Surgery time: 929 Arrival time: 729 1. Bring a photo ID and your insurance card with you the day of surgery. You will check in at the main lobby of the [facility]- registration desk is straight ahead as soon as you walk in. Tell them you are here for surgery. 2. If you have a Living Will/Durable Power of Cooker Casing for Health Care that is not on file here, please bring a copy the day of surgery. 3. Please shower/bathe the night before surgery with the provided soap or wipes. Do not shower the morning of surgery- you will do use wipes when you arrive here at the hospital before getting into your surgical gown. Do not shave the area of your procedure for 2 days prior to your surgery. 4. NO powder, lotion, perfume/cologne, aftershave, make-up, deodorant, or hair products after you have bathed. 5. NO nail nigerien/acrylic on at least one finger. If you are having a hand, wrist or foot surgery then all nail nigerien and artificial/acrylic nails must be removed from that hand or foot. 6. Avoid ALL Aspirin and non-steroidal anti-inflammatory drugs and certain vitamins (Ibuprofen, Advil, Aleve, Excedrin, Meloxicam, Celebrex, fish/krill oil, etc.) for 7 days prior to surgery as instructed by your surgeon and/or your prescribing doctor. Tylenol IS ALLOWED. If you are on Ticlid, Xarelto, Eliquis, Pradaxa, Plavix or Coumadin, please check with your prescribing doctor for instructions for when to stop them. 7. If you use an inhaler, continue to use it routinely. 8. Nothing to eat or drink (not even water, gum, mints, or hard candy!) AFTER midnight prior to your surgery. 9. Take only medications that you are instructed to on the morning of surgery with a TINY SIP OF WATER. 10. Choose a responsible adult that will be able to drive you home when you are discharged from your hospital stay for your surgery and can stay with you in your home for 24 hours after your procedure. You must NOT drive any vehicle or operate any machinery for 24 hours after surgery. 11. When you dress for your appointment, please wear loose fitting clothing that is appropriate to accommodate your surgical area procedure. BRING WITH YOU ANY DEVICES YOU MAY NEED: FLOR hose, ice machine, sling/swath, brace or special shoe, oversized zip-up or button up shirt, CPAP machine if staying overnight. 12. Do NOT wear jewelry, watches, or any piercings or metal for surgery- leave these valuables and money at home. 13. Do NOT wear contact lenses for surgery- glasses are okay if needed. 14. The anesthesiologist will talk with you the day of surgery and will ask you to sign a Consent Form. 15. Refrain from smoking or any type of tobacco use for at least 8 hours and marijuana for 24 hours prior to arrival for your surgery. 16. If a GREEN BLOOD band is given to you, please bring it with you for the day of surgery. 17. Notify your surgeon if you develop any illness before your surgery. 18. If you are staying overnight, please DO NOT BRING your home medications with you. 19. If you have any questions prior to surgery, please call the Preadmission Testing office at [phone], Mon.-Fri. 7 a.m.-3 p.m. Leave a voicemail if needed. Pre-Surgery Instructions: Medication Instructions buPROPion XL (WELLBUTRIN XL) 150 mg 24 hr tablet Stop taking 0 days prior to procedure lisinopriL (PRINIVIL,ZESTRIL) 10 mg tablet Stop taking 0 days prior to procedure metFORMIN (GLUCOPHAGE) 500 mg tablet Stop taking 0 days prior to procedure omeprazole (PriLOSEC) 40 mg capsule Stop taking 0 days prior to procedure SETLAKIN 0.15 mg-30 mcg (91) per tablet Stop taking 0 days prior to procedure triamcinolone (KENALOG) 0.1 % cream Stop taking 0 days prior to procedure How to Avoid an Infection after Your Surgery Your doctor will give you specific instructions, but remember: -ALWAYS wash hands before caring for your incision. -No picking, scratching, or rubbing your incision. -No creams, lotion, powder, rubbing alcohol or hydrogen peroxide on the incision (can harm the tissue and slow healing). -Your doctor will give you specific instructions for what type of dressing you will need and how often it will need changed for infection purposes. -No tight clothing on incision. -Do not allow anyone to touch your incision unless they are cleaning, checking, or redressing it (be sure they wash their hands first). -No contact of your incision with pets; avoid sleeping with pets. -Take full course of antibiotic if prescribed for you after surgery- do not stop unless directed to by your physician. You may also be given an antibiotic prior to your surgery to help prevent surgical site infections. -Eat a healthy and varied diet including proteins, fruits, and vegetables to help promote wound healing and keep blood sugars under control if you are diabetic. -Smoking slows the healing process by decreasing the amount of oxygen in your blood that is needed for tissue healing. Try to avoid or stop smoking if possible. LOOK at your incision each morning and each night to check the progress of healing. Some soreness, numbness, itching and/or mild bruising around the incision is normal. Call your doctor if you notice any of the following: -Increased redness or hardening around the incision area. -Increased pain at the incision site. -Incision feels hot to the touch. -Swelling or pulling apart of the incision edges. -Yellow or green drainage or foul odor coming from the incision. -Bleeding from the incision (apply pressure as needed). -Fever higher than 101 degrees Fahrenheit for more than 4 hours. SHOWERING: Your doctor will give you specific instructions, but remember: -Be careful getting into and out of the shower. -Showers should be quick (5 minutes or less). -Use a clean washcloth to gently wash your incision with soap and water and pat the area dry with a clean towel. -No re-using wash cloths or towels; get a fresh one to clean your incision. -Do not soak in the bathtub, go swimming or use a hot tub (myDrugCostsuzzi), or perform activities where your incision is submerged in water or exposed to any fluids or substances until instructed by your doctor. -If your have the sticky strips (steri-strips) over the incision, it is OK to shower with them. Do not remove them. Let them fall off on their own. If you have a question, call your doctor s office. Go to the follow-up appointment with your doctor. [facility] 09-08-2024 Nurse Note Hibiclens and surgical instructions reviewed. Patient and her mother verbalized understanding. [facility] 09-01-2024 Miscellaneous Notes Patient scheduled for surgery with Dr. Almeida on 09/29/24 at 9:30am with hospital arrival of 7:30am. PAT scheduled on 09/08/24 at 1:30pm. Patient notified of all dates and times. Surgery information letter mailed to Patient. documented in this encounter [facility] 09-01-2024 Telephone encounter Note Patient scheduled for surgery with Dr. Almeida on 09/29/24 at 9:30am with hospital arrival of 7:30am. PAT scheduled on 09/08/24 at 1:30pm. Patient notified of all dates and times. Surgery information letter mailed to Patient. [facility] 08-31-2024 History of Presen t illness Narrative Preoperative history and physical for diagnostic laparoscopy HPI: Chronic pelvic pain, dyspareunia, dysmenorrhea Subjective Patient ID: Purvi Dee is a 24 y.o. female who presents today for preoperative examination for a diagnostic laparoscopy, possible biopsy/fulguration of endometriosis if found. Patient has chronic pelvic pain. She has pain with intercourse. She has painful menses. She has been on 90 day OCPs to help treat her symptoms, but has not noticed an improvement. She has negative pelvic ultrasound and negative labs. Chief Complaint: Chronic pelvic pain nonresponsive to medications Menstrual History: OB History No obstetric history on file. Patient's last menstrual period was 08/28/2024 (within days). The following portions of the patient's history were reviewed and updated as appropriate: allergies, current medications, past family history, past medical history, past social history, past surgical history, problem list, and medication reconciliation was completed including current medication and post discharge medication. Review of Systems Constitutional: negative Respiratory: negative Cardiovascular: Recently diagnosed with hypertension on medications Gastrointestinal: Has GERD on omeprazole Genitourinary: Pelvic pain chronic as above Neurological: negative Behavioral/Psych: History of anxiety depression Endocrine: History PCOS on metformin Past medical history: GERD Hypertension Depression/anxiety PCOS Past surgical history: None Medications: Wellbutrin XL 150 mg Q 24 Lisinopril 10 mg p.o. q.day Glucophage 500 mg p.o. q.day Prilosec 40 mg p.o. q.day Allergies: None Objective BP (!) 124/92 Ht 167.6 cm (5' 6 ) Wt 110.4 kg (243 lb 6.4 oz) LMP 08/28/2024 (Within Days) BMI 39.29 kg/m General: alert, appears stated age, and cooperative Heart: regular rate and rhythm, S1, S2 normal, no murmur, click, rub or gallop Lungs: clear to auscultation bilaterally Abdomen: soft, non-tender, without masses or organomegaly Assessment 1. Preoperative exam for gynecologic surgery 2. Chronic pelvic pain in female 3. Dysmenorrhea 4. Menorrhagia with irregular cycle Plan We discussed risks versus benefits and alternatives to laparoscopic procedures. Diagnostic laparoscopy involves inserting a small camera through the umbilicus with 1-2 other port sites lower in the abdomen. Patient aware of risks to include pain, infection, bleeding, injury to bowel, bladder, blood vessels, nerves, ureters, bladder, uterus, tubes, ovaries. Patient has no objections to receiving blood products should she need them. Consents were reviewed all questions were answered and consents were signed. Will schedule for diagnostic laparoscopy, possible biopsies, possible fulguration of endometriosis. documented in this encounter [facility] 08-06-2024 Miscellaneous Notes Call to pt. To discuss results. Pt. Advised Vaginitis panel negative and GC/CT pending. Pt. Verbalized understanding. documented in this encounter [facility] 08-06-2024 Telephone encounter Note Call to pt. To discuss results. Pt. Advised Vaginitis panel negative and GC/CT pending. Pt. Verbalized understanding. [facility] Work Phone: 08-05-2024 History of Presen t illness Narrative Subjective Patient ID: Purvi Dee is a 24 y.o. female who presents today with her mother as a new patient. Pt has concerns with being able to feel a bump in the top of her vagina. She was recently seen by the health department and had swabs collected, and was told to follow up with a ACUTE COORDINATOR. She is on a 90 day OCP to help with her PCOS symptoms. She does report pelvic pain that is chronic. She states she can just be walking and have pain shoot through her sides. She did just have a pelvic US in [place]. She states that she is interested in [...] with results 2. Pelvic ultrasound performed at [place] was reviewed. Patient has a normal-size, normal-shaped uterus, with a 6 mm endometrium, normal-sized right and left ovaries with functional follicles, and no grossly abnormal findings. 3. We did review with patient that an elective hysterectomy at 24 years of age is not the procedure we would be willing to do, and we then likely would not be a procedure most brands editor would be willing to do for a [...] the ovaries at 24 would result in retirement health detriments. Patient voices understanding. We will [...] a future date. documented in this encounter [facility] 07-12-2024 Miscellaneous Notes Referral received from AISSATOU Foley at [facility] to be seen for palpable lump in vaginal canal. Pt was seen in [place] ED & had transvaginal U/S done. Need date of visit to obtain visit notes & U/S. LVM for Pt to call Office to schedule appointment. Pt returned call & is scheduled with Dr. Almeida on 08/05/24 in [facility] Office. Pt states she was seen at [facility] on 06/28/24 for U/S. Spoke with Lety in HIM at [facility] to request ultrasound done on 06/28/24. Ultrasound received & scanned into Media. documented in this encounter [facility] 07-12-2024 Telephone encounter Note Referral received from AISSATOU Foley at [facility] to be seen for palpable lump in vaginal canal. Pt was seen in [place] ED & had transvaginal U/S done. Need date of visit to obtain visit notes & U/S. LVM for Pt to call Office to schedule appointment. [facility] 07-12-2024 Telephone encounter Note Pt returned call & is scheduled with Dr. Almeiad on 08/05/24 in [facility] Office. Pt states she was seen at [facility] on 06/28/24 for U/S. [facility] 07-12-2024 Telephone encounter Note Spoke with Lety in HIM at [facility] to request ultrasound done on 06/28/24. [facility] 07-12-2024 Telephone encounter Note Ultrasound received & scanned into Media. [facility] 06-18-2024 Evaluation note Diagnosis Onset Date Resolution Low back strain acute June 182024 11:00am [facility] Work Phone: Evaluation note* Diagnosis Onset Date Resolution Status Admit Date Low back strain acute June 182024 11:00am [facility] Work Phone: Evaluation note* Diagnosis Pelvic pain- Primary Screening for cervical cancer Screening for malignant neoplasm of the cervix Screen for STD (sexually transmitted disease) Screening examination for venereal disease Friable cervix Vaginal discharge Leukorrhea, not specified as infective PCOS (polycystic ovarian syndrome) Polycystic ovaries documented [facility]* Diagnosis Preoperative exam for gynecologic surgery- Primary Chronic pelvic pain in female Unspecified symptom associated with female genital organs Dysmenorrhea Menorrhagia with irregular cycle [facility]* Diagnosis Preop examination- Primary Unspecified pre-operative examination Hypertension, unspecified type PCOS (polycystic ovarian syndrome) Polycystic ovaries Preop examination Unspecified pre-operative examination Hypertension, unspecified type PCOS (polycystic ovarian syndrome) Polycystic ovaries [facility]* Diagnosis Dysmenorrhea- Primary Chronic pelvic pain in female Unspecified symptom associated with female genital organs Menorrhagia with irregular cycle Pelvic congestion Pelvic congestion syndrome [facility]* Diagnosis Routine follow-up- Primary Pelvic congestion Pelvic congestion syndrome Vaginal discharge Leukorrhea, not specified as infective documented [facility]* Diagnosis Palpitations- Primary 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 * Polycystic ovary syndrome ([place]) * Chronic pelvic pain in females ([place]) [facility] System[facility]ructionsNot on file documented [facility]* Attachments The following attachments cannot be sent through Care Everywhere. * Minimally invasive surgery ([place]) * Endometriosis ([place]) documented in this [facility] SystemInstructionsNot on file documented in this encounterS[facility] SystemInstructionsNot on file documented in this encounterS[facility] SystemInstructionsNot on file documented in this encounterS[facility] SystemInstructionsNot on file [facility] Purpose Family History No Family History Records Found Relationship Condition Age at Onset Recorded Date/T clary mother Hypothyroidism Unknown father Diabetes mellitus Unknown Advance Directives No Advanced Directives Records Found Advance Directive Response Recorded Date/ Time Advance Directives No June 18, 2024 10:58am Advance Directive Response Recorded Date/ Time Advance Directives No June 18, 2024 11:58am Chief Complaint and Reason for Visit Chief Complaint Admit Date Lower right back pain June 18, 2024 11:00am Unknown August 17, 2024 10:4 0am Reason for Visit Admit Date Low back strain June 18, 2024 11 :00am Chief Complaint Admit Date Lower right back pain June 18, 2024 11:00am Additional Source Comments INFORMATION SOURCE (unrecogn ized section and content) DATE CREATED AUTHOR 06/14/2022 [facility] DATE CREATED AUTHOR AUTHOR'S ORGANIZ ATION 08/19/2024 [facility] DATE CREATED AUTHOR AUTHOR'S ORGANIZ ATION 11/19/2024 [facility] DATE CREATED AUTHOR AUTHOR'S ORGANIZ ATION 01/05/2025 [facility] DATE CREATED AUTHOR AUTHOR'S ORGANIZ ATION 01/26/2025 [facility] Care Teams (unrecognized sec tion and content) Team Status: Active Member Role Status Dates Camille Garces MD Primary Care Provider Active Team Status: Inactive Member Role Status Dates Cassie Linda APRN Attending Provider Active Start: June 18, 2024 End: June 18, 2024 Camille Garces MD Primary Care Provider Active Start: June 18, 2024 End: June 18, 2024 [employer] Relationship Specialty Start Date End Date Camille Garces MD PCP - General Family Medicine 09/04/20 [employer] Relationship Specialty Start Date End Date Camille Garces MD PCP - General Family Medicine 09/04/20 [employer] Relationship Specialty Start Date End Date Camille Garces MD PCP - General Family Medicine 09/04/20 Team Status: Inactive Member Role Status Dates Johnny Pay , DO Attending Provider Active Start : August 17, 2024 End: August 17, 2024 [employer] Relationship Specialty Start Date End Date Camille Garces MD PCP - General Family Medicine 09/04/20 [employer] Relationship Specialty Start Date End Date Camille Garces MD PCP - General Family Medicine 09/04/20 [employer] Relationship Specialty Start Date End Date Camille Garces MD PCP - General Family Medicine 09/04/20 [employer] Relationship Specialty Start Date End Date Camille Garces MD PCP - General Family Medicine 09/04/20 [employer] Relationship Specialty Start Date End Date Camille Garces MD PCP - General Family Medicine 10/09/24 [employer] Relationship Specialty Start Date End Date Camille Garces MD PCP - General Family Medicine 10/09/24 [employer] Relationship Specialty Start Date End Date Camille Garces MD PCP - General Family Medicine 10/09/24 Goals (unrecognized section and content) Goals may be documented in a n alternate sectionNot on filedocumented as of this encounterNot on filedocumented as of this encounterNot on filedocumented as of this encounterGoals may be documented in an alternate sectionNot on filedocumented as of this encounterNot on filedocumented as of this encounterNot on filedocumented as of this encounterNot on filedocumented as of this encounterNot on filedocumented as of this encounterNot on filedocumented as of this encounterNot on filedocumented as of this encounter Reason for Visit (unrecogniz ed section and content) Reason Comments Follow-up Follow-up Testing: P ap Negative, GC/CT Negative, Vnap Negative. Pt has PCOS, desires to have everything removed. Patient is OK with proceeding forward with Dx Laparoscopy to determine cause for Pelvic Pain. Reason Comments Follow-up Patient presents for 2 week Surgery follow-up. 09/29/24 pt completed a Dx Lap for chronic pelvic pain. On 10/09/24, she was seen in ER for increased redness and swelling at surgical incision site, right side of abdomen. She was given Keflex x 10 days. She is taking it twice daily, but doesn't feel redness/swelling has changed much. Denies any pain/fever/chills. Endorses some nausea, but no vomiting. 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 [employer] provides no warranty or guarantee of the accuracy or completeness of information in this document.
== END 2025-02-01 19:49 | disposition home or self-care (01) ==
PROVIDERS: PCP Family Medicine; Visit Provider Family Medicine
DX: G47.33 Obstructive sleep apnea (adult) (pediatric) (principal); R53.83 Other fatigue; R23.2 Flushing
CPT/HCPCS: 95810

== ENCOUNTER 2025-03-02 19:45 | Outpatient (OUT) | payer OTHER, SELFPAY ==
--- OUTSIDE RECORDS SUMMARY | 2025-03-02 19:51 | XMS_ITS | CCD ---
Author Organization 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 Role Phone KRYSTAL NICOLAS Admitting Unavailable KRYSTAL NICOLAS Attending Unavailable ONIEL, DR OBRIEN Primary Care Unavailable KRYSTAL NICOLAS Consulting Unavailable ONIEL, DR OBRIEN Admitting Unavailable HOY, DR OBRIEN [...] Unavailable Camille Garces MD Primary Care Provider [phone] Johnny Galloway Attending Unavailable Johnny Galloway Admrogerio Unavailable Johnny Galloway DO Attending Provider Camille Garces MD Primary Care Provider [phone] Camille Garces MD Primary Care Provider [phone] FATOU ALMEIDAYA L Referring Unavailable HOY, CAMILLE [...] Admitting Unavailable ALMEIDA, BRITTNEY L Attending Unavailable JUAN PABLO, BRITTNEY L Referring Unavailable HOY, CAMILLE M Primary Care Unavailable CINTHIA PEREA Attending Unavailable HOSemaj CAMILLE M Primary Care Unavailable ONIEL CAMILLE M Primary Care Unavailable JARAD HERNANDEZ Attending Unavailable JARAD HERNANDEZ Referring Unavailable HOY, CAMILLE M Primary Care Unavailable Hoy MD, Camille M Primary Care Provider [phone] JARAD HERNANDEZ Referring Unavailable CAMILLE GARCES Primary Care Unavailable BRITTNEY ALMEIDA Attending Unavailable CAMILLE GARCES Referring Unavailable CAMILLE GARCES Primary Care Unavailable BRITTNEY ALMEIDA Attending Unavailable CAMILLE GARCES Referring Unavailable CAMILLE GARCES Primary Care Unavailable BRITTNEY ALMEIDA Attending Unavailable CAMILLE GARCES Referring Unavailable CAMILLE GARCES Primary Care Unavailable JARAD HERNANDEZ Attending Unavailable BRITTNEY ALMEIDA Referring Unavailable CAMILLE GARCES Primary Care Unavailable JARAD HERNANDEZ Attending Unavailable CAMILLE GARCES Referring Unavailable CAMILLE GARCES Primary Care Unavailable [...] hydrochloride 150 mg extended release oral tablet (13 sources) Aminoketone Start: 06-18-2024 take 1 tablet by mouth every twenty-four hours Bupropion Hcl 150 mg tablet extended release 24 hr Active MG PO June 18, 2024 1:00am Start: 04-25-2022 take 1 tablet by marcos once daily buPROPion (WELLBUTRIN XL) 150 MG extended release tablet take 1 tablet by mouth once daily 04/25/2022 Active cephalexin 500 mg oral capsule (1 [...] 18, 2024 1:00am Ethinyl Estradiol / Levonorgestrel (12 sources) Progestin, Estrogen, Progestin-containi ng Intrauterine Device [...] 10/12/2024 Active ibuprofen 800 mg oral tablet (5 sources) Nonsteroidal Anti-inflammatory Drug Start: 09-29-2024 take 1 tablet by mouth every eight hours as needed for pain ibuprofen (MOTRIN) 800 mg tablet Take 1 tablet (800 mg total) by mouth every 8 (eight) hours as needed for pain. 60 tablet 2 09/29/2024 Active lisinopril 20 mg oral tablet (12 sources) Angiotensin Converting Enzyme Inhibitor Start: 09-28-2024 [...] Active metFORMIN hydrochloride 500 mg oral tablet (13 sources) Biguanide Start: 04-30-2022 Metformin 500 mg tablet Active MG PO June 18, 2024 1:00am naproxen 500 mg oral tablet (2 sources) Nonsteroidal Anti-inflammatory Drug Start: 06-18-2024 take 1 tablet by mouth twice daily as needed for pain Naproxen 500 mg tablet Active 500 MG PO Twice daily as needed for pain 30 15 June 18, 2024 1:00am omeprazole 40 mg delayed release oral capsule (13 sources) Proton Pump Inhibitor Start: 05-11-2022 Omeprazole 40 mg capsule,delayed release(DR/EC) Active MG PO June 18, 2024 1:00am triamcinolone acetonide 1 mg/ml topical cream (10 sources) Corticosteroid Start: 08-02-2024 triamcinolone (KENALOG) 0.1 % cream 08/02/2024 Active Completed/Discontinued Medications Medication Drug Class(es) Dates Sig (Normalized) Sig (Original) nitroglycerin 0.3 mg sublingual tablet (1 source) Nitrate Vasodilator Start: 02-18-2025 End: 02-18-2025 take 1 tablet under the tongue once as needed 0.3 mg, SubLINGual, IMG ONCE PRN, 1 dose, Starting on Fri02/18/25 at 1512, Until Fri02/18/25 at 1514, tilt table test, Place 1 tablet under tongue upon chest pain, wait 5 minutes and may repeat up to 3 doses in 15 minutes. Do not crush or break. 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] Onset: 01-03-2025 01-13-2025 Chronic Cardiac dysrhythmias (6 sources) Palpitations; Translations: [Palpitations] Onset: 01-03-2025 01-13-2025 [...] varices; Translations: [Pelvic varices] 01-03-2025 Episodic Other diseases of veins and lymphatics (1 source) Pelvic varices; Translations: [Pelvic varices] Onset: 01-03-2025 Episodic Other endocrine disorders (8 sources) Polycystic ovary syndrome; Translations: [Polycystic ovarian [...] organs and menstrual cycle] 09-30-2024 Episodic Other nervous system disorders (2 sources) Other chronic pain; Translations: [Other chronic pain] Onset: 08-31-2024 Chronic Sprains and strains (4 sources) Low back strain; Translations: [Strain of muscle, fascia and tendon of lower back, initial encounter] 06-18-2024 Episodic Unclassified (1 source) CONTACT W/AND (SUSP) EXPOS COVID-19; Translations: [CONTACT W/AND (SUSP) EXPOS COVID-19] Onset: 11-19-2021 Unclassified (3 sources) COUGH, UNSPECIFIED; Translations: [COUGH, UNSPECIFIED] Onset: 11-19-2021 Unclassified (1 source) Wound Check Onset: 10-09-2024 Unclassified (1 source) chronic pelvic pain Onset: 09-29-2024 Unclassified (1 source) Circulatory Problem Onset: 01-03-2025 Past or Other Problems Problem Classification Problem Date Documented Date Episodic/Chronic Abdominal pain (10 sources) Pain in pelvis; Translations: [Pelvic and perineal pain] Onset: 08-05-2024 08-05-2024 Episodic Immunizations and screening for infectious disease (4 sources) Patient encounter status; Translations: [Encounter for screening for infections with a predominantly sexual mode of transmission] Onset: 08-05-2024 08-05-2024 Episodic Other female genital disorders (2 sources) Other specified conditions associated with female genital organs and menstrual cycle; Translations: [Other specified conditions associated with female genital organs and menstrual cycle] Onset: 10-12-2024 Episodic Other female genital disorders (2 sources) [...] acute postprocedural pain] Onset: 09-29-2024 Episodic Other and delivery including normal (1 source) Encounter for routine follow-up; Translations: [Encounter for routine follow-up] Onset: 10-12-2024 Episodic Other screening for suspected conditions (not [...] Tabares MD on 01/25/2025 9:48 AM Normal [facility] MR MRV ABDOMEN PELVIC CONGES TION W [...] Kayleigh Vazquez MD on 11/18/2024 11:16 AM [facility] MR MRV PELVIS PELVIC CONGEST ION W [...] Vazquez MD on 11/18/2024 11:15 AM Normal [facility] POCT , URINE (NUCG) on 09-29-2024 Beta HCG ( test) Ql (U) Negative Normal Negative [facility] Comment on above: Performed By: #### N UCG #### [facility] [address] [place] [address]. [place] [address] VIR ECG 12 leadon 09-09-2024 TRACEMASTERVUE [facility] BASIC METABOLIC PANLon 03-26 -2025 Anion gap [Moles/Vol] 12 mmol/L Normal 5-15 [facility] Comment on above: Performed By: #### B FELIPE PANDYA #### [facility] ([id number]) [address], [address] [place] [address] Calcium [Mass/Vol] 9.3 mg/dL Normal 8.5-10.5 [facility] Comment on above: Performed By: #### B YA, CBCA #### [facility] ([id number]) [address] [place] [address] Chloride [Moles/Vol] 101 mmol/L Normal 98-109 [facility] Comment on above: Performed By: #### B YA CBCA #### [facility] ([id number]) [address], [address] [place] [address] CO2 [Moles/Vol] 27 mmol/L Normal 22-32 [facility] Comment on above: Performed By: #### B YA CBCWilliam #### [facility] ([id number]) [address], [address] [place] [address] Creatinine [Mass/Vol] 0.76 mg/dL Normal 0.40-1.00 [facility] Comment on above: Result Comment: METH OD TRACEABLE TO IDMS STANDARD Performed By: #### B FELIPE PANDYA #### [facility] ([id number]) [address], [address] [place] [address] eGFR (CKD-EPI) NON-RACE DEPENDENT >90 Normal >59 [facility] Comment on above: Result Comment: Reported eGFR is based on the CKD-EPI 2020 equation that does not use a race coefficient. Performed By: #### B YA CBCA #### [facility] ([id number]) [address], [address] [place] [address] Glucose [Mass/Vol] 87 mg/dL Normal 65-99 [facility] Comment on above: Performed By: #### B YA, CBCA #### [facility] ([id number]) [address], [address] [place] [address] Potassium [Moles/Vol] 3.9 mmol/L Normal 3.5-5.0 [facility] Comment on above: Performed By: #### B MP, CBCA #### [facility] ([id number]) [address], [address] [place] [address] Sodium [Moles/Vol] 140 mmol/L Normal 134-146 [facility] Comment on above: Performed By: #### B YA, CBCA #### [facility] ([id number]) [address], [address] [place] [address] Urea nitrogen [Mass/Vol] 12 mg/dL Normal 5-23 [facility] Comment on above: Performed By: #### B YA, CBCA #### [facility] ([id number]) [address], [address] [place] [address] Basic Metabolic Panelon 08-15 Anion gap [Moles/Vol] 12 mmol/L 5 - 15 mmol/L [facility] Calcium [Mass/Vol] 9.3 mg/dL 8.5 - 10. 5 mg/dL [facility] Chloride [Moles/Vol] 101 mmol/L 98 - 109 mmol/L [facility] CO2 [Moles/Vol] 27 mmol/L 22 - 32 mmol/L [facility] Creatinine [Mass/Vol] 0.76 mg/dL 0.40 - 1.00 mg/dL [facility] Comment on above: METHOD TRACEABLE TO IDMS STANDARD eGFR (CKD-EPI)non-race dependent - PINF [facility] Comment on above: Reported eGFR is based on the CKD-EPI 2020 equation that does not use a race coefficient. Glucose [Mass/Vol] 87 mg/dL 65 - 99 mg/dL [facility] Potassium [Moles/Vol] 3.9 mmol/L 3.5 - 5.0 mmol/L [facility] Sodium [Moles/Vol] 140 mmol/L 134 - 146 mmol/L [facility] Urea nitrogen [Mass/Vol] 12 mg/dL 5 - 23 mg/dL [facility] CBC AND AUTO DIFFon 09-09-19 ABSOLUTE BASOPHIL 0.1 X10E9/L Normal 0.0-0.2 [facility] Comment on above: Performed By: #### B MP, CBCA #### [facility] ([id number]) [address], [address] [place] [address] ABSOLUTE NEUTROPHIL 6.2 X10E9/L Normal 1.5-6.6 [facility] Comment on above: Performed By: #### B YA, CBCA #### [facility] ([id number]) [address], [address] [place] [address] Basophils/100 WBC (Bld) 0.6 % Normal [facility] Comment on above: Performed By: #### B MP, CBCA #### [facility] ([id number]) [address] [place] [address] Eosinophils (Bld) [#/Vol] 0.2 10*3/uL Normal 0.0-0.4 [facility] Comment on above: Performed By: #### B MP, CBCA #### [facility] ([id number]) [address] [address] [place] [address] Eosinophils/100 WBC (Bld) 1.8 % Normal [facility] Comment on above: Performed By: #### B MP, CBCA #### [facility] ([id number]) [address] [place] [address] Erythrocyte distribution width (RBC) [Ratio] 14.5 % Normal 11.5-15.0 [facility] Comment on above: Performed By: #### B MP, CBCA #### [facility] ([id number]) [address] [place] [address] Hematocrit (Bld) [Volume fraction] 40.7 % Normal 35-47 [facility] Comment on above: Performed By: #### B YA, CBCA #### [facility] ([id number]) [address], [address] [place] [address] Hemoglobin (Bld) [Mass/Vol] 13.4 g/dL Normal 11.7-15.5 [facility] Comment on above: Performed By: #### B YA, CBCA #### [facility] ([id number]) [address], [address] [place] [address] Lymphocytes (Bld) [#/Vol] 2.8 10*3/uL Normal 1.0-3.5 [facility] Comment on above: Performed By: #### B YA, CBCA #### [facility] ([id number]) [address], [address] [place] [address] Lymphocytes/100 WBC (Bld) 28.2 % Normal [facility] Comment on above: Performed By: #### B YA, CBCA #### [facility] ([id number]) [address] [place] [address] MCH (RBC) [Entitic mass] 27.2 pg Normal 27-34 [facility] Comment on above: Performed By: #### B YA, CBCA #### [facility] ([id number]) [address], [address] [place] [address] MCHC (RBC) [Mass/Vol] 33.0 g/dL Normal 32-36 [facility] Comment on above: Performed By: #### B YA, CBCA #### [facility] ([id number]) [address], [address] [place] [address] MCV (RBC) [Entitic vol] 82 fL Normal 80-100 [facility] Comment on above: Performed By: #### B MP, CBCA #### [facility] ([id number]) [address], [address] [place] [address] Monocytes (Bld) [#/Vol] 0.8 10*3/uL Normal 0-0.9 [facility] Comment on above: Performed By: #### B MP, CBCA #### [facility] ([id number]) [address] [place] [address] Monocytes/100 WBC (Bld) 7.6 % Normal [facility] Comment on above: Performed By: #### B MP, CBCA #### [facility] ([id number]) [address], [address] [place] [address] Neutrophils/100 WBC (Bld) 61.8 % Normal [facility] Comment on above: Performed By: #### B MP, CBCA #### [facility] ([id number]) [address] [place] [address] Platelet mean volume (Bld) [Entitic vol] 8.4 fL Normal 7-12 [facility] Comment on above: Performed By: #### B MP, CBCA #### [facility] ([id number]) [address] [place] [address] Platelets (Bld) [#/Vol] 411 10*3/uL Normal 150-450 [facility] Comment on above: Performed By: #### B MP, CBCA #### [facility] ([id number]) [address], [address] [place] [address] RBC COUNT 4.94 X10E12/L Normal 3.80-5.20 [facility] Comment on above: Performed By: #### B MP, CBCA #### [facility] ([id number]) [address], [address] [place] [address] WBC (Bld) [#/Vol] 10.0 10*3/uL Normal 4.0-11.0 [facility] Comment on above: Performed By: #### B FELIPE PANDYA #### [facility] ([id number]) [address] [place] [address] CBC auto differentialon 08-15 Basophils (Bld) [#/Vol] 0.1 10*3/uL [facility] Basophils/100 WBC (Bld) 0.6 % [facility] Eosinophils (Bld) [#/Vol] 0.2 10*3/uL [facility] Eosinophils/100 WBC (Bld) 1.8 % [facility] Erythrocyte distribution width (RBC) [Ratio] 14.5 % 11.5 - 15.0 % [facility] Hematocrit (Bld) [Volume fraction] 40.7 % 35 - 47 % [facility] Hemoglobin (Bld) [Mass/Vol] 13.4 g/dL 11.7 - 15.5 g/dL [facility] Lymphocytes (Bld) [#/Vol] 2.8 10*3/uL [facility] Lymphocytes/100 WBC (Bld) 28.2 % [facility] MCH (RBC) [Entitic mass] 27.2 pg 27 - 34 pg [facility] MCHC (RBC) [Mass/Vol] 33 g/dL 32 - 36 g/dL [facility] MCV (RBC) [Entitic vol] 82 fL 80 - 100 fL [facility] Monocytes (Bld) [#/Vol] 0.8 10*3/uL [facility] Monocytes/100 WBC (Bld) 7.6 % [facility] Neutrophils (Bld) [#/Vol] 6.2 10*3/uL [facility] Neutrophils/100 WBC (Bld) 61.8 % [facility] Platelet mean volume (Bld) [Entitic vol] 8.4 fL 7 - 12 fL [facility] Platelets (Bld) [#/Vol] 411 10*3/uL [facility] RBC (Bld) [#/Vol] 4.94 10*6/uL [facility] WBC corrected for nucl RBC Auto (Bld) [#/Vol] 10 [facility] Urine Cultureon 08-17-2024 Bacteria identified Cx Nom (U) 50,000 colonies/ml mixed bacterial skin contaminants 2 Days PERFORMED BY: [place] [id number] PATHOLOGIST HAT MARKER ERLINDA PAGE M.D. Normal [facility] Comment on above: Performed By: #### C UU #### [facility] [id number] [facility] CHLAMYDIA/GC PCR, FLon 08-05 CHLAMYDIA/GC PCR, FL [...] are dependent on adequate specimen collection. Normal [facility] Comment on above: Performed By: #### C GTPCR #### [facility] ([id number]) [address] [place] [address] [address] [place] [address] Cytologyon 08-05-2024 Cytology Normal [facility] Comment on above: Result Comment: [facility] [address] [place] [address] Gynecologic Cytology Consultation Patient Name:PURVI DEE:2000 (Age: 24)Gender:FTaken:08/05/2024Reported:08/19/2024Physician(s):Brittney Almeida DO ([phone])Copy To: Rec. #:[id number]: #[id number] Final Cytologic Interpretation ThinPrep Pap Test (Cervical): Satisfactory for evaluation. A transformation zone component is not identified via imaging-assisted review, using Hologic Thin Prep Imaging System, within 22 microscopic zepeda of view. NEGATIVE FOR INTRAEPITHELIAL LESION OR MALIGNANCY. [facility]/08/19/2024 Interpretation performed at [facility], [address] [place] [address], License number: [id number]. Electronically Signed Out By NAVNEET Mcintosh(ASCP) Date of Last Menstrual Period: 05/17/24 Other Clinical Conditions: Clinical History: friable cervix Z12.4 Screening for malignant neoplasm of cervix Z11.3 Encntr screen for infections w sexl mode of transmiss Source of Specimen ThinPrep Pap Test (Cervical) Thin Prep Pap ([employer]) Fee Code(s): G0145 The Pap test is a screening test with an inherent, but low, probability of error. The Pap test is primarily effective for the diagnosis and prevention of squamous cell carcinoma. Regular screening is critical for prevention. ThinPrep liquid-based slides, which meet the Hotel Supplies Salesperson criteria for automated screening, have been screened by the ThinPrep Imaging System (as of 03/02/07) along with an additional manual rescreening by a case management rn and, if indicated, by a pathologist. VAGINITIS [...] clinical presentation to determine patient diagnosis. Normal [facility] Comment on above: Performed By: #### V PPCR #### [facility] ([id number]) [address] [place] [address] Covid-19 PCR (CVDTB)on 05-18 SARS-CoV-2 (COVID-19) RNA ALESSANDRA+probe Ql (Unsp spec) Not detected Normal NOT DETECTED [facility] Comment on above: Result Comment: This test is not yet approved or cleared by the [place] FDA. When there are no FDA-approved or cleared tests available, and other criteria are met, FDA can make tests available under an emergency access mechanism called an Emergency Use Authorization (EUA). The EUA for this test is supported by the [place] of Health and Human Service's (HHS's) declaration [...] SARS-CoV-2. Performed By: #### C VDTBH #### [facility] [address] [place] [address] Dr. Kacie Mirza INFLUENZA A AND B AGon 06-14 [facility] SEE BELOW Normal [facility] Comment on above: Result Comment: Nega tive for Flu A protein angiten. Infection due to Flu A cannot be ruled out. Flu A angiten in the sample may be below the detection limit of the test. Performed By: #### I NFLUAB #### [facility] [address] [place] [address] Dr. [facility] Normal [facility] Comment on above: Result Comment: Nega tive for Flu B protein antigen. Infection due to Flu B cannot be ruled out. Flu B antigen in the sample may be below the detection limit of the test. Performed By: #### I NFLUAB #### [facility] [address] [place] [address] Dr. Kacie Mirza INFLUENZA A AG Negative Normal NEGATIVE SEE COMMENT [facility] Comment on above: Performed By: #### I NFLUAB #### [facility] [address] [address] [address] Kacie Mirza INFLUENZA B AG Negative Normal NEGATIVE SEE COMMENT [facility] Comment on above: Performed By: #### I NFLUAB #### [facility] [address] [address] [address] Kacie Mirza [facility]16 SARS-CoV-2 (COVID-19) RNA ALESSANDRA+probe Ql (Unsp spec) Not detected Normal NOT DETECTED [facility] Comment on above: Result Comment: This test is not yet approved or cleared by the [place] FDA. When there are no FDA-approved or cleared tests available, and other criteria are met, FDA can make tests available under an emergency access mechanism called an Emergency Use Authorization (EUA). The EUA for this test is supported by the [place] of Health and Human Service's (HHS's) declaration [...] SARS-CoV-2. Performed By: #### C VDTBH #### [facility] [address] [place] [address] Dr. Kacie Mirza SYMPTOMATIC COVID-19 ANTIGEN on 11-13-2021 EUA Statement SEE BELOW Normal [facility] [...] sooner. Performed By: #### C VDAGS #### [facility] [address] [place] [address] Dr. Kacie Mirza SARS-CoV-2 (COVID-19) RNA ALESSANDRA+probe Ql (Unsp spec) Negative Normal NEGATIVE [facility] Comment on above: Performed By: #### C VDAGS #### [facility] [address] [place] [address] Dr. Kacie Mirza INSULINon 10-19-2021 Insulin 36.4 uIU/mL Critically high 2.6-24.9 [facility] Comment on above: Performed By: #### I NSULIN #### [facility] [address] [place] [address] Dr. Kacie Mirza CBC AUTO DIFFon 10-18-2021 BASO # 0.1 103/ul Normal 0.0-0.1 [facility] Comment on above: Performed By: #### L IPID, T7, CMP, TSH #### [facility] [address] [place] [address] Dr. Kacie Mirza Basophils/100 WBC (Bld) 0.6 % Normal 0.2-2.0 [facility] Comment on above: Performed By: #### L IPID, T7, CMP, TSH #### [facility] [address] [place] [address] Dr. Kacie Mirza EO # 0.1 103/ul Normal 0.0-0.7 [facility] Comment on above: Performed By: #### L IPID, T7, CMP, TSH #### [facility] [address] [place] [address] Dr. Kacie Mirza Eosinophils/100 WBC (Bld) 0.8 % Critically low 0.9-7.0 [facility] Comment on above: Performed By: #### L IPID, T7, CMP, TSH #### [facility] [address] [place] [address] Dr. Kacie Mirza Erythrocyte distribution width (RBC) [Ratio] 13.6 % Normal 11.0-15.0 [facility] [facility] Comment on above: Performed By: #### L IPID, T7, CMP, TSH #### [facility] [address] [place] [address] Dr. Kacie Mirza Hematocrit (Bld) [Volume fraction] 43.9 % Normal 36.0-48.0 [facility] Comment on above: Performed By: #### L IPID, T7, CMP, TSH #### [facility] [address] [place] [address] Dr. Kacie Mirza Hemoglobin (Bld) [Mass/Vol] 14.2 g/dL Normal 12.0-16.0 [facility] Comment on above: Performed By: #### L IPID, T7, CMP, TSH #### [facility] [address] [place] [address] Dr. Kacie Mirza IG # 0.02 10e3/ul Normal 0.00-0.03 [facility] Comment on above: Performed By: #### L IPID, T7, CMP, TSH #### [facility] [address] [place] [address] Dr. Kacie Mirza IG % 0.2 % Normal 0.0-0.5 [facility] Comment on above: Performed By: #### L IPID, T7, CMP, TSH #### [facility] [address] [place] [address] Dr. Kacie Mirza LYMPH # 3.4 103/ul Normal 1.2-3.8 [facility] Comment on above: Performed By: #### L IPID, T7, CMP, TSH #### [facility] [address] [place] [address] Dr. Kacie Mirza Lymphocytes/100 WBC (Bld) 34.1 % Normal 20.5-60.0 [facility] Comment on above: Performed By: #### L IPID, T7, CMP, TSH #### [facility] [address] [address] [address] Kacie Mirza MANUAL DIFF REQ NO Normal [facility] Comment on above: Performed By: #### L IPID, T7, CMP, TSH #### [facility] [address] [address] [address] Kacie Mirza MCH (RBC) [Entitic mass] 28.1 pg Normal 26.7-34.0 [facility] Comment on above: Performed By: #### L IPID, T7, CMP, TSH #### [facility] [address] [place] [address] Dr. Kacie Mirza MCHC (RBC) [Mass/Vol] 32.3 g/dL Normal 29.9-35.2 [facility] Comment on above: Performed By: #### L IPID, T7, CMP, TSH #### [facility] [address] [place] [address] Dr. Kacie Mirza MCV (RBC) [Entitic vol] 86.8 fL Normal 81.0-99.0 [facility] Comment on above: Performed By: #### L IPID, T7, CMP, TSH #### [facility] [address] [place] [address] Dr. Kacie Mirza MONO # 0.7 103/ul Normal 0.3-0.8 [facility] Comment on above: Performed By: #### L IPID, T7, CMP, TSH #### [facility] [address] [place] [address] Dr. Kacie Mirza Monocytes/100 WBC (Bld) 7.1 % Normal 1.7-12.0 [facility] Comment on above: Performed By: #### L IPID, T7, CMP, TSH #### [facility] [address] [place] [address] Dr. Kacie Mirza NEUT # 5.6 103/ul Normal 1.4-6.5 [facility] Comment on above: Performed By: #### L IPID, T7, CMP, TSH #### [facility] [address] [address] [address] Kacie Mirza Neutrophils/100 WBC (Bld) 57.2 % Normal 43.0-75.0 [facility] Comment on above: Performed By: #### L IPID, T7, CMP, TSH #### [facility] [address] [address] [address] Kacie Mirza Platelet mean volume (Bld) [Entitic vol] 8.9 fL Critically low 9.5-13.5 [facility] Comment on above: Performed By: #### L IPID, T7, CMP, TSH #### [facility] [address] [address] [address] Kacie Mirza PLT 424 103/ul Normal 150-450 [facility] Comment on above: Performed By: #### L IPID, T7, CMP, TSH #### [facility] [address] [address] [address] Kacie Mirza RBC 5.06 106/ul Normal 4.20-5.40 [facility] Comment on above: Performed By: #### L IPID, T7, CMP, TSH #### [facility] [address] [address] [address] Kacie Mirza WBC 9.8 103/ul Normal 4.0-11.0 [facility] Comment on above: Performed By: #### L IPID, T7, CMP, TSH #### [facility] [address] [address] [address] Kacie Mirza FREE THYROXINE INDEX T7on FTI 3.16 Normal [facility] Comment on above: Performed By: #### L IPID, T7, CMP, TSH #### [facility] [address] [address] [address] Kacie Mirza T3U 27.0 % Critically low 30.0-39.0 [facility] Comment on above: Performed By: #### L IPID, T7, CMP, TSH #### [facility] [address] [address] [address] Kacie Mirza T4 [Mass/Vol] 11.70 ug/dL Normal 4.80-13.90 [place] Comment on above: Performed By: #### L IPID, T7, CMP, TSH #### [facility] [address] [address] [address] Kacie Mirza GLYCOHEMOGLOBIN A1Con 2021 ADA RECOMMENDATION SEE BELOW Normal [facility] Comment on above: Result Comment: ADA RECOMMENDED LIMIT 4.0 - 6.0 ADA THERAPEUTIC TARGET < 7.0 ACTION SUGGESTED > 7.0 Performed By: #### L IPID, T7, CMP, TSH #### [facility] [address] [address] [address] Kacie Mirza Glucose [Mass/Vol] 103 mg/dL Normal [facility] Comment on above: Performed By: #### L IPID, T7, CMP, TSH #### [facility] [address] [place] [address] Dr. Kacie Mirza HbA1c (Bld) [Mass fraction] 5.2 % Normal 4.5-6.2 [facility] Comment on above: Performed By: #### L IPID, T7, CMP, TSH #### [facility] [address] [address] [address] Kacie Mirza LIPID PROFILEon 10-18-2021 CHOL-HDL RATIO NORM SEE BELOW Normal [facility] Comment on above: Result Comment: 3.3 - 4.4 LOW RISK 4.4 - 7.1 AVERAGE RISK 7.1 - 11.0 MODERATE RISK >11.0 HIGH RISK Performed By: #### L IPID, T7, CMP, TSH #### [facility] [address] [address] [address] Kacie Mirza Cholesterol [Mass/Vol] 195 mg/dL Normal <=200 [facility] Comment on above: Performed By: #### L IPID, T7, CMP, TSH #### [facility] [address] [address] [address] Kacie Mirza Cholesterol in HDL [Mass/Vol] 43 mg/dL Normal 40-60 [facility] Comment on above: Performed By: #### L IPID, T7, CMP, TSH #### [facility] [address] [address] [address] Kacie Mirza Cholesterol in LDL [Mass/Vol] 122.6 mg/dL Normal [facility] Comment on above: Performed By: #### L IPID, T7, CMP, TSH #### [facility] [address] [address] [address] Kacie Mirza Cholesterol.total/C holesterol in HDL [Mass ratio] 4.5 {ratio} Normal [facility] Comment on above: Performed By: #### L IPID, T7, CMP, TSH #### [facility] [address] [address] [address] Kacie Mirza HDL NORMAL > or = 60 mg/dl - LOW CARDIOVASCULAR RISK <40 mg/dl - HIGH CARDIOVASCULAR RISK Normal [facility] Comment on above: Performed By: #### L IPID, T7, CMP, TSH #### [facility] [address] [address] [address] Kacie Mirza LDL CALC NORMAL SEE BELOW Normal [facility] Comment on above: Result Comment: <100 mg/dl OPTIMAL 100 - 129 mg/dl NEAR OR ABOVE OPTIMAL 130 - 159 mg/dl BORDERLINE HIGH 160 - 189 mg/dl HIGH >190 mg/dl VERY HIGH Performed By: #### L IPID, T7, CMP, TSH #### [facility] [address] [address] [address] Kacie Mirza Triglyceride [Mass/Vol] 147 mg/dL Normal <=150 [facility] Comment on above: Performed By: #### L IPID, T7, CMP, TSH #### [facility] [address] [address] [address] Kacie Mirza VLDL CALC 29.4 mg/dL Normal [facility] Comment on above: Performed By: #### L IPID, T7, CMP, TSH #### [facility] [address] [address] [address] Kacie Mirza PROF 14(COMP METB)on 022 Albumin [Mass/Vol] 3.5 g/dL Normal 3.4-5.[address] [facility] Comment on above: Performed By: #### L IPID, T7, CMP, TSH #### [facility] [address] [address] [address] Kacie Mirza Albumin/Globulin [Mass ratio] 0.8 {ratio} Normal [facility] Comment on above: Performed By: #### L IPID, T7, CMP, TSH #### [facility] [address] [address] [address] Kacie Mirza ALP [Catalytic activity/Vol] 55 U/L Normal 46-116 [facility] Comment on above: Performed By: #### L IPID, T7, CMP, TSH #### [facility] [address] [place] [address] Dr. Kacie Mirza ALT [Catalytic activity/Vol] 24 U/L Normal 14-59 [facility] Comment on above: Performed By: #### L IPID, T7, CMP, TSH #### [facility] [address] [place] [address] Dr. Kacie Mirza Anion gap [Moles/Vol] 9.9 mmol/L Normal [facility] Comment on above: Performed By: #### L IPID, T7, CMP, TSH #### [facility] [address] [place] [address] Dr. Kacie Mirza AST [Catalytic activity/Vol] 14 U/L Critically low 15-37 [facility] Comment on above: Performed By: #### L IPID, T7, CMP, TSH #### [facility] [address] [address] [address] Kacie Mirza Bilirubin [Mass/Vol] 0.3 mg/dL Normal 0.2-1.0 [facility] Comment on above: Performed By: #### L IPID, T7, CMP, TSH #### [facility] [address] [address] [address] Kacie Mirza Calcium [Mass/Vol] 8.6 mg/dL Normal 8.5-10.[address] [facility] Comment on above: Performed By: #### L IPID, T7, CMP, TSH #### [facility] [address] [place] [address] Dr. Kacie Mirza Chloride [Moles/Vol] 101 mmol/L Normal 98-107 [facility] Comment on above: Performed By: #### L IPID, T7, CMP, TSH #### [facility] [address] [address] [address] Kacie Mirza CO2 [Moles/Vol] 27.7 mmol/L Normal 21.0-32.0 [facility] Comment on above: Performed By: #### L IPID, T7, CMP, TSH #### [facility] [address] [address] [address] Kacie Mirza Creatinine [Mass/Vol] 0.93 mg/dL Normal 0.55-1.02 [facility] Comment on above: Performed By: #### L IPID, T7, CMP, TSH #### [facility] [address] [place] [address] Dr. Kacie Mirza EGFR-AF VENEZUELAN >60 Normal >=60 [facility] Comment on above: Performed By: #### L IPID, T7, CMP, TSH #### [facility] [address] [place] [address] Dr. Kacie Mirza EGFR-NON AF VENEZUELAN >60 Normal >=60 [facility] Comment on above: Performed By: #### L IPID, T7, CMP, TSH #### [facility] [address] [place] [address] Dr. Kacie Mirza Globulin (S) [Mass/Vol] 4.6 g/dL Normal [facility] Comment on above: Performed By: #### L IPID, T7, CMP, TSH #### [facility] [address] [place] [address] Dr. Kacie Mirza Glucose [Mass/Vol] 75 mg/dL Normal 74-106 [facility] Comment on above: Performed By: #### L IPID, T7, CMP, TSH #### [facility] [address] [place] [address] Dr. Kacie Mirza Potassium [Moles/Vol] 3.6 mmol/L Normal 3.5-5.1 [facility] Comment on above: Performed By: #### L IPID, T7, CMP, TSH #### [facility] [address] [address] [address] Kacie Mirza Protein [Mass/Vol] 8.1 g/dL Normal 6.4-8.[address] [facility] Comment on above: Performed By: #### L IPID, T7, CMP, TSH #### [facility] [address] [place] [address] Dr. Kacie Mirza Sodium [Moles/Vol] 135 mmol/L Critically low 136-145 [facility] Comment on above: Performed By: #### L IPID, T7, CMP, TSH #### [facility] [address] [place] [address] Dr. Kacie Mirza Urea nitrogen [Mass/Vol] 8.0 mg/dL Normal 7.0-18.0 [facility] Comment on above: Performed By: #### L IPID, T7, CMP, TSH #### [facility] [address] [place] [address] Dr. Kacie Mirza Urea nitrogen/Creatinine [Mass ratio] 8.6 mg/mg Normal [facility] Comment on above: Performed By: #### L IPID, T7, CMP, TSH #### [facility] [address] [place] [address] Dr. Kacie Mirza TSHon 10-18-2021 TSH 2.207 uIU/mL Normal 0.358-3.740 [facility] Comment on above: Performed By: #### L IPID, T7, CMP, TSH #### [facility] [address] [place] [address] Dr. Kacie Mirza TSH RANGE SEE BELOW Normal [facility] Comment on above: Result Comment: <0.3 4 UIU/ml HYPERTHYROID 0.34-5.60 UIU/ml EUTHYROID >5.60 UIU/ml HYPOTHYROID Performed By: #### L IPID, T7, CMP, TSH #### [facility] [address] [place] [address] Dr. Kacie Mirza [facility]on SARS-CoV-2 (COVID-19) RNA ALESSANDRA+probe Ql (Unsp spec) Not detected Normal NOT DETECTED [facility] Comment on above: Result Comment: This test is not yet approved or cleared by the [place] FDA. When there are no FDA-approved or cleared tests available, and other criteria are met, FDA can make tests available under an emergency access mechanism called an Emergency Use Authorization (EUA). The EUA for this test is supported by the Director Heart of Health and Human Service's (HHS's) declaration [...] #### L IPID, T7, CMP, TSH #### [facility] [address] [place] [address] Dr. Kacie Mirza INFLUENZA A AND B AGon 09-20 INFLUANEGH SEE BELOW Normal [facility] Comment on above: Result Comment: Nega tive for Flu A protein angiten. Infection due to Flu A cannot be ruled out. Flu A angiten in the sample may be below the detection limit of the test. Performed By: #### I NFLUAB #### [facility] [address] [place] [address] Dr. Kacie Mirza INFLUBNEGH SEE BELOW Normal [facility] Comment on above: Result Comment: Nega tive for Flu B protein antigen. Infection due to Flu B cannot be ruled out. Flu B antigen in the sample may be below the detection limit of the test. Performed By: #### I NFLUAB #### [facility] [address] [place] [address] Dr. Kacie Mirza INFLUENZA A AG Negative Normal NEGATIVE SEE COMMENT [facility] Comment on above: Performed By: #### I NFLUAB #### [facility] [address] [address] [address] Kacie Mirza INFLUENZA B AG Negative Normal NEGATIVE SEE COMMENT [facility] Comment on above: Performed By: #### I NFLUAB #### [facility] [address], [place] [address] Dr. Kacie Mirza INTERNAL CONTROLS Within Normal Limits Normal Wi thin Normal Limits [facility] Comment on above: Performed By: #### I NFLUAB #### [facility] [address] [id number] Kacie Mirza Vital Signs Date Time Vital Sign Value Performing Clinician Faci lity 01-03-2025 14:58-0400 Body mass index (BMI) [Ratio] 38.22 kg/m2 Jarad Hernandez DO Work Phone: [facility] [employer] 01-03-2025 14:58-0400 Body weight 110.68 kg Jarad Hernandez DO Work Phone: [facility] [employer] 01-03-2025 14:58-0400 Diastolic blood pressure 83 mm[Hg] Jarad Hernandez DO Work Phone: [facility] [employer] 01-03-2025 14:58-0400 Heart rate 105 /min Jarad Hernandez DO Work Phone: [facility] [employer] 01-03-2025 14:58-0400 Systolic blood pressure 132 mm[Hg] Jarad Hernandez DO Work Phone: [facility] [employer] 10-12-2024 09:11-0400 Body height 170.2 cm Brittney Amleida DO Work Phone: [facility] [employer] 10-12-2024 09:11-0400 Body mass index (BMI) [Ratio] 38.65 kg/m2 Britt[facility] 10-12-2024 [id number] Body weight 111.95 kg Brittney Almeida DO [facility] 10-12-2024 09:11-0400 Diastolic blood pressure 86 mm[Hg] Brittney Almeida DO Work Phone: [facility] [employer] 10-12-2024 09:11-0400 Systolic blood pressure 122 mm[Hg] Brittney Almeida DO Work Phone: [facility] 09-08-2024 13:26-0400 Body height 170.2 cm [facility] 09-08-2024 13:26-0400 Body mass index (BMI) [Ratio] 38.37 kg/m2 [facility] 09-08-2024 13:26-0400 Body weight 111.13 kg [facility] 08-31-2024 14:52-0400 Body height 167.6 cm Brittney Almeida DO Work Phone: [facility] 08-31-2024 14:52-0400 Body mass index (BMI) [Ratio] 39.29 kg/m2 Brittney Almeida DO Work Phone: [facility] 08-31-2024 14:52-0400 Body weight 110.41 kg Brittney Almeida DO Work Phone: [facility] 08-31-2024 14:52-0400 Diastolic blood pressure 92 mm[Hg] Brittney Almeida DO Work Phone: [facility] 08-31-2024 14:52-0400 Systolic blood pressure 124 mm[Hg] Brittney Almeida DO Work Phone: [facility] 08-05-2024 14:27-0500 Body mass index (BMI) [Ratio] 40.03 kg/m2 Brittney Almeida DO Work Phone: [facility] 08-05-2024 14:27-0500 Body weight 112.49 kg Brittney Almeida DO Work Phone: [facility] 08-05-2024 14:27-0500 Diastolic blood pressure 90 mm[Hg] Brittney Almeida DO Work Phone: [facility] 08-05-2024 14:27-0500 Systolic blood pressure 146 mm[Hg] Brittney Almeida DO Work Phone: [facility] 06-18-2024 12:12-0500 Body height 170.18 cm [facility] 06-18-2024 12:12-0500 Body mass index (BMI) [Ratio] 35.2 kg/m2 [facility] 06-18-2024 12:12-0500 Body temperature 98.3 [degF] [facility] 06-18-2024 12:12-0500 Body weight 102.05 kg [facility] 06-18-2024 12:12-0500 Diastolic blood pressure 107 mm[Hg] [facility] 06-18-2024 12:12-0500 Heart rate 110 /min [facility] 06-18-2024 12:12-0500 Respiratory rate 18 /min [facility] 06-18-2024 12:12-0500 SaO2% (BldA) [Mass fraction] 96 % [facility] 06-18-2024 12:12-0500 Systolic blood pressure 157 mm[Hg] [facility] Encounters Encounter Date Encounter Type Care Provider Facility Start: 02-21-2025 End: 02-21-2025 ambulatory [facility] Start: 02-18-2025 End: 02-20-2025 ambulatory [facility] Start: 02-18-2025 End: 02-20-2025 Subsequent hospital visit by physician Cristiane Contreras [facility] Non-Invasive Cardiology Comment on above: Palpitations Start: 02-04-2025 End: 02-04-2025 Telephone encounter Jarad M Tenisha DO Work Phone: [facility] Start: 01-21-2025 End: 01-21-2025 ambulatory [facility] Start: 01-19-2025 End: 01-19-2025 Orders Only Jarad Hernandez DO Work Phone: [facility] Comment on above: 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) Start: 01-03-2025 End: 01-03-2025 Office outpatient new 30 minutes Jarad Rosio Tenisha DO Work Phone: [facility] Comment on above: Palpitations (Primar y Dx); Congenital occlusion of iliac vein; Female pelvic congestion syndrome; Varicosities of pelvis Start: 01-03-2025 End: 01-03-2025 ambulatory JARAD HERNANDEZ [facility] Start: 11-15-2024 End: 11-15-2024 ambulatory [facility] Start: 10-12-2024 End: 10-12-2024 Postop follow up visit related to original px Brittney L Almeida DO Work Phone: [facility] Comment on above: Routine f ollow-up (Primary Dx); Pelvic congestion; Vaginal discharge Start: 10-12-2024 End: 10-12-2024 ambulatory [facility] Start: 10-09-2024 End: 10-09-2024 Emergency department patient visit CAMILLE M [facility] Start: 09-30-2024 End: 09-30-2024 Orders Only Brittney Almeida DO Work Phone: [facility] Comment on above: Dysmenorrhea (Primar y Dx); Chronic pelvic pain in female; Menorrhagia with irregular cycle; Pelvic congestion Start: 09-29-2024 End: 09-29-2024 Evaluation and management of inpatient CINTHIA White [facility] Start: 09-29-2024 End: 09-29-2024 Evaluation and management of inpatient [facility] Start: 09-08-2024 End: 09-08-2024 Patient encounter procedure [facility] Pre-Admission Testing [facility] - Pre Ad[facility] Comment on above: Preop examination (P rimary Dx); Hypertension, unspecified type; PCOS (polycystic ovarian syndrome) Start: 09-08-2024 End: 09-08-2024 Preprocedural examination done [facility] 1 [facility] Start: 09-08-2024 End: 09-08-2024 ambulatory CAMILLE M [facility] Start: 09-08-2024 Encounter for other preprocedural examination [facility] Start: 09-01-2024 End: 09-01-2024 Telephone encounter Brittney Pantoja Almeida DO Work Phone: [facility] Start: 08-31-2024 End: 08-31-2024 Admission to same day surgery center Brittney Almeida DO Work Phone: [facility] Start: 08-31-2024 End: 08-31-2024 Office outpatient visit 25 minutes Brittney Almeida DO Work Phone: [facility] Comment on above: Preoperative exam fo r gynecologic surgery (Primary Dx); Chronic pelvic pain in female; Dysmenorrhea; Menorrhagia with irregular cycle Start: 08-31-2024 End: 08-31-2024 ambulatory [facility] Start: 08-31-2024 Encounter for other preprocedural examination [facility] Start: 08-17-2024 End: 08-17-2024 ambulatory Johnny Nilesh Facility:[facility] Start: 08-17-2024 End: 08-17-2024 Departed Referred Johnny Galloway DO Work Phone: [facility] Start: 08-06-2024 End: 08-06-2024 Telephone encounter Yadira Mtz [employer] Work Phone: [facility] Start: 08-05-2024 End: 08-05-2024 ambulatory [facility] Start: 08-05-2024 End: 08-05-2024 Office outpatient new 30 minutes Brittneyfidel Almeida DO Work Phone: [facility] Comment on above: Pelvic pain (Primary Dx); Screening for cervical cancer; Screen for STD (sexually transmitted disease); Friable cervix; Vaginal discharge; PCOS (polycystic ovarian syndrome) Start: 08-05-2024 End: 08-05-2024 ambulatory [facility] Start: 07-12-2024 End: 07-21-2024 Telephone encounter Bianca Logan MD Work Phone: [facility] Start: 06-18-2024 End: 06-18-2024 ambulatory [facility] Work Phone: Start: 06-18-2024 End: 06-18-2024 Patient encounter procedure [facility] Work Phone: Start: 06-14-2022 End: 06-14-2022 ambulatory KRYSTAL NICOLAS Facility:[facility] Start: 11-13-2021 End: 11-13-[address] CAMILLE GARCES Facility:[facility] Start: 10-23-2021 Encounter for genera l adult medical examination without abnormal findings DR CAMILLE GARCES [facility] Start: 10-18-2021 End: 10-19-[address] CAMILLE GARCES Facility:H1 Start: 10-18-2021 End: 10-19-2021 Encounter for general adult medical examination without abnormal findings DR CAMILLE GARCES Facility:[facility]1 Start: 09-20-2021 End: 09-20-[address] CAMILLE GARCES Facility:[facility]1 Procedures Date Procedure Procedure Detail Performing Clinician Start: 08-31-2024 Follow-up visit Follow-up BRITTNEY ALMEIDA Start: 08-05-2024 Microscopic observat ion [Identifier] in Cervix by Cyto stain Brittney Almeida DO Work Phone: Plan of Treatment Date Care Activity Detail Author Start: 08-05-2027 Screening for malign ant neoplasm of cervix [facility] Start: 01-13-2026 Tobacco Screening Tobacco Screening [facility] Start: 01-03-2026 Adult BMI Screening Adult BMI Screen ing [facility] Start: 10-12-2025 Adult BMI Screening Adult BMI Screen ing [facility] Start: 10-12-2025 Tobacco Screening Tobacco Screening [facility] Start: 09-30-2025 End: 09-30-2025 MR Abdomen and Pelvis W contrast PO and WO and W contrast IV MRV abdomen pelvic congestion with and without contrast Imaging Routine Dysmenorrhea Chronic pelvic pain in female Menorrhagia with irregular cycle Pelvic congestion Expected: 09/30/2025 (Approximate), Expires: 09/30/2025 [facility] Comment on above: Expected: 09/30/2025 (Approximate), Expires: 09/30/2025 Start: 09-30-2025 End: 09-30-2025 MRA Pelvis vessels MRV pelvis pelvic congestion with and without contrast Imaging Routine Dysmenorrhea Chronic pelvic pain in female Menorrhagia with irregular cycle Pelvic congestion Expected: 09/30/2025 (Approximate), Expires: 09/30/2025 [facility] Work Phone: Comment on above: Expected: 09/30/2025 (Approximate), Expires: 09/30/2025 Start: 09-29-2025 Adult BMI Screening Adult BMI Screen ing [facility] Start: 09-29-2025 Tobacco Screening Tobacco Screening [facility] Start: 09-08-2025 Adult BMI Screening Adult BMI Screen ing [facility] Start: 09-08-2025 Tobacco Screening Tobacco Screening [facility] Start: 08-31-2025 Adult BMI Screening Adult BMI Screen ing [facility] Start: 08-31-2025 Tobacco Screening Tobacco Screening [facility] Start: 08-05-2025 Adult BMI Screening Adult BMI Screen ing [facility] Start: 08-05-2025 Tobacco Screening Tobacco Screening [facility] Start: 02-21-2025 End: 02-21-2025 Patient encounter procedure 02/21/2025 11:30 AM EDT Office Visit [facility] [address] [place] [address] [place] [address] [place] [address] [place] [address] [facility] Start: 02-14-2025 COVID-19 Vaccine ( season) COVID-19 Vaccine ( season) [facility] Start: 02-14-2025 Influenza vaccination Influenza Vacc ine [facility] Start: 01-21-2025 End: 01-21-2025 Patient encounter procedure 01/21/2025 1:00 PM EDT Appointment [facility] [address] [facility] [place] [id number] Jarad Hernandez DO [address] [facility] [address] [place] [address] [facility] Start: 01-14-2025 Influenza vaccination Flu vaccine (# 1) [facility] Start: 01-03-2025 End: 01-03-2026 CTA Abdominal veins and Pelvis veins W contrast IV CT venogram abdomen and pelvis Imaging Routine Congenital occlusion of iliac vein Expected: 01/03/2025, Expires: 01/03/2026 [employer] Work Phone: Comment on above: Expected: 01/03/2025 , Expires: 01/03/2026 Start: 01-03-2025 End: 01-03-2026 Tilt table study Tilt table study Cardiac Services Routine Palpitations Expected: 01/03/2025, Expires: 01/03/2026 [facility] Comment on above: Expected: 01/03/2025 , Expires: 01/03/2026 Start: 09-29-2024 End: 09-29-2024 Admission to same day surgery center 09/29/2024 9:30 AM EDT - 09/29/2024 11:00 AM EDT Surgery [facility] Surgery [address] [place] [id number] Brittney Almeida, DO [address] [place] [address] [facility] [42948 (CPT )] [facility] Comment on above: LAPAROSCOPY DIAGNOST IC [64652 (CPT )] Start: 09-29-2024 End: 09-29-2024 Anesthesia consultation 09/29/2024 9:30 AM EDT Anesthesia Event [facility] Surgery [address] [place] [phone] Cinthia Perea, DO [address] [place], [place] [id number] [facility] Start: 09-29-2024 End: 09-29-2024 Laps abd prtm&omentum dx w/wo spec br/wa spx [facility] chronic pelvic pain 09/29/2024 9:30 AM EDT [facility] Start: 09-29-2024 Subsequent hospital visit by physician 09/29/2024 9:30 AM EDT Hospital Encounter [facility] [address] [place] [address] Brittney Almeida DO [address] [place] [address] [facility] Start: 09-08-2024 End: 09-08-2024 Patient encounter procedure 09/08/2024 1:30 PM EDT Procedure visit [facility] [address] [place] [address] [facility] Start: 08-31-2024 End: 08-31-2024 Patient encounter procedure 08/31/2024 2:30 PM EDT Office Visit [facility] [address] [place] [phone] Brittney Almeida DO [address] [place] [address] [facility] Start: 08-17-2024 Bacteria identified in Urine by Culture Urine Culture [facility] Start: 08-17-2024 Urine culture [facility] Start: 08-05-2024 End: 08-05-2024 Patient encounter procedure 08/05/2024 2:30 PM EST Office Visit [facility] [address] [place] [phone] Brittney Almeida DO [address] [place], [place] [id number] [facility] Start: 02-15-2024 Influenza vaccination Influenza Vacc ine [facility] Start: 09-15-2021 DTaP,Tdap and Td Vaccines (6 - Td or Tdap) DTaP,Tdap and Td Vaccines (6 - Td or Tdap) [facility] Start: 09-15-2021 DTaP/Tdap/Td vaccine (6 - Td or Tdap) DTaP/Tdap/Td vaccine (6 - Td or Tdap) [facility] Start: 2020 Screening for malign ant neoplasm of cervix Pap Smear [facility] Start: 2017 Adult BMI Follow Up Plan Adult BMI Follow Up Plan [facility] Start: 2017 Adult BMI Screening Adult BMI Screen ing [facility] Start: 2017 Hepatitis C screening Hepatitis C sc reen [facility] Start: 2014 HIV screening HIV screen [facility] Start: 2011 Depression Screen Depression Screen [facility] Start: 2011 Depression Screening Depression Scre ening [facility] Start: 2011 Tobacco Screening Tobacco Screening [facility] Start: 2003 Polio vaccine (4 of 4 - 4-dose series) Polio vaccine (4 of 4 - 4-dose series) [facility] Start: 2003 Varicella vaccine (2 of 2 - 2-dose childhood series) Varicella vaccine (2 of 2 - 2-dose childhood series) [facility] End: 08-05-2025 Chlamydia/Gonorrhoeae by PCR, Fluid Chlamydia/Gonorrhoeae by PCR, Fluid Microbiology Routine Screening for cervical cancer Screen for STD (sexually transmitted disease) Friable cervix 1 Occurrences starting 08/05/2024 until 08/05/2025 [facility] Comment on above: 1 Occurrences starti ng 08/05/2024 until 08/05/2025 Chlamydia/Gonorrhoea e by PCR, Fluid Chlamydia/Gonorrhoeae by PCR, Fluid Microbiology Routine Screening for cervical cancer Screen for STD (sexually transmitted disease) Friable cervix 08/05/2024 6:45 PM EST [facility] End: 01-19-2026 Creatinine includes GFR, serum Creatinine includes GFR, serum Lab Routine Female pelvic congestion syndrome 1 Occurrences starting 01/19/2025 until 01/19/2026 [employer] Work Phone: Comment on above: 1 Occurrences starti ng 01/19/2025 until 01/19/2026 End: 08-05-2025 Cytology report of Cervical or vaginal smear or scraping Cyto stain.thin prep Pap Smear Pathology and Cytology Routine Screening for cervical cancer 1 Occurrences starting 08/05/2024 until 08/05/2025 [employer] Work Phone: Comment on above: 1 Occurrences starti ng 08/05/2024 until 08/05/2025 End: 02-18-2025 [facility] Comment on above: 1 Occurrences starti ng 02/18/2025 until 02/18/2025 End: 08-05-2025 Vaginitis Panel PCR Vaginitis Panel PCR Microbiology Routine Friable cervix Vaginal discharge 1 Occurrences starting 08/05/2024 until 08/05/2025 [facility] Comment on above: 1 Occurrences starti ng 08/05/2024 until 08/05/2025 Vaginitis Panel PCR Vaginitis Pa rivas PCR Microbiology Routine Friable cervix Vaginal discharge 08/05/2024 6:45 PM EST [employer] Payers Date Payer Category Payer Self-pay 2023 Medicaid [facility] [id number] 1999 Unknown [id number] [id number] 1999 Unknown [id number] 2.16.840.1.051485.3.579.2.593 1999 Unknown [id number] 2.16.840.1.603259.3.579.2.593 1999 Unknown [id number] 2.16.840.1.612288.3.579.2.593 1999 Unknown [id number] 2.16.840.1.928632.3.579.2.1286 1999 Unknown [id number] 2.16.840.1.868949.3.579.2.1286 1999 Unknown [id number] 2.16.840.1.008751.3.579.2.1286 1999 Unknown [id number] 2.16.840.1.194778.3.579.2.1286 1999 Unknown [id number] 2.16.840.1.266830.3.579.2.1286 1999 Unknown [id number] 2.16.840.1.929688.3.579.2.1286 1999 Unknown [id number] 2.16.840.1.723914.3.579.2.1286 1999 Unknown [id number] 2.16.840.1.842727.3.579.2.1286 1999 Unknown [id number] 2.16.840.1.842131.3.579.2.1286 1999 Unknown [id number] 2.16.840.1.828366.3.579.2.1286 1999 Unknown [id number] 2.16.840.1.179724.3.579.2.173 1999 Unknown [id number] 2.16.840.1.213716.3.579.2.1286 1999 Unknown [id number] 2.16.840.1.415465.3.579.2.1286 1999 Unknown [id number] 2.16.840.1.879907.3.579.2.1286 1999 Unknown [id number] 2.16.840.1.267853.3.579.2.1286 1999 Unknown [id number] 2.16.840.1.979747.3.579.2.1286 1959 Unknown [id number] 1959 Unknown [id number] Social History Date Type Detail Facility Start: 05-17-2022 End: 06-18-2024 Tobacco smoking status NEIS Never smoked tobacco (finding) [facility] Start: 04-26-2022 End: 06-18-2024 Sex Female (finding) [facility] Start: 2000 Sex Assigned At Female F [facility] Tobacco smoking stat [facility] Tobacco smoking consumption unknown [facility] Start: 08-23-2020 End: 05-17-2022 History of Social function [facility] [employer] Work Phone: Start: 08-23-2020 End: 05-17-2022 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 [facility] [employer] Work Phone: Start: 02-11-2025 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 Unknown [facility] [employer] Work Phone: Start: 1999 Sex assigned at Not on file P [facility] Start: 05-17-2022 End: 08-05-2024 Tobacco use and exposure Smokeless tobacco non-user [facility] Start: 08-05-2024 End: 01-13-2025 Alcoholic beverage intake Ex-drinker (finding) [facility] Start: 05-17-2022 Alcoholic beverage intake Lifetime non-drinker (finding) [facility] Start: 02-11-2025 Gender identity Identifies as female gender (finding) [facility] Clinical Notes 06-18-2024 to 02-18-2025 Annabelle Ashley RN - 02/18/2025 2:30 PM EDTTelephone [place] - Petr Cintron - 02/04/2025 4:24 PM EDTTelephone Encounter - Petr Cintron - 02/04/2025 4:24 PM EDTPatient Instructions Note Date & Type Note Facility 02-18-2025 History of Presen t illness Narrative Instructed on objectives and procedure of a tilt study documented in this encounter [facility] 02-04-2025 Miscellaneous Notes Called patient phone but her line has our number under restrictions and not able to get through; called her mother and LVM to call the office to see if she got her tilt table study scheduled; patient has follow up with dr hernandez 02/21; please assist documented in this encounter [facility] 02-04-2025 Telephone encounter Note Called patient phone but her line has our number under restrictions and not able to get through; called her mother and LVM to call the office to see if she got her tilt table study scheduled; patient has follow up with dr hernandez 02/21; please assist [facility] 01-03-2025 History of Presen t illness Narrative Images from the original note were not included. CC: Chief Complaint Patient presents with Circulatory Problem New patient- pelvic congestion- testing done 24 y.o. female with h/o polycystic ovarian syndrome and c/o chronic pelvic pain. 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 Has been following w/ electrician journeyman wireman for ongoing pelvic pain. Pt c/o severe intermittent lower abd and pelvic period type cramps and soreness. Pain/pressure is intermittent and worsens pre/post menstruation. No obvious/significant leg size discrepancies. +R LE pain down to the knee intermittently. No significant LLE pain. No obvious varicose veins in labial region. No hematuria. Not sexually active, does not use tampons. +Hyperhidrosis. 4/16/25: diagnostic laparoscopy - not acute electrician journeyman wireman findings. +multiple dilated vessels noted throughout pelvis [...] 09/29/2024 Performed by Brittney Almeida DO at [facility] ROS: Review of Systems Respiratory: Positive for shortness of breath. W/ carrying objects Cardiovascular: Negative for chest pain and leg swelling. Gastrointestinal: Negative for abdominal pain and blood in stool. No hemorrhoids Genitourinary: Positive for pelvic pain. Negative for difficulty urinating, hematuria and vaginal pain. Skin: Negative for rash and wound. Never Smoker Personal history of: negative: CVA negative: DVT, PE negative: ID, CAD +h/o HTN negative: PAD, PVD, claudication [...] occlusion of iliac vein - [facility] [place], [place] - CT venogram abdomen and pelvis; Future Female pelvic congestion syndrome - [facility] [place] Varicosities of pelvis - [facility] [place] 1. 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 Varicosities of pelvis - [facility] [place] 4. Palpitations - Tilt table study; Future [...] DO Vascular Surgery documented in this encounter [facility] 10-12-2024 History of Presen t illness Narrative [...] usage of antibiotics. documented in this encounter [facility] 09-30-2024 History of Presen t illness Narrative Order for MRI to evaluate for possible pelvic congestion syndrome. Patient was noted to have multiple darkened, enlarged tortuous appearing vessels throughout her pelvis on diagnostic laparoscopy consistent with possible pelvic congestion. If MRI proves pelvic congestion will plan on consult Interventional Radiology for treatment. documented in this encounter [facility] 09-08-2024 Instructions Delaney Cho RN - 09/08/2024 1:30 PM EDT Preoperative Education Checklist- General Surgery date: 09/29/24 Surgery time: 09 Arrival time: 729 1. Bring a photo ID and your insurance card with you the day of surgery. You will check in at the main lobby of the [facility]- registration desk is straight ahead as soon as you walk in. Tell them you are here for surgery. 2. If you have a Living Will/Durable Power of Tower Equipment Repairer for Health Care that is not on [...] after you have bathed. 5. NO nail ivorian/acrylic on at least one finger. If you are having a hand, wrist or foot surgery then all nail ivorian and artificial/acrylic nails must be removed from [...] please call the Preadmission Testing office at [phone], Mon.-Fri. 7 a.m.-3 p.m. Leave a voicemail [...] with your doctor. documented in this encounter [facility] 09-08-2024 Miscellaneous Notes Preoperative Education Checklist- General Surgery date: 09/29/24 Surgery time: 0930 a.m. Arrival time: 0730 a.m. 1. Bring a photo ID and your insurance card with you the day of surgery. You will check in at the main lobby registration desk as soon as you walk in the entrance. 2. If you have a Living Will/Durable Power of Tower Equipment Repairer for Health Care that is not on file here, please bring a copy the day of surgery. 3. Please wash your face with baby shampoo prior to procedure as instructed by your physician. 4. NO powder, lotion, perfume/cologne, aftershave, make-up, nail ivorian on at least one finger, deodorant, or [...] please call the Preadmission Testing office at [phone], Mon.-Fri. 7 a.m.-3 p.m. Leave a voicemail [...] in at the main lobby of the [facility]- registration desk is straight ahead as soon as you walk in. Tell them you are here for surgery. 2. If you have a Living Will/Durable Power of Tower Equipment Repairer for Health Care that is not on [...] after you have bathed. 5. NO nail ivorian/acrylic on at least one finger. If you are having a hand, wrist or foot surgery then all nail ivorian and artificial/acrylic nails must be removed from [...] please call the Preadmission Testing office at [phone], Mon.-Fri. 7 a.m.-3 p.m. Leave a voicemail [...] mother verbalized understanding. documented in this encounter [facility] 09-08-2024 Nurse Note Preoperative Education Checklist- General Surgery date: 09/29/24 Surgery time: 0930 a.m. Arrival time: 0730 a.m. 1. Bring a photo ID and your insurance card with you the day of surgery. You will check in at the main lobby registration desk as soon as you walk in the entrance. 2. If you have a Living Will/Durable Power of Tower Equipment Repairer for Health Care that is not on file here, please bring a copy the day of surgery. 3. Please wash your face with baby shampoo prior to procedure as instructed by your physician. 4. NO powder, lotion, perfume/cologne, aftershave, make-up, nail ivorian on at least one finger, deodorant, or [...] please call the Preadmission Testing office at [phone], Mon.-Fri. 7 a.m.-3 p.m. Leave a voicemail [...] to the follow-up appointment with your doctor. [facility] 09-08-2024 Nurse Note Preoperative Education Checklist- General Surgery date: 09/29/24 Surgery time: 929 Arrival time: 729 1. Bring a photo ID and your insurance card with you the day of surgery. You will check in at the main lobby of the [facility]- registration desk is straight ahead as soon as you walk in. Tell them you are here for surgery. 2. If you have a Living Will/Durable Power of Tower Equipment Repairer for Health Care that is not on [...] after you have bathed. 5. NO nail ivorian/acrylic on at least one finger. If you are having a hand, wrist or foot surgery then all nail ivorian and artificial/acrylic nails must be removed from [...] please call the Preadmission Testing office at [phone], Mon.-Fri. 7 a.m.-3 p.m. Leave a voicemail [...] go swimming or use a hot tub (Balzouzzi), or perform activities where your incision is [...] to the follow-up appointment with your doctor. [facility] 09-08-2024 Nurse Note Hibiclens and surgical instructions reviewed. Patient and her mother verbalized understanding. [facility] 09-01-2024 Miscellaneous Notes Patient scheduled for surgery with Dr. Almeida on 09/29/24 at 9:30am with hospital arrival of 7:30am. PAT scheduled on 09/08/24 at 1:30pm. Patient notified of all dates and times. Surgery information letter mailed to Patient. documented in this encounter [facility] 09-01-2024 Telephone encounter Note Patient scheduled for surgery with Dr. Almeida on 09/29/24 at 9:30am with hospital arrival of 7:30am. PAT scheduled on 09/08/24 at 1:30pm. Patient notified of all dates and times. Surgery information letter mailed to Patient. [facility] 08-31-2024 History of Presen t illness Narrative [...] fulguration of endometriosis. documented in this encounter [facility] 08-06-2024 Miscellaneous Notes Call to pt. To discuss results. Pt. Advised Vaginitis panel negative and GC/CT pending. Pt. Verbalized understanding. documented in this encounter [facility] 08-06-2024 Telephone encounter Note Call to pt. To discuss results. Pt. Advised Vaginitis panel negative and GC/CT pending. Pt. Verbalized understanding. [facility] Work Phone: 08-05-2024 History of Presen t [...] was told to follow up with a PAINTER STRUCTURAL STEEL. She is on a 90 day OCP to help with her PCOS symptoms. She does report pelvic pain that is chronic. She states she can just be walking and have pain shoot through her sides. She did just have a pelvic US in [place]. She states that she is interested in [...] with results 2. Pelvic ultrasound performed at [place] was reviewed. Patient has a normal-size, normal-shaped uterus, with a 6 mm endometrium, normal-sized right and left ovaries with functional follicles, and no grossly abnormal findings. 3. We did review with patient that an elective hysterectomy at 24 years of age is not the procedure we would be willing to do, and we then likely would not be a procedure most plumber would be willing to do for a [...] the ovaries at 24 would result in group home health detriments. Patient voices understanding. We [...] a future date. documented in this encounter [facility] 07-12-2024 Miscellaneous Notes Referral received from AISSATOU Foley at [facility] to be seen for palpable lump in vaginal canal. Pt was seen in [place] ED & had transvaginal U/S done. Need date of visit to obtain visit notes & U/S. LVM for Pt to call Office to schedule appointment. Pt returned call & is scheduled with Dr. Almeida on 08/05/24 in [facility] Office. Pt states she was seen at [facility] on 06/28/24 for U/S. Spoke with Lety in HIM at [facility] to request ultrasound done on 06/28/24. Ultrasound received & scanned into Media. documented in this encounter [facility] 07-12-2024 Telephone encounter Note Referral received from AISSATOU Foley at [facility] to be seen for palpable lump in vaginal canal. Pt was seen in [place] ED & had transvaginal U/S done. Need date of visit to obtain visit notes & U/S. LVM for Pt to call Office to schedule appointment. [facility] 07-12-2024 Telephone encounter Note Pt returned call & is scheduled with Dr. Almeida on 08/05/24 in [facility] Office. Pt states she was seen at [facility] on 06/28/24 for U/S. [facility] 07-12-2024 Telephone encounter Note Spoke with Lety in HIM at [facility] to request ultrasound done on 06/28/24. [facility] 07-12-2024 Telephone encounter Note Ultrasound received & scanned into Media. [facility] 06-18-2024 Evaluation note Diagnosis Onset Date Resolution Low back strain acute June 182024 11:00am [facility] Work Phone: Evaluation note* Diagnosis Onset Date Resolution Status Admit Date Low back strain acute June 182024 11:00am [facility] Work Phone: Evaluation note* Diagnosis Pelvic pain- Primary Screening for cervical cancer Screening for malignant neoplasm of the cervix Screen for STD (sexually transmitted disease) Screening examination for venereal disease Friable cervix Vaginal discharge Leukorrhea, not specified as infective PCOS (polycystic ovarian syndrome) Polycystic ovaries [facility] Preoperative exam for gynecologic surgery- Primary Chronic pelvic pain in female Unspecified symptom associated with female genital organs Dysmenorrhea Menorrhagia with irregular cycle [facility] Pre[facility] examination- Primary Unspecified pre-operative examination Hypertension, unspecified type PCOS (polycystic ovarian syndrome) Polycystic ovaries Preop examination Unspecified pre-operative examination Hypertension, unspecified type PCOS (polycystic ovarian syndrome) Polycystic ovaries [facility] Diagnosis Dysmenorrhea- Primary Chronic pelvic pain in female Unspecified symptom associated with female genital organs Menorrhagia with irregular cycle Pelvic congestion Pelvic congestion syndrome [facility] Routine follow-up- Primary Pelvic congestion Pelvic congestion syndrome Vaginal discharge Leukorrhea, not specified as infective [facility] Diagnosis Palpitations- Primary 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 * Polycystic ovary syndrome (Polish) * Chronic pelvic pain in females (Polish) [facility] SystemInstructionsNot on file documented in this encounterOhioHealth SystemInstructions* Attachments The following attachments cannot be sent through Care Everywhere. * Minimally invasive surgery (Polish) * Endometriosis (Polish) documented [facility] SystemInstructionsNot on file documented in this encounterPro[facility] SystemInstructionsNot on file documented in this encounterPro[facility] SystemInstructionsNot on file documented in this encounterPro[facility] SystemInstructionsNot on file documented in this encounterProMedica Health SystemReason for visit Narrative* Cardiology (Routine) - Pending Review Specialty Diagnoses / Procedures Referred By [place] t Referred To Contact Cardiology Diagnoses Palpitations Procedures Tilt table Jarad Hernandez DO [address] [place] [address] Phone: tel: fax: Referral ID Status Reason Start Date Expiration Date V isits Requested Visits Authorized [id number] Pending Review 01/05/2025 01/05/2026 1 1 [facility] Summary Purpose Family History No Family [...] and content) DATE CREATED AUTHOR 06/14/2022 [facility] DATE CREATED AUTHOR AUTHOR'S ORGANIZ ATION 08/19/2024 [facility] DATE CREATED AUTHOR AUTHOR'S ORGANIZ ATION 11/19/2024 [facility] DATE CREATED AUTHOR AUTHOR'S ORGANIZ ATION 01/26/2025 [facility] DATE CREATED AUTHOR AUTHOR'S ORGANIZ ATION 02/21/2025 [facility] DATE CREATED AUTHOR AUTHOR'S ORGANIZ ATION [facility] Care Teams (unrecognized sec tion and content) Team Status: Active Member Role Status Dates Camille Garces MD Primary Care Provider Active Team Status: Inactive Member Role Status Dates Cassie Linda APRN Attending Provider Active Start: June 18, 2024 End: June 18, 2024 Camille Garces MD Primary Care Provider Active Start: June 18, 2024 End: June 18, 2024 [employer] Relationship Specialty Start Date End Date Camille Garces MD PCP - General Family Medicine 09/04/20 [employer] Relationship Specialty Start Date End Date Camille Garces MD PCP - General Family Medicine 09/04/20 [employer] Relationship Specialty Start Date End Date Camille Garces MD PCP - General Family Medicine 09/04/20 Team Status: Inactive Member Role Status Dates Johnny Galloway DO Attending Provider Active Start : August 17, 2024 End: August 17, 2024 [employer] Relationship Specialty Start Date End Date Camille Garces MD PCP - General Family Medicine 09/04/20 [employer] Relationship Specialty Start Date End Date Camille Garces MD PCP - General Family Medicine 09/04/20 [employer] Relationship Specialty Start Date End Date Camille Garces MD PCP - General Family Medicine 09/04/20 [employer] Relationship Specialty Start Date End Date Camille Garces MD PCP - General Family Medicine 09/04/20 [employer] Relationship Specialty Start Date End Date Camille Garces MD PCP - General Family Medicine 10/09/24 [employer] Relationship Specialty Start Date End Date Camille Garces MD PCP - General Family Medicine 10/09/24 [employer] Relationship Specialty Start Date End Date Camille Garces MD PCP - General Family Medicine 10/09/24 [employer] Relationship Specialty Start Date End Date Camille Garces MD PCP - General Family Medicine 10/09/24 [employer] Relationship Specialty Start Date End Date Camille Garces MD [address] [place] [address] PCP - General Family Medicine 04/26/22 Goals (unrecognized section and content) Goals may [...] syndrome Varicosities of pelvis Brittney Almeida DO [address] [place] [address] Phone: tel: fax: [facility] [address] [place] [address] Phone: tel:[phone] fax: Referral ID Status Reason Start Date Expiration Date Visits Requested Visits Authorized [id number] Pending Review Specialty Services Required 11/23/2024 11/23/2025 [...] BE BASED ON THE PRIMARY CLINICAL RECORDS. [facility] [employer] provides no warranty or guarantee of the accuracy or completeness of information in this document.
== END 2025-03-02 19:46 | disposition home or self-care (01) ==
LOC: SLEEP 19:46
PROVIDERS: PCP Family Medicine; Visit Provider Family Medicine
DX: G47.33 Obstructive sleep apnea (adult) (pediatric) (principal)
CPT/HCPCS: 95811